=== PATIENT | male | born 1945 | race Caucasian/White ===

== ENCOUNTER → 2018-01-26 08:50 | Outpatient (CLI) | payer MEDICARE, SELFPAY ==
[2018-01-26 10:12] LABS: Absolute Lymphocyte Count 1.19 X10^3/ul (0.83-4.51); Absolute Neutrophil Count 2.6 X10^3/uL (2.0-7.7); Basophil# 0.07 X10^3/uL; Basophil% 1.4 % (0-1); Eosinophil# 0.47 X10^3/uL; Eosinophils% 9.6 % (0-5); Hematocrit 37.2 % (40-54); Hemoglobin 12.7 g/dl (13.0-16.5); Lymphocyte # 1.19 X10^3/ul (4.0); Lymphocyte % 24.3 % (19-41); Mean Corp Hgb Conc 34.1 g/gl (32-36); Mean Corpuscular Hgb 32.6 pg (27.0-32.0); Mean Corpuscular Volume 95.4 fL (80-94); Mean Platelet Vol. 11.7 fl (6.2-12.0); Monocyte# 0.57 X10^3/uL; Monocyte% 11.6 % (0-10); Neutrophil % 53.1 % (47-70); Platelet Count 223 K/mm3 (150-450); RBC Distribution Width CV 13.4 % (11.6-14.6); RBC Distribution Width SD 45.4 fl (35.1-43.9); White Blood Count 4.9 K/mm3 (4.4-11.0)
[2018-01-26 10:26] LABS: ALB/GLOB Ratio 1.1 RATIO (0.9-2.4); AST(SGOT) 27 U/L (15-37); Alanine Aminotransfer ALT/SGPT 42 U/L (16-61); Albumin, Serum 3.7 g/dL (3.2-5.0); Alkaline Phosphatase 35 U/L (45-117); Anion Gap 6 (5-15); BUN 27 mg/dL (7-18); BUN/Creat Ratio 23.7 RATIO (10-20); Calcium,Total 9.4 mg/dL (8.5-10.1); Chloride 104 mmol/L (98-107); Creatinine, Serum 1.14 mg/dL (0.70-1.30); EST Glomerular Filtration Rate 67 mL/min (>60); Est Glom Filt Rate - Afr Amer 81 mL/min (>60); Globulin 3.4 g/dL (2.2-4.2); Glucose 107 mg/dL (74-106); Potassium 3.5 mmol/L (3.5-5.1); Protein, Total 7.1 g/dL (6.4-8.2); Sodium Level 138 mmol/L (136-145)
[2018-01-26 10:31] LABS: POSITIVE COUNT NO; POSITIVE DIFFERENTIAL NO; POSITIVE MORPHOLOGY NO
== END ==
PROVIDERS: Family Provider Internal Medicine; PCP Internal Medicine; Visit Provider Internal Medicine Rheumatology
DX: M06.4 Inflammatory polyarthropathy (principal); M15.9 Polyosteoarthritis, unspecified; K76.0 Fatty (change of) liver, not elsewhere classified; K21.0 Gastro-esophageal reflux disease with esophagitis; H40.9 Unspecified glaucoma; I10 Essential (primary) hypertension; E78.5 Hyperlipidemia, unspecified; Z85.46 Personal history of malignant neoplasm of prostate
CPT/HCPCS: 36415; 80053; 85025

== ENCOUNTER → 2018-07-27 11:16 | Outpatient (CLI) | payer MEDICARE, SELFPAY ==
[2018-07-27 12:13] LABS: Absolute Lymphocyte Count 1.45 X10^3/ul (0.83-4.51); Absolute Neutrophil Count 3.2 X10^3/uL (2.0-7.7); Basophil# 0.08 X10^3/uL; Basophil% 1.4 % (0-1); Hematocrit 35.6 % (40-54); Hemoglobin 11.8 g/dl (13.0-16.5); Lymphocyte # 1.45 X10^3/ul (4.0); Lymphocyte % 25.3 % (19-41); Mean Corp Hgb Conc 33.1 g/gl (32-36); Mean Corpuscular Hgb 31.5 pg (27.0-32.0); Mean Corpuscular Volume 94.9 fL (80-94); Monocyte# 0.58 X10^3/uL; Monocyte% 10.1 % (0-10); Neutrophil # 3.21 X10^3/uL (2.7-7.7); Platelet Count 273 K/mm3 (150-450); RBC Distribution Width CV 13.6 % (11.6-14.6); RBC Distribution Width SD 47.2 fl (35.1-43.9); Red Blood Count 3.75 M/mm3 (4.6-6.2); White Blood Count 5.7 K/mm3 (4.4-11.0)
[2018-07-27 12:20] LABS: POSITIVE COUNT NO; POSITIVE DIFFERENTIAL NO; POSITIVE MORPHOLOGY NO
[2018-07-27 12:41] LABS: AST(SGOT) 30 U/L (15-37); Alanine Aminotransfer ALT/SGPT 39 U/L (16-61); Albumin, Serum 3.4 g/dL (3.2-5.0); Alkaline Phosphatase 36 U/L (45-117); Anion Gap 10 (5-15); BUN 21 mg/dL (7-18); BUN/Creat Ratio 19.1 RATIO (10-20); Calcium,Total 9.1 mg/dL (8.5-10.1); Chloride 105 mmol/L (98-107); EST Glomerular Filtration Rate 70 mL/min (>60); Est Glom Filt Rate - Afr Amer 85 mL/min (>60); Globulin 3.5 g/dL (2.2-4.2); Glucose 104 mg/dL (74-106); Potassium 3.5 mmol/L (3.5-5.1); Protein, Total 6.9 g/dL (6.4-8.2); Sodium Level 143 mmol/L (136-145)
== END ==
PROVIDERS: Family Provider Internal Medicine; PCP Internal Medicine; Referring Provider Internal Medicine Rheumatology; Visit Provider Internal Medicine Rheumatology
DX: M06.4 Inflammatory polyarthropathy (principal); M15.9 Polyosteoarthritis, unspecified; K76.0 Fatty (change of) liver, not elsewhere classified; K21.0 Gastro-esophageal reflux disease with esophagitis; H40.9 Unspecified glaucoma; I10 Essential (primary) hypertension; E78.5 Hyperlipidemia, unspecified; Z85.46 Personal history of malignant neoplasm of prostate
CPT/HCPCS: 36415; 80053; 85025

== ENCOUNTER → 2019-01-23 | Outpatient (CLI) | payer MEDICARE, SELFPAY ==
[2019-01-23 10:41] LABS: ALB/GLOB Ratio 1.1 RATIO (0.9-2.4); AST(SGOT) 29 U/L (15-37); Alanine Aminotransfer ALT/SGPT 40 U/L (16-61); Albumin, Serum 3.6 g/dL (3.2-5.0); Alkaline Phosphatase 36 U/L (45-117); Anion Gap 9 (5-15); BUN 19 mg/dL (7-18); BUN/Creat Ratio 16.8 RATIO (10-20); Calcium,Total 9.2 mg/dL (8.5-10.1); Chloride 105 mmol/L (98-107); Creatinine, Serum 1.13 mg/dL (0.70-1.30); EST Glomerular Filtration Rate 68 mL/min (>60); Est Glom Filt Rate - Afr Amer 82 mL/min (>60); Globulin 3.3 g/dL (2.2-4.2); Glucose 103 mg/dL (74-106); Potassium 3.5 mmol/L (3.5-5.1); Protein, Total 6.9 g/dL (6.4-8.2); Sodium Level 142 mmol/L (136-145)
[2019-01-23 10:44] LABS: Absolute Lymphocyte Count 1.14 X10^3/ul (0.83-4.51); Absolute Neutrophil Count 2.5 X10^3/uL (2.0-7.7); Basophil# 0.08 X10^3/uL; Basophil% 1.8 % (0-1); Eosinophil# 0.26 X10^3/uL; Eosinophils% 5.7 % (0-5); Hematocrit 35.6 % (40-54); Hemoglobin 11.9 g/dl (13.0-16.5); Lymphocyte # 1.14 X10^3/ul (4.0); Mean Corp Hgb Conc 33.4 g/gl (32-36); Mean Corpuscular Volume 95.7 fL (80-94); Mean Platelet Vol. 11.2 fl (6.2-12.0); Monocyte# 0.58 X10^3/uL; Monocyte% 12.7 % (0-10); Neutrophil # 2.49 X10^3/uL (2.7-7.7); Neutrophil % 54.6 % (47-70); POSITIVE COUNT NO; POSITIVE DIFFERENTIAL NO; POSITIVE MORPHOLOGY NO; Platelet Count 229 K/mm3 (150-450); Red Blood Count 3.72 M/mm3 (4.6-6.2); White Blood Count 4.6 K/mm3 (4.4-11.0)
== END | disposition home or self-care (01) ==
LOC: MTLAB 08:46
PROVIDERS: Family Provider Internal Medicine; PCP Internal Medicine; Referring Provider Internal Medicine Rheumatology; Visit Provider Internal Medicine Rheumatology
DX: M06.4 Inflammatory polyarthropathy (principal); M15.9 Polyosteoarthritis, unspecified; K76.0 Fatty (change of) liver, not elsewhere classified; K21.0 Gastro-esophageal reflux disease with esophagitis; H40.9 Unspecified glaucoma; I10 Essential (primary) hypertension; E78.5 Hyperlipidemia, unspecified; Z85.46 Personal history of malignant neoplasm of prostate
CPT/HCPCS: 36415; 80053; 85025

== ENCOUNTER → 2019-06-14 20:00 | Outpatient (CLI) | payer MEDICARE, SELFPAY | PROVIDERS: Family Provider Internal Medicine; PCP Internal Medicine; Referring Provider Internal Medicine; Visit Provider Internal Medicine | DX: G47.30 Sleep apnea, unspecified (principal) | CPT/HCPCS: 95811 ==

== ENCOUNTER → 2019-07-19 09:58 | Outpatient (CLI) | payer MEDICARE, SELFPAY ==
[2019-07-19 12:21] LABS: Absolute Lymphocyte Count 1.47 X10^3/uL (0.83-4.51); Absolute Neutrophil Count 3.1 X10^3/uL (2.0-7.7); Basophil# 0.07 X10^3/uL; Basophil% 1.3 % (0-1); Eosinophil# 0.31 X10^3/uL; Eosinophils% 5.6 % (0-5); Hematocrit 36.8 % (40-54); Hemoglobin 12.1 g/dL (13.0-16.5); Lymphocyte # 1.47 X10^3/ul (4.0); Lymphocyte % 26.5 % (19-41); Mean Corp Hgb Conc 32.9 g/dL (32-36); Mean Corpuscular Volume 97.4 fL (80-94); Mean Platelet Vol. 11.1 fl (6.2-12.0); Monocyte% 10.8 % (0-10); NRBC Flagged by Analyzer 0 % (0-5); Neutrophil # 3.08 X10^3/uL (2.7-7.7); Neutrophil % 55.6 % (47-70); Platelet Count 266 K/mm3 (150-450); RBC Distribution Width CV 13.2 % (11.6-14.6); RBC Distribution Width SD 47.4 fl (35.1-43.9); Red Blood Count 3.78 M/mm3 (4.6-6.2); White Blood Count 5.5 K/mm3 (4.4-11.0)
[2019-07-19 12:46] LABS: AST(SGOT) 30 U/L (15-37); Alanine Aminotransfer ALT/SGPT 43 U/L (16-61); Albumin, Serum 3.4 g/dL (3.2-5.0); Alkaline Phosphatase 36 U/L (45-117); Anion Gap 6 (5-15); BUN 29 mg/dL (7-18); BUN/Creat Ratio 22.7 RATIO (10-20); Chloride 105 mmol/L (98-107); Creatinine, Serum 1.28 mg/dL (0.70-1.30); EST Glomerular Filtration Rate 58 mL/min (>60); Est Glom Filt Rate - Afr Amer 71 mL/min (>60); Globulin 3.5 g/dL (2.2-4.2); Glucose 97 mg/dL (74-106); Potassium 3.6 mmol/L (3.5-5.1); Protein, Total 6.9 g/dL (6.4-8.2); Sodium Level 140 mmol/L (136-145)
== END ==
PROVIDERS: Family Provider Internal Medicine; PCP Internal Medicine; Referring Provider Internal Medicine Rheumatology; Visit Provider Internal Medicine Rheumatology
DX: M06.4 Inflammatory polyarthropathy (principal); M15.9 Polyosteoarthritis, unspecified; K76.0 Fatty (change of) liver, not elsewhere classified; K21.0 Gastro-esophageal reflux disease with esophagitis; H40.9 Unspecified glaucoma; I10 Essential (primary) hypertension; E78.5 Hyperlipidemia, unspecified; Z85.46 Personal history of malignant neoplasm of prostate
CPT/HCPCS: 36415; 80053; 85025

== ENCOUNTER → 2020-01-15 | Outpatient (CLI) | payer MEDICARE, SELFPAY ==
[2020-01-15 09:54] LABS: Absolute Lymphocyte Count 1.36 X10^3/uL (0.83-4.51); Basophil# 0.07 X10^3/uL; Basophil% 1.3 % (0-1); Eosinophil# 0.24 X10^3/uL; Eosinophils% 4.6 % (0-5); Hematocrit 35.8 % (40-54); Hemoglobin 11.8 g/dL (13.0-16.5); Lymphocyte # 1.36 X10^3/ul (4.0); Mean Corpuscular Hgb 32.5 pg (27.0-32.0); Mean Corpuscular Volume 98.6 fL (80-94); Mean Platelet Vol. 11.6 fl (6.2-12.0); Monocyte# 0.53 X10^3/uL; Monocyte% 10.1 % (0-10); NRBC Flagged by Analyzer 0 % (0-5); Neutrophil # 3.02 X10^3/uL (2.7-7.7); Neutrophil % 57.6 % (47-70); Platelet Count 239 K/mm3 (150-450); RBC Distribution Width CV 13.2 % (11.6-14.6); RBC Distribution Width SD 47.3 fl (35.1-43.9); Red Blood Count 3.63 M/mm3 (4.6-6.2); White Blood Count 5.2 K/mm3 (4.4-11.0)
[2020-01-15 10:12] LABS: AST(SGOT) 29 U/L (15-37); Alanine Aminotransfer ALT/SGPT 41 U/L (16-61); Albumin, Serum 3.6 g/dL (3.2-5.0); Alkaline Phosphatase 42 U/L (45-117); Anion Gap 8 (5-15); BUN 22 mg/dL (7-18); Calcium,Total 9.3 mg/dL (8.5-10.1); Chloride 103 mmol/L (98-107); Creatinine, Serum 1.05 mg/dL (0.70-1.30); EST Glomerular Filtration Rate 73 mL/min (>60); Est Glom Filt Rate - Afr Amer 89 mL/min (>60); Globulin 3.5 g/dL (2.2-4.2); Glucose 106 mg/dL (74-106); Potassium 3.5 mmol/L (3.5-5.1); Protein, Total 7.1 g/dL (6.4-8.2); Sodium Level 140 mmol/L (136-145)
== END | disposition home or self-care (01) ==
PROVIDERS: PCP Internal Medicine; Referring Provider Internal Medicine Rheumatology; Visit Provider Internal Medicine Rheumatology
DX: M06.4 Inflammatory polyarthropathy (principal); M15.9 Polyosteoarthritis, unspecified; K76.0 Fatty (change of) liver, not elsewhere classified; K21.0 Gastro-esophageal reflux disease with esophagitis; H40.9 Unspecified glaucoma; I10 Essential (primary) hypertension; E78.5 Hyperlipidemia, unspecified; Z85.46 Personal history of malignant neoplasm of prostate
CPT/HCPCS: 36415; 80053; 85025

== ENCOUNTER → 2020-04-22 | Outpatient (CLI) | payer MEDICARE, SELFPAY ==
[2020-04-22 12:29] LABS: Absolute Lymphocyte Count 1.12 X10^3/uL (0.83-4.51); Absolute Neutrophil Count 2.8 X10^3/uL (2.0-7.7); Basophil# 0.06 X10^3/uL; Basophil% 1.3 % (0-1); Eosinophil# 0.23 X10^3/uL; Eosinophils% 4.8 % (0-5); Hematocrit 32.9 % (40-54); Hemoglobin 10.5 g/dL (13.0-16.5); Lymphocyte # 1.12 X10^3/ul (4.0); Lymphocyte % 23.6 % (19-41); Mean Corp Hgb Conc 31.9 g/dL (32-36); Mean Corpuscular Volume 100.3 fL (80-94); Mean Platelet Vol. 11.6 fl (6.2-12.0); Monocyte# 0.51 X10^3/uL; Monocyte% 10.7 % (0-10); NRBC Flagged by Analyzer 0 % (0-5); Neutrophil # 2.81 X10^3/uL (2.7-7.7); Neutrophil % 59.2 % (47-70); Platelet Count 253 K/mm3 (150-450); RBC Distribution Width CV 13.2 % (11.6-14.6); RBC Distribution Width SD 48.3 fl (35.1-43.9); Red Blood Count 3.28 M/mm3 (4.6-6.2); White Blood Count 4.8 K/mm3 (4.4-11.0)
[2020-04-22 13:01] LABS: AST(SGOT) 24 U/L (15-37); Alanine Aminotransfer ALT/SGPT 30 U/L (16-61); Albumin, Serum 3.4 g/dL (3.2-5.0); Alkaline Phosphatase 65 U/L (45-117); Anion Gap 4 (5-15); BUN 19 mg/dL (7-18); BUN/Creat Ratio 17.9 RATIO (10-20); Calcium,Total 9.9 mg/dL (8.5-10.1); Chloride 106 mmol/L (98-107); Creatinine, Serum 1.06 mg/dL (0.70-1.30); EST Glomerular Filtration Rate 73 mL/min (>60); Est Glom Filt Rate - Afr Amer 88 mL/min (>60); Globulin 3.4 g/dL (2.2-4.2); Glucose 126 mg/dL (74-106); Potassium 3.5 mmol/L (3.5-5.1); Protein, Total 6.8 g/dL (6.4-8.2); Sodium Level 139 mmol/L (136-145)
== END | disposition home or self-care (01) ==
LOC: MTLAB 09:38
PROVIDERS: PCP Internal Medicine; Referring Provider Internal Medicine Rheumatology; Visit Provider Internal Medicine Rheumatology
DX: M06.4 Inflammatory polyarthropathy (principal); M17.11 Unilateral primary osteoarthritis, right knee; K76.0 Fatty (change of) liver, not elsewhere classified; K21.0 Gastro-esophageal reflux disease with esophagitis; H40.9 Unspecified glaucoma; I10 Essential (primary) hypertension; E78.5 Hyperlipidemia, unspecified; Z85.46 Personal history of malignant neoplasm of prostate
CPT/HCPCS: 36415; 80053; 85025; 97110

== ENCOUNTER 2020-05-16 13:30 | Outpatient (RCR) | payer MEDICARE, SELFPAY ==
--- NOTE | 2020-04-10 10:50 | HP.PTEVAL_ITS ---
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 Date of Evaluation: 04/10/20 Physical Therapist: Thad Gaspar, DPT, OCS, CSCS - Visit Plan Frequency: 3x /Week Duration: 4 Weeks Plan: 3x/week for 4 weeks for. 1. patellar mobs and A/PROM R knee. 2. Strength R hip and knee. 3. gait and stair training including off floor for garden/pond. 4. ice as needed. adn stretch HS adn quads to HEP - Subjective R TKA 3 weeks ago. WEnt well. Lots of pain prior to the replacement. Has gone well. Firsst week was painfula dn swelling. Now is swollen in front. Will see doctor tomorrow. Truning in bed can cause pain. Walking feels pretty good. Uses cane all of the time for steadiness. No more walker needed. This week pain has been up to 2/10 and is comfortable at rest unless he sits too long. Sleep is OK in chair to avoid side. Getting a good night sleep, is stiff in am. Not employed, retired. Spends day babysitting grandkids and taking care of yard. and pond. Takes day trips. Has TM in basement. Works out at [email or web address]. Has not been working outdoors. Basic ADLs are going OK. 15 steps to bedroom. Doing them for a week. Railing present. Showered last week. - Pain R knee Pain Intensity (Out of 10): 0 Pain Intensity Range: 0, 2 - Objective Walks I with cane in R UE on firm flat surface with good balance. Without AD does well, avoids some knee flexion at swing on R but safe. Steps require rail and only using L appropriately. R too weak to push up step. Trasnfers are I with UE.L knee -12 AROM to 90 and passively -6 with pain to 100 after stretching. Strength R quad 3+, HS 3+, L is 4+, hips 4- B abd and ext, ankles 4+ B. HS and quads max tight B. AROM hips WFL, L knee0-125. ankles WFL B ROM. Sensation LE WNL to gross light touch. No extension lag with current ROM with SLR. R leg slightly swollen vs L. Patella moves well medial lateral on R but stiff in distal direction. - Balance Scores Functional Gait Assessment Score: 27 % Disability: 10.0000 - Goals Goal 1:: Walk withotu AD in community without pain or gait deviations. Goal 2:: Steps reciprocal with one rail without pain Goal Time Frame: 2-4 Weeks Goal 3:: Patient feel 75% back to normal activity Goal Time Frame: 4-6 Weeks Goal 4:: LEFS 48+ Goal Time Frame: 2-4 Weeks - Rehabilitation Potential Physical Therapy Diagnosis: R knee OA Rehabilitation Potential: Good - Anticipated Interventions Patient/Client Instruction: Educate patient on: Condition, Plan of Care For the Purpose of:: To decrease pain, To increase ROM, To improve muscle performance and motor function, To increase tolerance to activity/condition/position, To improve ability of physical actions for home/community/work/leisure Therapeutic Exercise to Include: Strength training, Postural training, Flexibilty training, Gait and locomotor training, Passive ROM, Active ROM For the Purpose of:: To decrease pain, To improve muscle performance and motor function, To increase tolerance to activity/condition/position, To improve abili ty of physical actions for home/community/work/leisure, To improve gait and locomotor functions Manual Therapy Techniques to Include: Mobilization For the Purpose of:: To increase ROM Cryotherapy (ice pack, ice massage): Yes For the Purpose of:: To decrease swelling/inflammation Thank you for the opportunity to evaluate your patient. For Medicare and Medicare HMO plans, please review the plan of care and approve it. It will need to be FAXED BACK to us at [phone] for Medicare purposes. For Medicare only, by signing this I certify the plan of care. Please let me know if there are questions or concerns regarding this plan of care. Physician Signature: Date:
--- NOTE | 2020-05-16 14:40 | HP.PTDCSUM ---
It has been my pleasure to treat DEMETRIUS MEAD referred by BRYANT ESCOTO, with the diagnosis of R Knee OA s/p TKA 03/20/20 for a total of 12 visit(s). Discharge Date: Please see the following information for a summary of their discharge status. Subjective: I feel great, I dont really have pain R knee Pain Intensity (Out of 10): 0 % Improvement: 85 Objective/Function: R knee pain 0/10. R knee ROM: 0-4-120 degrees. R knee MMT: 5/5 throughout. Pt is I with gym ex's. Rx goals achieved Goal 1:: Walk withotu AD in community without pain or gait deviations. Goal Progress: Goal Met Goal 2:: Steps reciprocal with one rail without pain Goal Progress: Progressing Goal 3:: Patient feel 75% back to normal activity Goal Progress: Goal Met Goal 4:: LEFS 48+ Goal Progress: Goal Met Plan: Discharge If there are questions or concerns regarding this patient's physical therapy, please feel free to call me at [phone]. Thank you for the referral of this patient. Sincerely, Elliot Nuñez, PT, ATC
== END 2020-05-16 19:00 | disposition home or self-care (01) ==
LOC: PT 13:30
PROVIDERS: PCP Internal Medicine
DX: M17.11 Unilateral primary osteoarthritis, right knee (principal)
CPT/HCPCS: 97110; 97161; 97164

== ENCOUNTER → 2020-10-22 09:28 | Outpatient (CLI) | payer MEDICARE, SELFPAY ==
[2020-10-22 10:18] LABS: Absolute Lymphocyte Count 1.34 X10^3/uL (0.83-4.51); Absolute Neutrophil Count 2.8 X10^3/uL (2.0-7.7); Basophil# 0.08 X10^3/uL; Basophil% 1.6 % (0-1); Eosinophil# 0.28 X10^3/uL; Eosinophils% 5.6 % (0-5); Hemoglobin 11.2 g/dL (13.0-16.5); Lymphocyte # 1.34 X10^3/ul (4.0); Lymphocyte % 26.7 % (19-41); Mean Corpuscular Hgb 31.5 pg (27.0-32.0); Mean Corpuscular Volume 98.6 fL (80-94); Mean Platelet Vol. 11.2 fl (6.2-12.0); Monocyte# 0.52 X10^3/uL; Monocyte% 10.4 % (0-10); NRBC Flagged by Analyzer 0 % (0-5); Neutrophil # 2.79 X10^3/uL (2.7-7.7); Neutrophil % 55.5 % (47-70); Platelet Count 266 K/mm3 (150-450); RBC Distribution Width CV 13.6 % (11.6-14.6); RBC Distribution Width SD 50.2 fl (35.1-43.9); Red Blood Count 3.55 M/mm3 (4.6-6.2)
[2020-10-22 11:06] LABS: ALB/GLOB Ratio 1.1 RATIO (0.9-2.4); AST(SGOT) 30 U/L (15-37); Alanine Aminotransfer ALT/SGPT 39 U/L (16-61); Albumin, Serum 3.6 g/dL (3.2-5.0); Alkaline Phosphatase 52 U/L (45-117); Anion Gap 7 (5-15); BUN 24 mg/dL (7-18); Calcium,Total 9.5 mg/dL (8.5-10.1); Chloride 104 mmol/L (98-107); Creatinine, Serum 1.09 mg/dL (0.70-1.30); EST Glomerular Filtration Rate 70 mL/min (>60); Est Glom Filt Rate - Afr Amer 85 mL/min (>60); Globulin 3.2 g/dL (2.2-4.2); Glucose 104 mg/dL (74-106); Potassium 3.4 mmol/L (3.5-5.1); Protein, Total 6.8 g/dL (6.4-8.2); Sodium Level 140 mmol/L (136-145)
== END ==
PROVIDERS: PCP Internal Medicine; Referring Provider Internal Medicine Rheumatology; Visit Provider Internal Medicine Rheumatology
DX: M06.4 Inflammatory polyarthropathy (principal); M17.0 Bilateral primary osteoarthritis of knee; K76.0 Fatty (change of) liver, not elsewhere classified; K21.00 Gastro-esophageal reflux disease with esophagitis, without bleeding; H40.9 Unspecified glaucoma; I10 Essential (primary) hypertension; E78.5 Hyperlipidemia, unspecified; Z85.46 Personal history of malignant neoplasm of prostate
CPT/HCPCS: 36415; 80053; 85025

== ENCOUNTER → 2021-04-14 08:54 | Outpatient (CLI) | payer MEDICARE, SELFPAY ==
[2021-04-14 10:21] LABS: Absolute Lymphocyte Count 1.16 X10^3/uL (0.83-4.51); Absolute Neutrophil Count 2.6 X10^3/uL (2.0-7.7); Basophil# 0.07 X10^3/uL; Basophil% 1.4 % (0-1); Eosinophils% 10.2 % (0-5); Hematocrit 34.7 % (40-54); Hemoglobin 11.2 g/dL (13.0-16.5); Lymphocyte # 1.16 X10^3/ul (0.83-4.51); Lymphocyte % 23.6 % (19-41); Mean Corp Hgb Conc 32.3 g/dL (32-36); Mean Corpuscular Hgb 31.9 pg (27.0-32.0); Mean Corpuscular Volume 98.9 fL (80-94); Monocyte# 0.56 X10^3/uL; Monocyte% 11.4 % (0-10); NRBC Flagged by Analyzer 0 % (0-5); Neutrophil # 2.61 X10^3/uL (2.7-7.7); Neutrophil % 53.2 % (47-70); Platelet Count 299 K/mm3 (150-450); RBC Distribution Width SD 50.8 fl (35.1-43.9); Red Blood Count 3.51 M/mm3 (4.6-6.2); White Blood Count 4.9 K/mm3 (4.4-11.0)
[2021-04-14 11:23] LABS: ALB/GLOB Ratio 0.9 RATIO (0.9-2.4); AST(SGOT) 27 U/L (15-37); Alanine Aminotransfer ALT/SGPT 37 U/L (16-61); Albumin, Serum 3.4 g/dL (3.2-5.0); Alkaline Phosphatase 47 U/L (45-117); Anion Gap 6 (5-15); BUN 25 mg/dL (7-18); BUN/Creat Ratio 23.6 RATIO (10-20); Calcium,Total 9.7 mg/dL (8.5-10.1); Chloride 105 mmol/L (98-107); Creatinine, Serum 1.06 mg/dL (0.70-1.30); EST Glomerular Filtration Rate 72 mL/min (>60); Est Glom Filt Rate - Afr Amer 88 mL/min (>60); Globulin 3.7 g/dL (2.2-4.2); Glucose 104 mg/dL (74-106); Potassium 3.5 mmol/L (3.5-5.1); Protein, Total 7.1 g/dL (6.4-8.2); Sodium Level 139 mmol/L (136-145)
== END ==
PROVIDERS: PCP Internal Medicine; Referring Provider Internal Medicine Rheumatology; Visit Provider Internal Medicine Rheumatology
DX: M06.4 Inflammatory polyarthropathy (principal); M17.0 Bilateral primary osteoarthritis of knee; K76.0 Fatty (change of) liver, not elsewhere classified; K21.00 Gastro-esophageal reflux disease with esophagitis, without bleeding; H40.9 Unspecified glaucoma; I10 Essential (primary) hypertension; E78.5 Hyperlipidemia, unspecified; Z85.46 Personal history of malignant neoplasm of prostate
CPT/HCPCS: 36415; 80053; 85025

== ENCOUNTER 2021-10-21 09:59 | Outpatient (CLI) | payer MEDICARE, SELFPAY ==
[2021-10-21 12:09] LABS: Absolute Lymphocyte Count 1.13 X10^3/uL (0.83-4.51); Absolute Neutrophil Count 2.7 X10^3/uL (2.0-7.7); Basophil# 0.07 X10^3/uL; Basophil% 1.5 % (0-1); Eosinophil# 0.34 X10^3/uL; Eosinophils% 7.1 % (0-5); Hematocrit 33.3 % (40-54); Hemoglobin 11.2 g/dL (13.0-16.5); Lymphocyte # 1.13 X10^3/ul (0.83-4.51); Lymphocyte % 23.5 % (19-41); Mean Corp Hgb Conc 33.6 g/dL (32-36); Mean Corpuscular Hgb 32.5 pg (27.0-32.0); Mean Corpuscular Volume 96.5 fL (80-94); Mean Platelet Vol. 11.5 fl (6.2-12.0); Monocyte# 0.51 X10^3/uL; Monocyte% 10.6 % (0-10); NRBC Flagged by Analyzer 0 % (0-5); Neutrophil # 2.74 X10^3/uL (2.7-7.7); Neutrophil % 56.9 % (47-70); Platelet Count 261 K/mm3 (150-450); RBC Distribution Width CV 14.1 % (11.6-14.6); RBC Distribution Width SD 50.2 fl (35.1-43.9); Red Blood Count 3.45 M/mm3 (4.6-6.2); White Blood Count 4.8 K/mm3 (4.4-11.0)
[2021-10-21 12:33] LABS: ALB/GLOB Ratio 1.1 RATIO (0.9-2.4); AST(SGOT) 33 U/L (15-37); Alanine Aminotransfer ALT/SGPT 41 U/L (16-61); Albumin, Serum 3.6 g/dL (3.2-5.0); Alkaline Phosphatase 42 U/L (45-117); Anion Gap 4 (5-15); BUN 24 mg/dL (7-18); Calcium,Total 9.5 mg/dL (8.5-10.1); Chloride 106 mmol/L (98-107); EST Glomerular Filtration Rate 63 mL/min (>60); Est Glom Filt Rate - Afr Amer 76 mL/min (>60); Globulin 3.3 g/dL (2.2-4.2); Glucose 116 mg/dL (74-106); Potassium 3.6 mmol/L (3.5-5.1); Protein, Total 6.9 g/dL (6.4-8.2); Sodium Level 139 mmol/L (136-145)
== END 2021-10-21 23:59 | disposition home or self-care (01) ==
LOC: MTLAB 10:00
PROVIDERS: PCP Internal Medicine; Referring Provider Internal Medicine Rheumatology; Visit Provider Internal Medicine Rheumatology
DX: M06.4 Inflammatory polyarthropathy (principal); M15.9 Polyosteoarthritis, unspecified; M25.562 Pain in left knee; K76.0 Fatty (change of) liver, not elsewhere classified; K21.00 Gastro-esophageal reflux disease with esophagitis, without bleeding; H40.9 Unspecified glaucoma; I10 Essential (primary) hypertension; E78.5 Hyperlipidemia, unspecified; Z85.46 Personal history of malignant neoplasm of prostate
CPT/HCPCS: 36415; 80053; 85025

== ENCOUNTER → 2022-04-13 | Outpatient (CLI) | payer MEDICARE, SELFPAY ==
[2022-04-13 09:56] LABS: Absolute Neutrophil Count 3.2 X10^3/uL (2.0-7.7); Basophil# 0.06 X10^3/uL; Basophil% 1.1 % (0-1); Eosinophil# 0.33 X10^3/uL; Eosinophils% 6.3 % (0-5); Hematocrit 32.7 % (40-54); Hemoglobin 10.7 g/dL (13.0-16.5); Mean Corp Hgb Conc 32.7 g/dL (32-36); Mean Corpuscular Hgb 32.5 pg (27.0-32.0); Mean Corpuscular Volume 99.4 fL (80-94); Mean Platelet Vol. 11.3 fl (6.2-12.0); Monocyte# 0.54 X10^3/uL; Monocyte% 10.3 % (0-10); NRBC Flagged by Analyzer 0 % (0-5); Neutrophil # 3.19 X10^3/uL (2.7-7.7); Neutrophil % 61.1 % (47-70); Platelet Count 266 K/mm3 (150-450); RBC Distribution Width CV 13.9 % (11.6-14.6); Red Blood Count 3.29 M/mm3 (4.6-6.2); White Blood Count 5.2 K/mm3 (4.4-11.0)
[2022-04-13 10:22] LABS: ALB/GLOB Ratio 0.9 RATIO (0.9-2.4); AST(SGOT) 30 U/L (15-37); Alanine Aminotransfer ALT/SGPT 38 U/L (16-61); Albumin, Serum 3.3 g/dL (3.2-5.0); Alkaline Phosphatase 35 U/L (45-117); Anion Gap 10 (5-15); BUN 27 mg/dL (7-18); BUN/Creat Ratio 19.4 RATIO (10-20); Calcium,Total 9.5 mg/dL (8.5-10.1); Chloride 104 mmol/L (98-107); Creatinine, Serum 1.39 mg/dL (0.70-1.30); EST Glomerular Filtration Rate 53 mL/min (>60); Est Glom Filt Rate - Afr Amer 64 mL/min (>60); Globulin 3.5 g/dL (2.2-4.2); Glucose 97 mg/dL (74-106); Potassium 3.7 mmol/L (3.5-5.1); Protein, Total 6.8 g/dL (6.4-8.2); Sodium Level 141 mmol/L (136-145)
== END | disposition home or self-care (01) ==
LOC: MTLAB 09:04
PROVIDERS: PCP Internal Medicine; Referring Provider Internal Medicine Rheumatology; Visit Provider Internal Medicine Rheumatology
DX: M06.4 Inflammatory polyarthropathy (principal); M25.562 Pain in left knee; M17.0 Bilateral primary osteoarthritis of knee; K76.0 Fatty (change of) liver, not elsewhere classified; M19.041 Primary osteoarthritis, right hand; H40.9 Unspecified glaucoma; I10 Essential (primary) hypertension; E78.5 Hyperlipidemia, unspecified; K21.9 Gastro-esophageal reflux disease without esophagitis; Z85.46 Personal history of malignant neoplasm of prostate; Z79.899 Other long term (current) drug therapy
CPT/HCPCS: 36415; 80053; 85025

== ENCOUNTER → 2023-04-06 | Outpatient (CLI) | payer MEDICARE, SELFPAY ==
[2023-04-06 10:22] LABS: Absolute Lymphocyte Count 1.33 X10^3/uL (0.83-4.51); Absolute Neutrophil Count 2.7 X10^3/uL (2.0-7.7); Basophil# 0.09 X10^3/uL; Basophil% 1.7 % (0-1); Eosinophils% 9.5 % (0-5); Hematocrit 32.7 % (40-54); Hemoglobin 10.4 g/dL (13.0-16.5); Lymphocyte # 1.33 X10^3/ul (0.83-4.51); Lymphocyte % 25.1 % (19-41); Mean Corp Hgb Conc 31.8 g/dL (32-36); Mean Corpuscular Volume 100.6 fL (80-94); Mean Platelet Vol. 11.8 fl (6.2-12.0); Monocyte# 0.63 X10^3/uL; Monocyte% 11.9 % (0-10); NRBC Flagged by Analyzer 0 % (0-5); Neutrophil # 2.72 X10^3/uL (2.7-7.7); Neutrophil % 51.4 % (47-70); Platelet Count 274 K/mm3 (150-450); RBC Distribution Width CV 14.8 % (11.6-14.6); RBC Distribution Width SD 55.1 fl (35.1-43.9); Red Blood Count 3.25 M/mm3 (4.6-6.2); White Blood Count 5.3 K/mm3 (4.4-11.0)
[2023-04-06 10:51] LABS: AST(SGOT) 32 U/L (15-37); Alanine Aminotransfer ALT/SGPT 42 U/L (16-61); Albumin, Serum 3.3 g/dL (3.2-5.0); Alkaline Phosphatase 34 U/L (45-117); Anion Gap 4 (5-15); BUN 23 mg/dL (7-18); BUN/Creat Ratio 16.2 RATIO (10-20); Calcium,Total 9.3 mg/dL (8.5-10.1); Chloride 107 mmol/L (98-107); Creatinine, Serum 1.42 mg/dL (0.70-1.30); EST Glomerular Filtration Rate 51 mL/min (>60); Est Glom Filt Rate - Afr Amer 62 mL/min (>60); Globulin 3.2 g/dL (2.2-4.2); Glucose 96 mg/dL (74-106); Potassium 3.7 mmol/L (3.5-5.1); Protein, Total 6.5 g/dL (6.4-8.2); Sodium Level 138 mmol/L (136-145)
== END | disposition home or self-care (01) ==
LOC: MTLAB 08:07
PROVIDERS: PCP Internal Medicine; Referring Provider Internal Medicine Rheumatology; Visit Provider Internal Medicine Rheumatology
DX: M06.4 Inflammatory polyarthropathy (principal); Z79.899 Other long term (current) drug therapy
CPT/HCPCS: 36415; 80053; 85025

== ENCOUNTER → 2023-09-27 | Outpatient (CLI) | payer MEDICARE, SELFPAY ==
[2023-09-27 10:23] LABS: Absolute Lymphocyte Count 1.31 X10^3/uL (0.83-4.51); Absolute Neutrophil Count 2.7 X10^3/uL (2.0-7.7); Basophil# 0.07 X10^3/uL; Basophil% 1.4 % (0-1); Eosinophil# 0.38 X10^3/uL; Eosinophils% 7.6 % (0-5); Hematocrit 32.3 % (40-54); Hemoglobin 10.5 g/dL (13.0-16.5); Lymphocyte # 1.31 X10^3/ul (0.83-4.51); Lymphocyte % 26.2 % (19-41); Mean Corp Hgb Conc 32.5 g/dL (32-36); Mean Corpuscular Volume 98.5 fL (80-94); Mean Platelet Vol. 11.5 fl (6.2-12.0); Monocyte# 0.53 X10^3/uL; Monocyte% 10.6 % (0-10); NRBC Flagged by Analyzer 0 % (0-5); Platelet Count 229 K/mm3 (150-450); RBC Distribution Width CV 14.3 % (11.6-14.6); RBC Distribution Width SD 52.3 fl (35.1-43.9); Red Blood Count 3.28 M/mm3 (4.6-6.2)
[2023-09-27 10:45] LABS: ALB/GLOB Ratio 1.1 RATIO (0.9-2.4); AST(SGOT) 32 U/L (15-37); Alanine Aminotransfer ALT/SGPT 36 U/L (16-61); Albumin, Serum 3.4 g/dL (3.2-5.0); Alkaline Phosphatase 34 U/L (45-117); Anion Gap 6 (5-15); BUN 36 mg/dL (7-18); BUN/Creat Ratio 24.7 RATIO (10-20); Calcium,Total 9.4 mg/dL (8.5-10.1); Chloride 108 mmol/L (98-107); Creatinine, Serum 1.46 mg/dL (0.70-1.30); EST Glomerular Filtration Rate 50 mL/min (>60); Est Glom Filt Rate - Afr Amer 60 mL/min (>60); Globulin 3.1 g/dL (2.2-4.2); Glucose 99 mg/dL (74-106); Potassium 3.6 mmol/L (3.5-5.1); Protein, Total 6.5 g/dL (6.4-8.2); Sodium Level 142 mmol/L (136-145)
== END | disposition home or self-care (01) ==
LOC: MTLAB 08:48
PROVIDERS: PCP Internal Medicine; Referring Provider Internal Medicine Rheumatology; Visit Provider Internal Medicine Rheumatology
DX: M06.4 Inflammatory polyarthropathy (principal); K76.0 Fatty (change of) liver, not elsewhere classified; Z79.899 Other long term (current) drug therapy
CPT/HCPCS: 36415; 80053; 85025

== ENCOUNTER → 2024-03-28 | Outpatient (CLI) | payer MEDICARE, SELFPAY ==
[2024-03-28 10:37] LABS: Absolute Lymphocyte Count 1.12 X10^3/uL (0.83-4.51); Absolute Neutrophil Count 3.5 X10^3/uL (2.0-7.7); Basophil# 0.09 X10^3/uL; Basophil% 1.6 % (0-1); Eosinophil# 0.41 X10^3/uL; Eosinophils% 7.1 % (0-5); Hematocrit 32.3 % (40-54); Hemoglobin 10.6 g/dL (13.0-16.5); Lymphocyte # 1.12 X10^3/ul (0.83-4.51); Lymphocyte % 19.4 % (19-41); Mean Corp Hgb Conc 32.8 g/dL (32-36); Mean Corpuscular Hgb 32.6 pg (27.0-32.0); Mean Corpuscular Volume 99.4 fL (80-94); Mean Platelet Vol. 11.5 fl (6.2-12.0); Monocyte# 0.64 X10^3/uL; Monocyte% 11.1 % (0-10); NRBC Flagged by Analyzer 0 % (0-5); Neutrophil % 60.5 % (47-70); Platelet Count 252 K/mm3 (150-450); RBC Distribution Width CV 13.6 % (11.6-14.6); Red Blood Count 3.25 M/mm3 (4.6-6.2); White Blood Count 5.8 K/mm3 (4.4-11.0)
[2024-03-28 11:27] LABS: AST(SGOT) 30 U/L (15-37); Alanine Aminotransfer ALT/SGPT 37 U/L (16-61); Albumin, Serum 3.4 g/dL (3.2-5.0); Alkaline Phosphatase 37 U/L (45-117); Anion Gap 8 (5-15); BUN 35 mg/dL (7-18); Calcium,Total 9.7 mg/dL (8.5-10.1); Chloride 104 mmol/L (98-107); Creatinine, Serum 1.46 mg/dL (0.70-1.30); EST Glomerular Filtration Rate 50 mL/min (>60); Est Glom Filt Rate - Afr Amer 60 mL/min (>60); Globulin 3.4 g/dL (2.2-4.2); Glucose 95 mg/dL (74-106); Potassium 3.9 mmol/L (3.5-5.1); Protein, Total 6.8 g/dL (6.4-8.2); Sodium Level 137 mmol/L (136-145)
== END | disposition home or self-care (01) ==
LOC: MTLAB 08:42
PROVIDERS: PCP Internal Medicine; Referring Provider Internal Medicine Rheumatology; Visit Provider Internal Medicine Rheumatology
DX: M06.4 Inflammatory polyarthropathy (principal); M17.0 Bilateral primary osteoarthritis of knee; K76.0 Fatty (change of) liver, not elsewhere classified; M25.562 Pain in left knee; Z79.899 Other long term (current) drug therapy
CPT/HCPCS: 36415; 80053; 85025

== ENCOUNTER → 2024-09-04 | Outpatient (CLI) | payer MEDICARE, SELFPAY ==
[2024-09-04 10:16] LABS: Absolute Lymphocyte Count 1.09 X10^3/uL (0.83-4.51); Absolute Neutrophil Count 2.5 X10^3/uL (2.0-7.7); Basophil# 0.09 X10^3/uL; Basophil% 1.9 % (0-1); Eosinophil# 0.38 X10^3/uL; Eosinophils% 8.1 % (0-5); Hematocrit 32.4 % (40-54); Hemoglobin 10.4 g/dL (13.0-16.5); Lymphocyte # 1.09 X10^3/ul (0.83-4.51); Lymphocyte % 23.1 % (19-41); Mean Corp Hgb Conc 32.1 g/dL (32-36); Mean Corpuscular Hgb 31.4 pg (27.0-32.0); Mean Corpuscular Volume 97.9 fL (80-94); Mean Platelet Vol. 11.5 fl (6.2-12.0); Monocyte# 0.61 X10^3/uL; NRBC Flagged by Analyzer 0 % (0-5); Neutrophil # 2.53 X10^3/uL (2.7-7.7); Neutrophil % 53.7 % (47-70); Platelet Count 216 K/mm3 (150-450); RBC Distribution Width CV 14.1 % (11.6-14.6); RBC Distribution Width SD 50.4 fl (35.1-43.9); Red Blood Count 3.31 M/mm3 (4.6-6.2); White Blood Count 4.7 K/mm3 (4.4-11.0)
[2024-09-04 12:43] LABS: AST(SGOT) 36 U/L (15-37); Alanine Aminotransfer ALT/SGPT 44 U/L (16-61); Albumin, Serum 3.3 g/dL (3.2-5.0); Alkaline Phosphatase 38 U/L (45-117); Anion Gap 6 (5-15); BUN 34 mg/dL (7-18); BUN/Creat Ratio 25.8 RATIO (10-20); Calcium,Total 9.6 mg/dL (8.5-10.1); Chloride 108 mmol/L (98-107); Creatinine, Serum 1.32 mg/dL (0.70-1.30); EST Glomerular Filtration Rate 56 mL/min (>60); Est Glom Filt Rate - Afr Amer 67 mL/min (>60); Globulin 3.3 g/dL (2.2-4.2); Glucose 91 mg/dL (74-106); Potassium 3.7 mmol/L (3.5-5.1); Protein, Total 6.6 g/dL (6.4-8.2); Sodium Level 140 mmol/L (136-145)
== END | disposition home or self-care (01) ==
LOC: MTLAB 09:02
PROVIDERS: PCP Internal Medicine; Referring Provider Internal Medicine Rheumatology; Visit Provider Internal Medicine Rheumatology
DX: M06.4 Inflammatory polyarthropathy (principal); Z79.899 Other long term (current) drug therapy; M25.562 Pain in left knee; K76.0 Fatty (change of) liver, not elsewhere classified
CPT/HCPCS: 36415; 80053; 85025

== ENCOUNTER 2025-01-16 16:23 | Emergency (ER) | payer MEDICARE, SELFPAY ==
[2025-01-16 16:24] VITALS: BP 125/57; PULSE 63; RESP 15; TEMP 36.4; O2SAT 100; BMI 32.6
--- NOTE | 2025-01-16 18:35 | ED.RN ---
Pt brought from waiting room to ED patient room. Pt states he had a normal bm while he was waiting and is going to go home and take stool softeners.
--- OUTSIDE RECORDS SUMMARY | 2025-01-16 22:58 | XMS RPT_ITS | CCD ---
Author Organization [facility] Care Team Providers Care Subassembler Name Role Phone LUIS, DUSTY E Unavailable Unavailable LUIS, DUSTY E Unavailable Unavailable LUIS, DUSTY Unavailable Unavailable LUIS, DUSTY Unavailable Unavailable [facility] Unavailable Unavailable LUIS, DUSTY Unavailable Unavailable LUIS, DUSTY Unavailable Unavailable [facility] Unavailable Unavailable Chau KHAN, Sudheer Anne Primary Care Provider [phone] Chau KHAN, Sudheer Anne Primary Care Provider [phone] Sudheer Ritchie MD Primary Care Provider [phone] Chau KHAN, Sudheer Anne Primary Care Provider [phone] [place]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.Louann PARADA Unavailable [phone] Ruth Marie Attending Unavailable Ruth Marie Referring Unavailable Sudheer Ritchie Primary Care Unavailable Ruth Marie Attending Unavailable Ruth Marie Referring Unavailable Sudheer Ritchie Primary Care Unavailable Ruth Marie Attending Unavailable Ruth Marie Referring Unavailable Sudheer Ritchie Primary Care Unavailable SUDHEER RITCHIE Attending Unavailable SUDHEER RITCHIE Primary Care Unavailable CALI DAWSON Attending Unavailab le SUDHEER RITCHIE Primary Care Unavailable LOUANN LYNNE Referring Unavailable SUDHEER RITCHIE Primary Care Unavailable LOUANN LYNNE Attending Unavailable SUDHEER RITCHIE Primary Care Unavailable SUDHEER RITCHIE Attending Unavailable SUDHEER RITCHIE Primary Care Unavailable SUDHEER RITCHIE Referring Unavailable SUDHEER RITCHIE Primary Care Unavailable SUDHEER RITCHIE Primary Care Unavailable KATTY MCALLISTER Attending Unavailable SUDHEER RITCHIE Referring Unavailable SUDHEER RITCHIE Primary Care Unavailable SUDHEER RITCHIE Attending Unavailable SUDHEER RITCHIE Primary Care Unavailable SUDHEER RITCHIE Referring Unavailable SUDHEER RITCHIE Primary Care Unavailable SUDHEER RITCHIE Attending Unavailable SUDHEER RITCHIE Primary Care Unavailable SUDHEER RITCHIE Referring Unavailable SUDHEER RITCHIE Primary Care Unavailable Chau KHAN, Dr. Willard Primary Care Provider Provider, Ed Physician Emergency Provider Mattie felix Allergies Allergy Classification Reported Allergen(s) Allergy Type Date of Onset Reaction(s) Facility (20 sources) Adhesive agent; Translations: [ADHESIVE] Propensity to adverse reactions to drug (disorder) 2 Other: See Comments [facility] (20 sources) pantoprazole; Translations: [PANTOPRAZOLE] Drug Allergy 0 [facility] (20 sources) Sulfonamides (Antibiotic); Translations: [SULFA (SULFONAMIDE ANTIBIOTICS)] Propensity to adverse reactions to drug (disorder) 5 [facility] Medications Current Medications Medication Drug Class(es) Dates Sig (Normalized) Sig (Original) amLODIPine 10 mg oral tablet (20 sources) Dihydropyridine Calcium Channel Sydni Start: 04-22-2023 End: 12-23-2024 take 1 tablet by mouth once daily amLODIPine (NORVASC) 10 mg tablet Indications: Essential hypertension Take 1 tablet by mouth once daily. 90 tablet 3 12/24/2024 Active Start: 07-30-2022 take 1 tablet by darcie th once daily amLODIPine (NORVASC) 10 mg tablet Take 1 tablet by mouth once daily. 90 tablet 3 07/30/2022 Active Start: 08-14-2021 End: 07-28-2022 take 1 tablet by mouth once daily amLODIPine (NORVASC) 10 mg tablet Take 1 tablet by mouth once daily. 90 tablet 3 08/14/2021 07/28/2022 Discontinued Comment on above: Take 1 tablet by darcie th once daily. aspirin 81 mg delayed release oral tablet (20 sources) Platelet Aggregation Inhibitor, Nonsteroidal Anti-inflammatory Drug Start: 09-30-19 take 1 tablet by mouth once daily aspirin, enteric coated (ASPIRIN, ENTERIC COATED) 81 mg EC tablet Take 1 tablet by mouth once daily. 0 09/30/2011 Active Comment on above: Take 1 tablet by darcie once daily. benzonatate 100 mg oral capsule (1 source) Non-narcotic Antitussive Start: 01-02-20 End: 01-09-20 take 1 capsule by mouth every eight hours as needed benzonatate (TESSALON PERLE) 100 mg capsule Take 1 capsule by mouth three times a day as needed for cough for up to 7 days. 21 capsule 01/01/2025 01/08/2025 Active betamethasone 0.5 mg/ml / clotrimazole 10 mg/ml topical cream (20 sources) Azole Antifungal, Corticosteroid Start: 08-01-19 End: 04-17-20 clotrimazole-betame thasone (LOTRISONE) cream Indications: Psoriasis Apply to rash on leg , twice daily 45 g 5 04/17/2024 Active Start: 04-22-2023 clotrimazole-b etamethasone (LOTRISONE) cream Indications: Psoriasis Apply to rash on leg , twice daily 45 g 5 04/22/2023 Active Start: 07-30-2022 clotrimazole-b etamethasone (LOTRISONE) cream Apply to rash on leg , twice daily 45 g 5 07/30/2022 Active Start: 08-14-2021 End: 07-28-2022 clotrimazole-betamethasone ( LOTRISONE) cream Apply to rash on leg , twice daily 45 g 5 08/14/2021 07/28/2022 Discontinued Comment on above: Apply to rash on leg , twice daily doxazosin 8 mg oral tablet (20 sources) alpha-Adrenergic Sydni Start: 08-14-2024 End: 01-14-2025 take 1 tablet by mouth once daily at bedtime doxazosin (CARDURA) 8 mg tablet Indications: Lower urinary tract symptoms (LUTS) Take 1 tablet by mouth daily at bedtime. 90 tablet 1 01/14/2025 Active Start: 06-19-2024 End: 08-14-2024 take 1.5 tablets by mouth once daily doxazosin (CARDURA) 8 mg tablet Indications: Lower urinary tract symptoms (LUTS) Take 1.5 tablets by mouth once daily. 135 tablet 3 08/06/2024 08/14/2024 Discontinued Start: 04-22-2023 End: 06-19-2024 take 1 tablet by mouth once daily doxazosin (CARDURA) 8 mg tablet Indications: Lower urinary tract symptoms (LUTS) Take 1 tablet by mouth once daily. 90 tablet 3 04/17/2024 06/19/2024 Discontinued Start: 07-30-2022 take 1 tablet by darcie th once daily doxazosin (CARDURA) 8 mg tablet Take 1 tablet by mouth once daily. 90 tablet 3 07/30/2022 Active Start: 08-14-2021 End: 07-28-2022 take 1 tablet by mouth once daily doxazosin (CARDURA) 8 mg tablet Take 1 tablet by mouth once daily. 90 tablet 3 08/14/2021 07/28/2022 Discontinued Comment on above: Take 1 tablet by darcie th once daily. doxycycline hyclate 100 mg oral capsule (1 source) Tetracycline-class Drug Start: 01-02-20 End: 01-09-20 take 1 capsule by mouth twice daily doxycycline hyclate (VIBRAMYCIN) 100 mg capsule Take 1 capsule by mouth two times a day for 7 days. 14 capsule 01/01/2025 01/08/2025 Active fenofibrate 160 mg oral tablet (20 sources) Peroxisome Proliferator Receptor alpha Agonist Start: 04-22-20 End: 12-24-19 take 1 tablet by mouth once daily Fenofibrate (LOFIBRA) 160 mg tablet Indications: Mixed hyperlipidemia Take 1 tablet by mouth once daily. 90 tablet 3 12/24/2024 Active Start: 07-30-2022 take 1 tablet by darcie th once daily Fenofibrate (LOFIBRA) 160 mg tablet Take 1 tablet by mouth once daily. 90 tablet 3 07/30/2022 Active Start: 08-14-2021 End: 07-28-2022 take 1 tablet by mouth once daily Fenofibrate (LOFIBRA) 160 mg tablet Take 1 tablet by mouth once daily. 90 tablet 3 08/14/2021 07/28/2022 Discontinued Comment on above: Take 1 tablet by darcie th once daily. fluticasone propionate 0.05 mg/actuat metered dose nasal spray (20 sources) Corticosteroid Start: End: take 1 spray(s) nasal route once daily fluticasone (FLONASE) 50 mcg/actuation nasal spray Indications: Allergic rhinitis, unspecified seasonality, unspecified trigger Use 1 [place] in each nostril once daily. 3 Each 3 04/17/2024 12/20/2024 Discontinued (Side Effects) Start: 07-30-2022 take 1 spray(s) nasa l route once daily fluticasone (FLONASE) 50 mcg/actuation nasal spray Indications: Allergic rhinitis, unspecified seasonality, unspecified trigger Use 1 [place] in each nostril once daily. 3 Each 3 07/30/2022 Active Start: 01-10-2019 End: 07-28-2022 take 1 spray(s) nasal route once daily fluticasone (FLONASE) 50 mcg/actuation nasal spray Indications: Allergic rhinitis, unspecified seasonality, unspecified trigger Use 1 [place] in each nostril once daily. 3 Bottle 3 01/10/2019 07/28/2022 Discontinued Comment on above: Use 1 [place] in each nostril once daily. furosemide 20 mg oral tablet (7 sources) Loop Diuretic Start: 12-21-19 take 1 tablet by mouth once daily furosemide (LASIX) 20 mg tablet Indications: Edema of lower leg due to peripheral venous insufficiency Take 1 tablet by mouth once daily. 90 tablet 1 12/20/2024 Active hydrALAZINE hydrochloride 50 mg oral tablet (20 sources) Arteriolar Vasodilator Start: 01-15-20 take 1 tablet by mouth three times daily hydrALAZINE (APRESOLINE) 50 mg tablet Indications: Essential hypertension Take 1 tablet by mouth three times a day. 01/14/2025 Active Start: 12-20-2024 End: 01-14-2025 take 2 tablets by mouth twice daily hydrALAZINE (APRESOLINE) 50 mg tablet Indications: Essential hypertension Take 2 tablets by mouth two times a day. 12/20/2024 01/14/2025 Discontinued Start: 08-14-2024 End: 12-20-2024 take 2 tablets by mouth once daily in the morning, then take 1 tablet by mouth once, then take 2 tablets by mouth once daily at bedtime hydrALAZINE (APRESOLINE) 50 mg tablet Indications: Essential hypertension Take 2 tablets by mouth every morning AND 1 tablet every afternoon AND 2 tablets daily at bedtime. 450 tablet 1 08/14/2024 12/20/2024 Discontinued Start: 06-10-2023 End: 08-14-2024 take 1 tablet by mouth once daily in the morning, then take 1 tablet by mouth once, then take 2 tablets by mouth once daily at bedtime hydrALAZINE (APRESOLINE) 50 mg tablet Indications: Essential hypertension Take 1 tablet by mouth every morning AND 1 tablet every afternoon AND 2 tablets daily at bedtime. 360 tablet 3 04/17/2024 08/14/2024 Discontinued Start: 04-22-2023 End: 06-10-2023 take 1 tablet by mouth three times daily hydrALAZINE (APRESOLINE) 50 mg tablet Indications: Essential hypertension Take 1 tablet by mouth three times a day. 270 tablet 3 04/22/2023 06/10/2023 Discontinued Start: 12-14-2022 take 2 tablets by mo uth once daily in the morning, then take 1 tablet by mouth once, then take 2 tablets by mouth once daily at bedtime hydrALAZINE (APRESOLINE) 25 mg tablet Indications: Essential hypertension Take 2 tablets by mouth every morning AND 1 tablet every afternoon AND 2 tablets daily at bedtime. 450 tablet 1 12/14/2022 Active Start: 10-14-2022 take 2 tablets by mo uth once daily in the morning, then take 1 tablet by mouth once, then take 2 tablets by mouth once daily at bedtime hydrALAZINE (APRESOLINE) 25 mg tablet Indications: Essential hypertension Take 2 tablets by mouth every morning AND 1 tablet every afternoon AND 2 tablets daily at bedtime. 1 10/14/2022 Active Start: 07-30-2022 End: 10-14-2022 take 1 tablet by mouth once daily in the morning, then take 1 tablet by mouth once, then take 2 tablets by mouth once daily at bedtime hydrALAZINE (APRESOLINE) 25 mg tablet Indications: Essential hypertension Take 1 tablet by mouth every morning AND 1 tablet every afternoon AND 2 tablets daily at bedtime. 360 tablet 1 07/30/2022 10/14/2022 Discontinued Start: 03-16-2022 End: 07-28-2022 take 1 tablet by mouth once daily in the morning, then take 1 tablet by mouth once, then take 2 tablets by mouth once daily at bedtime hydrALAZINE (APRESOLINE) 25 mg tablet Indications: Essential hypertension Take 1 tablet by mouth every morning AND 1 tablet every afternoon AND 2 tablets daily at bedtime. 360 tablet 1 03/16/2022 07/28/2022 Discontinued Start: 12-25-2021 End: 03-16-2022 take 1 tablet by mouth three times daily hydrALAZINE (APRESOLINE) 25 mg tablet Indications: Essential hypertension Take 1 tablet by mouth three times daily. 270 tablet 3 12/25/2021 03/16/2022 Discontinued Comment on above: Take 1 tablet by darcie th three times daily. Take 1 tablet by darcie th every morning AND 1 tablet every afternoon AND 2 tablets daily at bedtime. Take 2 tablets by mo ut every morning AND 1 tablet every afternoon AND 2 tablets daily at bedtime. Take 1 tablet by darcie th three times a day. hydroCHLOROthiazide 12.5 mg / losartan potassium 100 mg oral tablet (20 sources) Thiazide Diuretic, Angiotensin 2 Receptor Sydni Start: 024 End: take 1 tablet by mouth once daily losartan-hydroCHLOR Othiazide (HYZAAR) 100-12.5 mg per tablet Indications: Essential hypertension Take 1 tablet by mouth once daily. 90 tablet 3 08/06/2024 Active Start: 04-22-2023 End: 04-17-2024 take 1 tablet by mouth once daily losartan-hydroCHLOROthiazide (HYZAAR) 10 0-25 mg per tablet Indications: Essential hypertension Take 1 tablet by mouth once daily. 90 tablet 3 04/22/2023 04/17/2024 Discontinued (Dosage adjustment) Start: 07-30-2022 take 1 tablet by darcie th once daily losartan-hydroCHLOROthiazide (HYZAAR) 10 0-25 mg per tablet Indications: Essential hypertension Take 1 tablet by mouth once daily. 90 tablet 3 07/30/2022 Active Start: 08-14-2021 End: 07-28-2022 take 1 tablet by mouth once daily losartan-hydroCHLOROthiazide (HYZAAR) 10 0-25 mg per tablet Indications: Essential hypertension Take 1 tablet by mouth once daily. 90 tablet 3 08/14/2021 07/28/2022 Discontinued Comment on above: Take 1 tablet by darcie th once daily. hydroxychloroquine sulfate 200 mg oral tablet (20 sources) Antimalarial, Antirheumatic Agent Start : 08-12 hydrOXYchloroQUINE (PLAQUENIL) 200 mg tablet Take by mouth twice daily. 0 08/12/2011 Active Comment on above: Take by mouth twice daily. ipratropium bromide 0.042 mg/actuat metered dose nasal spray (20 sources) Anticholinergic Start : 10-11 End: 08-14 ipratropium bromide (ATROVENT) 42 mcg (0.06 %) nasal spray Indications: Allergic rhinitis with postnasal drip Use 2 Sprays in the nose three times a day. 15 mL 2 08/14/2024 Active Comment on above: Use 2 Sprays in the nose three times a day. latanoprost 0.05 mg/ml ophthalmic solution (20 sources) Prostaglandin Analog Start : 08-12 take 1 drop(s) into the eye(s) once daily at bedtime latanoprost (XALATAN) 0.005 % ophthalmic solution Use 1 Drop in both eyes daily at bedtime. 0 08/12/2011 Active Start: 08-12-2011 take 1 drop(s) into the eye(s) once daily at bedtime latanoprost (XALATAN) 0.005 % ophthalmic solution Use 1 Drop in both eyes daily at bedtime. 0 08/12/2011 Active Comment on above: Use 1 Drop in both e yes daily at bedtime. metoprolol tartrate 50 mg oral tablet (20 sources) beta-Adrenergic Sydni Start: 04-22-2023 End: 12-23-2024 take 1 tablet by mouth twice daily metoprolol tartrate, short acting, (LOPRESSOR) 50 mg tablet Indications: PAF (paroxysmal atrial fibrillation) ([facility]) Take 1 tablet by mouth two times a day. 180 tablet 3 12/24/2024 Active Start: 07-30-2022 take 1 tablet by darcie th twice daily metoprolol tartrate, short acting, (LOPRESSOR) 50 mg tablet Take 1 tablet by mouth twice daily. 180 tablet 3 07/30/2022 Active Start: 08-14-2021 End: 07-28-2022 take 1 tablet by mouth twice daily metoprolol tartrate, short acting, (LOPRESSOR) 50 mg tablet Take 1 tablet by mouth twice daily. 180 tablet 3 08/14/2021 07/28/2022 Discontinued Comment on above: Take 1 tablet by darcie th twice daily. Take 1 tablet by darcie th two times a day. montelukast 10 mg oral tablet (8 sources) Leukotriene Receptor Antagonist Start: 12-21-19 End: 01-15-20 take 1 tablet by mouth once daily at bedtime montelukast (SINGULAIR) 10 mg tablet Indications: Allergic rhinitis with postnasal drip Take 1 tablet by mouth daily at bedtime. 90 tablet 3 01/14/2025 Active nirmatrelvir tablet 150 mg and ritonavir tablet 100 mg in a dose pack (PAXLOVID) (1 source) Start: 02-24-20 End: 02-29-20 nirmatrelvir tablet 150 mg and ritonavir tablet 100 mg in a dose pack (PAXLOVID) Administer ONE pink nirmatrelvir 150 mg tablet and ONE white ritonavir 100 mg tablet for a total of two tablets twice daily. 20 tablet 0 02/23/2023 02/28/2023 Active Comment on above: Administer ONE pink nirmatrelvir 150 mg tablet and ONE white ritonavir 100 mg tablet for a total of two tablets twice daily. omeprazole 20 mg delayed release oral capsule (20 sources) Proton Pump Inhibitor Start: 04-22-20 End: 12-24-19 omeprazole (PRILOSEC) 20 mg capsule Indications: Gastroesophageal reflux disease without esophagitis TAKE 1 CAPSULE DAILY BEFORE BREAKFAST ONE-HALF (1/2) HOUR BEFORE MEAL 90 capsule 3 12/24/2024 Active Start: 07-30-2022 omeprazole (CA ILOSEC) 20 mg capsule Indications: Gastroesophageal reflux disease without esophagitis TAKE 1 CAPSULE DAILY BEFORE BREAKFAST ONE-HALF (1/2) HOUR BEFORE MEAL 90 capsule 3 07/30/2022 Active Start: 08-14-2021 End: 07-28-2022 omeprazole (PRILOSEC) 20 mg capsule Indications: Gastroesophageal reflux disease without esophagitis TAKE 1 CAPSULE DAILY BEFORE BREAKFAST ONE-HALF (1/2) HOUR BEFORE MEAL 90 capsule 3 08/14/2021 07/28/2022 Discontinued Comment on above: TAKE 1 CAPSULE DAILY BEFORE BREAKFAST ONE-HALF (1/2) HOUR BEFORE MEAL potassium chloride 10 meq extended release oral tablet (20 sources) Start: 3 End: 4 take 1 tablet by mouth once daily at breakfast potassium chloride (K-TAB) 10 mEq tablet Indications: Essential hypertension Take 1 tablet by mouth daily with breakfast. 90 tablet 3 04/17/2024 Active Start: 07-30-2022 take 1 tablet by darcie th once daily at breakfast potassium chloride (K-TAB) 10 mEq tablet Take 1 tablet by mouth daily with breakfast. 90 tablet 3 07/30/2022 Active Start: 08-14-2021 End: 07-28-2022 take 1 tablet by mouth once daily at breakfast potassium chloride (K-TAB) 10 mEq tablet Take 1 tablet by mouth daily with breakfast. 90 tablet 3 08/14/2021 07/28/2022 Discontinued Comment on above: Take 1 tablet by darcie th daily with breakfast. pyridoxine HCl, vitamin B6, (VITAMIN B-6 ORAL) (20 sources) pyridoxine HCl, vitamin B6, (VITAMIN B-6 ORAL) Take by mouth once daily. Active pyridoxine HCl, vitamin B6, (VITAMIN B-6 ORAL) Take by mouth once daily. 0 Active pyridoxine HCl, vitamin B6, (VITAMIN B-6 ORAL) Take by mouth. 0 Active Comment on above: Take by mouth. Take by mouth once d aily. ubidecarenone 100 mg oral capsule (20 sources) Start: 9 ubidecarenone(CO Q-10 100 MG CAP) Take one(1) tablet daily. 0 12/30/2008 Active Comment on above: Take one(1) tablet d aily. vitamin b12 0.1 mg oral tablet (20 sources) Vitamin B12 take 1 tablet by mouth once daily cyanocobalamin (VITAMIN B-12) 100 mcg tab Take 100 mcg by mouth once daily. Active Comment on above: Take 100 mcg by mout h once daily. Completed/Discontinued Medications Medication Drug Class(es) Dates Sig (Normalized) Sig (Original) BIPAP (16 sources) Start: 08-08-2019 BIPAP Indications: Sleep apnea, unspecified type Initiate BiPAP @ 12/8 cm of water with humidification. Mask (per patient preference) optional chin strap (if indicated) , filters, tubing, humidifier and lifetime supplies. 1 Device 0 08/08/2019 Active Comment on above: Initiate BiPAP @ 12/ 8 cm of water with humidification. Mask (per patient preference) optional chin strap (if indicated) , filters, tubing, humidifier and lifetime supplies. finasteride 5 mg oral tablet (5 sources) 5-alpha Reductase Inhibitor Start: 03-16-2022 End: 04-03-2022 take 1 tablet by mouth once daily at bedtime finasteride (PROSCAR) 5 mg tablet Indications: Lower urinary tract symptoms (LUTS) Take 1 tablet by mouth daily at bedtime. 90 tablet 0 03/16/2022 04/03/2022 Discontinued (Patient chooses alternative therapy) Comment on above: Take 1 tablet by darcie th daily at bedtime. fish oil/omega-3 fatty acids(FISH OIL OMEGA 3-6-9 300 MG-1,000 MG CAP, DELAYED RELEASE) (20 sources) Start: 06-12-2009 End: 03-29-2024 fish oil/omega-3 fatty acids(FISH OIL OMEGA 3-6-9 300 MG-1,000 MG CAP, DELAYED RELEASE) Take one(1) tablet daily. 0 0 06/12/2009 03/29/2024 Discontinued Start: 06-12-2009 fish oil/omega -3 fatty acids(FISH OIL OMEGA 3-6-9 300 MG- 1,000 MG CAP, DELAYED RELEASE) Take one(1) tablet daily. 0 0 06/12/2009 Active Comment on above: Take one(1) tablet d aily. ibuprofen 200 mg oral tablet (7 sources) Nonsteroidal Anti-inflammatory Drug Start: 09-14-19 End: 03-27-20 take 2 tablets by mouth once daily in the morning, then take 1 tablet by mouth once daily at bedtime ibuprofen (MOTRIN) 200 mg tablet Indications: Generalized osteoarthritis of multiple sites Take 2 tablets by mouth every morning AND 1 tablet daily at bedtime. 0 09/14/2021 03/27/2022 Discontinued (Clinical Decision) Comment on above: Take 2 tablets by mo [facility] every morning AND 1 tablet daily at bedtime. 24 hr mirabegron 25 mg extended release oral tablet (2 sources) beta3-Adrenergic Agonist Start: 03-24-20 End: 03-26-20 take 1 tablet by mouth once daily mirabegron (MYRBETRIQ) 25 mg Tb24 Take 1 tablet by mouth once daily. 30 tablet 2 03/24/2022 03/26/2022 Discontinued Comment on above: Take 1 tablet by darcie th once daily. 24 hr oxybutynin chloride 10 mg extended release oral tablet (5 sources) Cholinergic Muscarinic Antagonist Start: 03-26-20 End: 07-14-20 take 1 tablet by mouth once daily oxybutynin ER (DITROPAN XL) 10 mg 24 hr tablet Take 1 tablet by mouth once daily. 30 tablet 3 03/26/2022 07/14/2022 Discontinued Comment on above: Take 1 tablet by [facility] once daily. perflutren lipid microspheres 1.3 mL in NaCl (PF) 0.9% 10 mL injection (DEFINITY) (4 sources) Start: 07-14-20 End: 10-15-19 perflutren lipid microspheres 1.3 mL in NaCl (PF) 0.9% 10 mL injection (DEFINITY) Start: 07-14-2022 End: 10-13-2023 perflutren lipid microsphere s 1.3 mL in NaCl (PF) 0.9% 10 mL injection (DEFINITY) 125 ml sodium chloride 9 mg/ ml prefilled syringe (4 sources) Start: 07-14-2022 End: 10-13-2023 sodium chloride 0.9 % (flush ) 10 mL (BD POSIFLUSH) Problems Active Problems Problem Classification Problem Date Documented Date Episodic/Chronic Aortic; peripheral; and visceral artery aneurysms (2 sources) Ascending aorta dilatation; Translations: [Thoracic aortic ectasia] 03-29-2023 Chronic Blindness and vision defects (1 source) Blurring of visual image; Translations: [Other visual disturbances] 10-12-2023 Episodic Cardiac dysrhythmias (20 sources) Paroxysmal atrial fibrillation; Translations: [Paroxysmal atrial fibrillation] Onset: 11-24-2017 Chronic Chronic kidney disease (20 sources) Chronic kidney disease stage 3A ; Translations: [Stage 3a chronic kidney disease (HCC)] Onset: 10-14-2022 Chronic Chronic kidney disease (1 source) Chronic kidney disease; Translations: [Stage 3a chronic kidney disease (HCC)] Onset: 10-14-2022 Deficiency and other anemia (7 sources) Chronic anemia; Translations: [Anemia in other chronic diseases classified elsewhere] Onset: 08-12-2011 08-12-2011 Chronic Deficiency and other anemia (20 sources) Anemia of chronic disease; Translations: [Anemia in other chronic diseases classified elsewhere] Onset: 08-12-2011 08-12-2011 Chronic Deficiency and other anemia (1 source) Anemia in other chronic diseases classified elsewhere; Translations: [Anemia, chronic disease] Onset: 08-12-2011 Chronic Diabetes mellitus without complication (1 source) Impaired fasting glycemia; Translations: [Impaired fasting glucose] Episodic Disorders of lipid metabolism (20 sources) Mixed hyperlipidemia; Translations: [Mixed hyperlipidemia] Onset: 08-07-2015 Chronic Esophageal disorders (20 sources) Gastroesophageal reflux disease; Translations: [Gastro-esophageal reflux disease without esophagitis] Onset: 01-10-2007 05-05-2007 Chronic Essential hypertension (20 sources) Essential (primary) hypertension; Translations: [Essential hypertension] Onset: 10-19-2006 Chronic Heart valve disorders (20 sources) Mitral valve disorder; 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, unspecified] Onset: 10-19-2006 11-23-2016 Chronic Immunizations and screening for infectious disease (1 source) Vaccination needed; Translations: [Encounter for immunization] Episodic Osteoarthritis (20 sources) Degenerative joint disease involving multiple joints; Translations: [Polyosteoarthritis, unspecified] Onset: 10-19-2006 09-14-2021 Chronic Other diseases of kidney and ureters (3 sources) Renal impairment; Translations: [Disorder of kidney and ureter, unspecified] Episodic Other diseases of veins and lymphatics (20 sources) Edema of lower leg ; Translations: [Venous insufficiency (chronic) (peripheral)] Onset: 09-14-2021 09-14-2021 Episodic Other inflammatory condition of skin (20 sources) Psoriasis; Translations: [Psoriasis, unspecified] Onset: 10-14-2022 Chronic Other liver diseases (20 sources) Steatosis of liver; Translations: [Fatty (change of) liver, not elsewhere classified] Onset: 02-02-2017 03-22-2021 Chronic Other lower respiratory disease (1 source) Cough; Translations: [Acute cough] 01-01-2025 Episodic Other non-traumatic joint disorders (1 source) Pain in left shoulder; Translations: [Pain in joint, shoulder region] 06-19-2024 Episodic Other nutritional; endocrine; and metabolic disorders (20 sources) Obese class II; Translations: [Obesity, unspecified] Onset: 06-10-2023 06-10-2023 Chronic Other upper respiratory disease (20 sources) Allergic rhinitis; Translations: [Allergic rhinitis, unspecified] Onset: 10-12-2023 Chronic Other upper respiratory disease (1 source) Allergic rhinitis, unspecified; Translations: [Allergic rhinitis with postnasal drip] Onset: 10-12-2023 Chronic Other upper respiratory infections (2 sources) Chronic sinusitis, unspecified; Translations: [Unspecified sinusitis (chronic)] Onset: 01-01-2025 01-01-2025 Chronic Peripheral and visceral atherosclerosis (2 sources) Intermittent claudication; Translations: [Peripheral vascular disease, unspecified] 10-12-2023 Chronic Residual codes; unclassified (20 sources) Obstructive sleep apnea syndrome; Translations: [Obstructive sleep apnea (adult) (pediatric)] Onset: 10-19-2006 03-19-2021 Chronic Rheumatoid arthritis and related disease (20 sources) Inflammatory polyarthropathy; Translations: [Inflammatory polyarthropathy] Onset: 04-01-2010 04-01-2010 Chronic Screening and history of mental health and substance abuse codes (4 sources) Patient encounter status; Translations: [Encounter for screening for depression] Onset: 12-20-2024 12-20-2024 Episodic Superficial injury; contusion (1 source) Abrasion of lower limb; Translations: [Abrasion, left lower leg, initial encounter] Episodic Unclassified (1 source) Unknown / UNK(Unknown) Onset: 11-24-2017 Unclassified (1 source) Acute cough; Translations: [Acute cough] Onset: 01-01-2025 Past or Other Problems Problem Classification Problem Date Documented Date Episodic/Chronic Cancer of prostate (18 sources) Malignant tumor of prostate; Translations: [Malignant neoplasm of prostate] Onset: 12-12-2006 Resolved: 03-22-2021 03-22-2021 Chronic Cancer of prostate (20 sources) History of malignant neoplasm of prostate; Translations: [Personal history of malignant neoplasm of prostate] Onset: 10-19-2006 10-19-2006 Episodic Conduction disorders (18 sources) First degree atrioventricular block; Translations: [Atrioventricular block, first degree] Onset: 05-23-2018 Resolved: 03-22-2021 03-22-2021 Chronic Genitourinary symptoms and ill-defined conditions (20 sources) Lower urinary tract symptoms; Translations: [Unspecified symptoms and signs involving the genitourinary system] Onset: 03-16-2022 Episodic Miscellaneous mental health disorders (18 sources) Psychosexual dysfunction; Translations: [Unspecified sexual dysfunction not due to a substance or known physiological condition] Onset: 10-19-2006 Resolved: 03-19-2021 03-19-2021 Chronic Other aftercare (20 sources) Drug therapy finding; Translations: [Other shelter (current) drug therapy] Onset: 10-12-2022 10-12-2022 Episodic Other and unspecified benign neoplasm (20 sources) Benign neoplasm of colon; Translations: [Benign neoplasm of colon, unspecified] Onset: 12-10-2008 12-10-2008 Episodic Other connective tissue disease (18 sources) Non-traumatic rupture of Achilles tendon; Translations: [Spontaneous rupture of flexor tendons, unspecified lower leg] Onset: 12-20-2006 Resolved: 10-26-2016 10-26-2016 Episodic Other diseases of veins and lymphatics (1 source) Venous insufficiency (chronic) (peripheral); Translations: [Edema of lower leg due to peripheral venous insufficiency] Onset: 09-14-2021 Episodic Other nutritional; endocrine; and metabolic disorders (20 sources) Severe obesity; Translations: [Morbid (severe) obesity due to excess calories] Onset: 10-19-2006 Resolved: 06-10-2023 05-22-2019 Chronic Other nutritional; endocrine; and metabolic disorders (18 sources) Body mass index 30+ - obesity; Translations: [Body mass index (BMI) 37.0-37.9, adult] Onset: 02-21-2015 Resolved: 03-22-2021 03-22-2021 Chronic Other screening for suspected conditions (not mental disorders or infectious disease) (18 sources) Blood chemistry abnormal; Translations: [Other specified abnormal findings of blood chemistry] Onset: 05-05-2007 Resolved: 11-14-2018 11-14-2018 Episodic Other skin disorders (18 sources) Actinic keratosis; Translations: [Actinic keratosis] Onset: 10-19-2006 Resolved: 02-21-2015 02-21-2015 Episodic Other upper respiratory infections (1 source) Postnasal drip; Translations: [Allergic rhinitis with postnasal drip] Onset: 10-12-2023 Episodic Residual codes; unclassified (1 source) Localized edema; Translations: [Edema of lower leg due to peripheral venous insufficiency] Onset: 09-14-2021 Episodic Sprains and strains (18 sources) Lumbar sprain; Translations: [Sprain of ligaments of lumbar spine, initial encounter] Onset: 03-05-2020 Resolved: 03-22-2021 03-22-2021 Episodic Viral infection (20 sources) Disease caused by 2019-nCoV; Translations: [COVID-19] Onset: 02-23-2023 Resolved: 04-22-2023 02-23-2023 Episodic Results Test Name Value Interpretation Reference Range Facility Basic metabolic 2000 panelon 01-14-2025 Anion gap [Moles/Vol] 11 mmol/L Normal 8-15 [facility] Comment on above: Order Comment: Speci men Type: BLOOD SPECIMENOrdering Facility: [facility] Address: [address] [place] [address] Performed By: #### 2 4321-2 ####[facility] LABCLIA [id number] [place] [address] [place] Calcium [Mass/Vol] 10.1 mg/dL Normal 8.5-10.2 [facility] Comment on above: Order Comment: Speci men Type: BLOOD SPECIMENOrdering Facility: [facility] Address: [address] [place] [address] Performed By: #### 2 4321-2 ####[facility] LABCLIA [id number] [place] [address] [place] Chloride [Moles/Vol] 105 mmol/L Normal 98-107 [facility] Comment on above: Order Comment: Speci men Type: BLOOD SPECIMENOrdering Facility: [facility] Address: [address] [place] [address] Performed By: #### 2 4321-2 ####[facility] LABCLIA [id number] [place] [id number] [place] CO2 [Moles/Vol] 25 mmol/L Normal 22-30 [facility] Comment on above: Order Comment: Speci men Type: BLOOD SPECIMENOrdering Facility: [facility] Address: [address] [place] [address] Performed By: #### 2 4321-2 ####[facility] LABIA [id number] [place] [id number] [place] [facility] Creatinine [Mass/Vol] 1.91 mg/dL High 0.73-1.22 [facility] Comment on above: Order Comment: Speci men Type: BLOOD SPECIMENOrdering Facility: [facility] Address: [address] [place] [address] Performed By: #### 2 4321-2 ####[facility] LABIA [id number] [place] [address] [facility] [place] Creatinine and Glomerular filtration rate.predicted panel (S/P/Bld) 35 mL/min/1.73m??? Low >=60 [facility] Comment on above: Order Comment: Speci men Type: BLOOD SPECIMENOrdering Facility: [facility] Address: [address] [place] [address] Result Comment: Sapphire mated Glomerular Filtration Rate (eGFR) is calculated using the 2020 CKD-EPI creatinine equation. This equation utilizes serum creatinine, sex, and age as parameters. The creatinine assay has traceable calibration to isotope dilution-mass spectrometry. Refer to KDIGO guidelines for clinical interpretation. In patients with unstable renal function, e.g. those with acute kidney injury, the eGFR may not accurately reflect actual GFR. Performed By: #### 2 4321-2 ####[facility] LABIA [id number] [place] [id number] [place] Glucose [Mass/Vol] 109 mg/dL High 74-99 [facility] Comment on above: Order Comment: Speci men Type: BLOOD SPECIMENOrdering Facility: [facility] Address: [address] [place] [address] Result Comment: The [place] Diabetes [employer] (ADA) provides guidance for cutoff values for fasting glucose and random glucose. The ADA defines fasting as no caloric intake for at least 8 hours. Fasting plasma glucose results between 100 to 125 mg/dL indicate increased risk for diabetes (prediabetes). Fasting plasma glucose results greater than or equal to 126 mg/dL meet the criteria for diagnosis of diabetes. In the absence of unequivocal hyperglycemia, results should be confirmed by repeat testing. In a patient with classic symptoms of hyperglycemia or hyperglycemic crisis, random plasma glucose results greater than or equal to 200 mg/dL meet the criteria for diagnosis of diabetes. Reference: Standards of Medical Care in Diabetes 2016, [place] [employer]. Diabetes Care. 2016.39(Suppl 1). Performed By: #### 2 4321-2 ####[facility] LABIA [id number] [place] [address] [place] Potassium [Moles/Vol] 4.1 mmol/L Normal 3.7-5.1 [facility] Comment on above: Order Comment: Thomasi henrik Type: BLOOD SPECIMENOrdering Facility: [facility] Address: [address] [place] [address] Performed By: #### 2 4321-2 ####[facility] [id number] [place] [address] [place] Sodium [Moles/Vol] 141 mmol/L Normal 136-144 [facility] Comment on above: Order Comment: Sherice chester Type: BLOOD SPECIMENOrdering Facility: [facility] Address: [address] [place] [address] Performed By: #### 2 4321-2 ####[facility] LABIA [id number] [place] [address] [place] Urea nitrogen [Mass/Vol] 50 mg/dL High 9-24 [facility] Comment on above: Order Comment: Thomasi men Type: BLOOD SPECIMENOrdering Facility: [facility] Address: [address] [place] [address] Performed By: #### 2 4321-2 ####[facility] LABIA [id number] [place] [id number] [place] CBC panel Auto (Bld)on 01-14 Erythrocyte distribution width (RBC) [Ratio] 13.9 % 11.5 - 15.0 % [facility] Hematocrit (Bld) [Volume fraction] 29.7 % Low 39.0 - 51.0 % [facility] Hemoglobin (Bld) [Mass/Vol] 9.7 g/dL Low 13.0 - 17.0 g/dL [facility] Interpretation and review of laboratory results Abnormal [facility] MCH (RBC) [Entitic mass] 32.2 pg 26.0 - 34.0 pg [facility] MCHC (RBC) [Mass/Vol] 32.7 g/dL 30.5 - 36.0 g/dL [facility] MCV (RBC) [Entitic vol] 98.7 fL 80.0 - 100.0 fL [facility] Nucleated RBC (Bld) [#/Vol] NINF [facility] Platelet mean volume (Bld) [Entitic vol] 12.5 fL 9.0 - 12.7 fL [facility] Platelets (Bld) [#/Vol] 238 10*3/uL [facility] RBC (Bld) [#/Vol] 3.01 10*6/uL Low 4.20 - 6.00 m/uL [facility] WBC (Bld) [#/Vol] 5.54 10*3/uL [facility] Erythrocyte distribution width (RBC) [Ratio] 13.9 % Normal 11.5-15.0 [facility] Comment on above: Order Comment: Speci men Type: BLOOD SPECIMENOrdering Facility: [facility] Address: [address] [place] [address] Performed By: #### 5 8410-2 ####[facility] LABIA [id number] [place] [address] [place] [facility] Hematocrit (Bld) [Volume fraction] 29.7 % Low 39.0-51.0 [facility] Comment on above: Order Comment: Speci men Type: BLOOD SPECIMENOrdering Facility: [facility] Address: [address] [place] [address] Performed By: #### 5 8410-2 ####[facility] LABIA [id number] [place] [address] [place] Hemoglobin (Bld) [Mass/Vol] 9.7 g/dL Low 13.0-17.0 [facility] Comment on above: Order Comment: Speci men Type: BLOOD SPECIMENOrdering Facility: [facility] Address: [address] [place] [address] Performed By: #### 5 8410-2 ####[facility] LABIA [id number] [address] [place] MCH (RBC) [Entitic mass] 32.2 pg Normal 26.0-34.0 [facility] Comment on above: Order Comment: Speci men Type: BLOOD SPECIMENOrdering Facility: [facility] Address: [address] [place] [address] Performed By: #### 5 8410-2 ####[facility] LABIA [id number] [place] [address] [place] MCHC (RBC) [Mass/Vol] 32.7 g/dL Normal 30.5-36.0 [facility] Comment on above: Order Comment: Speci men Type: BLOOD SPECIMENOrdering Facility: [facility] Address: [address] [place] [address] Performed By: #### 5 8410-2 ####[facility] LABIA [id number] [place] [address] [place] MCV (RBC) [Entitic vol] 98.7 fL Normal 80.0-100.0 [facility] Comment on above: Order Comment: Speci men Type: BLOOD SPECIMENOrdering Facility: [facility] Address: [address] [place] [address] Performed By: #### 5 8410-2 ####[facility] LABIA [id number] [address] [place] Nucleated RBC (Bld) [#/Vol] 10*3/uL Normal <0.01 [facility] Comment on above: Order Comment: Speci men Type: BLOOD SPECIMENOrdering Facility: [facility] Address: [address] [place] [address] Performed By: #### 5 8410-2 ####[facility] LABCLIA [id number] [place] [address] [place] Platelet mean volume (Bld) [Entitic vol] 12.5 fL Normal 9.0-12.7 [facility] Comment on above: Order Comment: Speci men Type: BLOOD SPECIMENOrdering Facility: [facility] Address: [address] [place] [address] Performed By: #### 5 8410-2 ####[facility] LABCLIA [id number] [place] [address] [place] Platelets (Bld) [#/Vol] 238 10*3/uL Normal 150-400 [facility] Comment on above: Order Comment: Speci men Type: BLOOD SPECIMENOrdering Facility: [facility] Address: [address] [place] [address] Performed By: #### 5 8410-2 ####[facility] LABCLIA [id number] [place] [address] [place] RBC (Bld) [#/Vol] 3.01 10*6/uL Low 4.20-6.00 [facility] Comment on above: Order Comment: Speci men Type: BLOOD SPECIMENOrdering Facility: [facility] Address: [address] [place] [address] Performed By: #### 5 8410-2 ####[facility] LABCLIA [id number] [place] [id number] [place] WBC (Bld) [#/Vol] 5.54 10*3/uL Normal 3.70-11.00 [facility] Comment on above: Order Comment: Speci men Type: BLOOD SPECIMENOrdering Facility: [facility] Address: [address] [place] [address] Performed By: #### 5 8410-2 ####[facility] LABCLIA [id number] HAYLIE DELGADILLO [address] [address] [place] CNOVon 01-14-2025 CNOV Office Visit (INTMWS ) DEMETRIUS REDDY ([id number]) 1945 M Date Time Provider Department 01/14/25 12:40 PM SUDHEER RITCHIE INTMWS During your visit today, we recorded the following information about you: Weight 97.3 kg Sudheer Ritchie MD 01/14/2025 1:07 PM Signed This note was created using [employer]. Subjective Demetrius Reddy is a 79 year old male. His edema was much better on furosemide he had to get new shoes. His hypertension was now controlled, and even getting low. He had dizziness at times, but no syncope. His allergies were better. His labs were ordered for next week, as his appointment today was scheduled earlier. Review of Systems Constitutional: Negative for fatigue. HENT: Negative for congestion. Respiratory: Negative for shortness of breath. Neurological: Positive for light-headedness. Negative for headaches. 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 Lower Urinary Tract Symptoms (Luts) Long-Term Use of Plaquenil Stage 3a Chronic Kidney Disease (Hcc) Psoriasis Obesity, Class II, Bmi 35-39.9 Allergic Rhinitis With Postnasal Drip Social History Tobacco Use Smoking status: Former Types: Cigars Quit date: 01/21/2018 Years since quittin.9 Smokeless tobacco: Never Tobacco comments: occ cigar Vaping Use Vaping status: Never Used Substance Use Topics Alcohol use: Yes Alcohol/week: 5.0 standard drinks of alcohol Types: 5 Shots of liquor per week Drug use: No Current Outpatient Medications Medication Sig amLODIPine (NORVASC) 10 mg tablet Take 1 tablet by mouth once daily. Fenofibrate (LOFIBRA) 160 mg tablet Take 1 tablet by mouth once daily. metoprolol tartrate, short acting, (LOPRESSOR) 50 mg tablet Take 1 tablet by mouth two times a day. omeprazole (PRILOSEC) 20 mg capsule TAKE 1 CAPSULE DAILY BEFORE BREAKFAST ONE-HALF (1/2) HOUR BEFORE MEAL hydrALAZINE (APRESOLINE) 50 mg tablet Take 2 tablets by mouth two times a day. furosemide (LASIX) 20 mg tablet Take 1 tablet by mouth once daily. montelukast (SINGULAIR) 10 mg tablet Take 1 tablet by mouth daily at bedtime. ipratropium bromide (ATROVENT) 42 mcg (0.06 %) nasal spray Use 2 Sprays in the nose three times a day. doxazosin (CARDURA) 8 mg tablet Take 1 tablet by mouth daily at bedtime. losartan-hydroCHLOROthiazide (HYZAAR) 100-12.5 mg per tablet Take 1 tablet by mouth once daily. clotrimazole-betamethasone (LOTRISONE) cream Apply to rash on leg , twice daily potassium chloride (K-TAB) 10 mEq tablet Take 1 tablet by mouth daily with breakfast. cyanocobalamin (VITAMIN B-12) 100 mcg tab Take 100 mcg by mouth once daily. pyridoxine HCl, vitamin B6, (VITAMIN B-6 ORAL) Take by mouth once daily. aspirin, enteric coated (ASPIRIN, ENTERIC COATED) 81 mg EC tablet Take 1 tablet by mouth once daily. hydrOXYchloroQUINE (PLAQUENIL) 200 mg tablet Take by mouth twice daily. latanoprost (XALATAN) 0.005 % ophthalmic solution Use 1 Drop in both eyes daily at bedtime. ubidecarenone(CO Q-10 100 MG CAP) Take one(1) tablet daily. No current facility-administered medications for this visit. Objective Wt 97.3 kg (214 lb 8.1 oz) BMI 34.89 kg/m? 01/14/25 1226 01/14/25 1229 01/14/25 1232 Weight: 97.3 kg (214 lb 8.1 oz) Orthostatic BP: 99/51 57/31 115/68 Orthostatic Pulse: 60 64 66 Physical Exam Constitutional: Appearance: He is not ill-appearing or diaphoretic. Cardiovascular: Rate and Rhythm: Normal rate and regular rhythm. Heart sounds: No murmur heard. No gallop. Pulmonary: Effort: No respiratory distress. Breath sounds: No wheezing or rales. Musculoskeletal: Right lower le+ Pitting Edema present. Left lower le+ Pitting Edema present. Neurological: General: No focal deficit present. Mental Status: He is alert. Assessment and Plan 1. Anemia, chronic disease - ICD9: 285.29, ICD10: D63.8 (primary diagnosis) Recheck today. 2. Lower urinary tract symptoms (LUTS) - ICD9: 788.99, ICD10: R39.9 Refilled. - DOXAZOSIN 8 MG TABLET 3. Allergic rhinitis with postnasal drip - ICD9: 477.9, 784.91, ICD10: J30.9, R09.82 Improved. - MONTELUKAST 10 MG TABLET 4. Essential hypertension - ICD9: 401.9, ICD10: I10 - Controlled - HYDRALAZINE 50 MG TABLET. Decrease to one tablet po TID. Return sooner for worsening symptoms of low blood pressure. - Monitor home BP and call for issues. - COMPLETE BLOOD COUNT 5. Edema of lower leg due to peripheral venous insufficiency - ICD9: 459.8 (more content not included)... Normal [facility] CNOVon 01-01-2025 [facility] Office Visit (UCTR ) DEMETRIUS REDDY ([id number]) 1945 M Date Time Provider Department 01/01/25 9:15 AM KATTY MCALLISTER [facility] During your visit today, we recorded the following information about you: Temperature Pulse Respiration Blood pressure 98.2 degrees 69/minute 16/minute 110/76 Weight 98.2 kg Katty Mcallister APRN.[employer] 01/01/2025 9:35 AM Signed [facility] Subjective Demetrius Reddy is a 79 year old male. Patient presents with: Cough: Cough, head and chest congestion and sinus drainage x 1 month Cough Associated symptoms include rhinorrhea. Pertinent negatives include no chest pain and no ear pain. Rhinorrhea and Cough: - Rhinorrhea x3 months, with associated phlegm production. - Progressed to a cough with sputum production. - Cough is worse at night, causing a heavy feeling in the chest and lasting about 15 minutes. - Tried NyQuil with temporary relief. - Denies chest pain, hemoptysis, or history of asthma/COPD. - Denies current tobacco use; has a history of cigar smoking. - Recent chest x-ray on 12/20 was negative. - Previously prescribed an allergy medication by Dr. Ritchie, taken at night. - Denies recent antibiotic use. HTN: - Reports blood pressure is way down compared to two weeks ago. PAST MEDICAL HISTORY Diagnosis Date - Actinic keratosis - Anemia, chronic disease 08/12/2011 - Class 2 severe obesity with serious comorbidity and body mass index (BMI) of 37.0 to 37.9 in adult (HCC) 10/19/2006 - COVID-19 02/23/2023 - Esophageal reflux - Essential hypertension 10/19/2006 - Fatty (change of) liver, not elsewhere classified 02/02/2017 - Generalized osteoarthrosis, unspecified site - Glaucoma - Hyperlipidemia 08/07/2015 - Malignant neoplasm of prostate (HCC) 12/12/2006 - RAJESH on CPAP 10/19/2006 - PAF (paroxysmal atrial fibrillation) (HCC) 11/24/2018 - Prostate cancer (HCC) 2004 Patient validates year PAST SURGICAL HISTORY Procedure Laterality Date - COLONOSCOPY FLX DX W/COLLJ SPEC WHEN PFRMD 07/25/1995 Colonoscopy - COLONOSCOPY FLX DX W/COLLJ SPEC WHEN PFRMD 05/25/[address] Munguia=repeat in - COLONOSCOPY SCRN NOT HIGH RISK 08/14/2020 - COLSC FLX W/RMVL OF TUMOR POLYP LESION SNARE TQ 04/04/2015 small ablated polyp -5 year follow up - EYE SURGERY HX - F US PROSTATE VOLUME BRACHYTHERAPY 05/13/2005 Seed implants- [facility] - PAST SURGICAL HISTORY OF 12/23/2004 TRUS w/ bx. Dr. Gonzalez. - PAST SURGICAL HISTORY OF 05/13/2005 seed implants - [facility] - TONSILLECTOMY AND ADENOIDECTOMY T/A (under age 12 years) - TOTAL HIP REPLACEMENT Right 11/11/2020 right THR - TOTAL KNEE REPLACEMENT Right 03/21/2020 ALLERGIES Pantoprazole, Adhesive, and Sulfa (Sulfonamide Antibiotics) MEDICATIONS - amLODIPine (NORVASC) 10 mg tablet Take 1 tablet by mouth once daily. - Fenofibrate (LOFIBRA) 160 mg tablet Take 1 tablet by mouth once daily. - metoprolol tartrate, short acting, (LOPRESSOR) 50 mg tablet Take 1 tablet by mouth two times a day. - omeprazole (PRILOSEC) 20 mg capsule TAKE 1 CAPSULE DAILY BEFORE BREAKFAST ONE-HALF (1/2) HOUR BEFORE MEAL - hydrALAZINE (APRESOLINE) 50 mg tablet Take 2 tablets by mouth two times a day. - furosemide (LASIX) 20 mg tablet Take 1 tablet by mouth once daily. - montelukast (SINGULAIR) 10 mg tablet Take 1 tablet by mouth daily at bedtime. - ipratropium bromide (ATROVENT) 42 mcg (0.06 %) nasal spray Use 2 Sprays in the nose three times a day. - doxazosin (CARDURA) 8 mg tablet Take 1 tablet by mouth daily at bedtime. - losartan-hydroCHLOROthiazide (HYZAAR) 100-12.5 mg per tablet Take 1 tablet by mouth once daily. - clotrimazole-betamethasone (LOTRISONE) cream Apply to rash on leg , twice daily - potassium chloride (K-TAB) 10 mEq tablet Take 1 tablet by mouth daily with breakfast. - cyanocobalamin (VITAMIN B-12) 100 mcg tab Take 100 mcg by mouth once daily. - pyridoxine HCl, vitamin B6, (VITAMIN B-6 ORAL) Take by mouth once daily. - aspirin, enteric coated (ASPIRIN, ENTERIC COATED) 81 mg EC tablet Take 1 tablet by mouth once daily. - hydrOXYchloroQUINE (PLAQUENIL) 200 mg tablet Take by mouth twice daily. - latanoprost (XALATAN) 0.005 % ophthalmic solution Use 1 Drop in both eyes daily at bedtime. - ubidecarenone(CO Q-10 100 MG CAP) Take one(1) tablet daily. - doxycycline hyclate (VIBRAMYCIN) 100 mg capsule Take 1 capsule by mouth two times a day for 7 days. - benzonatate (TESSALON PERLE) 100 mg capsule Take 1 capsule by mouth three times a day as needed for cough for up to 7 days. FAMILY HISTORY Problem Relation Age of Onset - Alzheimer's Disease Mother - Arthritis Mother - COPD Father Social History Tobacco Use - Smoking status: Former Types: Cigars Quit date: 01/21/2018 Years since quittin.9 - Smokeless tobacco: Never - Tobacco comments: occ cigar Vaping Use - Va (more content not included)... [facility] DEMETRI[facility] RED[facility] ([id number]) 1945 M Date Time Provider Department 12/27/24 SUDHEER RITCHIE ADMWST During your visit today, we recorded the following information about you: Valerio Baird 12/27/2024 9:27 AM Signed Prescription Refill Information The patient has been identified by name and date of : Yes Caregiver verified no other encounters exist for this prescription request: Yes Caregiver confirmed with patient/requestor that no other refills are due, in the near future, with this provider at this time: Yes The last office visit in the department: 12/20/2024 Does the patient have a future office visit with this provider/department: Yes Requested Prescriptions Pending Prescriptions Disp Refills omeprazole (PRILOSEC) 20 mg capsule 90 capsule 3 Sig: TAKE 1 CAPSULE DAILY BEFORE BREAKFAST ONE-HALF (1/2) HOUR BEFORE MEAL Patient stated [facility] has attempted to call the office several times regarding this prescription. Patient stated they have questions regarding the Omeprazole. He was unclear as to what they needed, and/or why. Please advise. Thank you. Valerio Baird December 27, 2024 9:25 AM Denise Agee, AMELIE 12/27/2024 11:24 AM Signed Called and spoke with 3 people at [facility]. 3rd person was pharmacist Debbie who states the question with pt's prescription for Omeprazole is that pt has an allergy to Pantoprazole. She is confirming okay to fill Omeprazole. Per med hx, pt has been taking Pantoprazole since 2011. Debbie states this is first fill for them so they had to be sure. She entered note that pt has been on Omeprazole for years. Allergies As of Date: 12/27/2024 Noted Allergy Reaction PANTOPRAZOLE 03/04/2010 Comments: Swelling of hands and yellowing of eyes and muscle aches. ADHESIVE 11/17/2011 14 - Other: See Comments Comments: redness SULFA (SULFONAMIDE ANTIBIOTICS) 05/12/2005 Comments: as an infant, does not know the reaction Date Reviewed: 12/20/2024 Reviewed by: Sachi Marino LPN - Fully Assessed Reason for Visit: Medication Problem [65] Cmt: [facility] - has questions regarding Omeprazole Visit Diagnosis:Gastroesophageal reflux disease without esophagitis [K21.9] Prescriptions as of 12/27/2024 - amLODIPine (NORVASC) 10 mg tablet Take 1 tablet by mouth once daily. - Fenofibrate (LOFIBRA) 160 mg tablet Take 1 tablet by mouth once daily. - metoprolol tartrate, short acting, (LOPRESSOR) 50 mg tablet Take 1 tablet by mouth two times a day. - omeprazole (PRILOSEC) 20 mg capsule TAKE 1 CAPSULE DAILY BEFORE BREAKFAST ONE-HALF (1/2) HOUR BEFORE MEAL - hydrALAZINE (APRESOLINE) 50 mg tablet Take 2 tablets by mouth two times a day. - furosemide (LASIX) 20 mg tablet Take 1 tablet by mouth once daily. - montelukast (SINGULAIR) 10 mg tablet Take 1 tablet by mouth daily at bedtime. - ipratropium bromide (ATROVENT) 42 mcg (0.06 %) nasal spray Use 2 Sprays in the nose three times a day. - doxazosin (CARDURA) 8 mg tablet Take 1 tablet by mouth daily at bedtime. - losartan-hydroCHLOROthiazide (HYZAAR) 100-12.5 mg per tablet Take 1 tablet by mouth once daily. - clotrimazole-betamethasone (LOTRISONE) cream Apply to rash on leg , twice daily - potassium chloride (K-TAB) 10 mEq tablet Take 1 tablet by mouth daily with breakfast. - cyanocobalamin (VITAMIN B-12) 100 mcg tab Take 100 mcg by mouth once daily. - pyridoxine HCl, vitamin B6, (VITAMIN B-6 ORAL) Take by mouth once daily. - aspirin, enteric coated (ASPIRIN, ENTERIC COATED) 81 mg EC tablet Take 1 tablet by mouth once daily. - hydrOXYchloroQUINE (PLAQUENIL) 200 mg tablet Take by mouth twice daily. - latanoprost (XALATAN) 0.005 % ophthalmic solution Use 1 Drop in both eyes daily at bedtime. - ubidecarenone(CO Q-10 100 MG CAP) Take one(1) tablet daily. Problem List As Of Date 12/27/2024 Noted Resolved Class 2 severe obesity with serious comorbidity*10/19/2006 06/10/2023 Essential hypertension [I10] 10/19/2006 RAJESH on CPAP [G47.33] 10/19/2006 PERS HX PROSTATIC MALIGNANCY [Z85.46] 10/19/2006 ERECTILE DYSFUNCTION [F52.9] 10/19/2006 03/19/2021 Generalized osteoarthritis of multiple sites [M*10/19/2006 Actinic keratosis [L57.0] 10/19/2006 02/21/2015 Mitral valve disease [I05.9] 10/19/2006 Malignant neoplasm of prostate (HCC) [C61] 12/12/2006 03/22/2021 Nontraumatic rupture of Achilles tendon [M66.36*12/20/2006 10/26/2016 ESOPHAGEAL REFLUX [K21.9] 01/10/2007 HYPERGLYCEMIA [R79.89] 05/05/2007 11/14/2018 COLON POLYP [D12.6] 12/10/2008 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 (more content not included)... Normal [facility] CNOVon 12-20-2024 CNOV Office Visit (INTMWS ) DEMETRIUS REDDY ([id number]) 1945 M Date Time Provider Department 12/20/24 8:00 AM SUDHEER RITCHIE INTMWS During your visit today, we recorded the following information about you: Pulse Blood pressure Weight Height 57/minute 165/67 100.4 kg 1.67 m Sudheer Ritchie MD 12/20/2024 8:54 AM Signed Demetrius Reddy is a 79 year old male here for a Medicare wellness visit. Medicare Health Risk Assessment General Health Good Exercise: Minutes/Day 60 min Exercise: Days/Week 4 days Alcohol: Daily Use Patient declined Alcohol: Drinks/Day Patient declined Alcohol: 6 or more drinks Patient declined Feel off balance Yes Concerns: Teeth/Dentures No Concerns: Sexual function No Troubled by feelings Stressed Frequency: Eating healthy diet Several days ADLs requiring help None of the above Safety precautions in home/vehicle Yes Smoke, vape, chews tobacco No Difficulty hearing No Difficulty seeing No Current Providers Specialists: I have reviewed specialist-related care of the patient in the medical record. Current care team: Patient Care Team: Sudheer Ritchie MD as PCP - General (Internal Medicine) Louann Lynne, ADRIANA.REPLENISHMENT MERCHANDISING ASSOCIATE as Supervisor Cytology (Internal Medicine) Shilpi Grove MD (Cardiology) Outside specialists seen: Ruth Marie MD ([facility]) Thomas Mohan OD (Optometry) Medical/Family history review Reviewed and updated problem list, medical/surgical/family/social history, medications, and allergies. Opioid use review Opioid Medications (last 90 days) No data to display Anxiety/Depression screening Recommendation: no further intervention at this time Cognitive screening Mini Cog Score: 5 Cognitive screening reviewed and No further action needed (score 3-5). Functional Observation Was the patient's Timed Up AND Go test unsteady or >= 12 seconds? No Advance Care Planning Patient did not wish or was not able to name a surrogate decision maker or provide an advance care plan Measurements BP 165/67 Pulse (!) 57 Ht 167 cm (5' 5.75) Wt 100.4 kg (221 lb 5.5 oz) BMI 36.00 kg/m? Vision Screening: Follows with optometry/ophthalmology Right: 20/30 Left: 20/ 40 Both: 20/30 Assessment/Plan Medicare annual wellness visit, subsequent (Z00.00) - Counseled on healthy diet and regular exercise - Fall avoidance information provided - Personalized prevention plan provided - Discussed need for and benefit of weight loss. BMI 36.00 kg/(m2) - Counseled patient on alcohol intake and associated health risks Sudheer Ritchie MD 12/20/2024 8:54 AM Signed This note was created using [employer]. Subjective Demetrius Reddy is a 79 year old male. His hypertension did not improve much with hydralazine increase. He also mentioned increased heaviness of both legs with edema towards the end of the day. He also complained of postprandial cough after meals related to postnasal drainage. Flonase was not well tolerated due to nasal bleeding. Sneezing was noted perennially regardless of season. Atrovent seemed helpful. Review of Systems Constitutional: Negative for fatigue, fever and unexpected weight change. HENT: Positive for congestion, postnasal drip and sneezing. Respiratory: Positive for cough. Negative for chest tightness and shortness of breath (no change in chronic dyspnea on exertion). Cardiovascular: Positive for leg swelling (legs heavy). Negative for chest pain and palpitations. Gastrointestinal: Negative for abdominal pain. Genitourinary: Negative for difficulty urinating and dysuria. Neurological: Negative for dizziness, weakness and headaches. 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 Lower Urinary Tract Symptoms (Luts) Long-Term Use of Plaquenil Stage 3a Chronic Kidney Disease (Hcc) Psoriasis Obesity, Class II, Bmi 35-39.9 Allergic Rhinitis With Postnasal Drip Social History Tobacco Use Smoking status: Former Types: Cigars Quit date: 01/21/2018 Years since quittin.9 Smokeless tobacco: Never Tobacco comments: occ cigar Vaping Use Vaping status: Never Used Substance Use Topics Alcohol use: Yes Alcohol/week: 5.0 standard drinks of alcohol Types: 5 Shots of liquor per week Drug use: No Current Outpatient Medications Medication Sig ipratropium bromide (ATROVENT) 42 mcg (0.06 %) nasal spray Use 2 Sprays in the nose three times a day. doxazosin (CARDURA) 8 mg tablet Take 1 tablet by mouth (more content not included)... Normal [facility] XR CHEST 2V FRONTAL/LATon XR CHEST 2V FRONTAL/LAT * * *Final Report* * * DATE OF EXAM: Dec 20 2024 8:58AM WOX [id number] - XR CHEST 2V FRONTAL/LAT / PROCEDURE REASON: multiple diagnoses * * * * Physician Interpretation * * * * EXAMINATION: CHEST RADIOGRAPH (2 VIEW FRONTAL and LATERAL) CLINICAL HISTORY: Allergic rhinitis with postnasal drip MQ: XC2_6 EXAM DATE/TIME: 12/20/2024 8:58 AM COMPARISON: 08/12/2011 RESULT: Lines, tubes, and devices: None. Lungs and pleura: No consolidation. No lung mass. No pleural effusion. No pneumothorax. Cardiomediastinal silhouette: Normal cardiomediastinal silhouette. Bones and soft tissues: Multilevel degenerative change. Mild mid thoracic vertebral wedge deformity. IMPRESSION: No acute radiographic abnormality. Construction Quality Control Manager: FUENTES Transcribe Date/Time: Dec 20 2024 2:27P Dictated by : GUNJAN MIKE MD This examination was interpreted and the report reviewed and electronically signed by: GUNJAN MIKE MD on Dec 20 2024 2:38PM EST [id number] Normal [facility] XR Chest PA and Lateralon IMPRESSION: No acute radiographic abnormality. Construction Quality Control Manager: FUENTES Transcribe Date/Time: Dec 20 2024 2:27P Dictated by : GUNJAN MIKE MD This examination was interpreted and the report reviewed and electronically signed by: GUNJAN MIKE MD on Dec 20 2024 2:38PM EST DIVISION OF RADIOLOGY * * *Final Report* * * DATE OF EXAM: Dec 20 2024 8:58AM WOX 5291 - XR CHEST 2V FRONTAL/LAT / PROCEDURE REASON: multiple diagnoses * * * * Physician Interpretation * * * * EXAMINATION: CHEST RADIOGRAPH (2 VIEW FRONTAL & LATERAL) CLINICAL HISTORY: Allergic rhinitis with postnasal drip MQ: XC2_6 EXAM DATE/TIME: 12/20/2024 8:58 AM COMPARISON: 08/12/2011 RESULT: Lines, tubes, and devices: None. Lungs and pleura: No consolidation. No lung mass. No pleural effusion. No pneumothorax. Cardiomediastinal silhouette: Normal cardiomediastinal silhouette. Bones and soft tissues: Multilevel degenerative change. Mild mid thoracic vertebral wedge deformity. DIVISION OF RADIOLOGY Provider, [facility] - 12/20/2024 * * *Final Report* * * DATE OF EXAM: Dec 20 2024 8:58AM WOX [id number] - XR CHEST 2V FRONTAL/LAT / PROCEDURE REASON: multiple diagnoses * * * * Physician Interpretation * * * * EXAMINATION: CHEST RADIOGRAPH (2 VIEW FRONTAL & LATERAL) CLINICAL HISTORY: Allergic rhinitis with postnasal drip MQ: XC2_6 EXAM DATE/TIME: 12/20/2024 8:58 AM COMPARISON: 08/12/2011 RESULT: Lines, tubes, and devices: None. Lungs and pleura: No consolidation. No lung mass. No pleural effusion. No pneumothorax. Cardiomediastinal silhouette: Normal cardiomediastinal silhouette. Bones and soft tissues: Multilevel degenerative change. Mild mid thoracic vertebral wedge deformity. IMPRESSION IMPRESSION: No acute radiographic abnormality. Construction Quality Control Manager: PSCB Transcribe Date/Time: Dec 20 2024 2:27P Dictated by : GUNJAN MIKE MD This examination was interpreted and the report reviewed and electronically signed by: GUNJAN MIKE MD on Dec 20 2024 2:38PM EST [facility] Radiology Study observation (narrative) [facility] XR Chest PA and LateralOrder ed By: Ccf Provider on 12-20-2024 [facility] Basic metabolic 2000 panelon 12-19-2024 Anion gap [Moles/Vol] 11 mmol/L Normal 8-15 [facility] Comment on above: Order Comment: Speci men Type: BLOOD SPECIMENOrdering Facility: [facility] Address: [address] [id number] Performed By: #### 2 432-2, 45975-6 ####[facility] LABCLIA [id number] [address] [address] [place] Calcium [Mass/Vol] 9.7 mg/dL Normal 8.5-10.2 [facility] Comment on above: Order Comment: Speci men Type: BLOOD SPECIMENOrdering Facility: [facility] Address: [address] [place], [place] [id number] Performed By: #### 2 432-2, 28939-5 ####[facility] LABCLIA [id number] [place] [id number] [place] Chloride [Moles/Vol] 104 mmol/L Normal 98-107 [facility] Comment on above: Order Comment: Speci men Type: BLOOD SPECIMENOrdering Facility: [facility] Address: [address] [place], [place] [address] Performed By: #### 2 2, 39903-3 ####[facility] LABCLIA [id number] [place] [id number] [place] CO2 [Moles/Vol] 24 mmol/L Normal 22-30 [facility] Comment on above: Order Comment: Speci men Type: BLOOD SPECIMENOrdering Facility: [facility] Address: [address] [place], [place] [id number] Performed By: #### 2 4320-2, 27668-9 ####[facility]CLIA [id number] [address] [address] [place] Creatinine [Mass/Vol] 1.39 mg/dL High 0.73-1.22 [facility] Comment on above: Order Comment: Speci men Type: BLOOD SPECIMENOrdering Facility: [facility] Address: [address] [place], [place] [id number] Performed By: #### 2 4320-2, 64297-0 ####[facility] [id number] [place] [address] [place] Creatinine and Glomerular filtration rate.predicted panel (S/P/Bld) 52 mL/min/1.73m??? Low >=60 [facility] Comment on above: Order Comment: Sherice chester Type: BLOOD SPECIMENOrdering Facility: [facility] Address: [address] [place] [address] Result Comment: Sapphire mated Glomerular Filtration Rate (eGFR) is calculated using the 2020 CKD-EPI creatinine equation. This equation utilizes serum creatinine, sex, and age as parameters. The creatinine assay has traceable calibration to isotope dilution-mass spectrometry. Refer to KDIGO guidelines for clinical interpretation. In patients with unstable renal function, e.g. those with acute kidney injury, the eGFR may not accurately reflect actual GFR. Performed By: #### 2 4321-2, 22938-8 ####[facility] [id number] [place] [address] [place] Glucose [Mass/Vol] 90 mg/dL Normal 74-99 [facility] Comment on above: Order Comment: Sherice chester Type: BLOOD SPECIMENOrdering Facility: [facility] Address: [address] [place] [address] Result Comment: The [place] Diabetes Association (ADA) provides guidance for cutoff values for fasting glucose and random glucose. The ADA defines fasting as no caloric intake for at least 8 hours. Fasting plasma glucose results between 100 to 125 mg/dL indicate increased risk for diabetes (prediabetes). Fasting plasma glucose results greater than or equal to 126 mg/dL meet the criteria for diagnosis of diabetes. In the absence of unequivocal hyperglycemia, results should be confirmed by repeat testing. In a patient with classic symptoms of hyperglycemia or hyperglycemic crisis, random plasma glucose results greater than or equal to 200 mg/dL meet the criteria for diagnosis of diabetes. Reference: Standards of Medical Care in Diabetes 2016, [place] Diabetes Association. Diabetes Care. 2016.39(Suppl 1). Performed By: #### 2 4321-2, 46927-1 ####[facility] [id number] [address] [address] [place] Potassium [Moles/Vol] 4.2 mmol/L Normal 3.7-5.1 [facility] Comment on above: Order Comment: Speci men Type: BLOOD SPECIMENOrdering Facility: [facility] Address: [address] [place] [address] Performed By: #### 2 4321-2, 84732-2 ####[facility]CLIA [id number] [place] [address] [place] Sodium [Moles/Vol] 139 mmol/L Normal 136-144 [facility] Comment on above: Order Comment: Speci men Type: BLOOD SPECIMENOrdering Facility: [facility] Address: [address] [place] [address] Performed By: #### 2 4321-2, 96093-4 ####[facility]CLIA [id number] [place] [address] [place] Urea nitrogen [Mass/Vol] 35 mg/dL High 9-24 [facility] Comment on above: Order Comment: Speci men Type: BLOOD SPECIMENOrdering Facility: [facility] Address: [address] [place] [address] Performed By: #### 2 4321-2, 60627-3 ####[facility]CLIA [id number] [place] [address] [place] CBC panel Auto (Bld)on 12-19 Erythrocyte distribution width (RBC) [Ratio] 14.0 % Normal 11.5-15.0 [facility] Comment on above: Order Comment: Speci men Type: BLOOD SPECIMENOrdering Facility: [facility] Address: [address] [place] [address] Performed By: #### 5 8410-2 ####[facility]CLIA [id number] [place] [id number] [place] Hematocrit (Bld) [Volume fraction] 31.9 % Low 39.0-51.0 [facility] Comment on above: Order Comment: Speci men Type: BLOOD SPECIMENOrdering Facility: [facility] Address: [address] [place] [address] Performed By: #### 5 8410-2 ####[facility] LABIA [id number] [place] [id number] [place] Hemoglobin (Bld) [Mass/Vol] 10.4 g/dL Low 13.0-17.0 [facility] Comment on above: Order Comment: Speci men Type: BLOOD SPECIMENOrdering Facility: [facility] Address: [address] [place] [address] Performed By: #### 5 8410-2 ####[facility] [id number] [place] [address] [place] MCH (RBC) [Entitic mass] 32.5 pg Normal 26.0-34.0 [facility] Comment on above: Order Comment: Speci men Type: BLOOD SPECIMENOrdering Facility: [facility] Address: [address] [place] [address] Performed By: #### 5 8410-2 ####[facility] [id number] [place] [address] [place] MCHC (RBC) [Mass/Vol] 32.6 g/dL Normal 30.5-36.0 [facility] Comment on above: Order Comment: Speci men Type: BLOOD SPECIMENOrdering Facility: [facility] Address: [address] [place] [address] Performed By: #### 5 8410-2 ####[facility] [id number] [place] [address] [place] MCV (RBC) [Entitic vol] 99.7 fL Normal 80.0-100.0 [facility] Comment on above: Order Comment: Speci men Type: BLOOD SPECIMENOrdering Facility: [facility] Address: [address] [place] [address] Performed By: #### 5 8410-2 ####[facility]CLIA [id number] [address], [place] [address] [place] Nucleated RBC (Bld) [#/Vol] 10*3/uL Normal <0.01 [facility] Comment on above: Order Comment: Speci men Type: BLOOD SPECIMENOrdering Facility: [facility] Address: [address] [place] [address] Performed By: #### 5 8410-2 ####[facility]CLIA [id number] [address], [place] [address] [place] Platelet mean volume (Bld) [Entitic vol] 12.0 fL Normal 9.0-12.7 [facility] Comment on above: Order Comment: Speci men Type: BLOOD SPECIMENOrdering Facility: [facility] Address: [address] [place] [address] Performed By: #### 5 8410-2 ####[facility] LABIA [id number] [place] [address] [place] Platelets (Bld) [#/Vol] 235 10*3/uL Normal 150-400 [facility] Comment on above: Order Comment: Speci men Type: BLOOD SPECIMENOrdering Facility: [facility] Address: [address] [place] [address] Performed By: #### 5 8410-2 ####[facility]CLIA [id number] [address], [facility] [place] RBC (Bld) [#/Vol] 3.20 10*6/uL Low 4.20-6.00 [facility] Comment on above: Order Comment: Speci men Type: BLOOD SPECIMENOrdering Facility: [facility] Address: [address] [place] [address] Performed By: #### 5 8410-2 ####[facility] LABCLIA [id number] [place] [address] [place] WBC (Bld) [#/Vol] 6.10 10*3/uL Normal 3.70-11.00 [facility] Comment on above: Order Comment: Speci men Type: BLOOD SPECIMENOrdering Facility: [facility] Address: [address] [place] [address] Performed By: #### 5 8410-2 ####[facility]CLIA [id number] [place] [address] [facility] [place] Lipid 1996 panelon 5 Cholesterol [Mass/Vol] 117 mg/dL Normal <200 [facility] Comment on above: Order Comment: Speci men Type: BLOOD SPECIMENOrdering Facility: [facility] Address: [address] [place] [address] Result Comment: <200 mg/dL, Desirable 200-239 mg/dL, Borderline high >239 mg/dL, High Performed By: #### 2 4321-2, 24274-2 ####[facility]CLIA [id number] [address] [place] Cholesterol in HDL [Mass/Vol] 45 mg/dL Normal >39 [facility] Comment on above: Order Comment: Speci men Type: BLOOD SPECIMENOrdering Facility: [facility] Address: [address] [place] [address] Result Comment: 40-5 9 mg/dL, Acceptable >59 mg/dL, High: Negative risk factor for coronary heart disease <40 mg/dL, Low: Positive risk factor for coronary heart disease Performed By: #### 2 4321-2, 12244-1 ####[facility] LABCLIA [id number] [address] [place] Cholesterol in LDL [Mass/Vol] 60 mg/dL Normal <100 [facility] Comment on above: Order Comment: Speci men Type: BLOOD SPECIMENOrdering Facility: [facility] Address: [address] [place] [address] Result Comment: <100 mg/dL, Optimal 100-129 mg/dL, Near optimal/above optimal 130-159 mg/dL, Borderline high 160-189 mg/dL, High >189 mg/dL, Very high Secondary prevention optimal LDL Cholesterol levels are recommended to be <70 mg/dL LDL cholesterol is calculated using the King-NIH equation. Performed By: #### 2 4321-2, 92701-5 ####[facility]CLIA [id number] [address] [address] [place] Cholesterol in LDL/Cholesterol in HDL [Mass ratio] 1.33 {ratio} Normal <2.54 [facility] Comment on above: Order Comment: Speci men Type: BLOOD SPECIMENOrdering Facility: [facility] Address: [address] [place] [address] Result Comment: Refe roxice: 1. National Cholesterol Education Program ATP III Guideline At-A-Glance Quick Desk Reference: National Heart, Lung, and Blood [place]. National Institutes of Health. 2001: NIH Publication No. 01-3305. 2. An International Atherosclerosis Society position paper: global recommendations for the management of dyslipidemia: executive summary, Atherosclerosis. 2014: 232(2):410-413. Performed By: #### 2 4320-, ####[facility] LABIA [id number] [place] [id number] [place] Cholesterol in VLDL [Mass/Vol] 8 mg/dL Normal <30 [facility] Comment on above: Order Comment: Sherice men Type: BLOOD SPECIMENOrdering Facility: [facility] Address: [address] [place] [address] Performed By: #### 2 432-, ####[facility] LABCLIA [id number] [address] [address] [place] Cholesterol non HDL [Mass/Vol] 72 mg/dL Normal <130 [facility] Comment on above: Order Comment: Sherice henrik Type: BLOOD SPECIMENOrdering Facility: [facility] Address: [address] [place] [address] Result Comment: <130 mg/dL, Optimal 130-159 mg/dL, Near optimal/above optimal 160-189 mg/dL, Borderline high 190-219 mg/dL, High >219 mg/dL, Very high Secondary prevention optimal non HDL Cholesterol levels are recommended to be <100 mg/dL Performed By: #### 2 4321-2, 15397-9 ####[facility]CLIA [id number] [facility] [address] [place] [address] [place] [facility] Cholesterol.total/C holesterol in HDL [Mass ratio] 2.60 {ratio} Normal <5.10 [facility] Comment on above: Order Comment: Speci men Type: BLOOD SPECIMENOrdering Facility: [facility] Address: [facility] [place] [address] Performed By: #### 2 432-2, 92998-0 ####[facility] LABCLIA [id number] [address] STATES [employer] [facility] FASTING TIME 12 hrs Normal [facility] Comment on above: Order Comment: Speci men Type: BLOOD SPECIMENOrdering Facility: [facility] Address: [address] [place] [address] Performed By: #### 2 432-2, ####[facility] LABCLIA [id number] [address], [address] [place] Triglyceride [Mass/Vol] 54 mg/dL Normal <150 [facility] Comment on above: Order Comment: Speci men Type: BLOOD SPECIMENOrdering Facility: [facility] Address: [address] [place] [address] Result Comment: <150 mg/dL, Normal 150-199 mg/dL, Borderline high 200-499 mg/dL, High >499 mg/dL, Very high Performed By: #### 2 432-2, 50655-8 ####[facility] LABCLIA [id number] [address] [place] [address] [place] CBC W/Diff, Automatedon 08-25 Absolute Lymph 1.09 X10 3/uL Normal 0.83-4.51 [facility] Comment on above: Performed By: #### L 500.4050, L100.0100 #### [facility] [address] [place], [address] Absolute Neut 2.5 X10 3/uL Normal 2.0-7.7 [facility] Comment on above: Performed By: #### L 500.4050, L100.0100 #### [facility] [address] [place], [address] Basophils/100 WBC (Bld) 1.9 % High 0-1 [facility] Comment on above: Performed By: #### L 500.4050, L100.0100 #### [facility] [address] [place], [address] Eosinophils/100 WBC (Bld) 8.1 % High 0-5 [facility] Comment on above: Performed By: #### L 500.4050, L100.0100 #### [facility] [address] [place], [address] Erythrocyte distribution width (RBC) [Ratio] 14.1 % Normal 11.6-14.6 [facility] Comment on above: Performed By: #### L 500.4050, L100.0100 #### [facility] [address] [place], [address] Hematocrit (Bld) [Volume fraction] 32.4 % Low 40-54 [facility] Comment on above: Performed By: #### L 500.4050, L100.0100 #### [facility] [address] [place], [address] Hemoglobin (Bld) [Mass/Vol] 10.4 g/dL Low 13.0-16.5 [facility] Comment on above: Performed By: #### L 500.4050, L100.0100 #### [facility] [address] [place], [address] IG% 0.200 Normal 0.0-0.9 [facility] Comment on above: Result Comment: IG% - Immature Granulocytes (promyelocytes, myelocytes and metamyelocytes) > 1% indicates that a LEFT SHIFT is Present. Performed By: #### L 500.4050, L100.0100 #### [facility] [address] [place], [address] Lymphocytes/100 WBC (Bld) 23.1 % Normal 19-41 [facility] Comment on above: Performed By: #### L 500.4050, L100.0100 #### [facility] [address] [place], [address] MCH (RBC) [Entitic mass] 31.4 pg Normal 27.0-32.0 [facility] Comment on above: Performed By: #### L 500.4050, L100.0100 #### [facility] [address] [place], [address] MCHC (RBC) [Mass/Vol] 32.1 g/dL Normal 32-36 [facility] Comment on above: Performed By: #### L 500.4050, L100.0100 #### [facility] [address] [place], [address] MCV (RBC) [Entitic vol] 97.9 fL High 80-94 [facility] Comment on above: Performed By: #### L 500.4050, L100.0100 #### [facility] [address] [place], [address] Monocytes/100 WBC (Bld) 13.0 % High 0-10 [facility] Comment on above: Performed By: #### L 500.4050, L100.0100 #### [facility] [address] [place], [address] Neutrophils/100 WBC (Bld) 53.7 % Normal 47-70 [facility] Comment on above: Performed By: #### L 500.4050, L100.0100 #### [facility] [address] [place], [address] Nucleated RBC (Bld) [#/Vol] 0 10*3/uL Normal 0-5 [facility] Comment on above: Performed By: #### L 500.4050, L100.0100 #### [facility] [address] [place], [address] Platelet mean volume (Bld) [Entitic vol] 11.5 fL Normal 6.2-12.0 [facility] Comment on above: Performed By: #### L 500.4050, L100.0100 #### [facility] [address] [place], [address] Platelets (Bld) [#/Vol] 216 10*3/uL Normal 150-450 [facility] Comment on above: Performed By: #### L 500.4050, L100.0100 #### [facility] [address] [place], [address] RBC (Bld) [#/Vol] 3.31 10*6/uL Low 4.6-6.2 [facility] Comment on above: Performed By: #### L 500.4050, L100.0100 #### [facility] [address] [place], [address] RDW SD 50.4 fl High 35.1-43.9 [facility] Comment on above: Performed By: #### L 500.4050, L100.0100 #### [facility] [address] [place], [address] WBC (Bld) [#/Vol] 4.7 10*3/uL Normal 4.4-11.0 [facility] Comment on above: Performed By: #### L 500.4050, L100.0100 #### [facility] [address] [place], [address] Comprehensive Metabolic Prof ilon 09-04-2024 Albumin [Mass/Vol] 3.3 g/dL Normal 3.2-5.0 [facility] Comment on above: Performed By: #### L 500.4050, L100.0100 #### [facility] [address] [place], [address] Albumin/Globulin [Mass ratio] 1.0 {ratio} Normal 0.9-2.4 [facility] Comment on above: Performed By: #### L 500.4050, L100.0100 #### [facility] [address] [place], [address] ALK P 38 U/L Low 45-117 [facility] Comment on above: Performed By: #### L 500.4050, L100.0100 #### [facility] [address] [place], [address] ALT [Catalytic activity/Vol] 44 U/L Normal 16-61 [facility] Comment on above: Performed By: #### L 500.4050, L100.0100 #### [facility] [address] [place], [address] AST [Catalytic activity/Vol] 36 U/L Normal 15-37 [facility] Comment on above: Performed By: #### L 500.4050, L100.0100 #### [facility] [address] [place], [address] Bilirubin [Mass/Vol] 0.70 mg/dL Normal 0.20-1.00 [facility] Comment on above: Result Comment: For patients on eltrombopag therapy, use of Dimension [place] TBIL is not recommended. Performed By: #### L 500.4050, L100.0100 #### [facility] [address] [place], [address] BUN/CRE 25.8 RATIO High 10-20 [facility] Comment on above: Performed By: #### L 500.4050, L100.0100 #### [facility] [address] [place], [address] CA,Total 9.6 mg/dL Normal 8.5-10.1 [facility] Comment on above: Performed By: #### L 500.4050, L100.0100 #### [facility] [address] [place], [address] Chloride [Moles/Vol] 108 mmol/L High 98-107 [facility] Comment on above: Performed By: #### L 500.4050, L100.0100 #### [facility] [address] [place], [address] CO2 [Moles/Vol] 26.0 mmol/L Normal 21.0-32.0 [facility] Comment on above: Performed By: #### L 500.4050, L100.0100 #### [facility] [address] [place], [address] Creatinine [Mass/Vol] 1.32 mg/dL High 0.70-1.30 [facility] Comment on above: Result Comment: The validity of the calculated GFR GFRAA in patients over 70 years has not been determined. Clinical correlation is essential. Performed By: #### L 500.4050, L100.0100 #### [facility] [address] [place], [address] EST GFR - AA 67 mL/min Normal >60 [facility] Comment on above: Result Comment: Afri can [place] GFR Calc Performed By: #### L 500.4050, L100.0100 #### [facility] [address] [place], [address] GAP 6 Normal 5-15 [facility] Comment on above: Performed By: #### L 500.4050, L100.0100 #### [facility] [address] [place], [address] GFR/1.73 sq M.predicted among non-blacks MDRD (S/P/Bld) [Vol rate/Area] 56 mL/min/{1.73_m2} Low >60 [facility] Comment on above: Result Comment: Non- GFR Calc Performed By: #### L 500.4050, L100.0100 #### [facility] [address] [place], [address] Globulin (S) [Mass/Vol] 3.3 g/dL Normal 2.2-4.2 [facility] Comment on above: Performed By: #### L 500.4050, L100.0100 #### [facility] [address] [place], [address] Glucose [Mass/Vol] 91 mg/dL Normal 74-106 [facility] Comment on above: Performed By: #### L 500.4050, L100.0100 #### [facility] [address] [place], [address] Potassium [Moles/Vol] 3.7 mmol/L Normal 3.5-5.1 [facility] Comment on above: Performed By: #### L 500.4050, L100.0100 #### [facility] [address] [place], [address] Sodium [Moles/Vol] 140 mmol/L Normal 136-145 [facility] Comment on above: Performed By: #### L 500.4050, L100.0100 #### [facility] [address] [place], [address] T PROT 6.6 g/dL Normal 6.4-8.2 [facility] Comment on above: Performed By: #### L 500.4050, L100.0100 #### [facility] [address] [place], [place], [address] Urea nitrogen [Mass/Vol] 34 mg/dL High 7-18 [facility] Comment on above: Performed By: #### L 500.4050, L100.0100 #### [facility] [address] [place], [address] CNOVon 08-14-2024 CNOV Office Visit (INTMWS ) DEMETRIUS REDDY ([id number]) 1945 M Date Time Provider Department 08/14/24 10:00 AM SUDHEER RITCHIE INTMWS During your visit today, we recorded the following information about you: Temperature Pulse Respiration Blood pressure 97.5 degrees 53/minute 18/minute 152/65 Weight 102.1 kg Sudheer Ritchie MD 08/14/2024 11:17 AM Signed This note was created using [employer]. Subjective Demetrius Reddy is a 78 year old male. His hypertension was improving, but not at goal. Doxazosin was increased 2 months ago, but mail order was questioning the prescription. One other concern was postnasal drainage. Flonase was not as effective. He stopped Atrovent for lack of effect as well. Review of Systems Constitutional: Negative for fatigue. HENT: Positive for postnasal drip. Negative for congestion. Respiratory: Negative for cough and shortness of breath. Cardiovascular: Positive for leg swelling. Negative for chest pain and palpitations. Genitourinary: Negative for difficulty urinating and dysuria. Neurological: Negative for dizziness and headaches. 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 Lower Urinary Tract Symptoms (Luts) Long-Term Use of Plaquenil Stage 3a Chronic Kidney Disease (Hcc) Psoriasis Obesity, Class II, Bmi 35-39.9 Allergic Rhinitis With Postnasal Drip Social History Tobacco Use Smoking status: Former Types: Cigars Quit date: 01/21/2018 Years since quittin.5 Smokeless tobacco: Never Tobacco comments: occ cigar Vaping Use Vaping status: Never Used Substance Use Topics Alcohol use: Yes Alcohol/week: 5.0 standard drinks of alcohol Types: 5 Shots of liquor per week Drug use: No Current Outpatient Medications Medication Sig doxazosin (CARDURA) 8 mg tablet Take 1.5 tablets by mouth once daily. losartan-hydroCHLOROthiazide (HYZAAR) 100-12.5 mg per tablet Take 1 tablet by mouth once daily. amLODIPine (NORVASC) 10 mg tablet Take 1 tablet by mouth once daily. clotrimazole-betamethasone (LOTRISONE) cream Apply to rash on leg , twice daily Fenofibrate (LOFIBRA) 160 mg tablet Take 1 tablet by mouth once daily. fluticasone (FLONASE) 50 mcg/actuation nasal spray Use 1 [place] in each nostril once daily. hydrALAZINE (APRESOLINE) 50 mg tablet Take 1 tablet by mouth every morning AND 1 tablet every afternoon AND 2 tablets daily at bedtime. metoprolol tartrate, short acting, (LOPRESSOR) 50 mg tablet Take 1 tablet by mouth two times a day. omeprazole (PRILOSEC) 20 mg capsule TAKE 1 CAPSULE DAILY BEFORE BREAKFAST ONE-HALF (1/2) HOUR BEFORE MEAL potassium chloride (K-TAB) 10 mEq tablet Take 1 tablet by mouth daily with breakfast. ipratropium bromide (ATROVENT) 42 mcg (0.06 %) nasal spray Use 2 Sprays in the nose three times a day. (Patient taking differently: Use 2 Sprays in the nose three times a day. Patient has not been using) cyanocobalamin (VITAMIN B-12) 100 mcg tab Take 100 mcg by mouth once daily. pyridoxine HCl, vitamin B6, (VITAMIN B-6 ORAL) Take by mouth once daily. aspirin, enteric coated (ASPIRIN, ENTERIC COATED) 81 mg EC tablet Take 1 tablet by mouth once daily. hydrOXYchloroQUINE (PLAQUENIL) 200 mg tablet Take by mouth twice daily. latanoprost (XALATAN) 0.005 % ophthalmic solution Use 1 Drop in both eyes daily at bedtime. ubidecarenone(CO Q-10 100 MG CAP) Take one(1) tablet daily. No current facility-administered medications for this visit. Objective BP 152/65 (BP Site: Left Arm, BP Position: Sitting, BP Cuff Size: Large Adult) Pulse (!) 53 Temp 36.4 ?C (97.5 ?F) (Temporal) Resp 18 Wt 102.1 kg (225 lb 1.4 oz) BMI 37.46 kg/m? Physical Exam Constitutional: General: He is not in acute distress. Appearance: He is not ill-appearing. HENT: Nose: Congestion present. No rhinorrhea. Mouth/Throat: Mouth: Mucous membranes are moist. Pharynx: Oropharynx is clear. Cardiovascular: Rate and Rhythm: Regular rhythm. Bradycardia present. Heart sounds: No murmur heard. No gallop. Pulmonary: Breath sounds: No wheezing or rales. Musculoskeletal: Right lower le+ Pitting Edema present. Left lower le+ Pitting Edema present. Neurological: Mental Status: He is alert. Assessment and Plan 1. Stage 3a chronic kidney disease (HCC) - ICD9: 585.3, ICD10: N18.31 (primary diagnosis) - eGFR: 55 Stable - Counseled on avoiding NSAIDs, adequate hydration 2. Lower urinary tract symptoms (LUTS) - ICD9: 788.99, ICD10: (more content not included)... Normal [facility] CNOVon 06-19-2024 CNOV Office Visit (INTMWS ) DEMETRIUS REDDY ([id number]) 1945 [place] Date Time Provider Department 06/19/24 1:00 PM LOUANN LYNNE INTMWS During your visit today, we recorded the following information about you: Pulse Respiration Blood pressure Weight 57/minute 20/minute 160/64 103.4 kg Louann Lynne, RUBBER ROLLER GRINDER OPERATOR.REPLENISHMENT MERCHANDISING ASSOCIATE 06/19/2024 3:13 PM Signed CC: Patient presents with: 4 month follow up HPI Demetrius Reddy is a 78 year old male who presents today for a 4 month follow up and blood pressure check. He was last seen 04/17/24 by . At that time he was referred by his vibration technician for worsening kidney functions-eGFR 48, Creatinine 1.48. The HCTZ in his Hyzaar was reduced from 25mg to 12.5mg. This change has not caused any adverse effects and he feels the lower leg edema has improved. He continues to have claudication but denies any changes. Denies chest pain, SOB, palpitations, fever, chills, dizziness or headache. He does not check his blood pressure at home. His diet includes minimal processed foods with no additional salt use. He exercises approximately 3 times a week. He has been taking ibuprofen the past few days for some left shoulder pain, but otherwise he has been avoiding its use. His pain is improving and he is not interested in any further discussion about it. He will reach out if the pain persists. Review of Systems Respiratory: Negative for chest tightness and shortness of breath. Cardiovascular: Positive for leg swelling (improved). Negative for chest pain and palpitations. Gastrointestinal: Negative for abdominal distention, abdominal pain, constipation, diarrhea and nausea. Musculoskeletal: Positive for arthralgias. Skin: Negative for rash. Neurological: Negative for dizziness and headaches. Psychiatric/Behavioral: Negative for behavioral problems and sleep disturbance. PAST MEDICAL HISTORY Diagnosis Date Actinic keratosis Anemia, chronic disease 08/12/2011 Class 2 severe obesity with serious comorbidity and body mass index (BMI) of 37.0 to 37.9 in adult (HCC) 10/19/2006 COVID-19 02/23/2023 Esophageal reflux Essential hypertension 10/19/2006 Fatty (change of) liver, not elsewhere classified 02/02/2017 Generalized osteoarthrosis, unspecified site Glaucoma Hyperlipidemia 08/07/2015 Malignant neoplasm of prostate ([facility]) 12/12/2006 RAJESH on CPAP 10/19/2006 PAF (paroxysmal atrial fibrillation) ([facility]) 11/24/2018 Prostate cancer (HCC) 2004 Patient validates year PAST SURGICAL HISTORY Procedure Laterality Date COLONOSCOPY FLX DX W/COLLJ SPEC WHEN PFRMD 07/25/1995 Colonoscopy COLONOSCOPY FLX DX W/COLLJ SPEC WHEN PFRMD 05/25/[address] Munguia=repeat in COLONOSCOPY SCRN NOT HIGH RISK 08/14/2020 COLSC FLX W/RMVL OF TUMOR POLYP LESION SNARE TQ 04/04/2015 small ablated polyp -5 year follow up EYE SURGERY HX F US PROSTATE VOLUME BRACHYTHERAPY 05/13/2005 Seed implants- [facility] PAST SURGICAL HISTORY OF 12/23/2004 TRUS w/ bx. Dr. Gonzalez. PAST SURGICAL HISTORY OF 05/13/2005 seed implants - [facility] TONSILLECTOMY AND ADENOIDECTOMY T/A (under age 12 years) TOTAL HIP REPLACEMENT Right 11/11/2020 right THR TOTAL KNEE REPLACEMENT Right 03/21/2020 ALLERGIES Pantoprazole, Adhesive, and Sulfa (Sulfonamide Antibiotics) MEDICATIONS amLODIPine (NORVASC) 10 mg tablet Take 1 tablet by mouth once daily. clotrimazole-betamethasone (LOTRISONE) cream Apply to rash on leg , twice daily doxazosin (CARDURA) 8 mg tablet Take 1 tablet by mouth once daily. Fenofibrate (LOFIBRA) 160 mg tablet Take 1 tablet by mouth once daily. fluticasone (FLONASE) 50 mcg/actuation nasal spray Use 1 [place] in each nostril once daily. hydrALAZINE (APRESOLINE) 50 mg tablet Take 1 tablet by mouth every morning AND 1 tablet every afternoon AND 2 tablets daily at bedtime. metoprolol tartrate, short acting, (LOPRESSOR) 50 mg tablet Take 1 tablet by mouth two times a day. omeprazole (PRILOSEC) 20 mg capsule TAKE 1 CAPSULE DAILY BEFORE BREAKFAST ONE-HALF (1/2) HOUR BEFORE MEAL potassium chloride (K-TAB) 10 mEq tablet Take 1 tablet by mouth daily with breakfast. losartan-hydroCHLOROthiazide (HYZAAR) 100-12.5 mg per tablet Take 1 tablet by mouth once daily. cyanocobalamin (VITAMIN B-12) 100 mcg tab Take 100 mcg by mouth once daily. pyridoxine HCl, vitamin B6, (VITAMIN B-6 ORAL) Take by mouth once daily. aspirin, enteric coated (ASPIRIN, ENTERIC COATED) 81 mg EC tablet Take 1 tablet by mouth once daily. hydrOXYchloroQUINE (PLAQUENIL) 200 mg tablet Take by mouth twice daily. latanoprost (XALATAN) 0.005 % ophthalmic solution Use 1 Drop in both eyes daily at bedtime. ubidecarenone(CO Q-10 100 MG CAP) Take one(1) tablet daily. ipratropium bromide (ATROVENT) 42 mcg (0.06 %) nasal spray Use 2 Sprays in the nose three times a day. FAMILY HISTORY Problem Relation Age of Onset Alzhe (more content not included)... Normal [facility] Basic metabolic 2000 panelon 06-12-2024 Anion gap [Moles/Vol] 12 mmol/L Normal 8-15 [facility] Comment on above: Order Comment: Speci men Type: BLOOD SPECIMENOrdering Facility: [facility] Address: [address] [place] [address] Performed By: #### 2 4321-2 ####[facility] LABCLIA [id number] [place] [address] [place] Calcium [Mass/Vol] 9.4 mg/dL Normal 8.5-10.2 [facility] Comment on above: Order Comment: Speci men Type: BLOOD SPECIMENOrdering Facility: [facility] Address: [address] [place] [address] Performed By: #### 2 4321-2 ####[facility]CLIA [id number] [place] [address] [place] Chloride [Moles/Vol] 104 mmol/L Normal 98-107 [facility] Comment on above: Order Comment: Speci men Type: BLOOD SPECIMENOrdering Facility: [facility] Address: [address] [place] [address] Performed By: #### 2 4321-2 ####[facility]CLIA [id number] [place] [address] [place] CO2 [Moles/Vol] 24 mmol/L Normal 22-30 [facility] Comment on above: Order Comment: Speci men Type: BLOOD SPECIMENOrdering Facility: [facility] Address: [address] [place] [address] Performed By: #### 2 4321-2 ####[facility] LABIA [id number] [place] [address] [place] Creatinine [Mass/Vol] 1.33 mg/dL High 0.73-1.22 [facility] Comment on above: Order Comment: Speci men Type: BLOOD SPECIMENOrdering Facility: [facility] Address: [address] [place] [address] Performed By: #### 2 4321-2 ####[facility] LABIA [id number] [address] [place] Creatinine and Glomerular filtration rate.predicted panel (S/P/Bld) 55 mL/min/1.73m??? Low >=60 [facility] Comment on above: Order Comment: Speci men Type: BLOOD SPECIMENOrdering Facility: [facility] Address: [address] [place] [address] Result Comment: Sapphire mated Glomerular Filtration Rate (eGFR) is calculated using the 2020 CKD-EPI creatinine equation. This equation utilizes serum creatinine, sex, and age as parameters. The creatinine assay has traceable calibration to isotope dilution-mass spectrometry. Refer to KDIGO guidelines for clinical interpretation. In patients with unstable renal function, e.g. those with acute kidney injury, the eGFR may not accurately reflect actual GFR. Performed By: #### 2 4321-2 ####[facility] [id number] [place] [address] [place] Glucose [Mass/Vol] 105 mg/dL High 74-99 [facility] Comment on above: Order Comment: Speci men Type: BLOOD SPECIMENOrdering Facility: [facility] Address: [address] [place] [address] Result Comment: The [place] Diabetes Association (ADA) provides guidance for cutoff values for fasting glucose and random glucose. The ADA defines fasting as no caloric intake for at least 8 hours. Fasting plasma glucose results between 100 to 125 mg/dL indicate increased risk for diabetes (prediabetes). Fasting plasma glucose results greater than or equal to 126 mg/dL meet the criteria for diagnosis of diabetes. In the absence of unequivocal hyperglycemia, results should be confirmed by repeat testing. In a patient with classic symptoms of hyperglycemia or hyperglycemic crisis, random plasma glucose results greater than or equal to 200 mg/dL meet the criteria for diagnosis of diabetes. Reference: Standards of Medical Care in Diabetes 2016, [place] Diabetes Association. Diabetes Care. 2016.39(Suppl 1). Performed By: #### 2 4321-2 ####[facility] LABCLIA [id number] [place] [address] [place] Potassium [Moles/Vol] 3.7 mmol/L Normal 3.7-5.1 [facility] Comment on above: Order Comment: Thomasi men Type: BLOOD SPECIMENOrdering Facility: [facility] Address: [address] [place] [address] Performed By: #### 2 4321-2 ####[facility] [id number] [place] [address] [place] Sodium [Moles/Vol] 140 mmol/L Normal 136-144 [facility] Comment on above: Order Comment: Sherice chester Type: BLOOD SPECIMENOrdering Facility: [facility] Address: [address] [place] [address] Performed By: #### 2 4321-2 ####[facility] [id number] [place] [address] [place] Urea nitrogen [Mass/Vol] 29 mg/dL High 9-24 [facility] Comment on above: Order Comment: Sherice chester Type: BLOOD SPECIMENOrdering Facility: [facility] Address: [address] [place] [address] Performed By: #### 2 4321-2 ####[facility] [id number] [place] [address] [place] CNOVon 04-17-2024 CNOV Office Visit (INTMWS ) DEMETRIUS REDDY ([id number]) 1945 M Date Time Provider Department 04/17/24 9:00 AM SUDHEER RITCHIE INTMWS During your visit today, we recorded the following information about you: Temperature Pulse Respiration Blood pressure 98.1 degrees 55/minute 16/minute 144/70 Weight 103.2 kg Sudheer Ritchie MD 04/17/2024 9:43 AM Signed This note was created using [employer]. Subjective Demetrius Reddy is a 78 year old male. His vibration technician was concerned about his CKD and recommended we try and reduce hydrochlorothiazide in his Hyzaar to 12.5 mg from 25 mg. His hypertension was elevated today for some reason. He just saw Dr. Jules for cardiology a few weeks ago and no medication changes were made. He complained of legs feeling heavy. Vascular study showed no significant PAD. Edema was stable. Review of Systems Constitutional: Negative for fatigue. Respiratory: Negative for cough and shortness of breath. Cardiovascular: Positive for leg swelling. Negative for chest pain and palpitations. Genitourinary: Negative for difficulty urinating and dysuria. 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 Lower Urinary Tract Symptoms (Luts) Long-Term Use of Plaquenil Stage 3a Chronic Kidney Disease (Hcc) Psoriasis Obesity, Class II, Bmi 35-39.9 Allergic Rhinitis With Postnasal Drip Social History Tobacco Use Smoking status: Former Types: Cigars Quit date: 01/21/2018 Years since quittin.2 Smokeless tobacco: Never Tobacco comments: occ cigar Vaping Use Vaping status: Never Used Substance Use Topics Alcohol use: Yes Alcohol/week: 5.0 standard drinks of alcohol Types: 5 Shots of liquor per week Drug use: No Current Outpatient Medications Medication Sig ipratropium bromide (ATROVENT) 42 mcg (0.06 %) nasal spray Use 2 Sprays in the nose three times a day. clotrimazole-betamethasone (LOTRISONE) cream Apply to rash on leg , twice daily hydrALAZINE (APRESOLINE) 50 mg tablet Take 1 tablet by mouth every morning AND 1 tablet every afternoon AND 2 tablets daily at bedtime. amLODIPine (NORVASC) 10 mg tablet Take 1 tablet by mouth once daily. doxazosin (CARDURA) 8 mg tablet Take 1 tablet by mouth once daily. Fenofibrate (LOFIBRA) 160 mg tablet Take 1 tablet by mouth once daily. losartan-hydroCHLOROthiazide (HYZAAR) 100-25 mg per tablet Take 1 tablet by mouth once daily. metoprolol tartrate, short acting, (LOPRESSOR) 50 mg tablet Take 1 tablet by mouth two times a day. omeprazole (PRILOSEC) 20 mg capsule TAKE 1 CAPSULE DAILY BEFORE BREAKFAST ONE-HALF (1/2) HOUR BEFORE MEAL potassium chloride (K-TAB) 10 mEq tablet Take 1 tablet by mouth daily with breakfast. fluticasone (FLONASE) 50 mcg/actuation nasal spray Use 1 [place] in each nostril once daily. cyanocobalamin (VITAMIN B-12) 100 mcg tab Take 100 mcg by mouth once daily. pyridoxine HCl, vitamin B6, (VITAMIN B-6 ORAL) Take by mouth once daily. aspirin, enteric coated (ASPIRIN, ENTERIC COATED) 81 mg EC tablet Take 1 tablet by mouth once daily. hydrOXYchloroQUINE (PLAQUENIL) 200 mg tablet Take by mouth twice daily. latanoprost (XALATAN) 0.005 % ophthalmic solution Use 1 Drop in both eyes daily at bedtime. ubidecarenone(CO Q-10 100 MG CAP) Take one(1) tablet daily. No current facility-administered medications for this visit. Objective BP 144/70 (BP Site: Left Arm, BP Position: Sitting, BP Cuff Size: Large Adult) Pulse (!) 55 Temp 36.7 ?C (98.1 ?F) (Temporal) Resp 16 Wt 103.2 kg (227 lb 8.2 oz) BMI 37.86 kg/m? Physical Exam Constitutional: Appearance: He is not ill-appearing. HENT: Nose: No rhinorrhea. Cardiovascular: Rate and Rhythm: Regular rhythm. Bradycardia present. Heart sounds: No murmur heard. No gallop. Pulmonary: Effort: No respiratory distress. Breath sounds: No wheezing or rales. Musculoskeletal: Right lower le+ Pitting Edema present. Left lower le+ Pitting Edema present. Neurological: Mental Status: He is alert. Test results pertinent to today's visit were reviewed and discussed with the patient. Latest Ref Rng 02/22/2024 Protein, Total 6.3 - 8.0 g/dL 6.5 Albumin 3.9 - 4.9 g/dL 4.1 Calcium 8.5 - 10.2 mg/dL 9.7 Bilirubin, Total 0.2 - 1.3 mg/dL 0.6 Alkaline Phosphatase 38 - 113 U/L 34 (L) AST 14 - 40 U/L 37 ALT 10 - 54 U/L 31 Glucose 74 - 99 mg/dL 92 BUN 9 - 24 mg/dL 32 (H) Creatinine 0.73 - 1.22 mg/dL 1.48 (H) Sodium 136 - 144 mmol/L 140 (more content not included)... Normal [facility] CNOVon 03-29-2024 CNOV Office Visit (JENNIFER ) DEMETRIUS REDDY ([id number]) 1945 M Date Time Provider Department 03/29/24 9:20 AM CALI DAWSON During your visit today, we recorded the following information about you: Pulse Blood pressure Weight 56/minute 130/76 104.1 kg Cali Dawson DO 03/29/2024 10:08 AM Signed [facility] SECTION [facility] OUTPATIENT VISIT DATE March 29, 2024 PRIMARY CARE PHYSICIAN: Sudheer Ritchie [address] [place] [id number] HISTORY OF PRESENT ILLNESS: Mr. Reddy is a 78 year old male. The patient returns for follow-up secondary to a history of paroxysmal atrial fibrillation, hypertension, hyperlipidemia, borderline ascending aortic dilatation and obstructive sleep apnea. His atrial fibrillation was remote when his CHADS2 score dictated no oral anticoagulation. It is not recurred since. He has stopped using his CPAP due to the difficulty in using such. He continues to work out the gym and use weights. He either uses a reclined stair step or walks on the treadmill at approximately 2 mph. He denies chest discomfort, dyspnea, orthopnea, paroxysmal nocturnal dyspnea, palpitations, near-syncope or syncope. PLAN AND RECOMMENDATIONS: The patient overall appears stable without symptoms that would suggest angina or cardiac decompensation was current optimal medical therapy. Heart rate, blood pressure and recent cholesterol profile are favorable and the same. We have therefore made no additions or changes. We do lengthy discussion regarding dietary and lifestyle modification with improved food choices, increase protein intake, adequate hydration and improvement of both his stamina and improvement of his lean body mass. He apparently has some weakness in his lower extremities but ironically never does any weight lifting for his legs, only for his upper body. We discussed increasing the miles per hour with walking and possibly of building up to light jogging should his left knee be able to take such. We also discussed improvement of strength with utilizing machines for his lower body which would improve risk factors particularly reduce development of osteoporosis, diabetes and Alzheimer's/dementia. We will look forward to reevaluating him in 1 years time. Vitals: BP 130/76 Pulse (!) 56 Wt 104.1 kg (229 lb 8 oz) SpO2 99% BMI 38.19 kg/m? Physical Exam Vitals reviewed. Constitutional: General: He is not in acute distress. Appearance: He is well-developed. He is not diaphoretic. HENT: Head: Normocephalic and atraumatic. Right Ear: External ear normal. Left Ear: External ear normal. Nose: Nose normal. Eyes: General: No scleral icterus. Right eye: No discharge. Left eye: No discharge. Pupils: Pupils are equal, round, and reactive to light. Neck: Thyroid: No thyromegaly. Vascular: No JVD. Cardiovascular: Rate and Rhythm: Normal rate and regular rhythm. Heart sounds: No murmur heard. No friction rub. No gallop. Pulmonary: Effort: Pulmonary effort is normal. No respiratory distress. Breath sounds: Normal breath sounds. No wheezing or rales. Abdominal: General: Bowel sounds are normal. Palpations: Abdomen is soft. Musculoskeletal: General: Normal range of motion. Cervical back: Neck supple. Skin: General: Skin is warm and dry. Coloration: Skin is not pale. Neurological: Mental Status: He is alert and oriented to person, place, and time. Cranial Nerves: No cranial nerve deficit. Psychiatric: Mood and Affect: Mood is not anxious or depressed. Behavior: Behavior normal. Thought Content: Thought content normal. Judgment: Judgment normal. Review of Systems Constitutional: Negative for activity change, appetite change, fatigue and unexpected weight change. HENT: Negative for ear pain and trouble swallowing. Eyes: Negative for pain and visual disturbance. Respiratory: Negative for chest tightness and shortness of breath. Cardiovascular: Negative for chest pain, palpitations and leg swelling. Gastrointestinal: Negative for abdominal pain and blood in stool. Endocrine: Negative for cold intolerance and heat intolerance. Genitourinary: Negative for dysuria, hematuria and scrotal swelling. Musculoskeletal: Positive for arthralgias and back pain. Negative for myalgias. Skin: Negative for pallor and rash. Allergic/Immunologic: Negative for immunocompromised state. Neurological: Negative for dizziness, syncope and light-headedness. Hematological: Negative for adenopathy. Does not bruise/bleed easily. Psychiatric/Behavioral: Negative for sleep disturbance. The patient is not nervous/anxious. PAST MEDICAL HISTORY No date: Actinic keratosis 08/12/2011: Anemia, chronic disease 10/19/2006: Class 2 severe obesity with serious comorb (more content not included)... Normal [facility] CBC W/Diff, Automatedon 09-0 Absolute Lymph 1.12 X10 3/uL Normal 0.83-4.51 [facility] Comment on above: Performed By: #### L 500.4050, L100.0100 #### [facility] [address] [place], [address] Absolute Neut 3.5 X10 3/uL Normal 2.0-7.7 [facility] Comment on above: Performed By: #### L 500.4050, L100.0100 #### [facility] [address] [place], [address] Basophils/100 WBC (Bld) 1.6 % High 0-1 [facility] Comment on above: Performed By: #### L 500.4050, L100.0100 #### [facility] [address] [place], [address] Eosinophils/100 WBC (Bld) 7.1 % High 0-5 [facility] Comment on above: Performed By: #### L 500.4050, L100.0100 #### [facility] [address] [place], [address] Erythrocyte distribution width (RBC) [Ratio] 13.6 % Normal 11.6-14.6 [facility] Comment on above: Performed By: #### L 500.4050, L100.0100 #### [facility] [address] [place], [address] Hematocrit (Bld) [Volume fraction] 32.3 % Low 40-54 [facility] Comment on above: Performed By: #### L 500.4050, L100.0100 #### [facility] [address] [place], [address] Hemoglobin (Bld) [Mass/Vol] 10.6 g/dL Low 13.0-16.5 [facility] Comment on above: Performed By: #### L 500.4050, L100.0100 #### [facility] [address] [place], [address] IG% 0.300 Normal 0.0-0.9 [facility] Comment on above: Result Comment: IG% - Immature Granulocytes (promyelocytes, myelocytes and metamyelocytes) > 1% indicates that a LEFT SHIFT is Present. Performed By: #### L 500.4050, L100.0100 #### [facility] [address] [place], [address] Lymphocytes/100 WBC (Bld) 19.4 % Normal 19-41 [facility] Comment on above: Performed By: #### L 500.4050, L100.0100 #### [facility] [address] [place], [address] MCH (RBC) [Entitic mass] 32.6 pg High 27.0-32.0 [facility] Comment on above: Performed By: #### L 500.4050, L100.0100 #### [facility] [address] [place], [address] MCHC (RBC) [Mass/Vol] 32.8 g/dL Normal 32-36 [facility] Comment on above: Performed By: #### L 500.4050, L100.0100 #### [facility] [address] [place], [address] MCV (RBC) [Entitic vol] 99.4 fL High 80-94 [facility] Comment on above: Performed By: #### L 500.4050, L100.0100 #### [facility] [address] [place], [address] Monocytes/100 WBC (Bld) 11.1 % High 0-10 [facility] Comment on above: Performed By: #### L 500.4050, L100.0100 #### [facility] [address] [place], [address] Neutrophils/100 WBC (Bld) 60.5 % Normal 47-70 [facility] Comment on above: Performed By: #### L 500.4050, L100.0100 #### [facility] [address] [place], [address] Nucleated RBC (Bld) [#/Vol] 0 10*3/uL Normal 0-5 [facility] Comment on above: Performed By: #### L 500.4050, L100.0100 #### [facility] [address] [place], [address] Platelet mean volume (Bld) [Entitic vol] 11.5 fL Normal 6.2-12.0 [facility] Comment on above: Performed By: #### L 500.4050, L100.0100 #### [facility] [address] [place], [address] Platelets (Bld) [#/Vol] 252 10*3/uL Normal 150-450 [facility] Comment on above: Performed By: #### L 500.4050, L100.0100 #### [facility] [address] [place], [address] RBC (Bld) [#/Vol] 3.25 10*6/uL Low 4.6-6.2 [facility] Comment on above: Performed By: #### L 500.4050, L100.0100 #### [facility] [address] [place], [address] RDW SD 50.0 fl High 35.1-43.9 [facility] Comment on above: Performed By: #### L 500.4050, L100.0100 #### [facility] [address] [place], [address] WBC (Bld) [#/Vol] 5.8 10*3/uL Normal 4.4-11.0 [facility] Comment on above: Performed By: #### L 500.4050, L100.0100 #### [facility] [address] [place], [address] Comprehensive Metabolic Prof ilon 03-28-2024 Albumin [Mass/Vol] 3.4 g/dL Normal 3.2-5.0 [facility] Comment on above: Performed By: #### L 500.4050, L100.0100 #### [facility] [address] [place], [address] Albumin/Globulin [Mass ratio] 1.0 {ratio} Normal 0.9-2.4 [facility] Comment on above: Performed By: #### L 500.4050, L100.0100 #### [facility] [address] [place], [address] ALK P 37 U/L Low 45-117 [facility] Comment on above: Performed By: #### L 500.4050, L100.0100 #### [facility] [address] [place], [address] ALT [Catalytic activity/Vol] 37 U/L Normal 16-61 [facility] Comment on above: Performed By: #### L 500.4050, L100.0100 #### [facility] [address] [place], [address] AST [Catalytic activity/Vol] 30 U/L Normal 15-37 [facility] Comment on above: Performed By: #### L 500.4050, L100.0100 #### [facility] [address] [place], [address] Bilirubin [Mass/Vol] 0.70 mg/dL Normal 0.20-1.00 [facility] Comment on above: Result Comment: For patients on eltrombopag therapy, use of Dimension [place] TBIL is not recommended. Performed By: #### L 500.4050, L100.0100 #### [facility] [address] [place], [address] BUN/CRE 24.0 RATIO High 10-20 [facility] Comment on above: Performed By: #### L 500.4050, L100.0100 #### [facility] [address] [place], [address] CA,Total 9.7 mg/dL Normal 8.5-10.1 [facility] Comment on above: Performed By: #### L 500.4050, L100.0100 #### [facility] [address] [place], [address] Chloride [Moles/Vol] 104 mmol/L Normal 98-107 [facility] Comment on above: Performed By: #### L 500.4050, L100.0100 #### [facility] [address] [place], [address] CO2 [Moles/Vol] 25.0 mmol/L Normal 21.0-32.0 [facility] Comment on above: Performed By: #### L 500.4050, L100.0100 #### [facility] [address] [place], [address] Creatinine [Mass/Vol] 1.46 mg/dL High 0.70-1.30 [facility] Comment on above: Result Comment: The validity of the calculated GFR GFRAA in patients over 70 years has not been determined. Clinical correlation is essential. Performed By: #### L 500.4050, L100.0100 #### [facility] [address] [place], [address] EST GFR - AA 60 mL/min Normal >60 [facility] Comment on above: Result Comment: Afri can [place] GFR Calc Performed By: #### L 500.4050, L100.0100 #### [facility] [address] [place], [address] GAP 8 Normal 5-15 [facility] Comment on above: Performed By: #### L 500.4050, L100.0100 #### [facility] [address] [place], [address] GFR/1.73 sq M.predicted among non-blacks MDRD (S/P/Bld) [Vol rate/Area] 50 mL/min/{1.73_m2} Low >60 [facility] Comment on above: Result Comment: Non- GFR Calc Performed By: #### L 500.4050, L100.0100 #### [facility] [address] [place], [address] Globulin (S) [Mass/Vol] 3.4 g/dL Normal 2.2-4.2 [facility] Comment on above: Performed By: #### L 500.4050, L100.0100 #### [facility] [address] [place], [address] Glucose [Mass/Vol] 95 mg/dL Normal 74-106 [facility] Comment on above: Performed By: #### L 500.4050, L100.0100 #### [facility] [address] [place], [address] Potassium [Moles/Vol] 3.9 mmol/L Normal 3.5-5.1 [facility] Comment on above: Performed By: #### L 500.4050, L100.0100 #### [facility] [address] [place], [address] Sodium [Moles/Vol] 137 mmol/L Normal 136-145 [facility] Comment on above: Performed By: #### L 500.4050, L100.0100 #### [facility] [address] [place], [address] T PROT 6.8 g/dL Normal 6.4-8.2 [facility] Comment on above: Performed By: #### L 500.4050, L100.0100 #### [facility] [address] [place], [address] Urea nitrogen [Mass/Vol] 35 mg/dL High 7-18 [facility] Comment on above: Performed By: #### L 500.4050, L100.0100 #### [facility] [address] [place], [address] Comprehensive metabolic 2000 panelon 02-22-2024 Albumin [Mass/Vol] 4.1 g/dL Normal 3.9-4.9 [facility] Comment on above: Order Comment: Speci men Type: BLOOD SPECIMENOrdering Facility: [facility] Address: [address] [place] [address] Performed By: #### 2 4323-8, 73240-6 ####[facility] [id number] [place] [address] [place] ALP [Catalytic activity/Vol] 34 U/L Low 38-113 [facility] Comment on above: Order Comment: Speci men Type: BLOOD SPECIMENOrdering Facility: [facility] Address: [address] [place] [address] Performed By: #### 2 4323-8, 55601-3 ####[facility] [id number] [place] [address] [place] ALT [Catalytic activity/Vol] 31 U/L Normal 10-54 [facility] Comment on above: Order Comment: Speci men Type: BLOOD SPECIMENOrdering Facility: [facility] Address: [address] [place] [address] Performed By: #### 2 4323-8, 69253-4 ####[facility] [id number] [place] [address] [place] Anion gap [Moles/Vol] 10 mmol/L Normal 8-15 [facility] Comment on above: Order Comment: Speci men Type: BLOOD SPECIMENOrdering Facility: [facility] Address: [address] [place] [address] Performed By: #### 2 4323-8, 44544-6 ####[facility] [id number] [place] [address] [place] AST [Catalytic activity/Vol] 37 U/L Normal 14-40 [facility] Comment on above: Order Comment: Speci men Type: BLOOD SPECIMENOrdering Facility: [facility] Address: [address] [place] [address] Performed By: #### 2 4323-8, 37756-8 ####[facility] [id number] [place] [address] [place] Bilirubin [Mass/Vol] 0.6 mg/dL Normal 0.2-1.3 [facility] Comment on above: Order Comment: Speci men Type: BLOOD SPECIMENOrdering Facility: [facility] Address: [address] [place] [address] Performed By: #### 2 4323-8, 67787-2 ####[facility] [id number] [place] [address] [place] Calcium [Mass/Vol] 9.7 mg/dL Normal 8.5-10.2 [facility] Comment on above: Order Comment: Speci men Type: BLOOD SPECIMENOrdering Facility: [facility] Address: [address] [place] [address] Performed By: #### 2 4323-8, 66245-9 ####[facility] [id number] [place] [address] [place] Chloride [Moles/Vol] 103 mmol/L Normal 98-107 [facility] Comment on above: Order Comment: Speci men Type: BLOOD SPECIMENOrdering Facility: [facility] Address: [address] [place] [address] Performed By: #### 2 4323-8, 83846-2 ####[facility] [id number] [place] [address] [place] CO2 [Moles/Vol] 27 mmol/L Normal 22-30 [facility] Comment on above: Order Comment: Speci men Type: BLOOD SPECIMENOrdering Facility: [facility] Address: [address] [place] [address] Performed By: #### 2 4323-8, 64679-9 ####[facility] [id number] [place] [address] [place] Creatinine [Mass/Vol] 1.48 mg/dL High 0.73-1.22 [facility] Comment on above: Order Comment: Speci men Type: BLOOD SPECIMENOrdering Facility: [facility] Address: [address] [place] [address] Performed By: #### 2 4323-8, 39022-2 ####[facility] [id number] [place] [address] [place] Creatinine and Glomerular filtration rate.predicted panel (S/P/Bld) 48 mL/min/1.73m??? Low >=60 [facility] Comment on above: Order Comment: Sherice chester Type: BLOOD SPECIMENOrdering Facility: [facility] Address: [address] [place] [address] Result Comment: Sapphire mated Glomerular Filtration Rate (eGFR) is calculated using the 2020 CKD-EPI creatinine equation. This equation utilizes serum creatinine, sex, and age as parameters. The creatinine assay has traceable calibration to isotope dilution-mass spectrometry. Refer to KDIGO guidelines for clinical interpretation. In patients with unstable renal function, e.g. those with acute kidney injury, the eGFR may not accurately reflect actual GFR. Performed By: #### 2 4323-8, 60520-8 ####[facility] [id number] [place] [address] [place] Glucose [Mass/Vol] 92 mg/dL Normal 74-99 [facility] Comment on above: Order Comment: Thomasi men Type: BLOOD SPECIMENOrdering Facility: [facility] Address: [address] [place] [address] Result Comment: The [place] Diabetes Association (ADA) provides guidance for cutoff values for fasting glucose and random glucose. The ADA defines fasting as no caloric intake for at least 8 hours. Fasting plasma glucose results between 100 to 125 mg/dL indicate increased risk for diabetes (prediabetes). Fasting plasma glucose results greater than or equal to 126 mg/dL meet the criteria for diagnosis of diabetes. In the absence of unequivocal hyperglycemia, results should be confirmed by repeat testing. In a patient with classic symptoms of hyperglycemia or hyperglycemic crisis, random plasma glucose results greater than or equal to 200 mg/dL meet the criteria for diagnosis of diabetes. Reference: Standards of Medical Care in Diabetes 2016, [place] Diabetes Association. Diabetes Care. 2016.39(Suppl 1). Performed By: #### 2 4323-8, 77375-0 ####[facility] [id number] [place] [address] [place] Potassium [Moles/Vol] 4.0 mmol/L Normal 3.7-5.1 [facility] Comment on above: Order Comment: Thomasi men Type: BLOOD SPECIMENOrdering Facility: [facility] Address: [address] [place] [address] Performed By: #### 2 4328, ####[facility] [id number] [place] [address] [place] Protein [Mass/Vol] 6.5 g/dL Normal 6.3-8.0 [facility] Comment on above: Order Comment: Sherice chester Type: BLOOD SPECIMENOrdering Facility: [facility] Address: [address] [place] [address] Performed By: #### 2 4328, ####[facility] [id number] [place] [address] [place] Sodium [Moles/Vol] 140 mmol/L Normal 136-144 [facility] Comment on above: Order Comment: Thomasi men Type: BLOOD SPECIMENOrdering Facility: [facility] Address: [address] [place] [address] Performed By: #### 2 4323-8, 33891-8 ####[facility] [id number] [place] [address] [place] Urea nitrogen [Mass/Vol] 32 mg/dL High 9-24 [facility] Comment on above: Order Comment: Speci men Type: BLOOD SPECIMENOrdering Facility: [facility] Address: [address] [place] [address] Performed By: #### 2 4323-8, 94660-0 ####[facility] [id number] [place] [address] [place] Lipid 1996 panelon 4 Cholesterol [Mass/Vol] 128 mg/dL Normal <200 [facility] Comment on above: Order Comment: Speci men Type: BLOOD SPECIMENOrdering Facility: [facility] Address: [address] [place] [address] Result Comment: <200 mg/dL, Desirable 200-239 mg/dL, Borderline high >239 mg/dL, High Performed By: #### 2 4323-8, 40894-4 ####[facility] [id number] [place] [address] [place] Cholesterol in HDL [Mass/Vol] 46 mg/dL Normal >39 [facility] Comment on above: Order Comment: Speci men Type: BLOOD SPECIMENOrdering Facility: [facility] Address: [address] [place] [address] Result Comment: 40-5 9 mg/dL, Acceptable >59 mg/dL, High: Negative risk factor for coronary heart disease <40 mg/dL, Low: Positive risk factor for coronary heart disease Performed By: #### 2 4323-8, 88210-5 ####[facility] [id number] [place] [address] [place] Cholesterol in LDL [Mass/Vol] 69 mg/dL Normal <100 [facility] Comment on above: Order Comment: Speci men Type: BLOOD SPECIMENOrdering Facility: [facility] Address: [address] [place] [address] Result Comment: <100 mg/dL, Optimal 100-129 mg/dL, Near optimal/above optimal 130-159 mg/dL, Borderline high 160-189 mg/dL, High >189 mg/dL, Very high Secondary prevention optimal LDL Cholesterol levels are recommended to be < 70 mg/dL Performed By: #### 2 4323-8, 19380-6 ####[facility] [id number] [address] [address] [place] Cholesterol in LDL/Cholesterol in HDL [Mass ratio] 1.50 {ratio} Normal <2.54 [facility] Comment on above: Order Comment: Speci men Type: BLOOD SPECIMENOrdering Facility: [facility] Address: [address] [place] [address] Result Comment: Kenneth dianece: 1. National Cholesterol Education Program ATP III Guideline At-A-Glance Quick Desk Reference: National Heart, Lung, and Blood [place]. National Institutes of Health. 2001: NIH Publication No. 01-3305. 2. An International Atherosclerosis Society position paper: global recommendations for the management of dyslipidemia: executive summary, Atherosclerosis. 2014: 232(2):410-413. Performed By: #### 2 4323-8, 73052-7 ####[facility] [id number] [place] [address] [place] Cholesterol in VLDL [Mass/Vol] 13 mg/dL Normal <30 [facility] Comment on above: Order Comment: Sherice men Type: BLOOD SPECIMENOrdering Facility: [facility] Address: [address] [place] [address] Performed By: #### 2 4323-8, 07815-0 ####[facility] [id number] [address] [address] [place] Cholesterol non HDL [Mass/Vol] 82 mg/dL Normal <130 [facility] Comment on above: Order Comment: Sherice men Type: BLOOD SPECIMENOrdering Facility: [facility] Address: [address] [place] [address] Result Comment: <130 mg/dL, Optimal 130-159 mg/dL, Near optimal/above optimal 160-189 mg/dL, Borderline high 190-219 mg/dL, High >219 mg/dL, Very high Secondary prevention optimal non HDL Cholesterol levels are recommended to be <100 mg/dL Performed By: #### 2 4323-8, 36960-5 ####[facility] [id number] [place] [address] [place] Cholesterol.total/C holesterol in HDL [Mass ratio] 2.78 {ratio} Normal <5.10 [facility] Comment on above: Order Comment: Speci men Type: BLOOD SPECIMENOrdering Facility: [facility] Address: [address] [place] [address] Performed By: #### 2 4323-8, 63656-5 ####[facility] [id number] [address] [place] FASTING TIME 14 hrs Normal [facility] Comment on above: Order Comment: Speci men Type: BLOOD SPECIMENOrdering Facility: [facility] Address: [address] [place] [address] Performed By: #### 2 4323-8, 01617-0 ####[facility] [id number] [place] [address] [place] Triglyceride [Mass/Vol] 66 mg/dL Normal <150 [facility] Comment on above: Order Comment: Speci men Type: BLOOD SPECIMENOrdering Facility: [facility] Address: [address] [place] [address] Result Comment: <150 mg/dL, Normal 150-199 mg/dL, Borderline high 200-499 mg/dL, High >499 mg/dL, Very high Performed By: #### 2 4323-8, 42719-7 ####[facility] [id number] [place] [address] [place] Absolute lymphocyte countOrd ered By: Ruth Marie on 09-27-2023 Lymphocytes Auto (Unsp spec) [#/Vol] 1.31 10*3/uL 0.83-4.51 [facility] Automated lymphocyte count a s percentage of total leukocytesOrdered By: Ruth Cynthia on 09-27-2023 Lymphocytes/100 WBC Auto (Unsp spec) 26.2 % 19-41 [facility] Basophil percentageOrdered B y: Ruth Maire on 09-27-2023 Basophils/100 WBC (Bld) 1.4 % 0-1 [facility] Bilirubin [Mass/Vol] 0.70 mg/dL 0.20-1.00 [facility] Comment on above: For patients on eltr ombopag therapy, use of Dimension [place] TBIL is not recommended. Chloride [Moles/Vol] 108 mmol/L 98-107 [facility] Eosinophils/100 WBC (Bld) 7.6 % 0-5 [facility] Glucose [Mass/Vol] 99 mg/dL 74-106 [facility] Hemoglobin (Bld) [Mass/Vol] 10.5 g/dL 13.0-16.5 [facility] Monocytes/100 WBC (Bld) 10.6 % 0-10 [facility] Neutrophils (Bld) [#/Vol] 2.7 10*3/uL 2.0-7.7 [facility] Neutrophils/100 WBC (Bld) 54.0 % 47-70 [facility] Potassium [Moles/Vol] 3.6 mmol/L 3.5-5.1 [facility] Protein [Mass/Vol] 6.5 g/dL 6.4-8.2 [facility] Sodium [Moles/Vol] 142 mmol/L 136-145 [facility] WBC (Bld) [#/Vol] 5.0 10*3/uL 4.4-11.0 [facility] CBC W/Diff, Automatedon Absolute Lymph 1.31 X10 3/uL Normal 0.83-4.51 [facility] Comment on above: Performed By: #### L 500.4050, L100.0100 #### [facility] [address] [place], [address] Absolute Neut 2.7 X10 3/uL Normal 2.0-7.7 [facility] Comment on above: Performed By: #### L 500.4050, L100.0100 #### [facility] [address] [place], [address] Basophils/100 WBC (Bld) 1.4 % High 0-1 [facility] Comment on above: Performed By: #### L 500.4050, L100.0100 #### [facility] [address] [place], [address] Eosinophils/100 WBC (Bld) 7.6 % High 0-5 [facility] Comment on above: Performed By: #### L 500.4050, L100.0100 #### [facility] [address] [place], [address] Erythrocyte distribution width (RBC) [Ratio] 14.3 % Normal 11.6-14.6 [facility] Comment on above: Performed By: #### L 500.4050, L100.0100 #### [facility] [address] [place], [address] Hematocrit (Bld) [Volume fraction] 32.3 % Low 40-54 [facility] Comment on above: Performed By: #### L 500.4050, L100.0100 #### [facility] [address] [place], [address] Hemoglobin (Bld) [Mass/Vol] 10.5 g/dL Low 13.0-16.5 [facility] Comment on above: Performed By: #### L 500.4050, L100.0100 #### [facility] [address] [place], [address] IG% 0.200 Normal 0.0-0.9 [facility] Comment on above: Result Comment: IG% - Immature Granulocytes (promyelocytes, myelocytes and metamyelocytes) > 1% indicates that a LEFT SHIFT is Present. Performed By: #### L 500.4050, L100.0100 #### [facility] [address] [place], [address] Lymphocytes/100 WBC (Bld) 26.2 % Normal 19-41 [facility] Comment on above: Performed By: #### L 500.4050, L100.0100 #### [facility] [address] [place], [address] MCH (RBC) [Entitic mass] 32.0 pg Normal 27.0-32.0 [facility] Comment on above: Performed By: #### L 500.4050, L100.0100 #### [facility] [address] [place], [address] MCHC (RBC) [Mass/Vol] 32.5 g/dL Normal 32-36 [facility] Comment on above: Performed By: #### L 500.4050, L100.0100 #### [facility] [address] [place], [address] MCV (RBC) [Entitic vol] 98.5 fL High 80-94 [facility] Comment on above: Performed By: #### L 500.4050, L100.0100 #### [facility] [address] [place], [address] Monocytes/100 WBC (Bld) 10.6 % High 0-10 [facility] Comment on above: Performed By: #### L 500.4050, L100.0100 #### [facility] [address] [place], [address] Neutrophils/100 WBC (Bld) 54.0 % Normal 47-70 [facility] Comment on above: Performed By: #### L 500.4050, L100.0100 #### [facility] [address] [place], [address] Nucleated RBC (Bld) [#/Vol] 0 10*3/uL Normal 0-5 [facility] Comment on above: Performed By: #### L 500.4050, L100.0100 #### [facility] [address] [place], [address] Platelet mean volume (Bld) [Entitic vol] 11.5 fL Normal 6.2-12.0 [facility] Comment on above: Performed By: #### L 500.4050, L100.0100 #### [facility] [address] [place], [address] Platelets (Bld) [#/Vol] 229 10*3/uL Normal 150-450 [facility] Comment on above: Performed By: #### L 500.4050, L100.0100 #### [facility] [address] [place], [address] RBC (Bld) [#/Vol] 3.28 10*6/uL Low 4.6-6.2 [facility] Comment on above: Performed By: #### L 500.4050, L100.0100 #### [facility] [address] [place], [address] RDW SD 52.3 fl High 35.1-43.9 [facility] Comment on above: Performed By: #### L 500.4050, L100.0100 #### [facility] [address] [place], [address] WBC (Bld) [#/Vol] 5.0 10*3/uL Normal 4.4-11.0 [facility] Comment on above: Performed By: #### L 500.4050, L100.0100 #### [facility] [address] [place], [address] Comprehensive Metabolic Prof ilon 09-27-2023 Albumin [Mass/Vol] 3.4 g/dL Normal 3.2-5.0 [facility] Comment on above: Performed By: #### L 500.4050, L100.0100 #### [facility] [address] [place], [address] Albumin/Globulin [Mass ratio] 1.1 {ratio} Normal 0.9-2.4 [facility] Comment on above: Performed By: #### L 500.4050, L100.0100 #### [facility] [address] [place], [address] ALK P 34 U/L Low 45-117 [facility] Comment on above: Performed By: #### L 500.4050, L100.0100 #### [facility] [address] [place], [address] ALT [Catalytic activity/Vol] 36 U/L Normal 16-61 [facility] Comment on above: Performed By: #### L 500.4050, L100.0100 #### [facility] [address] [place], [address] AST [Catalytic activity/Vol] 32 U/L Normal 15-37 [facility] Comment on above: Performed By: #### L 500.4050, L100.0100 #### [facility] [address] [place], [address] Bilirubin [Mass/Vol] 0.70 mg/dL Normal 0.20-1.00 [facility] Comment on above: Result Comment: For patients on eltrombopag therapy, use of Dimension [place] TBIL is not recommended. Performed By: #### L 500.4050, L100.0100 #### [facility] [address] [place], [address] BUN/CRE 24.7 RATIO High 10-20 [facility] Comment on above: Performed By: #### L 500.4050, L100.0100 #### [facility] [address] [place], [address] CA,Total 9.4 mg/dL Normal 8.5-10.1 [facility] Comment on above: Performed By: #### L 500.4050, L100.0100 #### [facility] [address] [place], [address] Chloride [Moles/Vol] 108 mmol/L High 98-107 [facility] Comment on above: Performed By: #### L 500.4050, L100.0100 #### [facility] [address] [place], [address] CO2 [Moles/Vol] 28.0 mmol/L Normal 21.0-32.0 [facility] Comment on above: Performed By: #### L 500.4050, L100.0100 #### [facility] [address] [place], [address] Creatinine [Mass/Vol] 1.46 mg/dL High 0.70-1.30 [facility] Comment on above: Result Comment: The validity of the calculated GFR GFRAA in patients over 70 years has not been determined. Clinical correlation is essential. Performed By: #### L 500.4050, L100.0100 #### [facility] [address] [place], [address] EST GFR - AA 60 mL/min Normal >60 [facility] Comment on above: Result Comment: Afri can [place] GFR Calc Performed By: #### L 500.4050, L100.0100 #### [facility] [address] [place], [address] GAP 6 Normal 5-15 [facility] Comment on above: Performed By: #### L 500.4050, L100.0100 #### [facility] [address] [place], [address] GFR/1.73 sq M.predicted among non-blacks MDRD (S/P/Bld) [Vol rate/Area] 50 mL/min/{1.73_m2} Low >60 [facility] Comment on above: Result Comment: Non- GFR Calc Performed By: #### L 500.4050, L100.0100 #### [facility] [address] [place], [address] Globulin (S) [Mass/Vol] 3.1 g/dL Normal 2.2-4.2 [facility] Comment on above: Performed By: #### L 500.4050, L100.0100 #### [facility] [address] [place], [address] Glucose [Mass/Vol] 99 mg/dL Normal 74-106 [facility] Comment on above: Performed By: #### L 500.4050, L100.0100 #### [facility] [address] [place], [address] Potassium [Moles/Vol] 3.6 mmol/L Normal 3.5-5.1 [facility] Comment on above: Performed By: #### L 500.4050, L100.0100 #### [facility] [address] [place], [address] Sodium [Moles/Vol] 142 mmol/L Normal 136-145 [facility] Comment on above: Performed By: #### L 500.4050, L100.0100 #### [facility] [address] [place], [address] T PROT 6.5 g/dL Normal 6.4-8.2 [facility] Comment on above: Performed By: #### L 500.4050, L100.0100 #### [facility] [address] [place], [address] Urea nitrogen [Mass/Vol] 36 mg/dL High 7-18 [facility] Comment on above: Performed By: #### L 500.4050, L100.0100 #### [facility] [place], [address] Determination of erythrocyte mean corpuscular volume (MCV)Ordered By: Ruth Marie on 09-27-2023 MCV (RBC) [Entitic vol] 98.5 fL 80-94 [facility] Erythrocyte distribution wid th ratioOrdered By: [facility] Cynthia on 09-27-2023 Erythrocyte distribution width (RBC) [Ratio] 14.3 % 11.6-14.6 [facility] Erythrocyte distribution wid th standard deviationOrdered By: [facility] Cynthia on 09-27-2023 Erythrocyte distribution width (RBC) [Entitic vol] 52.3 fL 35.1-43.9 [facility] Hematocrit Auto (Bld) [Volum e fraction]Ordered By: [facility] Cynthia on 09-27-2023 Hematocrit (Bld) [Volume fraction] 32.3 % 40-54 [facility] Immature granulocytes/100 WB C Auto (Bld)Ordered By: Ruth Marie on 09-27-2023 Immature granulocytes/100 WBC (Bld) 0.200 % 0.0-0.9 [facility] Comment on above: IG% - Immature Granu locytes (promyelocytes, myelocytes and metamyelocytes) > 1% indicates that a LEFT SHIFT is Present. Laboratory - Chemistry and C hemistry - challengeOrdered By: [facility] Cynthia on 09-27-2023 Albumin/Globulin [Mass ratio] 1.1 {ratio} 0.9-2.4 [facility] ALP [Catalytic activity/Vol] 34 U/L 45-117 [facility] ALT [Catalytic activity/Vol] 36 U/L 16-61 [facility] CO2 [Moles/Vol] 28.0 mmol/L 21.0-32.0 [facility] Globulin (S) [Mass/Vol] 3.1 g/dL 2.2-4.2 [facility] Urea nitrogen/Creatinine [Mass ratio] 24.7 mg/mg 10-20 [facility] - Hematology and Cell countsOrdered By: Ruth Marie on 09-27-2023 MCH (RBC) [Entitic mass] 32.0 pg 27.0-32.0 [facility] MCHC (RBC) [Mass/Vol] 32.5 g/dL 32-36 [facility] Nucleated RBC/100 WBC (Bld) [Ratio] 0 % 0-5 [facility] Platelet mean volume (Bld) [Entitic vol] 11.5 fL 6.2-12.0 [facility] Platelets (Bld) [#/Vol] 229 10*3/uL 150-450 [facility] No Panel InformationOrdered By: Ruth Marie on 09-27-2023 Estimated GFR (MDRD) Amer 60 mL/min >60 [facility] Comment on above: GFR Calc Estimated GFR (MDRD) Non-Af Amer 50 mL/min >60 [facility] Comment on above: Non- GFR Calc RBC Auto (Bld) [#/Vol]Ordere d By: Ruth Marie on 09-27-2023 RBC (Bld) [#/Vol] 3.28 10*6/uL 4.6-6.2 [facility] Serum or plasma calcium gabe urement (mass/volume)Ordered By: Ruth Marie on 09-27-2023 Calcium [Mass/Vol] 9.4 mg/dL 8.5-10.1 [facility] Serum or plasma creatinine m easurement (mass/volume)Ordered By: Ruth Marie on 09-27-2023 Creatinine [Mass/Vol] 1.46 mg/dL 0.70-1.30 [facility] Comment on above: The validity of the calculated GFR & GFRAA in patients over 70 years has not been determined. Clinical correlation is essential. Serum or plasma urea nitroge n measurement (mass/volume)Ordered By: Ruth Marie on 09-27-2023 Urea nitrogen [Mass/Vol] 36 mg/dL 7-18 [facility] Thin prep Papanicolaou smear with manual screeningOrdered By: Ruth Marie on 09-27-2023 Thin prep Papanicolaou smear with manual screening 3.4 g/dL 3.2-5.0 [facility] Thin prep Papanicolaou smear with manual screening 32 U/L 15-37 [facility] Thin prep Papanicolaou smear with manual screening 6 5-15 [facility] Absolute lymphocyte countOrd ered By: Ruth Marie on 04-06-2023 Lymphocytes Auto (Unsp spec) [#/Vol] 1.33 10*3/uL 0.83-4.51 [facility] Basophil percentageOrdered B y: Ruth Marie on 04-06-2023 Basophils/100 WBC (Bld) 1.7 % 0-1 [facility] Bilirubin [Mass/Vol] 0.70 mg/dL 0.20-1.00 [facility] Comment on above: For patients on eltr ombopag therapy, use of Dimension [place] TBIL is not recommended. Chloride [Moles/Vol] 107 mmol/L 98-107 [facility] Eosinophils/100 WBC (Bld) 9.5 % 0-5 [facility] Glucose [Mass/Vol] 96 mg/dL 74-106 [facility] Neutrophils (Bld) [#/Vol] 2.7 10*3/uL 2.0-7.7 [facility] Neutrophils/100 WBC (Bld) 51.4 % 47-70 [facility] Potassium [Moles/Vol] 3.7 mmol/L 3.5-5.1 [facility] Protein [Mass/Vol] 6.5 g/dL 6.4-8.2 [facility] Sodium [Moles/Vol] 138 mmol/L 136-145 [facility] WBC (Bld) [#/Vol] 5.3 10*3/uL 4.4-11.0 [facility] Blood erythrocytes count (nu mber/volume)Ordered By: Ruth Marie on 04-06-2023 RBC (Bld) [#/Vol] 3.25 10*6/uL 4.6-6.2 [facility] Blood hemoglobin measurement (mass/volume)Ordered By: Ruth Marie on 04-06-2023 Hemoglobin (Bld) [Mass/Vol] 10.4 g/dL 13.0-16.5 [facility] Blood lymphocytes/100 leukoc ytesOrdered By: Ruth Marie on 04-06-2023 Lymphocytes/100 WBC (Bld) 25.1 % 19-41 [facility] Blood monocytes/100 leukocyt esOrdered By: Ruth Marie on 04-06-2023 Monocytes/100 WBC (Bld) 11.9 % 0-10 [facility] Blood platelet mean volumeOr dered By: Ruth Marie on 04-06-2023 Platelet mean volume (Bld) [Entitic vol] 11.8 fL 6.2-12.0 [facility] Determination of erythrocyte mean corpuscular volume (MCV)Ordered By: Ruth Marie on 04-06-2023 MCV (RBC) [Entitic vol] 100.6 fL 80-94 [facility] Hematocrit Auto (Bld) [Volum e fraction]Ordered By: [facility] Cynthia on 04-06-2023 Hematocrit (Bld) [Volume fraction] 32.7 % 40-54 [facility] - Chemistry and C hemistry - challengeOrdered By: Ruth Marie on 04-06-2023 ALP [Catalytic activity/Vol] 34 U/L 45-117 [facility] ALT [Catalytic activity/Vol] 42 U/L 16-61 [facility] CO2 [Moles/Vol] 27.0 mmol/L 21.0-32.0 [facility] Globulin (S) [Mass/Vol] 3.2 g/dL 2.2-4.2 [facility] Urea nitrogen/Creatinine [Mass ratio] 16.2 mg/mg 10-20 [facility] - Hematology and Cell countsOrdered By: [facility] Cynthia on 04-06-2023 Erythrocyte distribution width (RBC) [Entitic vol] 55.1 fL 35.1-43.9 [facility] Erythrocyte distribution width (RBC) [Ratio] 14.8 % 11.6-14.6 [facility] Immature granulocytes/100 WBC (Bld) 0.400 % 0.0-0.9 [facility] Comment on above: IG% - Immature Granu locytes (promyelocytes, myelocytes and metamyelocytes) > 1% indicates that a LEFT SHIFT is Present. MCH (RBC) [Entitic mass] 32.0 pg 27.0-32.0 [facility] Nucleated RBC/100 WBC (Bld) [Ratio] 0 % 0-5 [facility] MCHC Auto (RBC) [Mass/Vol]Or dered By: Ruthrenetta Marie on 04-06-2023 MCHC (RBC) [Mass/Vol] 31.8 g/dL 32-36 [facility] No Panel InformationOrdered By: Ruth Marie on 04-06-2023 Estimated GFR (MDRD) Amer 62 mL/min >60 [facility] Comment on above: GFR Calc Estimated GFR (MDRD) Non-Af Amer 51 mL/min >60 [facility] Comment on above: Non- GFR Calc Platelets bldOrdered By: Miko Marie on 04-06-2023 Platelets (Bld) [#/Vol] 274 10*3/uL 150-450 [facility] Serum or plasma albumin gabe urement (mass/volume)Ordered By: Ruth Marie on 04-06-2023 Albumin [Mass/Vol] 3.3 g/dL 3.2-5.0 [facility] Serum or plasma albumin/glob ulin mass ratioOrdered By: Ruth Marie on 04-06-2023 Albumin/Globulin [Mass ratio] 1.0 {ratio} 0.9-2.4 [facility] Serum or plasma calcium gabe urement (mass/volume)Ordered By: Ruth Marie on 04-06-2023 Calcium [Mass/Vol] 9.3 mg/dL 8.5-10.1 [facility] Serum or plasma creatinine m easurement (mass/volume)Ordered By: Ruth Marie on 04-06-2023 Creatinine [Mass/Vol] 1.42 mg/dL 0.70-1.30 [facility] Comment on above: The validity of the calculated GFR & GFRAA in patients over 70 years has not been determined. Clinical correlation is essential. Serum or plasma urea nitroge n measurement (mass/volume)Ordered By: Ruth Marie on 04-06-2023 Urea nitrogen [Mass/Vol] 23 mg/dL 7-18 [facility] Thin prep Papanicolaou smear with manual screeningOrdered By: Ruth Marie on 04-06-2023 Thin prep Papanicolaou smear with manual screening 32 U/L 15-37 [facility] Thin prep Papanicolaou smear with manual screening 4 5-15 [facility] Absolute lymphocyte counton 04-13-2022 Lymphocytes Auto (Unsp spec) [#/Vol] 1.10 10*3/uL 0.83-4.51 [facility] Work Phone: Basophil percentageon 2021 Basophils/100 WBC (Bld) 1.1 % 0-1 [facility] Work Phone: Bilirubin [Mass/Vol] 0.70 mg/dL 0.20-1.00 [facility] Work Phone: Comment on above: For patients on eltr ombopag therapy, use of Dimension [place] TBIL is not recommended. Chloride [Moles/Vol] 104 mmol/L 98-107 [facility] Work Phone: Eosinophils/100 WBC (Bld) 6.3 % 0-5 [facility] Work Phone: Glucose [Mass/Vol] 97 mg/dL 74-106 [facility] Work Phone: Neutrophils (Bld) [#/Vol] 3.2 10*3/uL 2.0-7.7 [facility] Work Phone: Neutrophils/100 WBC (Bld) 61.1 % 47-70 [facility] Work Phone: Potassium [Moles/Vol] 3.7 mmol/L 3.5-5.1 [facility] Work Phone: Protein [Mass/Vol] 6.8 g/dL 6.4-8.2 [facility] Work Phone: Sodium [Moles/Vol] 141 mmol/L 136-145 [facility] Work Phone: WBC (Bld) [#/Vol] 5.2 10*3/uL 4.4-11.0 [facility] Work Phone: Blood erythrocytes count (nu mber/volume)on 04-13-2022 RBC (Bld) [#/Vol] 3.29 10*6/uL 4.6-6.2 [facility] Work Phone: Blood hemoglobin measurement (mass/volume)on 04-13-2022 Hemoglobin (Bld) [Mass/Vol] 10.7 g/dL 13.0-16.5 [facility] Work Phone: Blood lymphocytes/100 leukoc yteson 04-13-2022 Lymphocytes/100 WBC (Bld) 21.0 % 19-41 [facility] Work Phone: Blood monocytes/100 leukocyt eson 04-13-2022 Monocytes/100 WBC (Bld) 10.3 % 0-10 [facility] Work Phone: Blood platelet mean volumeon 04-13-2022 Platelet mean volume (Bld) [Entitic vol] 11.3 fL 6.2-12.0 [facility] Work Phone: Determination of erythrocyte mean corpuscular volume (MCV)on 04-13-2022 MCV (RBC) [Entitic vol] 99.4 fL 80-94 [facility] Work Phone: Hematocrit Auto (Bld) [Volum e fraction]on 04-13-2022 Hematocrit (Bld) [Volume fraction] 32.7 % 40-54 [facility] Work Phone: [phone] Laboratory - Chemistry and C hemistry - challengeon 04-13-2022 ALP [Catalytic activity/Vol] 35 U/L 45-117 [facility] Work Phone: ALT [Catalytic activity/Vol] 38 U/L 16-61 [facility] Work Phone: CO2 [Moles/Vol] 27.0 mmol/L 21.0-32.0 [facility] Work Phone: Globulin (S) [Mass/Vol] 3.5 g/dL 2.2-4.2 [facility] Work Phone: Urea nitrogen/Creatinine [Mass ratio] 19.4 mg/mg 10-20 [facility] Work Phone: Laboratory - Hematology and Cell countson 04-13-2022 Erythrocyte distribution width (RBC) [Entitic vol] 51.0 fL 35.1-43.9 [facility] Work Phone: Erythrocyte distribution width (RBC) [Ratio] 13.9 % 11.6-14.6 [facility] Work Phone: Immature granulocytes/100 WBC (Bld) 0.200 % 0.0-0.9 [facility] Work Phone: Comment on above: IG% - Immature Granu locytes (promyelocytes, myelocytes and metamyelocytes) > 1% indicates that a LEFT SHIFT is Present. MCH (RBC) [Entitic mass] 32.5 pg 27.0-32.0 [facility] Work Phone: Nucleated RBC/100 WBC (Bld) [Ratio] 0 % 0-5 [facility] Work Phone: MCHC Auto (RBC) [Mass/Vol]on 04-13-2022 MCHC (RBC) [Mass/Vol] 32.7 g/dL 32-36 [facility] Work Phone: No Panel Informationon 04-13 Estimated GFR (MDRD) Amer 64 mL/min >60 [facility] Work Phone: Comment on above: GFR Calc Estimated GFR (MDRD) Non-Af Amer 53 mL/min >60 [facility] Work Phone: Comment on above: Non- GFR Calc Platelets bldon 04-13-2022 Platelets (Bld) [#/Vol] 266 10*3/uL 150-450 [facility] Work Phone: Serum or plasma albumin gabe urement (mass/volume)on 04-13-2022 Albumin [Mass/Vol] 3.3 g/dL 3.2-5.0 [facility] Work Phone: [phone] Serum or plasma albumin/glob ulin mass ratioon 04-13-2022 Albumin/Globulin [Mass ratio] 0.9 {ratio} 0.9-2.4 [facility] Work Phone: Serum or plasma calcium gabe urement (mass/volume)on 09-20-2022 Calcium [Mass/Vol] 9.5 mg/dL 8.5-10.1 [facility] Work Phone: Serum or plasma creatinine m easurement (mass/volume)on 04-13-2022 Creatinine [Mass/Vol] 1.39 mg/dL 0.70-1.30 [facility] Work Phone: Comment on above: The validity of the calculated GFR & GFRAA in patients over 70 years has not been determined. Clinical correlation is essential. Serum or plasma urea nitroge n measurement (mass/volume)on 04-13-2022 Urea nitrogen [Mass/Vol] 27 mg/dL 7-18 [facility] Work Phone: Thin prep Papanicolaou smear with manual screeningon 04-13-2022 Thin prep Papanicolaou smear with manual screening 30 U/L 15-37 [facility] Work Phone: Thin prep Papanicolaou smear with manual screening 10 5-15 [facility] Work Phone: UA DIP, URINE (POC)on 2021 BILIRUBIN UA (POCT) Negative Negative [facility] CLARITY UA (POCT) Clear [facility] COLOR UA (POCT) Dark yellow [facility] GLUCOSE UA (POCT) Negative Negative mg/dL [facility] HEMOGLOBIN/BLOOD UA (POCT) Negative Negative [facility] KETONE UA (POCT) Negative Negative mg/dL [facility] LEUKOCYTES UA (POCT) Negative Negative [facility] NITRITE UA (POCT) Negative Negative [facility] PH UA (POCT) 6.5 4.5 - 8.0 [facility] Protein Ql (U) 100 mg/dL Abnormal Negative mg/dL [facility] SPECIFIC GRAVITY UA (POCT) 1.020 1.005 - 1.030 [facility] UROBILINOGEN UA (POCT) 1.0 E.U./dL Normal E.U./dL [facility] Absolute lymphocyte counton 10-21-2021 Lymphocytes Auto (Unsp spec) [#/Vol] 1.13 10*3/uL 0.83-4.51 [facility] Work Phone: Basophil percentageon 2021 Basophils/100 WBC (Bld) 1.5 % 0-1 [facility] Work Phone: [phone] Bilirubin [Mass/Vol] 0.60 mg/dL 0.20-1.00 [facility] Work Phone: [phone] Comment on above: For patients on eltr ombopag therapy, use of Dimension [place] TBIL is not recommended. Chloride [Moles/Vol] 106 mmol/L 98-107 [facility] Work Phone: Eosinophils/100 WBC (Bld) 7.1 % 0-5 [facility] Work Phone: [phone] Glucose [Mass/Vol] 116 mg/dL 74-106 [facility] Work Phone: [phone] Comment on above: Fasting Glucose resu lt from 100 to 125 mg/dL suggests IMPAIRED HOMEOSTASIS per A.D.A. criteria. Neutrophils (Bld) [#/Vol] 2.7 10*3/uL 2.0-7.7 [facility] Work Phone: [phone] Neutrophils/100 WBC (Bld) 56.9 % 47-70 [facility] Work Phone: [phone] Potassium [Moles/Vol] 3.6 mmol/L 3.5-5.1 [facility] Work Phone: [phone] Protein [Mass/Vol] 6.9 g/dL 6.4-8.2 [facility] Work Phone: [phone] Sodium [Moles/Vol] 139 mmol/L 136-145 [facility] Work Phone: WBC (Bld) [#/Vol] 4.8 10*3/uL 4.4-11.0 [facility] Work Phone: [phone] Blood erythrocytes count (nu mber/volume)on 10-21-2021 RBC (Bld) [#/Vol] 3.45 10*6/uL 4.6-6.2 [facility] Work Phone: [phone] Blood hemoglobin measurement (mass/volume)on 10-21-2021 Hemoglobin (Bld) [Mass/Vol] 11.2 g/dL 13.0-16.5 [facility] Work Phone: Blood lymphocytes/100 leukoc yteson 10-21-2021 Lymphocytes/100 WBC (Bld) 23.5 % 19-41 [facility] Work Phone: Blood monocytes/100 leukocyt eson 10-21-2021 Monocytes/100 WBC (Bld) 10.6 % 0-10 [facility] Work Phone: Blood platelet mean volumeon 10-21-2021 Platelet mean volume (Bld) [Entitic vol] 11.5 fL 6.2-12.0 [facility] Work Phone: [phone] Determination of erythrocyte mean corpuscular volume (MCV)on 10-21-2021 MCV (RBC) [Entitic vol] 96.5 fL 80-94 [facility] Work Phone: Hematocrit Auto (Bld) [Volum e fraction]on 10-21-2021 Hematocrit (Bld) [Volume fraction] 33.3 % 40-54 [facility] Work Phone: [phone] Laboratory - Chemistry and C hemistry - challengeon 10-21-2021 ALP [Catalytic activity/Vol] 42 U/L 45-117 [facility] Work Phone: ALT [Catalytic activity/Vol] 41 U/L 16-61 [facility] Work Phone: [phone] CO2 [Moles/Vol] 29.0 mmol/L 21.0-32.0 [facility] Work Phone: [phone] Globulin (S) [Mass/Vol] 3.3 g/dL 2.2-4.2 [facility] Work Phone: Urea nitrogen/Creatinine [Mass ratio] 20.0 mg/mg 10-20 [facility] Work Phone: Laboratory - Hematology and Cell countson 10-21-2021 Erythrocyte distribution width (RBC) [Entitic vol] 50.2 fL 35.1-43.9 [facility] Work Phone: Erythrocyte distribution width (RBC) [Ratio] 14.1 % 11.6-14.6 [facility] Work Phone: Immature granulocytes/100 WBC (Bld) 0.400 % 0.0-0.9 [facility] Work Phone: Comment on above: IG% - Immature Granu locytes (promyelocytes, myelocytes and metamyelocytes) > 1% indicates that a LEFT SHIFT is Present. MCH (RBC) [Entitic mass] 32.5 pg 27.0-32.0 [facility] Work Phone: Nucleated RBC/100 WBC (Bld) [Ratio] 0 % 0-5 [facility] Work Phone: MCHC Auto (RBC) [Mass/Vol]on 10-21-2021 MCHC (RBC) [Mass/Vol] 33.6 g/dL 32-36 [facility] Work Phone: No Panel Informationon 10-21 Estimated GFR (MDRD) Amer 76 mL/min >60 [facility] Work Phone: Comment on above: GFR Calc Estimated GFR (MDRD) Non-Af Amer 63 mL/min >60 [facility] Work Phone: Comment on above: Non- GFR Calc Platelets bldon 10-21-2021 Platelets (Bld) [#/Vol] 261 10*3/uL 150-450 [facility] Work Phone: Serum or plasma albumin gabe urement (mass/volume)on 10-21-2021 Albumin [Mass/Vol] 3.6 g/dL 3.2-5.0 [facility] Work Phone: Serum or plasma albumin/glob ulin mass ratioon 10-21-2021 Albumin/Globulin [Mass ratio] 1.1 {ratio} 0.9-2.4 [facility] Work Phone: Serum or plasma calcium gabe urement (mass/volume)on 10-21-2021 Calcium [Mass/Vol] 9.5 mg/dL 8.5-10.1 [facility] Work Phone: Serum or plasma creatinine m easurement (mass/volume)on 10-21-2021 Creatinine [Mass/Vol] 1.20 mg/dL 0.70-1.30 [facility] Work Phone: Comment on above: The validity of the calculated GFR & GFRAA in patients over 70 years has not been determined. Clinical correlation is essential. Serum or plasma urea nitroge n measurement (mass/volume)on 10-21-2021 Urea nitrogen [Mass/Vol] 24 mg/dL 7-18 [facility] Work Phone: Thin prep Papanicolaou smear with manual screeningon 10-21-2021 Thin prep Papanicolaou smear with manual screening 33 U/L 15 [facility] Work Phone: Thin prep Papanicolaou smear with manual screening 4 5-15 [facility] Work Phone: NM CARDIAC PERF STRESS/PHARM on 03-07-2020 NM CARDIAC PERF STRESS/PHARM * * *Final Report* * * DATE OF EXAM: Mar 07 2020 11:52AM BETH 0006 - NM CARDIAC PERF STRESS/PHARM / PROCEDURE REASON: R06.02-Shortness of breath * * * * Physician Interpretation * * * * PATIENT: Name: MR. DEMETRIUS REDDY Age: 74 years Gender: M CONCLUSIONS: 1. SPECT Perfusion Study: Normal. 2. There is no scintigraphic evidence for inducible ischemia. 3. No evidence of scarred myocardium. 4. Functional capacity N/A (pharmacological). 5. Left ventricle is normal in size. The left ventricle systolic function is normal. 6. Right ventricle is normal in size. 7. This is a low risk scan. 1 LVEF % 58 Prior Study Comparison Prior nuclear cardiology exam was performed on 09/30/2011. Nuclear Med Report:1-Day Tc-Tetrofosmin Gated SPECT Myocardial Perfusion with Regadenoson Stress: Myocardial perfusion imaging was performed at rest 30 minutes following the IV injection of Tc-99m tetrofosmin. The patient received 0.4 mg of regadenoson, via rapid IV push, immediately followed by Tc-99m tetrofosmin IV. Gated post stress tomographic imaging was performed 30 to 60 minutes later. See administered doses below. [facility] Date of service: 03/07/2020 10:02:03 AM Ordering Physician: Cali Dawson Requesting Physician: Indication: Shortness of breath produced by exertion or stress Interpreting physician: Milagros Villavicencio DO Patient History: History of hypertension, dyslipidemia, Prior smoker and arrhythmia. Medications currently taking are Ca Sydni, B-sydni, ARB, ASA and diuretic. Height: 175.26 cm BSA: 2.41 m? Weight: 118.84 kg BMI: 38.7 kg/m? Imaging Protocol Limitation Reason G.I. uptake. Primary Rhythm: Sinus. Secondary Rhythm: Sinus and Non-Specific ST/T Wave Changes. Exam Type: Rest Stress Radiopharm: Tc-99m Tetrofosmin Tc-99m Tetrofosmin Dosage(mCi): 15.3 46.6 Atten Correction: not performed Stress Agent: Regadenoson 0.4mg Supply provided from [facility] Resting Heart Rate: 58 bpm Resting Blood Press: 147/74 mmHg Image Quality The overall study imaging quality was deemed to be fair. The following technical issues were noted: G.I. uptake. FINDINGS: Left Ventricle Wall Motion: 1 - All segments are normal. 1 1 LVEF: 58 % LEFT VENTRICLE The left ventricle is normal in size. Left ventricular systolic function is normal. Right Ventricle The right ventricle is normal in size. Stress Test Findings: There is no scintigraphic evidence for inducible ischemia. There is no evidence of scarring. The stress test was terminated due to the following: End of Protocol. Peak HR 77 bpm. (53 % MPHR) Peak BP 150 mmHg/62 mmHg Patient experienced shortness of breath during stress. Stress ECG normal ST segment response and normal sinus rhythm. Stress complications: none. Final Construction Quality Control Manager: SORAYA Transcriviviana Date/Time: Mar 07 2020 10:02A Dictated by : MILAGROS VILLAVICENCIO DO This examination was interpreted and the report reviewed and electronically signed by: MILAGROS VILLAVICENCIO DO on Mar 07 2020 4:58PM EST [id number] Normal [facility] PROGRESSon 03-07-2020 PROGRESS HNO ID: [id number] Author: Yari Oswald (Rt) Service: ? Author Type: Drying Oven Attendant Type: Progress Notes Filed: 04/07/2020 12:25 PM Note Text: RADIOLOGY SERVICE PROGRESS NOTE SERVICE DATE: 03/07/2020 SERVICE TIME: 11:30 AM PATIENT IDENTITY VERIFICATION COMPLETED USING TWO (2) STANDARD IDENTIFIERS: Name and Date of confirmed by patient verbally FALL SCREENING: Has the patient had 2 falls in the last year or 1 fall with injury or currently using an Ambulatory Assistive Device (Walker, Cane, Wheelchair, Crutches, etc.)? No PATIENT GENDER DATA: .male ALLERGIES: Reviewed and unchanged MEDICATIONS REVIEWED: Not applicable PATIENT RELEVANT IMPLANT DATA REVIEWED: Not Applicable CREATININE: Creatinine Date Value Ref Range Status 11/02/2018 1.03 0.73 - 1.22 mg/dL Final 05/09/2018 1.08 0.73 - 1.22 mg/dL Final 01/26/2018 1.14 0.6 - 1.3 MG/DL Final 10/27/2017 1.06 0.73 - 1.22 mg/dL Final eGFR-All Other Races Date Value Ref Range Status 11/02/2018 >60 . Final Comment: eGFR (Estimated GFR) Units of measure: mL/min/1.73 meters squared eGFR is derived from the reexpressed MDRD Study equation using the following parameters: serum creatinine, age, gender and race. The creatinine assay has been calibrated to be traceable to IDMS. An eGFR <60 mL/min/1.73m2 for >3 months is consistent with chronic kidney disease. Refer to KDOQI guidelines for clinical interpretation. In patients with unstable renal function, e.g. those with acute kidney injury, the eGFR may not accurately reflect actual GFR. eGFR- Date Value Ref Range Status 11/02/2018 >60 Final P.O.C.T. RESULTS: N/A March 07, [address] PERFORMED: No IV SITE: Ambulatory: A peripheral IV was started in the Left hand with a Butterfly: 22 gauge. POST EXAM PIV STATUS: Discontinued PROCEDURE TYPE: NM Stress: 15.3mCi [id number] was administered IV for Rest Imaging at 09:05 by RT Darek. 46.6 mCi [id number] was administered IV for Stress Imaging at 10:40 by RT Darek. PATIENT DISCHARGED TO: Ambulatory patient, left [place] department area. A Diagnostic radioactive procedure has taken place, with no further precautions necessary other than routine body substance precautions. More information regarding radiation safety can be found using this link: [email or web address] [email or web address] SIGNATURE: RT Darek PATIENT NAME: Demetrius Reddy DATE: March 07, 2020 TIME: 11:30 AM PAGER/CONTACT #: [facility] STRESS TEST (EXERCISE) [facility] 03-07-2020 STRESS TEST (EXERCISE) [facility] NAME : DEMETRIUS REDDY PID : [id number] : 1945 Gender : Male Race : ORD : [id number] Procedure Date : Mar 07 2020 10:33:19 Edit Date : Mar 18 2020 07:25:26 Protocol Name : VITA Time In Exercise Phase : 00:06:00 Max. Systolic BP : 150 mmHg Max Diastolic BP : 62 mmHg Max Heart Rate : 81 BPM Max Predicted Heart Rate : 146 BPM Recovery ECG Response (OLD) : Reason For Termination : End of Protocol Test Reason : Pre-Op Evaluation Location :[facility] Overread By : MILAGROS VILLAVICENCIO D.O. Edited By : ARMANDO TRISTAN Referred By : CALI DAWSON Acquired by : [facility] C[facility]N Telephone ([facility]) DEMETRIUS REDDY ([id number]) 1945 M Date Time Provider Department 03/06/20 MONICA GREER (AMELIE) [facility] During your visit today, we recorded the following information about you: Monica Greer RN, RN 03/06/2020 1:01 PM Signed Spoke with patient regarding reminder for stress test tomorrow and given instructions. Allergies As of Date: 03/06/2020 Noted Allergy Reaction PANTOPRAZOLE 03/04/2010 Comments: Swelling of hands and yellowing of eyes and muscle aches. ADHESIVE 11/17/2011 14 - Other: See Comments Comments: redness SULFA (SULFONAMIDE ANTIBIOTICS) 05/12/2005 Comments: as an infant, does not know the reaction Date Reviewed: 03/04/2020 Reviewed by: Cali Dawson DO - Fully Assessed Reason for Visit: Reminder Call [[id number]] Prescriptions as of 03/06/2020 Sig: OMEPRAZOLE 20 MG CAPSULE,EMILEE* TAKE 1 CAPSULE DAILY BEFORE B* DOXAZOSIN 8 MG TABLET Take 1 tablet by mouth once d* AMLODIPINE 10 MG TABLET Take 1 tablet by mouth once d* POTASSIUM CHLORIDE ER 10 MEQ * Take 1 tablet by mouth daily * METOPROLOL TARTRATE 50 MG TAB* Take 1 tablet by mouth twice * LOSARTAN 100 MG-HYDROCHLOROTH* Take 1 tablet by mouth once d* TIZANIDINE 2 MG TABLET Take 1 tablet by mouth at bed* FENOFIBRATE 160 MG TABLET Take 1 tablet by mouth once d* BIPAP Initiate BiPAP @ 12/8 cm of w* FLUTICASONE PROPIONATE 50 MCG* Use 1 [place] in each nostril o* CLOTRIMAZOLE-BETAMETHASONE 1 * Apply to rash on leg , twice * CYANOCOBALAMIN (VIT B-12) 100* Take 100 mcg by mouth once da* VITAMIN B-6 ORAL Take by mouth. GLUCOSAMINE ORAL Take by mouth. ASPIRIN 81 MG TABLET,DELAYED * Take 1 tablet by mouth once d* HYDROXYCHLOROQUINE 200 MG TAB* Take by mouth twice daily. LATANOPROST 0.005 % EYE DROPS Use 1 Drop in both eyes daily* FISH OIL OMEGA 3-6-9 300 MG-1* Take one(1) tablet daily. CO Q-10 100 MG CAPSULE Take one(1) tablet daily. Problem List As Of Date 03/06/2020 Noted Resolved Class 2 severe obesity with serious comorbidity*10/19/2006 Essential hypertension [I10] 10/19/2006 More... Sleep apnea [G47.30] 10/19/2006 PERS HX PROSTATIC MALIGNANCY [Z85.46] 10/19/2006 ERECTILE DYSFUNCTION [F52.9] 10/19/2006 GENERAL OSTEOARTHROSIS [M15.9] 10/19/2006 Actinic keratosis [L57.0] 10/19/2006 02/21/2015 Mitral valve disease [I05.9] 10/19/2006 MALIGN NEOPL PROSTATE [C61] 12/12/2006 More... Nontraumatic rupture of Achilles tendon [M66.36*12/20/2006 10/26/2016 ESOPHAGEAL REFLUX [K21.9] 01/10/2007 HYPERGLYCEMIA [R79.89] 05/05/2007 11/14/2018 COLON POLYP [D12.6] 12/10/2008 More... 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 Anemia, chronic disease [D63.8] 08/12/2011 More... BMI 37.0-37.9, adult [Z68.37] 02/21/2015 Hyperlipidemia [E78.5] 08/07/2015 More... First degree AV block [I44.0] 05/23/2018 More... PAF (paroxysmal atrial fibrillation) (HCC) [I48*11/24/2018 Preoperative clearance [Z01.818] 03/03/2020 Lumbar sprain [S33.5XXA] 03/05/2020 Encounter Status:Closed by MONICA GREER on 03/06/20 [facility] 11-24-2017 [facility] Office Visit (AGCARDWST) GO DEMETRIUS GLOVER ([id number]) 1945 MDate Time Provider Department11/24/17 8:30 AM DUSTY SMITH During your visit today, we recorded the following information about you: Pulse Blood pressure Weight Height 66/minute 130/70 115.7 kg 1.753 Dutsy Marie 11/26/2017 11:27 AM SignedPERTINENT CARDIAC HISTORYAtrial fib - rare PAFHLHTNADHERENCE TO GUIDELINESACE-I or ARB for HF with prior LVEF<40 (NQF 0081) - N/AASA or Plavix for ASHD (NQF 0067) - N/ABeta sydni for ASHD with prior AR or prior LVEF<40 (NQF 0070) - N/ABeta sydni for HF with prior LVEF<40 (NQF 0083) - N/AACE-I or ARB for ASHD with DM or prior LVEF<40 (NQF 0066) - N/AStatin therapy for ASHD or FHL or DM - N/ABMI documented and plan if >25 (NQF 0421) - lifestyle recommendation formTobacco use screening and referral (NQ 0028) - lifestyle recommendation formRecommendation for whole food, plant based diet - lifestyle recommendation formCLINICAL IMPRESSION/PLAN:Demetrius Reddy is doing well. His atrial fibrillation is clinically silent. Heis currently undergoing workup for anemia. Labs are up-to-date.Chads2 score is 1. He will continue aspirin.I will see him in 12 months. At the time of his 75th birthday, we will performa 14 day event monitor to see whether there is any evidence of asymptomaticatrial fib.He's been advised to call if there is increased chest pain or shortness ofbreath.Written and verbal health teaching given to patient, patient verbalizesunderstanding and agrees with treatment plan.DIAGNOSIS FOR VISIT:PAFHISTORY OF PRESENT ILLNESSDemetrius Reddy returns for follow-up of his atrial fibrillation.He has had no episodes over the last year. He denies chest pain. Exercisetolerance has been stable. He's had no edema, syncope, TIAs, amaurosis orclaudication.ALLERGIES:ALLERG IESAllergen Reactions- Pantoprazole Swelling of hands and yellowing of eyes and muscle aches.- Adhesive Other: See Comments redness- Sulfa (Sulfonamide * as an , does not know the reactionCURRENT OUTPATIENT MEDICATIONS:cyanocobalamin (VITAMIN B-12) 100 mcg tab Take 100 mcg by mouth once daily.pyridoxine HCl, vitamin B6, (VITAMIN B-6 ORAL) Take by mouth.fluticasone (FLONASE) 50 mcg/actuation nasal spray Use 1 [place] in each nostrilonce daily.amLODIPine (NORVASC) 10 mg tablet Take 1 tablet by mouth once daily.doxazosin (CARDURA) 8 mg tablet Take 1 tablet by mouth once daily.Fenofibrate (LOFIBRA) 160 mg tablet Take 1 tablet by mouth once daily.losartan-hydrochlorothiaz emilie (HYZAAR) 100-25 mg per tablet Take 1 tablet bymouth once daily.metoprolol tartrate, short acting, (LOPRESSOR) 50 mg tablet Take 1 tablet bymouth twice daily.potassium chloride (K-TAB) 10 mEq tablet Take 1 tablet by mouth daily withbreakfast.omeprazole (PRILOSEC) 20 mg capsule Take 1 capsule by mouth daily beforebreakfast. 1/2 hr before meal.GLUCOSAMINE SULFATE (GLUCOSAMINE ORAL) Take by mouth.aspirin, enteric coated (ECOTRIN LOW STRENGTH) 81 mg ORAL EC tablet Take 1tablet by mouth once daily.hydroxychloroquine (PLAQUENIL) 200 mg ORAL tablet Take by mouth twice daily.latanaprost (XALATAN) 0.005 % OPHTHALMIC ophthalmic solution Use 1 Drop in botheyes daily at bedtime.fish oil/omega-3 fatty acids(FISH OIL OMEGA 3-6-9 300 MG-1,000 MG CAP, DELAYEDRELEASE) Take one(1) tablet daily.ubidecarenone(CO Q-10 100 MG CAP) Take one(1) tablet daily.benzonatate (TESSALON PERLES) 100 mg capsule Take 1 capsule by mouth threetimes daily as needed for Cough.PHYSICAL EXAMINATION:VITAL SIGNS: BP 130/70 Pulse 66 Ht 5' 9 (1.75m) Wt 255 lb 1.6 oz(115.7kg) BMI 37.65 kg/(m2).Chest: Clear to percussion and auscultation. Trachea is midline. Air entry isequal. Cardiac: Regular rhythm. S1 and S2 are normal. PMI is nondisplaced.There is a soft systolic ejection murmur. Carotids are brisk without bruits.JVP is less than 10 cm. Abdomen: Soft and nontender. There are no pulsatilemasses or bruits. No liver enlargement. Bowel sounds are active.Extremities: Trace edema. There are chronic stasis changes with venousvaricosities. Pulses are intact and symmetrical.EKG shows sinus rhythm with first degree AV block. There is earlyrepolarization. No change is seen since 11/23/69.Recent labs reviewed. Renal function is normal. LDL was 87.Electronically Signed:Saman Rincon 2017 8:46 [facility]: John Payne Kenneth E 11/24/2017 8:46 AM SignedYUDELKA CHANGESamir healthy lifestyle is the most important component of your overall treatmentplan. Please give serious thought to the following areas and commit to makinglong term changes.EAT A WHOLE FOOD, PLANT BASED DIETThe nutrition your body gets is more important than the medicine you take.What matters most is the overall way you eat. We encourage you to minimize theuse of animal products (which include dairy and all meats except fatty fish)and use whole, unprocessed plant foods to provide your protein, vitamins andother nutrients. We have a lot of information to share with you on this topic.This is not a diet. It is a way of life that you will keep with you.EXERCISE REGULARLYIt is not important to spend hours in the gym, lifting weights and perspiringheavily. A total of 2-3 hours per week of aerobic (causing you to bemoderately short of breath) exercise is sufficient to improve your health.Talk to us before you begin a new exercise program, if you have heart diseaseor experience shortness of breath or chest pain.REDUCE STRESSChronic emotional and physical stress leads to disease. Ways of reducingstress include meditation, visualization, prayer, yoga and other forms ofrelaxation therapy. Consistency is the hogue. Find a technique that works foryou and do it every day.CULTIVATE RELATIONSHIPSLoneliness and isolation have a major negative impact on health. Seek outothers who can love, care for and nurture you. Avoid hurtful relationships.MAINTAIN IDEAL BODY WEIGHTThe best way to do this is to do all the things above. Our bodies naturallyfind the right weight if we keep moving and feed ourselves the right food. Ifyour BMI is greater than 25, we strongly recommend a referral to a weightmanagement program. Please speak to us or your family physician aboutavailable programs.AVOID NICOTINE IN ALL FORMSThis includes all tobacco products, whether chewed, smoked, vaped, or rubbed onthe skin. Smoking cessation programs, which can make use of tobaccosubstitutes, medications to suppress cravings and behavior management, areavailable. Please contact your family physician about programs in your area.Referring Provider: DUSTY SMITH [[id number]]Allergies As of Date: 11/24/2017 Noted Allergy ReactionPANTOPRAZOLE 03/04/2010 Comments: Swelling of hands and yellowing of eyes and muscle aches.ADHESIVE 11/17/2011 14 - Other: See Comments Comments: rednessSULFA (SULFONAMIDE ANTIBIOTICS) 05/12/2005 Comments: as an infant, does not know the reactionDate Reviewed: 11/24/2017Reviewed by: Shefali Mckay (Renetta) - Fully AssessedReason for Visit: Follow Up [171]Primary Visit Diagnosis:PAF (paroxysmal atrial fibrillation) ([facility]) [I48.0] Other Visit Diagnosis:Hypertension, essential [I10]Order(s):ECG B/O W INTERP (MED OFFICE) [ECG06] Order #: [id number] as of 11/24/2017 Sig: CYANOCOBALAMIN (VIT B-12) 100* Take 100 mcg by mouth once da* VITAMIN B-6 ORAL Take by mouth. FLUTICASONE 50 MCG/ACTUATION * Use 1 [place] in each nostril o* AMLODIPINE 10 MG TABLET Take 1 tablet by mouth once d* DOXAZOSIN 8 MG TABLET Take 1 tablet by mouth once d* FENOFIBRATE 160 MG TABLET Take 1 tablet by mouth once d* LOSARTAN 100 MG-HYDROCHLOROTH* Take 1 tablet by mouth once d* METOPROLOL TARTRATE 50 MG TAB* Take 1 tablet by mouth twice * POTASSIUM CHLORIDE ER 10 MEQ * Take 1 tablet by mouth daily * OMEPRAZOLE 20 MG CAPSULE,EMILEE* Take 1 capsule by mouth daily* GLUCOSAMINE ORAL Take by mouth. ASPIRIN 81 MG TABLET,DELAYED * Take 1 tablet by mouth once d* HYDROXYCHLOROQUINE 200 MG TAB* Take by mouth twice daily. LATANOPROST 0.005 % EYE DROPS Use 1 Drop in both eyes daily* FISH OIL OMEGA 3-6-9 300 MG-1* Take one(1) tablet daily. CO Q-10 100 MG CAPSULE Take one(1) tablet daily. BENZONATATE 100 MG CAPSULE Take 1 capsule by mouth three*Problem List As Of Date 11/24/2017 Noted Resolved OVERWEIGHT [E66.9] INVALID FOR*02/21/2015 Essential hypertension [I10] INVALID FOR* More... SLEEP APNEA NOS [G47.30] INVALID FOR* PERS HX PROSTATIC MALIGNANCY [Z85.46] INVALID FOR* ERECTILE DYSFUNCTION [F52.9] INVALID FOR* GENERAL OSTEOARTHROSIS [M15.9] INVALID FOR* Actinic keratosis [L57.0] INVALID FOR*02/21/2015 Mitral valve disease [I05.9] INVALID FOR* MALIGN NEOPL PROSTATE [C61] INVALID FOR* More... Nontraumatic rupture of Achilles tendon [M66.36*INVALID FOR*10/26/2016 ESOPHAGEAL REFLUX [K21.9] INVALID FOR* HYPERGLYCEMIA [R79.89] INVALID FOR* COLON POLYP [D12.6] INVALID FOR* More... 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 Anemia, chronic disease [D63.8] INVALID FOR* More... BMI 37.0-37.9, adult [Z68.37] INVALID FOR* Hyperlipidemia [E78.5] INVALID FOR* More... Other instructions from your clinician: LIFESTYLE CHANGE A healthy lifestyle is the most important component of your overall treatment plan. Please give serious thought to the following areas and commit to making termite treater helper changes. EAT A WHOLE FOOD, PLANT BASED DIET The nutrition your body gets is more important than the medicine you take. What matters most is the overall way you eat. We encourage you to minimize the use of animal products (which include dairy and all meats except fatty fish) and use whole, unprocessed plant foods to provide your protein, vitamins and other nutrients. We have a lot of information to share with you on this topic. This is not a diet. It is a way of life that you will keep with you. EXERCISE REGULARLY It is not important to spend hours in the gym, lifting weights and perspiring heavily. A total of 2-3 hours per week of aerobic (causing you to be moderately short of breath) exercise is sufficient to improve your health. Talk to us before you begin a new exercise program, if you have heart disease or experience shortness of breath or chest pain. REDUCE STRESS Chronic emotional and physical stress leads to disease. Ways of reducing stress include meditation, visualization, prayer, yoga and other forms of relaxation therapy. Consistency is the hogue. Find a technique that works for you and do it every day. CULTIVATE RELATIONSHIPS Loneliness and isolation have a major negative impact on health. Seek out others who can love, care for and nurture you. Avoid hurtful relationships. MAINTAIN IDEAL BODY WEIGHT The best way to do this is to do all the things above. Our bodies naturally find the right weight if we keep moving and feed ourselves the right food. If your BMI is greater than 25, we strongly recommend a referral to a weight management program. Please speak to us or your family physician about available programs. AVOID NICOTINE IN ALL FORMS This includes all tobacco products, whether chewed, smoked, vaped, or rubbed on the skin. Smoking cessation programs, which can make use of tobacco substitutes, medications to suppress cravings and behavior management, are available. Please contact your family physician about programs in your area. Status:Closed by DUSTY SMITH MD on 11/26/17 [facility] PROGRESSon 11-24-2017 PROGRESS HNO ID: [id number] thor: Dusty Smith EService: (none)Author Type: PhysicianType: Progress NotesFiled: 11/26/2017 11:27 AMNote Text:PERTINENT CARDIAC HISTORYAtrial fib - rare PAFHLHTNADHERENCE TO GUIDELINESACE-I or ARB for HF with prior LVEF<40 (NQF 0081) - N/AASA or Plavix for ASHD (NQF 0067) - N/ABeta sydni for ASHD with prior AR or prior LVEF<40 (NQF 0070) - N/ABeta sydni for HF with prior LVEF<40 (NQF 0083) - N/AACE-I or ARB for ASHD with DM or prior LVEF<40 (NQF 0066) - N/AStatin therapy for ASHD or FHL or DM - N/ABMI documented and plan if >25 (NQF 0421) - lifestyle recommendation formTobacco use screening and referral (NQF 0028) - lifestyle recommendationformRecommendatio n for whole food, plant based diet - lifestyle recommendationformCLINICAL IMPRESSION/PLAN:Demetrius Reddy is doing well. His atrial fibrillation is clinically silent.He is currently undergoing workup for anemia. Labs are up-to-date.Chads2 score is 1. He will continue aspirin.I will see him in 12 months. At the time of his 75th birthday, we willperform a 14 day event monitor to see whether there is any evidence ofasymptomatic atrial fib.He's been advised to call if there is increased chest pain or shortness ofbreath.Written and verbal health teaching given to patient, patient verbalizesunderstanding and agrees with treatment plan.DIAGNOSIS FOR VISIT:PAFHISTORY OF PRESENT ILLNESSDemetrius Reddy returns for follow-up of his atrial fibrillation.He has had no episodes over the last year. He denies chest pain. Exercisetolerance has been stable. He's had no edema, syncope, TIAs, amaurosis orclaudication.ALLERGIES:ALLERG IESAllergen Reactions- Pantoprazole Swelling of hands and yellowing of eyes and muscle aches.- Adhesive Other: See Comments redness- Sulfa (Sulfonamide * as an infant, does not know the reactionCURRENT OUTPATIENT MEDICATIONS:cyanocobalamin (VITAMIN B-12) 100 mcg tab Take 100 mcg by mouth oncedaily.pyridoxine HCl, vitamin B6, (VITAMIN B-6 ORAL) Take by mouth.fluticasone (FLONASE) 50 mcg/actuation nasal spray Use 1 [place] in eachnostril once daily.amLODIPine (NORVASC) 10 mg tablet Take 1 tablet by mouth once daily.doxazosin (CARDURA) 8 mg tablet Take 1 tablet by mouth once daily.Fenofibrate (LOFIBRA) 160 mg tablet Take 1 tablet by mouth once daily.losartan-hydrochlorothiaz emilie (HYZAAR) 100-25 mg per tablet Take 1 tabletby mouth once daily.metoprolol tartrate, short acting, (LOPRESSOR) 50 mg tablet Take 1 tabletby mouth twice daily.potassium chloride (K-TAB) 10 mEq tablet Take 1 tablet by mouth daily withbreakfast.omeprazole (PRILOSEC) 20 mg capsule Take 1 capsule by mouth daily beforebreakfast. 1/2 hr before meal.GLUCOSAMINE SULFATE (GLUCOSAMINE ORAL) Take by mouth.aspirin, enteric coated (ECOTRIN LOW STRENGTH) 81 mg ORAL EC tablet Take 1tablet by mouth once daily.hydroxychloroquine (PLAQUENIL) 200 mg ORAL tablet Take by mouth twicedaily.latanaprost (XALATAN) 0.005 % OPHTHALMIC ophthalmic solution Use 1 Drop inboth eyes daily at bedtime.fish oil/omega-3 fatty acids(FISH OIL OMEGA 3-6-9 300 MG-1,000 MG CAP,DELAYED RELEASE) Take one(1) tablet daily.ubidecarenone(CO Q-10 100 MG CAP) Take one(1) tablet daily.benzonatate (TESSALON PERLES) 100 mg capsule Take 1 capsule by mouth threetimes daily as needed for Cough.PHYSICAL EXAMINATION:VITAL SIGNS: BP 130/70 Pulse 66 Ht 5' 9 (1.75m) Wt 255 lb 1.6 oz(115.7kg) BMI 37.65 kg/(m2).Chest: Clear to percussion and auscultation. Trachea is midline. Airentry is equal. Cardiac: Regular rhythm. S1 and S2 are normal. PMI isnondisplaced. There is a soft systolic ejection murmur. Carotids arebrisk without bruits. JVP is less than 10 cm. Abdomen: Soft andnontender. There are no pulsatile masses or bruits. No liverenlargement. Bowel sounds are active. Extremities: Trace edema. Thereare chronic stasis changes with venous varicosities. Pulses are intactand symmetrical.EKG shows sinus rhythm with first degree AV block. There is earlyrepolarization. No change is seen since 11/23/69.Recent labs reviewed. Renal function is normal. LDL was 87.Electronically Signed:Saman Rincon 2017 8:46 [facility]: Ana Payne [facility] Vital Signs Date Time Vital Sign Value Performing Clinician Faci noah 01-16-2025 16:24-0400 Body height 172.[address] Sudheer Ritchie MD Work Phone: [facility] 01-16-2025 16:24-0400 Body mass index (BMI) [Ratio] 32.6 kg/m2 Dr. Sudheer Ritchie MD Work Phone: [facility] 01-16-2025 16:24-0400 Body temperature 97.5 [degF] Dr. Sudheer Ritchie MD Work Phone: [facility] 01-16-2025 16:24-0400 Body weight 97.[address] Sudheer Ritchie MD Work Phone: [facility] 01-16-2025 16:24-0400 Diastolic blood pressure 57 mm[Hg] Dr. Sudheer Ritchie MD Work Phone: [facility] 01-16-2025 16:24-0400 Heart rate 63 /min Dr. Sudheer Ritchie MD Work Phone: [facility] 01-16-2025 16:24-0400 Respiratory rate 15 /min Dr. Sudheer Ritchie MD Work Phone: [facility] 01-16-2025 16:24-0400 SaO2% (BldA) [Mass fraction] 100 % Dr. Sudheer Ritchie MD Work Phone: [facility] 01-16-2025 16:24-0400 Systolic blood pressure 125 mm[Hg] Dr. Sudheer Ritchie MD Work Phone: [facility] 01-14-2025 12:26-0400 Body mass index (BMI) [Ratio] 34.89 kg/m2 Sudheer Ritchie MD Work Phone: [facility] 01-14-2025 12:26-0400 Body weight 97.3 kg Sudheer Ritchie MD Work Phone: [facility] 01-01-2025 09:12-0400 Body mass index (BMI) [Ratio] 35.21 kg/m2 Katty Mcallister RUBBER ROLLER GRINDER OPERATOR.REPLENISHMENT MERCHANDISING ASSOCIATE Work Phone: [facility] 01-01-2025 09:12-0400 Body temperature 98.2 [degF] Katty Mcallister RUBBER ROLLER GRINDER OPERATOR.REPLENISHMENT MERCHANDISING ASSOCIATE Work Phone: [facility] 01-01-2025 09:12-0400 Body weight 98.2 kg Katty Mcallister RUBBER ROLLER GRINDER OPERATOR.REPLENISHMENT MERCHANDISING ASSOCIATE Work Phone: [facility] 01-01-2025 09:12-0400 Diastolic blood pressure 76 mm[Hg] Katty Mcallister RUBBER ROLLER GRINDER OPERATOR.REPLENISHMENT MERCHANDISING ASSOCIATE Work Phone: [facility] 01-01-2025 09:12-0400 Heart rate 69 /min Katty Mcallister RUBBER ROLLER GRINDER OPERATOR.REPLENISHMENT MERCHANDISING ASSOCIATE Work Phone: [facility] 01-01-2025 09:12-0400 Respiratory rate 16 /min Katty Mcallister RUBBER ROLLER GRINDER OPERATOR.REPLENISHMENT MERCHANDISING ASSOCIATE Work Phone: [facility] 01-01-2025 09:12-0400 SaO2% (BldA) [Mass fraction] 97 % Katty Mcallister RUBBER ROLLER GRINDER OPERATOR.REPLENISHMENT MERCHANDISING ASSOCIATE Work Phone: [facility] 01-01-2025 09:12-0400 Systolic blood pressure 110 mm[Hg] Katty Mcallister RUBBER ROLLER GRINDER OPERATOR.REPLENISHMENT MERCHANDISING ASSOCIATE Work Phone: [facility] 12-20-2024 08:08-0400 Diastolic blood pressure 67 mm[Hg] Sudheer Ritchie MD Work Phone: [facility] 12-20-2024 08:08-0400 Heart rate 57 /min Sudheer Ritchie MD Work Phone: [facility] 12-20-2024 08:08-0400 Systolic blood pressure 165 mm[Hg] Sudheer Ritchie MD Work Phone: [facility] 12-20-2024 07:59-0400 Body height 167 cm Sudheer Ritchie MD Work Phone: [facility] 12-20-2024 07:59-0400 Body mass index (BMI) [Ratio] 36 kg/m2 Sudheer Ritchie MD Work Phone: [facility] 12-20-2024 07:59-0400 Body weight 100.4 kg Sudeher Ritchie MD Work Phone: [facility] 08-14-2024 10:08-0500 Diastolic blood pressure 65 mm[Hg] Sudheer Ritchie MD Work Phone: [facility] 08-14-2024 10:08-0500 Heart rate 53 /min Sudheer Ritchie MD Work Phone: [facility] 08-14-2024 10:08-0500 Systolic blood pressure 152 mm[Hg] Sudheer Ritchie MD Work Phone: [facility] 08-14-2024 09:59-0500 Body mass index (BMI) [Ratio] 37.46 kg/m2 Sudheer Ritchie MD Work Phone: [facility] 08-14-2024 09:59-0500 Body temperature 97.5 [degF] Sudheer Ritchie MD Work Phone: [facility] 08-14-2024 09:59-0500 Body weight 102.1 kg Sudheer Ritchie MD Work Phone: [facility] 08-14-2024 09:59-0500 Respiratory rate 18 /min Sudheer Ritchie MD Work Phone: [facility] 06-19-2024 13:23-0500 Diastolic blood pressure 64 mm[Hg] Louann Gu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.REPLENISHMENT MERCHANDISING ASSOCIATE Work Phone: [facility] 06-19-2024 13:23-0500 Heart rate 57 /min Louann AminGu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.REPLENISHMENT MERCHANDISING ASSOCIATE Work Phone: [facility] 06-19-2024 13:23-0500 Systolic blood pressure 160 mm[Hg] Louann Gu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.REPLENISHMENT MERCHANDISING ASSOCIATE Work Phone: [facility] 06-19-2024 12:46-0500 Body mass index (BMI) [Ratio] 37.93 kg/m2 Louann Gu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.REPLENISHMENT MERCHANDISING ASSOCIATE Work Phone: [facility] 06-19-2024 12:46-0500 Body weight 103.4 kg Louann AminGu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.REPLENISHMENT MERCHANDISING ASSOCIATE Work Phone: [facility] 06-19-2024 12:46-0500 Respiratory rate 20 /min Louann AminGu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.REPLENISHMENT MERCHANDISING ASSOCIATE Work Phone: [facility] 06-19-2024 12:46-0500 SaO2% (BldA) [Mass fraction] 96 % Louann AminGu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.REPLENISHMENT MERCHANDISING ASSOCIATE Work Phone: [facility] 04-17-2024 09:10-0400 Diastolic blood pressure 70 mm[Hg] Sudheer Ritchie MD Work Phone: [facility] 04-17-2024 09:10-0400 Heart rate 55 /min Sudheer Ritchie MD Work Phone: [facility] 04-17-2024 09:10-0400 Systolic blood pressure 144 mm[Hg] Sudheer Ritchie MD Work Phone: [facility] 04-17-2024 08:59-0400 Body mass index (BMI) [Ratio] 37.86 kg/m2 Sudheer Ritchie MD Work Phone: [facility] 04-17-2024 08:59-0400 Body temperature 98.1 [degF] Sudheer Ritchie MD Work Phone: [facility] 04-17-2024 08:59-0400 Body weight 103.2 kg Sudheer Ritchie MD Work Phone: [facility] 04-17-2024 08:59-0400 Respiratory rate 16 /min Sudheer Ritchie MD Work Phone: [facility] 03-29-2024 09:29-0400 Body mass index (BMI) [Ratio] 38.19 kg/m2 Cali Dawson DO Work Phone: [facility] 03-29-2024 09:29-0400 Body weight 104.1 kg Cali Dawson DO Work Phone: [facility] 03-29-2024 09:29-0400 Diastolic blood pressure 76 mm[Hg] Cali Dawson DO Work Phone: [facility] 03-29-2024 09:29-0400 Heart rate 56 /min Cali Dawson DO Work Phone: [facility] 03-29-2024 09:29-0400 SaO2% (BldA) [Mass fraction] 99 % Cali Dawson DO Work Phone: [facility] 03-29-2024 09:29-0400 Systolic blood pressure 130 mm[Hg] Cali Janet DO Work Phone: [facility] 10-12-2023 09:52-0400 Diastolic blood pressure 66 mm[Hg] Sudheer Ritchie MD Work Phone: [facility] 10-12-2023 09:52-0400 Heart rate 55 /min Sudheer Ritchie MD Work Phone: [facility] 10-12-2023 09:52-0400 Systolic blood pressure 119 mm[Hg] Sudheer Ritchie MD Work Phone: [facility] 10-12-2023 09:47-0400 Body temperature 97.3 [degF] Sudheer Ritchie MD Work Phone: [facility] 10-12-2023 09:47-0400 Body weight 103.33 kg Sudheer Ritchie MD Work Phone: [facility] 10-12-2023 09:47-0400 Respiratory rate 16 /min Sudheer Ritchie MD Work Phone: [facility] 06-10-2023 11:10-0500 Body height 165.1 cm Sudheer Ritchie MD Work Phone: [facility] 06-10-2023 11:10-0500 Body weight 107.96 kg Sudheer Ritchie MD Work Phone: [facility] 06-10-2023 11:10-0500 Diastolic blood pressure 66 mm[Hg] Sudheer Ritchie MD Work Phone: [facility] 06-10-2023 11:10-0500 Heart rate 66 /min Sudheer Ritchie MD Work Phone: [facility] 06-10-2023 11:10-0500 Respiratory rate 16 /min Sudheer Ritchie MD Work Phone: [facility] 06-10-2023 11:10-0500 Systolic blood pressure 146 mm[Hg] Sudheer Ritchie MD Work Phone: [facility] 03-29-2023 10:04-0400 Body height 175.3 cm Cali Dawson DO Work Phone: [facility] 03-29-2023 10:04-0400 Body weight 105.69 kg Cali Dawson DO Work Phone: [facility] 03-29-2023 10:04-0400 Diastolic blood pressure 68 mm[Hg] Cali Dawson DO Work Phone: [facility] 03-29-2023 10:04-0400 Heart rate 61 /min Cali Dawson DO Work Phone: [facility] 03-29-2023 10:04-0400 SaO2% (BldA) [Mass fraction] 98 % Cali Dawson DO Work Phone: [facility] 03-29-2023 10:04-0400 Systolic blood pressure 124 mm[Hg] Cali Dawson DO Work Phone: [facility] 10-14-2022 09:46-0400 Diastolic blood pressure 72 mm[Hg] Sudheer Ritchie MD Work Phone: [facility] 10-14-2022 09:46-0400 Heart rate 56 /min Sudheer Ritchie MD Work Phone: [facility] 10-14-2022 09:46-0400 Systolic blood pressure 161 mm[Hg] Sudheer Ritchie MD Work Phone: [facility] 10-14-2022 09:35-0400 Body weight 109.32 kg Sudheer Ritchie MD Work Phone: [facility] 10-14-2022 09:35-0400 Respiratory rate 16 /min Sudheer Ritchie MD Work Phone: [facility] 07-14-2022 11:05-0500 Body height 175.3 cm Cali Dawson DO Work Phone: [facility] 07-14-2022 11:05-0500 Body weight 109.5 kg Cali Dawson DO Work Phone: [facility] 07-14-2022 11:05-0500 Diastolic blood pressure 64 mm[Hg] Cali Dawson DO Work Phone: [facility] 07-14-2022 11:05-0500 Heart rate 57 /min Cali Dawson DO Work Phone: [facility] 07-14-2022 11:05-0500 SaO2% (BldA) [Mass fraction] 98 % Cali Dawson DO Work Phone: [facility] [place] 07-14-2022 11:05-0500 Systolic blood pressure 156 mm[Hg] Cali Dawson DO Work Phone: [facility] [place] 05-18-2022 09:50-0400 Diastolic blood pressure 68 mm[Hg] Louann Older RUBBER ROLLER GRINDER OPERATOR.REPLENISHMENT MERCHANDISING ASSOCIATE Work Phone: [facility] [place] 05-18-2022 09:50-0400 Systolic blood pressure 128 mm[Hg] Louann Older RUBBER ROLLER GRINDER OPERATOR.REPLENISHMENT MERCHANDISING ASSOCIATE Work Phone: [facility] [place] 05-18-2022 09:30-0400 Body weight 110.22 kg Louann Older RUBBER ROLLER GRINDER OPERATOR.REPLENISHMENT MERCHANDISING ASSOCIATE Work Phone: [facility] [place] 05-18-2022 09:30-0400 Heart rate 63 /min Louann Older RUBBER ROLLER GRINDER OPERATOR.REPLENISHMENT MERCHANDISING ASSOCIATE Work Phone: [facility] [place] 05-18-2022 09:30-0400 Respiratory rate 18 /min Louann Older RUBBER ROLLER GRINDER OPERATOR.REPLENISHMENT MERCHANDISING ASSOCIATE Work Phone: [facility] [place] 03-19-2022 10:22-0400 Body height 175.3 cm Vincent Amos PA-C Work Phone: [facility] [place] 03-19-2022 10:22-0400 Body temperature 97.5 [degF] Vincent Amos PA-C Work Phone: [facility] [place] 03-19-2022 10:22-0400 Body weight 112.49 kg Vincent Amos PA-C Work Phone: [facility] [place] 03-19-2022 10:22-0400 Diastolic blood pressure 74 mm[Hg] Vincent Amos PA-C Work Phone: [facility] [place] 03-19-2022 10:22-0400 Heart rate 72 /min Vincent Amos PA-C Work Phone: [facility] [place] 03-19-2022 10:22-0400 SaO2% (BldA) [Mass fraction] 96 % Vincent Amos PA-C Work Phone: [facility] [place] 03-19-2022 10:22-0400 Systolic blood pressure 116 mm[Hg] Vincent Amos PA-C Work Phone: [facility] [place] 03-16-2022 08:34-0400 Body weight 112.49 kg Sudheer Ritchie MD Work Phone: [facility] [place] 03-16-2022 08:34-0400 Diastolic blood pressure 80 mm[Hg] Sudheer Ritchie MD Work Phone: [facility] [place] 03-16-2022 08:34-0400 Heart rate 72 /min Sudheer Ritchie MD Work Phone: [facility] [place] 03-16-2022 08:34-0400 SaO2% (BldA) [Mass fraction] 98 % Sudheer Ritchie MD Work Phone: [facility] [place] 03-16-2022 08:34-0400 Systolic blood pressure 140 mm[Hg] Sudheer Ritchie MD Work Phone: [facility] [place] 01-11-2022 10:44-0400 Body height 167.6 cm Cali Dawson DO Work Phone: [facility] [place] 01-11-2022 10:44-0400 Body weight 115.21 kg Cali Dawson DO Work Phone: [facility] [place] 01-11-2022 10:44-0400 Diastolic blood pressure 78 mm[Hg] Cali Dawson DO Work Phone: [facility] [place] 01-11-2022 10:44-0400 Heart rate 65 /min Cali Dawson DO Work Phone: [facility] [place] 01-11-2022 10:44-0400 SaO2% (BldA) [Mass fraction] 98 % Cali Dawson DO Work Phone: [facility] [place] 01-11-2022 10:44-0400 Systolic blood pressure 148 mm[Hg] Cali Dawson DO Work Phone: [facility] [place] Encounters Encounter Date Encounter Type Care Provider Facility Start: 01-16-2025 End: 01-16-2025 Emergency department patient visit Dr. Sudheer Ritchie MD Work Phone: -Emergency Department Work Phone: Start: 01-14-2025 End: 01-14-2025 Office outpatient visit 25 minutes Sudheer Ritchie MD Work Phone: [facility] [place] Comment on above: Anemia, chronic dise ase (Primary Dx); Lower urinary tract symptoms (LUTS); Allergic rhinitis with postnasal drip; Essential hypertension; Edema of lower leg due to peripheral venous insufficiency Start: 01-14-2025 End: 01-14-2025 ambulatory SUDHEER RITCHIE Facility:[facility] Start: 01-01-2025 End: 01-01-2025 Patient encounter procedure Katty Mcallister ADRIANA.REPLENISHMENT MERCHANDISING ASSOCIATE Work Phone: [facility] Comment on above: Acute cough (Primary Dx); Rhinosinusitis Start: 01-01-2025 End: 01-01-2025 ambulatory SUDHEER RITCHIE Facility:[facility] Start: 12-27-2024 End: 12-27-2024 Telephone encounter Sudheer Ritchie MD Work Phone: Administration Comment on above: Medication Problem ( [facility] - has questions regarding Omeprazole) Start: 12-26-2024 End: 12-26-2024 Follow-up encounter Sudheer Ritchie MD Work Phone: [facility] [place] Start: 12-23-2024 End: 12-24-2024 Refill Sudheer Ritchie MD Work Phone: [facility] [place] Comment on above: Refill Request Start: 12-20-2024 ambulatory SUDHEER RITCHIE Faci lity:[facility] Start: 12-20-2024 End: 12-20-2024 Subsequent hospital visit by physician X[facility] Work Phone: Radiology Comment on above: Allergic rhinitis wi th postnasal drip [J30.9, R09.82] Start: 12-20-2024 End: 12-20-2024 ambulatory SUDHEER RITCHIE Facility:[facility] Start: 12-20-2024 End: 12-20-2024 Patient encounter procedure Sudheer Ritchie MD Work Phone: [facility] [place] Comment on above: Medicare annual [facility] visit, subsequent (Primary Dx); Screening for depression; Encounter for screening examination for other mental health and behavioral disorders; Essential hypertension; Edema of lower leg due to peripheral venous insufficiency; Allergic rhinitis with postnasal drip; Anemia, chronic disease; Stage 3a chronic kidney disease (HCC); Mixed hyperlipidemia; PAF (paroxysmal atrial fibrillation) (HCC); Inflammatory polyarthropathy (HCC) Start: 12-19-2024 End: 12-19-2024 ambulatory SUDHEER RITCHIE Facility:[facility] Start: 12-14-2024 End: 12-18-2024 ambulatory Sudheer Ritchie MD Work Phone: [facility] [place] Comment on above: blood work Start: 12-04-2024 End: 12-04-2024 ambulatory Lainey Nation RN Work Phone: [facility] Start: 12-04-2024 End: 12-04-2024 Coordination of care plan Lainey Nation RN Work Phone: [facility] Comment on above: Care Coordination Start: 09-11-2024 End: 09-11-2024 ambulatory Sudheer Ritchie MD Work Phone: [facility] [place] Comment on above: Blood pressure Start: 09-04-2024 End: 09-04-2024 ambulatory Ruth Marie Facility:[facility] Start: 08-14-2024 End: 08-14-2024 ambulatory SUDHEER RITCHIE Facility:[facility] Start: 08-14-2024 End: 08-14-2024 Office outpatient visit 25 minutes Sudheer Ritchie MD Work Phone: [facility] [place] Comment on above: Stage 3a chronic kid sary disease (HCC) (Primary Dx); Lower urinary tract symptoms (LUTS); Allergic rhinitis with postnasal drip; Essential hypertension Start: 08-11-2024 End: 08-13-2024 Get Medical Advice Sudheer Ritchie MD Work Phone: [facility] [place] Comment on above: medication refill Start: 08-07-2024 End: 08-07-2024 ambulatory Sachi Marino LPN [facility] [place] Start: 08-06-2024 End: 08-06-2024 Refill Sudheer Ritchie MD Work Phone: [facility] [place] Comment on above: Refill Request Start: 06-19-2024 End: 06-19-2024 ambulatory LOUANN LYNNE Facility:[facility] Start: 06-19-2024 End: 06-19-2024 Patient encounter procedure Louann Lynne RUBBER ROLLER GRINDER OPERATOR.REPLENISHMENT MERCHANDISING ASSOCIATE Work Phone: [facility] [place] Comment on above: Essential hypertensi on (Primary Dx); Stage 3a chronic kidney disease (HCC); Edema of lower leg due to peripheral venous insufficiency; Claudication of both lower extremities (HCC); Acute pain of left shoulder; Lower urinary tract symptoms (LUTS) Start: 06-12-2024 End: 06-12-2024 ambulatory SUDHEER RITCHIE Facility:[facility] Start: 04-17-2024 End: 04-17-2024 ambulatory SUDHEER RITCHIE Facility:[facility] Start: 04-17-2024 End: 04-17-2024 Office outpatient visit 25 minutes Sudheer Ritchie MD Work Phone: [facility] [place] Comment on above: Stage 3a chronic kid sary disease (HCC) (Primary Dx); Essential hypertension; Psoriasis; Lower urinary tract symptoms (LUTS); Mixed hyperlipidemia; Allergic rhinitis, unspecified seasonality, unspecified trigger; PAF (paroxysmal atrial fibrillation) (HCC); Gastroesophageal reflux disease without esophagitis Start: 03-29-2024 End: 03-29-2024 ambulatory CALI DAWSON Facility:[facility] Start: 03-29-2024 End: 03-29-2024 Patient encounter procedure Cali Dawson DO Work Phone: Cardiology Comment on above: PAF (paroxysmal atri al fibrillation) (HCC) (Primary Dx); Essential hypertension; Mixed hyperlipidemia; Ascending aorta dilatation (HCC); RAJESH on CPAP Start: 03-28-2024 End: 03-28-2024 ambulatory [facility] Facility:[facility] Start: 02-22-2024 End: 02-22-2024 ambulatory LOUANN AMINERGER Facility:[facility] Start: 02-20-2024 ambulatory Sudheer strauss MD Work Phone: [facility] [place] Start: 02-20-2024 Patient encounter procedure Sudheer Ritchie MD Work Phone: [facility] [place] Comment on above: Apr 17 appointment Start: 10-12-2023 End: 10-12-2023 Patient encounter procedure Sudheer Ritchie MD Work Phone: [facility] [place] Comment on above: Allergic rhinitis wi th postnasal drip (Primary Dx); Essential hypertension; Claudication of both lower extremities (HCC); Anemia, chronic disease; Blurry vision Start: 09-27-2023 End: 09-27-2023 ambulatory [facility] Work Phone: Start: 09-27-2023 End: 09-27-2023 Patient encounter procedure [facility] Work Phone: Start: 09-27-2023 End: 09-27-2023 ambulatory [facility] Facility:[facility] Start: 06-10-2023 End: 06-10-2023 Patient encounter procedure Sudheer Ritchie MD Work Phone: [facility] [place] Comment on above: Medicare annual well ness visit, subsequent (Primary Dx); Essential hypertension; Edema of lower leg due to peripheral venous insufficiency; Mixed hyperlipidemia; Obesity, Class II, BMI 35-39.9 Start: 04-13-2023 ambulatory Sudheer strauss MD Work Phone: [facility] [place] Comment on above: blood work Start: 04-06-2023 End: 04-06-2023 ambulatory [facility] Work Phone: Start: 04-06-2023 End: 04-06-2023 Patient encounter procedure [facility] Work Phone: Start: 03-29-2023 End: 03-29-2023 Patient encounter procedure Cali Liz Janet DO Work Phone: Cardiology Comment on above: PAF (paroxysmal atri al fibrillation) (HCC) (Primary Dx); Essential hypertension; Mixed hyperlipidemia; Ascending aorta dilatation (HCC); RAJESH (obstructive sleep apnea) Start: 02-23-2023 End: 02-23-2023 ambulatory Sudheer Ritchie MD Work Phone: [facility] [place] Comment on above: COVID-19 (Primary Dx ) Start: 02-23-2023 End: 02-23-2023 Telemedicine consultation with patient Sudheer Ritchie MD Work Phone: [facility] [place] Start: 10-14-2022 End: 10-14-2022 Patient encounter procedure Sudheer Ritchie MD Work Phone: [facility] [place] Comment on above: Inflammatory polyart hropathy (HCC) (Primary Dx); Stage 3a chronic kidney disease (HCC); Essential hypertension; Mixed hyperlipidemia; Psoriasis Start: 07-28-2022 Refill Ana Adams Work Phone: [facility] [place] Comment on above: Refill Request Start: 07-14-2022 End: 07-14-2022 Patient encounter procedure Cali Agusto Dawson DO Work Phone: Cardiology Comment on above: PAF (paroxysmal atri al fibrillation) (HCC) (Primary Dx); Essential hypertension; Mixed hyperlipidemia; Mitral valve disease Start: 06-09-2022 ambulatory Giulia Stephen [facility] Comment on above: [facility] ([employer]/) Start: 05-18-2022 End: 05-18-2022 Patient encounter procedure Louann Rubio APRN.CNP Work Phone: [facility] [place] Comment on above: Essential hypertensi on (Primary Dx); Renal insufficiency Start: 04-13-2022 End: 04-13-2022 ambulatory [facility] Work Phone: Start: 04-13-2022 End: 04-13-2022 Patient encounter procedure [facility] Start: 03-26-2022 ambulatory [facility] Provider Internal M husam Chan Comment on above: Medication change Start: 03-26-2022 E-mail encounter fro m caregiver [facility] Provider [facility] Start: 03-25-2022 Telephone encounter Vincent HOLLIDAY-Darrell Work Phone: Urology Comment on above: Medication Problem Start: 03-24-2022 ambulatory Vincent Amos PA-C Work Phone: Urology Comment on above: prescription to be f illed Start: 03-19-2022 End: 03-19-2022 Patient encounter procedure Vincent Amos PA-C Work Phone: Urology Comment on above: Lower urinary tract symptoms (LUTS) Start: 03-16-2022 End: 03-16-2022 Patient encounter procedure Sudheer Ritchie MD Work Phone: [facility] [place] Comment on above: Inflammatory polyart hropathy (HCC) (Primary Dx); Essential hypertension; Class 2 severe obesity with serious comorbidity and body mass index (BMI) of 37.0 to 37.9 in adult, unspecified obesity type (HCC); Edema of lower leg due to peripheral venous insufficiency; Mixed hyperlipidemia; Lower urinary tract symptoms (LUTS); Abrasion of left lower extremity, initial encounter; Need for vaccination; Kidney insufficiency Start: 02-25-2022 Telephone encounter Sudheer cortes MD Work Phone: [facility] [place] Comment on above: Patient Question Start: 01-11-2022 End: 01-11-2022 Patient encounter procedure Cali Dawson DO Work Phone: Cardiology Comment on above: PAF (paroxysmal atri al fibrillation) (HCC) (Primary Dx); Essential hypertension; Mixed hyperlipidemia Start: 10-21-2021 End: 03-30-2022 Patient encounter procedure [facility] Start: 03-03-2020 End: 03-22-2021 Preoperative state Sudheer Ritchie MD Work Phone: [facility] [place] Start: 11-24-2018 Ambulatory DUSTYOmid SMITH Facility :[facility] Start: 11-24-2017 End: 11-24-2017 Ambulatory DUSTY SMITH [facility] Procedures Date Procedure Procedure Detail Performing Clinician Start: 12-20-2024 Radiologic exam ches t 2 views Sudheer Ritchie MD Work Phone: Start: 12-20-2024 Adult depression screening assessment Sudheer Ritchie MD Work Phone: Start: 03-29-2023 Ecg routine ecg w/le ast 12 lds i&r only [facility] Start: 03-19-2022 Urnls dip stick/tabl et rgnt auto w/o microscopy Vincent Amos PA-C Work Phone: Start: 03-17-2021 Adult depression screening assessment Cali Dawson DO Work Phone: Plan of Treatment Date Care Activity Detail Author Start: 03-16-2032 Urine microalbumin profile [facility] [place] Start: 12-20-2027 Diabetes Screening Diabetes Screenin g [facility] [place] Start: 06-12-2027 Diabetes Screening Diabetes Screenin g [facility] [place] Start: 02-21-2027 Diabetes Screening Diabetes Screenin g [facility] [place] Start: 01-14-2026 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 Visit Annual PCP Team Chronic Disease Visit [facility] [place] Start: 01-14-2026 Complete blood count Hemoglobin/Naveen tocrit [facility] [place] Start: 01-07-2026 DIABETES SCREEN DIABETES SCREEN [facility] Start: 01-07-2026 Diabetes Screening Diabetes Screenin g [facility] [place] Start: 01-01-2026 BP Controlled (<130/80) BP Controlle d (<130/80) [facility] [place] Start: 12-20-2025 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 Visit Annual PCP Team Chronic Disease Visit [facility] [place] Start: 12-20-2025 Anxiety Screening Anxiety Screening [facility] [place] Start: 12-20-2025 Depression Screening Depression Scre ening [facility] [place] Start: 12-19-2025 Complete blood count Hemoglobin/Naveen tocrit [facility] [place] Start: 12-19-2025 Creatinine measurement Serum Creatin ine [facility] [place] Start: 10-08-2025 DIABETES SCREEN DIABETES SCREEN [facility] Start: 08-14-2025 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 Visit Annual PCP Team Chronic Disease Visit [facility] [place] Start: 08-14-2025 Covid-19 Vaccine () Covid-19 Vaccine () [facility] [place] Comment on above: Postponed from 06/22 (Declined at this time) Start: 07-08-2025 DIABETES SCREEN DIABETES SCREEN [facility] Start: 06-19-2025 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 Visit Annual PCP Team Chronic Disease Visit [facility] [place] Start: 06-12-2025 Creatinine measurement Serum Creatin ine [facility] [place] Start: 06-12-2025 End: 06-12-2025 Patient encounter procedure 06/12/2025 9:20 AM EST Office Visit Cardiology [address] [place] [id number] Shilpi Grove MD [address] [place] [id number] Annual follow up previous Janet patient Cardiology Comment on above: Annual follow up pre vious [place] patient Start: 05-03-2025 DIABETES SCREEN DIABETES SCREEN [facility] Start: 04-17-2025 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 Visit Annual PCP Team Chronic Disease Visit [facility] [place] Start: 04-17-2025 Covid-19 Vaccine ( season) Covid-19 Vaccine () [facility] [place] Comment on above: Postponed from 03/25 (Declined at this time) Start: 03-22-2025 End: 03-22-2025 Patient encounter procedure 03/22/2025 9:40 AM EDT Office Visit [facility] [place] [address] [place], [place] [id number] Sudheer Ritchie MD [address] [place] [id number] 2 month follow-up [facility] [place] Comment on above: 2 month follow-up Start: 03-16-2025 DIABETES SCREEN DIABETES SCREEN [facility] Start: 03-09-2025 DIABETES SCREEN DIABETES SCREEN [facility] Start: 02-21-2025 Creatinine measurement Serum Creatin ine [facility] [place] Start: 01-23-2025 End: 01-23-2025 ambulatory 01/23/2025 9:00 AM EDT Results Only [place] [address] [place] [address] [place] Start: 01-21-2025 Influenza vaccination Influenza Vacc ine (#1) [facility] [place] Comment on above: Postponed from 03/25 (Declined at this time) Start: 01-20-2025 End: 04-21-2025 Basic metabolic 2000 panel - Serum or Plasma BASIC METABOLIC PANEL Lab Routine Stage 3a chronic kidney disease (HCC) Expected: 01/20/2025, Expires: 04/21/2025 [facility] [place] Comment on above: Expected: 01/20/2025 , Expires: 04/21/2025 Start: 01-20-2025 End: 04-21-2025 CBC panel - Blood by Automated count COMPLETE BLOOD COUNT Lab Routine Anemia, chronic disease Expected: 01/20/2025, Expires: 04/21/2025 [facility] [place] Comment on above: Expected: 01/20/2025 , Expires: 04/21/2025 Start: 01-14-2025 End: 04-15-2025 Basic metabolic 2000 panel - Serum or Plasma [facility] Work Phone: Comment on above: Expected: 01/14/2025 , Expires: 04/15/2025 Start: 01-14-2025 End: 01-14-2025 Patient encounter procedure 01/14/2025 12:40 PM EDT Office Visit [facility] [place] [address] [place] [address] Sudheer Ritchie MD [address] [place] [address] 1 month follow-up [facility] [place] Comment on above: 1 month follow-up Start: 12-20-2024 End: 12-20-2024 Patient encounter procedure 12/20/2024 8:00 AM EDT Office Visit [facility] [place] [address] [place] [address] Sudheer Ritchie MD [address] [place] [address] Annual Medicare Wellness w/6 month follow-up [facility] [place] Comment on above: Annual Medicare Well ness w/6 month follow-up Start: 12-19-2024 End: 03-20-2025 Basic metabolic 2000 panel - Serum or Plasma BASIC METABOLIC PANEL Lab Routine Stage 3a chronic kidney disease (HCC) Expected: 12/19/2024, Expires: 03/20/2025 [facility] [place] Comment on above: Expected: 12/19/2024 , Expires: 03/20/2025 Start: 12-19-2024 End: 03-20-2025 CBC panel - Blood by Automated count COMPLETE BLOOD COUNT Lab Routine Anemia, chronic disease Expected: 12/19/2024, Expires: 03/20/2025 [facility] Work Phone: Comment on above: Expected: 12/19/2024 , Expires: 03/20/2025 Start: 12-19-2024 End: 03-20-2025 Lipid 1996 panel - Serum or Plasma LIPID PANEL, FASTING Lab Routine Mixed hyperlipidemia Expected: 12/19/2024, Expires: 03/20/2025 [facility] [place] Comment on above: Expected: 12/19/2024 , Expires: 03/20/2025 Start: 12-19-2024 End: 12-19-2024 ambulatory 12/19/2024 9:45 AM EDT Results Only [place] [facility] [address] [place] [address] [facility] Start: 10-11-2024 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 Visit Annual PCP Team Chronic Disease Visit [facility] [place] Start: 10-11-2024 BP Controlled (<130/80) BP Controlle d (<130/80) [facility] [place] Start: 09-26-2024 Complete blood count Hemoglobin/Naveen tocrit [facility] [place] Start: 08-14-2024 End: 08-14-2024 Patient encounter procedure 08/14/2024 10:00 AM EST Office Visit [facility] [place] [address] [place] [address] Sudheer Ritchie MD [address] [place] [address] Patient Outreach - follow-up - BP [facility] [place] Comment on above: Patient Outreach - f ollow-up - BP Start: 07-25-2024 Advance Directive Discussion Advance Directive Discussion [facility] [place] Start: 06-23-2024 DIABETES SCREEN DIABETES SCREEN [facility] Start: 06-22-2024 Covid-19 Vaccine () Covid-19 Vaccine () [facility] [place] Start: 06-19-2024 End: 06-19-2024 Patient encounter procedure 06/19/2024 12:40 PM EST Office Visit [facility] [place] [address] [facility] [place] [address] Louann Lynne, RUBBER ROLLER GRINDER OPERATOR.REPLENISHMENT MERCHANDISING ASSOCIATE [address] [place] [address] 4 month follow-up [facility] [place] Comment on above: 4 month follow-up Start: 06-12-2024 End: 06-12-2024 ambulatory 06/12/2024 9:30 AM EST Results Only [facility] [address] [place] [address] [facility] Start: 06-11-2024 End: 09-10-2024 Basic metabolic 2000 panel - Serum or Plasma BASIC METABOLIC PANEL Lab Routine Stage 3a chronic kidney disease (HCC) Expected: 06/11/2024, Expires: 09/10/2024 [facility] Work Phone: Comment on above: Expected: 06/11/2024 , Expires: 09/10/2024 Start: 06-10-2024 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 Visit Annual PCP Team Chronic Disease Visit [facility] [place] Start: 04-17-2024 End: 04-17-2024 Patient encounter procedure 04/17/2024 9:00 AM EDT Office Visit [facility] [place] [address] [place] [address] Sudheer Ritchie MD [address] [place] [address] 4 month follow-up [facility] [place] Comment on above: 4 month follow-up Start: 03-29-2024 BP CONTROLLED (<130/80) BP CONTROLLE D (<130/80) [facility] [place] Start: 03-29-2024 End: 03-29-2024 Patient encounter procedure 03/29/2024 9:20 AM EDT Office Visit Cardiology [address] [id number] Cali Dawson DO [address] [place] [address] annual follow up Cardiology Comment on above: annual follow up Start: 03-25-2024 Covid-19 Vaccine ( season) Covid-19 Vaccine ( season) [facility] [place] Start: 03-25-2024 Influenza vaccination Influenza Vacc ine (#1) [facility] [place] Start: 02-24-2024 ANNUAL PCP TEAM IT HELP DESK TECHNICIAN ULI DISEASE VISIT ANNUAL PCP TEAM CHRONIC DISEASE VISIT [facility] Start: 02-22-2024 End: 02-22-2024 ambulatory 02/22/2024 9:00 AM EDT Results Only [facility] [address] [place] [address] [facility] Start: 02-21-2024 End: 05-22-2024 Comprehensive metabolic 2000 panel - Serum or Plasma COMPREHENSIVE METABOLIC PANEL Lab Routine Mixed hyperlipidemia Expected: 02/21/2024, Expires: 05/22/2024 [facility] Comment on above: Expected: 02/21/2024 , Expires: 05/22/2024 Start: 02-21-2024 End: 05-22-2024 Lipid 1996 panel - Serum or Plasma LIPID PANEL BASIC Lab Routine Mixed hyperlipidemia Expected: 02/21/2024, Expires: 05/22/2024 [facility] Work Phone: Comment on above: Expected: 02/21/2024 , Expires: 05/22/2024 Start: 01-08-2024 Creatinine measurement Serum Creatin ine [facility] Start: 01-08-2024 SERUM CREATININE SERUM CREATININE [facility] Start: 10-15-2023 ANNUAL PCP TEAM IT HELP DESK TECHNICIAN ULI DISEASE VISIT ANNUAL PCP TEAM CHRONIC DISEASE VISIT [facility] Start: 10-09-2023 HEMOGLOBIN/HEMATOCRIT HEMOGLOBIN/HEM ATOCRIT [facility] Start: 10-09-2023 SERUM CREATININE SERUM CREATININE [facility] Start: 10-02-2023 Covid-19 Vaccine () Covid-19 Vaccine () [facility] Start: 07-25-2023 Advance Directive Discussion Advance Directive Discussion [facility] Start: 05-18-2023 ANNUAL PCP TEAM IT HELP DESK TECHNICIAN ULI DISEASE VISIT ANNUAL PCP TEAM CHRONIC DISEASE VISIT [facility] Start: 05-18-2023 BP CONTROLLED (<130/80) BP CONTROLLE D (<130/80) [facility] Start: 03-25-2023 Influenza vaccination [facility] Start: 03-19-2023 BP CONTROLLED (<130/80) BP CONTROLLE D (<130/80) [facility] Start: 03-16-2023 ANNUAL PCP TEAM IT HELP DESK TECHNICIAN ULI DISEASE VISIT ANNUAL PCP TEAM CHRONIC DISEASE VISIT [facility] Start: 01-14-2023 End: 03-16-2023 Comprehensive metabolic 2000 panel - Serum or Plasma COMP METABOLIC PANEL Lab Routine Mixed hyperlipidemia Expected: 01/14/2023, Expires: 03/16/2023 [facility] Work Phone: Comment on above: Expected: 01/14/2023 , Expires: 03/16/2023 Start: 01-14-2023 End: 03-16-2023 Lipid 1996 panel - Serum or Plasma LIPID PANEL BASIC Lab Routine Mixed hyperlipidemia Expected: 01/14/2023, Expires: 03/16/2023 [facility] Work Phone: Comment on above: Expected: 01/14/2023 , Expires: 03/16/2023 Start: 09-14-2022 ANNUAL PCP TEAM IT HELP DESK TECHNICIAN ULI DISEASE VISIT ANNUAL PCP TEAM CHRONIC DISEASE VISIT [facility] Start: 08-20-2022 COVID-19 VACCINE (6 - Moderna series) COVID-19 VACCINE (6 - Moderna series) [facility] Start: 07-25-2022 ADVANCE DIRECTIVE DISCUSSION ADVANCE DIRECTIVE DISCUSSION [facility] Start: 07-25-2022 DEPRESSION ASSESSMENT DEPRESSION ASS ESSMENT [facility] Start: 07-18-2022 End: 09-17-2022 Basic metabolic 2000 panel - Serum or Plasma BASIC METABOLIC PNL Lab Routine Renal insufficiency Expected: 07/18/2022 (Approximate), Expires: 09/17/2022 [facility] Work Phone: Comment on above: Expected: 07/18/2022 (Approximate), Expires: 09/17/2022 Start: 04-17-2022 End: 06-17-2022 Basic metabolic 2000 panel - Serum or Plasma BASIC METABOLIC PNL Lab Routine Kidney insufficiency Expected: 04/17/2022, Expires: 06/17/2022 [facility] Work Phone: Comment on above: Expected: 04/17/2022 , Expires: 06/17/2022 Start: 04-03-2022 COVID-19 VACCINE (5 - Booster for Moderna series) COVID-19 VACCINE (5 - Booster for Moderna series) [facility] Start: 03-25-2022 Influenza vaccination INFLUENZA (#1) [facility] Start: 03-17-2022 Adult depression scr eening assessment DEPRESSION SCREENING [facility] Start: 03-16-2022 End: 05-16-2022 Basic metabolic 2000 panel - Serum or Plasma [facility] Work Phone: Comment on above: Expected: 03/16/2022 , Expires: 05/16/2022 Start: 03-16-2022 End: 05-16-2022 Prostate specific Ag [Mass/volume] in Serum or Plasma [facility] Work Phone: Comment on above: Expected: 03/16/2022 , Expires: 05/16/2022 Start: 03-16-2022 End: 05-16-2022 Urinalysis complete panel - Urine [facility] Work Phone: Comment on above: Expected: 03/16/2022 , Expires: 05/16/2022 Start: 03-04-2022 End: 05-04-2022 Basic metabolic 2000 panel - Serum or Plasma BASIC METABOLIC PNL Lab Routine Impaired fasting blood sugar Expected: 03/04/2022, Expires: 05/04/2022 [facility] Work Phone: Comment on above: Expected: 03/04/2022 , Expires: 05/04/2022 Start: 03-04-2022 End: 05-04-2022 Hemoglobin A1c in Blood HGB A1C Lab Routine Impaired fasting blood sugar Expected: 03/04/2022, Expires: 05/04/2022 [facility] Work Phone: Comment on above: Expected: 03/04/2022 , Expires: 05/04/2022 Start: 03-04-2022 End: 05-04-2022 Lipid 1996 panel - Serum or Plasma LIPID PANEL BASIC Lab Routine Mixed hyperlipidemia Expected: 03/04/2022, Expires: 05/04/2022 [facility] Work Phone: Comment on above: Expected: 03/04/2022 , Expires: 05/04/2022 Start: 07-25-2021 ADVANCE DIRECTIVE DISCUSSION ADVANCE DIRECTIVE DISCUSSION [facility] Start: 07-25-2021 DEPRESSION ASSESSMENT DEPRESSION ASS ESSMENT [facility] Start: 06-16-2010 Urine microalbumin profile DTAP,TDAP ,TD (1 - Tdap) [facility] Start: 2005 RSV Vaccine (1 - 1-d ose 60+ series) RSV Vaccine (1 - 1-dose 60+ series) [facility] Start: 11-06-1963 Anxiety Screening Anxiety Screening [facility] Start: 11-06-1963 BP CONTROLLED (<130/80) BP CONTROLLE D (<130/80) [facility] Start: 11-06-1963 Depression Screening Depression Scre ening [facility] End: 01-11-2023 ECG COMPLETE ECG COMPLETE ECG Routine PAF (paroxysmal atrial fibrillation) (HCC) Essential hypertension Mixed hyperlipidemia 1 Occurrences starting 01/11/2022 until 01/11/2023 [facility] Work Phone: Comment on above: 1 Occurrences starti ng 01/11/2022 until 01/11/2023 ECG COMPLETE ECG COMPLETE ECG 03/29/2023 10:11 AM EDT [facility] End: 07-14-2023 Echocardiography ECHO Cardiology Routine PAF (paroxysmal atrial fibrillation) ([facility]) Essential hypertension Mixed hyperlipidemia Mitral valve disease 1 Occurrences starting 07/14/2022 until 07/14/2023 [facility] Work Phone: Comment on above: 1 Occurrences starti ng 07/14/2022 until 07/14/2023 POST VOID RESIDUAL POST VOID RES IDUAL Procedures Routine Lower urinary tract symptoms (LUTS) Ordered: 03/19/2022 [facility] Work Phone: Comment on above: Ordered: 03/19/2022 End: 04-26-2023 US KIDNEY/BLADDER US KIDNEY/BLADDER Radiology Routine Kidney insufficiency 1 Occurrences starting 03/27/2022 until 04/26/2023 [facility] Work Phone: Comment on above: 1 Occurrences starti ng 03/27/2022 until 04/26/2023 End: 10-11-2024 US Lower extremity artery - bilateral [facility] Vascular Lab Routine Claudication of both lower extremities ([facility]) 1 Occurrences starting 10/12/2023 until 10/11/2024 [facility] Work Phone: Comment on above: 1 Occurrences starti ng 10/12/2023 until 10/11/2024 End: 01-19-2026 XR Chest PA and Lateral XR CHEST 2V FRONTAL/LAT Radiology Routine Allergic rhinitis with postnasal drip 1 Occurrences starting 12/20/2024 until 01/19/2026 [facility] Work Phone: Comment on above: 1 Occurrences starti ng 12/20/2024 until 01/19/2026 XR Chest PA and Lateral XR CHEST 2V FRONTAL/LAT Radiology Routine Allergic rhinitis with postnasal drip 12/20/2024 8:58 AM EDT [facility] Immunizations Immunization Date Immunization Notes Care Provider Lawrence carranza 04-27-2024 COVID-19 original vaccine, full dose, monovalent (MODERNA) Louann Lynne RUBBER ROLLER GRINDER OPERATOR.REPLENISHMENT MERCHANDISING ASSOCIATE Work Phone: [facility] 04-27-2024 influenza (HD-IIV4) vaccine, age 65+ yr, high dose, quadrivalent, PF (FLUZONE HIGH-DOSE) Louann Lynne RUBBER ROLLER GRINDER OPERATOR.REPLENISHMENT MERCHANDISING ASSOCIATE Work Phone: [facility] 06-03-2023 COVID-19 vaccine, ag e 12+ yr, season (MODERNA) Sudheer Ritchie MD Work Phone: [facility] 05-27-2023 influenza, high dose seasonal, preservative-free Sudheer Ritchie MD Work Phone: [facility] 05-27-2023 influenza virus vaccine, unspecified formulation Sudheer Ritchie MD Work Phone: [facility] 05-05-2022 influenza, high dose seasonal, preservative-free Louann Rubio RUBBER ROLLER GRINDER OPERATOR.REPLENISHMENT MERCHANDISING ASSOCIATE Work Phone: [facility] 05-05-2022 influenza virus vaccine, unspecified formulation Sudheer Ritchie MD Work Phone: [facility] 03-16-2022 tetanus toxoid, redu shakir diphtheria toxoid, and acellular pertussis vaccine, adsorbed Sudheer Ritchie MD Work Phone: [facility] 04-18-2020 influenza, high dose seasonal, preservative-free Cali Dawson DO Work Phone: [facility] Work Phone: 03-30-2019 influenza, seasonal, injectable Cali Janet DO Work Phone: [facility] 10-24-2018 zoster vaccine recombinant Cali Dawson DO Work Phone: [facility] 05-12-2018 zoster vaccine recombinant Cali Dawson DO Work Phone: [facility] 05-18-2017 influenza, high dose seasonal, preservative-free Cali Janet DO Work Phone: [facility] Work Phone: 04-28-2015 influenza, high dose seasonal, preservative-free Cali Dawson DO Work Phone: [facility] 02-21-2015 pneumococcal conjuga te vaccine, 13 valent Cali Dawson DO Work Phone: [facility] 11-10-2011 zoster vaccine, live Cali Dawson DO Work Phone: [facility] 08-12-2011 pneumococcal polysaccharide vaccine, 23 valent Cali Dawson DO Work Phone: [facility] 04-24-2011 influenza virus vaccine, unspecified formulation Cali Dawson DO Work Phone: [facility] 06-15-2010 tetanus and diphther ia toxoids, adsorbed, preservative free, for adult use (2 Lf of tetanus toxoid and 2 Lf of diphtheria toxoid) Cali Dawson DO Work Phone: [facility] 04-15-2010 influenza virus vaccine, unspecified formulation Cali Dawson DO Work Phone: [facility] Payers Date Payer Category Payer Medicare (Managed Care) MMO [employer] O [id number] 2024 Medicare [id number] 2023 Self-pay [id number] 2021 Medicare HUMANA MEDICARE HUMANA MEDICARE PPO [id number] 2021-Present [phone] [address] [address] [place] [address] PPO [id number] 2021 Medicare [id number] 2021 Medicare [id number] 2016 Unknown [id number] Unknown [id number] Unknown [id number] Social History Date Type Detail Facility Tobacco smoking stat [facility] Unknown if ever smoked [facility] Work Phone: Start: 1945 Sex Assigned At Male [facility] Start: 05-23-2018 End: 05-18-2022 Tobacco smoking status AZIS Ex-smoker [facility] Work Phone: End: 01-21-2018 History of tobacco use Current smoker [facility] Work Phone: End: 01-21-2018 History of tobacco use Cigar Smoker [facility] Work Phone: Start: 05-23-2018 End: 05-18-2022 Tobacco use and exposure Smokeless tobacco non-user [facility] Work Phone: Start: 01-11-2022 End: 01-01-2025 Alcohol intake Current drinker of alcohol (finding) [facility] Start: 01-11-2022 End: 02-23-2023 Alcohol intake [facility] Start: 03-01-2020 End: 10-10-2022 History SDOH Alcohol Frequency 4 [facility] Start: 03-01-2020 End: 10-10-2022 History SDOH Alcohol Std Drinks 1 [facility] Start: 03-01-2020 End: 10-10-2022 History SDOH Social Connections Phone 3 [facility] Start: 03-01-2020 End: 10-10-2022 History SDOH Social Connections Get Together 2 [facility] Start: 03-01-2020 History SDOH Physica l Activity DPW 0 [facility] Start: 03-01-2020 End: 10-10-2022 History SDOH Financial 5 [facility] Start: 03-01-2020 Education 16 [facility] Start: 11-08-2011 End: 05-18-2022 Tobacco Comment occ cigar [facility] Start: 03-06-2022 End: 03-31-2022 Exposure to SARS-CoV-2 (event) Not sure [facility] Start: 10-10-2022 History SDOH Social Connections Mormonism 98 [facility] Start: 10-10-2022 End: 02-23-2023 Social connection and isolation panel [facility] How often do you att end hinduism or denominational services? Patient refused [facility] Are you now , , , , never or living with a partner? [facility] How often to you hav e a drink containing alcohol? 2-3 time sa week [facility] How many standard drinks containing alcohol do you have on a typical day? 1 or 2 [facility] How often do you hav e 6 or more drinks on 1 occasion? Never [facility] Do you feel stress - tense, restless, nervous, or anxious, or unable to sleep at night because your mind is troubled all the time - these days [OSQ] To some extent [facility] (I/We) worried mikal er (my/our) food would run out before (I/we) got money to buy more. Never true [facility] In the past 12 month s, was there a time when you were not able to pay the mortgage or rent on time? No [facility] Start: 05-16-2019 Gender identity Identifies as male gender (finding) [facility] Start: 05-16-2019 Sexual orientation Heterosexual (junior zuleta) [facility] Do you feel stress - tense, restless, nervous, or anxious, or unable to sleep at night because your mind is troubled all the time - these days [OSQ] Only a little [facility] Tobacco smoking stat us [facility] Unknown if ever smoked [facility] Work Phone: Functional Status Date Assessment Result Facility 12-20-2024 Total score [AUDIT-C] 3 12/21/19 8:20 AM EDT Sudheer Ritchie MD [facility] 02-21-2015 Are you deaf, or do you have serious difficulty hearing No 02/21/2015 9:55 AM EDT Cally Crook RN No [facility] 02-21-2015 Are you blind, or do you have serious difficulty seeing, even when wearing glasses No 02/21/2015 9:55 AM EDT Cally Crook RN No [facility] 02-21-2015 Do you have serious difficulty walking or climbing stairs No 02/21/2015 9:55 AM EDT Cally Crook RN No [facility] 02-21-2015 Do you have difficul ty dressing or bathing No 02/21/2015 9:55 AM EDT Cally Crook RN No [facility] 02-21-2015 Because of a physica l, mental, or emotional condition, do you have difficulty doing errands alone such as visiting a physician's office or shopping No 02/21/2015 9:55 AM EDT Cally Crook RN No [facility] Mental Status Date Assessment Result Facility 02-21-2015 Because of a physica l, mental, or emotional condition, do you have serious difficulty concentrating, remembering, or making decisions No 02/21/2015 9:55 AM EDT Cally Crook RN No [facility] Clinical Notes 03-05-2020 to 01-14-2025 Patient InstructionsSudheer Ritchie MD - 01/14/2025 12:51 PM Katty King APRN.REPLENISHMENT MERCHANDISING ASSOCIATE - 01/01/2025 9:29 AM EDTTelephone Encounter - Denise Agee RN - 12/27/2024 11:07 AM EDT Note Date & Type Note Facility 01-14-2025 Instructions Sudheer Ritchie MD - 01/14/2025 12:59 PM EDT Message with home BP readings in 2 weeks. documented in this encounter [facility] 01-14-2025 Note HNO ID: [id number] Author: SUDHEER RITCHIE MD Service: ? Author Type: Physician Type: Progress Notes Filed: 01/14/2025 13:07 Note Text: This note was created using [email or web address]. Subjective Demetrius Reddy is a 79 year old male. His edema was much better on furosemide he had to get new shoes. His hypertension was now controlled, and even getting low. He had dizziness at times, but no syncope. His allergies were better. His labs were ordered for next week, as his appointment today was scheduled earlier. Review of Systems Constitutional: Negative for fatigue. HENT: Negative for congestion. Respiratory: Negative for shortness of breath. Neurological: Positive for light-headedness. Negative for headaches. 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 Lower Urinary Tract Symptoms (Luts) Long-Term Use of Plaquenil Stage 3a Chronic Kidney Disease (Hcc) Psoriasis Obesity, Class II, Bmi 35-39.9 Allergic Rhinitis With Postnasal Drip Social History Tobacco Use Smoking status: Former Types: Cigars Quit date: 01/21/2018 Years since quittin.9 Smokeless tobacco: Never Tobacco comments: occ cigar Vaping Use Vaping status: Never Used Substance Use Topics Alcohol use: Yes Alcohol/week: 5.0 standard drinks of alcohol Types: 5 Shots of liquor per week Drug use: No Current Outpatient Medications Medication Sig amLODIPine (NORVASC) 10 mg tablet Take 1 tablet by mouth once daily. Fenofibrate (LOFIBRA) 160 mg tablet Take 1 tablet by mouth once daily. metoprolol tartrate, short acting, (LOPRESSOR) 50 mg tablet Take 1 tablet by mouth two times a day. omeprazole (PRILOSEC) 20 mg capsule TAKE 1 CAPSULE DAILY BEFORE BREAKFAST ONE-HALF (1/2) HOUR BEFORE MEAL hydrALAZINE (APRESOLINE) 50 mg tablet Take 2 tablets by mouth two times a day. furosemide (LASIX) 20 mg tablet Take 1 tablet by mouth once daily. montelukast (SINGULAIR) 10 mg tablet Take 1 tablet by mouth daily at bedtime. ipratropium bromide (ATROVENT) 42 mcg (0.06 %) nasal spray Use 2 Sprays in the nose three times a day. doxazosin (CARDURA) 8 mg tablet Take 1 tablet by mouth daily at bedtime. losartan-hydroCHLOROthiazide (HYZAAR) 100-12.5 mg per tablet Take 1 tablet by mouth once daily. clotrimazole-betamethasone (LOTRISONE) cream Apply to rash on leg , twice daily potassium chloride (K-TAB) 10 mEq tablet Take 1 tablet by mouth daily with breakfast. cyanocobalamin (VITAMIN B-12) 100 mcg tab Take 100 mcg by mouth once daily. pyridoxine HCl, vitamin B6, (VITAMIN B-6 ORAL) Take by mouth once daily. aspirin, enteric coated (ASPIRIN, ENTERIC COATED) 81 mg EC tablet Take 1 tablet by mouth once daily. hydrOXYchloroQUINE (PLAQUENIL) 200 mg tablet Take by mouth twice daily. latanoprost (XALATAN) 0.005 % ophthalmic solution Use 1 Drop in both eyes daily at bedtime. ubidecarenone(CO Q-10 100 MG CAP) Take one(1) tablet daily. No current facility-administered medications for this visit. Objective Wt 97.3 kg (214 lb 8.1 oz) BMI 34.89 kg/m? 01/14/25 1226 01/14/25 1229 01/14/25 1232 Weight: 97.3 kg (214 lb 8.1 oz) Orthostatic BP: 99/51 57/31 115/68 Orthostatic Pulse: 60 64 66 Physical Exam Constitutional: Appearance: He is not ill-appearing or diaphoretic. Cardiovascular: Rate and Rhythm: Normal rate and regular rhythm. Heart sounds: No murmur heard. No gallop. Pulmonary: Effort: No respiratory distress. Breath sounds: No wheezing or rales. Musculoskeletal: Right lower le+ Pitting Edema present. Left lower le+ Pitting Edema present. Neurological: General: No focal deficit present. Mental Status: He is alert. Assessment and Plan 1. Anemia, chronic disease - ICD9: 285.29, ICD10: D63.8 (primary diagnosis) Recheck today. 2. Lower urinary tract symptoms (LUTS) - ICD9: 788.99, ICD10: R39.9 Refilled. - DOXAZOSIN 8 MG TABLET 3. Allergic rhinitis with postnasal drip - ICD9: 477.9, 784.91, ICD10: J30.9, R09.82 Improved. - MONTELUKAST 10 MG TABLET 4. Essential hypertension - ICD9: 401.9, ICD10: I10 - Controlled - HYDRALAZINE 50 MG TABLET. Decrease to one tablet po TID. Return sooner for worsening symptoms of low blood pressure. - Monitor home BP and call for issues. - COMPLETE BLOOD COUNT 5. Edema of lower leg due to peripheral venous insufficiency - ICD9: 459.81, 782.3, ICD10: I87.2, R60.0 Improved. - BASIC METABOLIC PANEL Sudheer Ritchie MD [facility] 01-14-2025 History of Present illness Narrative This note was created using [employer]. Subjective Demetrius Reddy is a 79 year old male. His edema was much better on furosemide he had to get new shoes. His hypertension was now controlled, and even getting low. He had dizziness at times, but no syncope. His allergies were better. His labs were ordered for next week, as his appointment today was scheduled earlier. Review of Systems Constitutional: Negative for fatigue. HENT: Negative for congestion. Respiratory: Negative for shortness of breath. Neurological: Positive for light-headedness. Negative for headaches. 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 Lower Urinary Tract Symptoms (Luts) Long-Term Use of Plaquenil Stage 3a Chronic Kidney Disease (Hcc) Psoriasis Obesity, Class II, Bmi 35-39.9 Allergic Rhinitis With Postnasal Drip Social History Tobacco Use Smoking status: Former Types: Cigars Quit date: 01/21/2018 Years since quittin.9 Smokeless tobacco: Never Tobacco comments: occ cigar Vaping Use Vaping status: Never Used Substance Use Topics Alcohol use: Yes Alcohol/week: 5.0 standard drinks of alcohol Types: 5 Shots of liquor per week Drug use: No Current Outpatient Medications Medication Sig amLODIPine (NORVASC) 10 mg tablet Take 1 tablet by mouth once daily. Fenofibrate (LOFIBRA) 160 mg tablet Take 1 tablet by mouth once daily. metoprolol tartrate, short acting, (LOPRESSOR) 50 mg tablet Take 1 tablet by mouth two times a day. omeprazole (PRILOSEC) 20 mg capsule TAKE 1 CAPSULE DAILY BEFORE BREAKFAST ONE-HALF (1/2) HOUR BEFORE MEAL hydrALAZINE (APRESOLINE) 50 mg tablet Take 2 tablets by mouth two times a day. furosemide (LASIX) 20 mg tablet Take 1 tablet by mouth once daily. montelukast (SINGULAIR) 10 mg tablet Take 1 tablet by mouth daily at bedtime. ipratropium bromide (ATROVENT) 42 mcg (0.06 %) nasal spray Use 2 Sprays in the nose three times a day. doxazosin (CARDURA) 8 mg tablet Take 1 tablet by mouth daily at bedtime. losartan-hydroCHLOROthiazide (HYZAAR) 100-12.5 mg per tablet Take 1 tablet by mouth once daily. clotrimazole-betamethasone (LOTRISONE) cream Apply to rash on leg , twice daily potassium chloride (K-TAB) 10 mEq tablet Take 1 tablet by mouth daily with breakfast. cyanocobalamin (VITAMIN B-12) 100 mcg tab Take 100 mcg by mouth once daily. pyridoxine HCl, vitamin B6, (VITAMIN B-6 ORAL) Take by mouth once daily. aspirin, enteric coated (ASPIRIN, ENTERIC COATED) 81 mg EC tablet Take 1 tablet by mouth once daily. hydrOXYchloroQUINE (PLAQUENIL) 200 mg tablet Take by mouth twice daily. latanoprost (XALATAN) 0.005 % ophthalmic solution Use 1 Drop in both eyes daily at bedtime. ubidecarenone(CO Q-10 100 MG CAP) Take one(1) tablet daily. No current facility-administered medications for this visit. Objective Wt 97.3 kg (214 lb 8.1 oz) BMI 34.89 kg/m 01/14/25 1226 01/14/25 1229 01/14/25 1232 Weight: 97.3 kg (214 lb 8.1 oz) Orthostatic BP: 99/51 57/31 115/68 Orthostatic Pulse: 60 64 66 Physical Exam Constitutional: Appearance: He is not ill-appearing or diaphoretic. Cardiovascular: Rate and Rhythm: Normal rate and regular rhythm. Heart sounds: No murmur heard. No gallop. Pulmonary: Effort: No respiratory distress. Breath sounds: No wheezing or rales. Musculoskeletal: Right lower le+ Pitting Edema present. Left lower le+ Pitting Edema present. Neurological: General: No focal deficit present. Mental Status: He is alert. Assessment and Plan 1. Anemia, chronic disease - ICD9: 285.29, ICD10: D63.8 (primary diagnosis) Recheck today. 2. Lower urinary tract symptoms (LUTS) - ICD9: 788.99, ICD10: R39.9 Refilled. - DOXAZOSIN 8 MG TABLET 3. Allergic rhinitis with postnasal drip - ICD9: 477.9, 784.91, ICD10: J30.9, R09.82 Improved. - MONTELUKAST 10 MG TABLET 4. Essential hypertension - ICD9: 401.9, ICD10: I10 - Controlled - HYDRALAZINE 50 MG TABLET. Decrease to one tablet po TID. Return sooner for worsening symptoms of low blood pressure. - Monitor home BP and call for issues. - COMPLETE BLOOD COUNT 5. Edema of lower leg due to peripheral venous insufficiency - ICD9: 459.81, 782.3, ICD10: I87.2, R60.0 Improved. - BASIC METABOLIC PANEL Sudheer Ritchie MD documented in this encounter [facility] 01-01-2025 Note HNO ID: [id number] Author: KATTY MCALLISTER APRN.[employer] Service: ? Author Type: Nurse Practitioner Type: Progress Notes Filed: 01/01/2025 09:35 Note Text: [facility] Subjective Demetrius Reddy is a 79 year old male. Patient presents with: Cough: Cough, head and chest congestion and sinus drainage x 1 month Cough Associated symptoms include rhinorrhea. Pertinent negatives include no chest pain and no ear pain. Rhinorrhea and Cough: - Rhinorrhea x3 months, with associated phlegm production. - Progressed to a cough with sputum production. - Cough is worse at night, causing a heavy feeling in the chest and lasting about 15 minutes. - Tried NyQuil with temporary relief. - Denies chest pain, hemoptysis, or history of asthma/COPD. - Denies current tobacco use; has a history of cigar smoking. - Recent chest x-ray on 12/20 was negative. - Previously prescribed an allergy medication by Dr. Ritchie, taken at night. - Denies recent antibiotic use. HTN: - Reports blood pressure is way down compared to two weeks ago. PAST MEDICAL HISTORY Diagnosis Date - Actinic keratosis - Anemia, chronic disease 08/12/2011 - Class 2 severe obesity with serious comorbidity and body mass index (BMI) of 37.0 to 37.9 in adult (HCC) 10/19/2006 - COVID-19 02/23/2023 - Esophageal reflux - Essential hypertension 10/19/2006 - Fatty (change of) liver, not elsewhere classified 02/02/2017 - Generalized osteoarthrosis, unspecified site - Glaucoma - Hyperlipidemia 08/07/2015 - Malignant neoplasm of prostate (HCC) 12/12/2006 - RAJESH on CPAP 10/19/2006 - PAF (paroxysmal atrial fibrillation) (HCC) 11/24/2018 - Prostate cancer (HCC) 2004 Patient validates year PAST SURGICAL HISTORY Procedure Laterality Date - COLONOSCOPY FLX DX W/COLLJ SPEC WHEN PFRMD 07/25/1995 Colonoscopy - COLONOSCOPY FLX DX W/COLLJ SPEC WHEN PFRMD 05/25/[address] Munguia=repeat in - COLONOSCOPY SCRN NOT HIGH RISK 08/14/2020 - COLSC FLX W/RMVL OF TUMOR POLYP LESION SNARE TQ 04/04/2015 small ablated polyp -5 year follow up - EYE SURGERY HX - F US PROSTATE VOLUME BRACHYTHERAPY 05/13/2005 Seed implants- [facility] - PAST SURGICAL HISTORY OF 12/23/2004 TRUS w/ bx. Dr. Gonzalez. - PAST SURGICAL HISTORY OF 05/13/2005 seed implants - [facility] - TONSILLECTOMY AND ADENOIDECTOMY T/A (under age 12 years) - TOTAL HIP REPLACEMENT Right 11/11/2020 right THR - TOTAL KNEE REPLACEMENT Right 03/21/2020 ALLERGIES Pantoprazole, Adhesive, and Sulfa (Sulfonamide Antibiotics) MEDICATIONS - amLODIPine (NORVASC) 10 mg tablet Take 1 tablet by mouth once daily. - Fenofibrate (LOFIBRA) 160 mg tablet Take 1 tablet by mouth once daily. - metoprolol tartrate, short acting, (LOPRESSOR) 50 mg tablet Take 1 tablet by mouth two times a day. - omeprazole (PRILOSEC) 20 mg capsule TAKE 1 CAPSULE DAILY BEFORE BREAKFAST ONE-HALF (1/2) HOUR BEFORE MEAL - hydrALAZINE (APRESOLINE) 50 mg tablet Take 2 tablets by mouth two times a day. - furosemide (LASIX) 20 mg tablet Take 1 tablet by mouth once daily. - montelukast (SINGULAIR) 10 mg tablet Take 1 tablet by mouth daily at bedtime. - ipratropium bromide (ATROVENT) 42 mcg (0.06 %) nasal spray Use 2 Sprays in the nose three times a day. - doxazosin (CARDURA) 8 mg tablet Take 1 tablet by mouth daily at bedtime. - losartan-hydroCHLOROthiazide (HYZAAR) 100-12.5 mg per tablet Take 1 tablet by mouth once daily. - clotrimazole-betamethasone (LOTRISONE) cream Apply to rash on leg , twice daily - potassium chloride (K-TAB) 10 mEq tablet Take 1 tablet by mouth daily with breakfast. - cyanocobalamin (VITAMIN B-12) 100 mcg tab Take 100 mcg by mouth once daily. - pyridoxine HCl, vitamin B6, (VITAMIN B-6 ORAL) Take by mouth once daily. - aspirin, enteric coated (ASPIRIN, ENTERIC COATED) 81 mg EC tablet Take 1 tablet by mouth once daily. - hydrOXYchloroQUINE (PLAQUENIL) 200 mg tablet Take by mouth twice daily. - latanoprost (XALATAN) 0.005 % ophthalmic solution Use 1 Drop in both eyes daily at bedtime. - ubidecarenone(CO Q-10 100 MG CAP) Take one(1) tablet daily. - doxycycline hyclate (VIBRAMYCIN) 100 mg capsule Take 1 capsule by mouth two times a day for 7 days. - benzonatate (TESSALON PERLE) 100 mg capsule Take 1 capsule by mouth three times a day as needed for cough for up to 7 days. FAMILY HISTORY Problem Relation Age of Onset - Alzheimer's Disease Mother - Arthritis Mother - COPD Father Social History Tobacco Use - Smoking status: Former Types: Cigars Quit date: 01/21/2018 Years since quittin.9 - Smokeless tobacco: Never - Tobacco comments: occ cigar Vaping Use - Vaping status: Never Used Substance Use Topics - Alcohol use: Yes Alcohol/week: 5.0 standard drinks of alcohol Types: 5 Shots of liquor per week - Drug use: No Review of Systems HENT: Positive for congestion, postnasal drip, rhinorrhea, sinus pressure and sinus pain. Negative (more content not included)... [facility] 01-01-2025 History of Present illness Narrative [facility] Subjective Demetrius Reddy is a 79 year old male. Patient presents with: Cough: Cough, head and chest congestion and sinus drainage x 1 month Cough Associated symptoms include rhinorrhea. Pertinent negatives include no chest pain and no ear pain. Rhinorrhea and Cough: - Rhinorrhea x3 months, with associated phlegm production. - Progressed to a cough with sputum production. - Cough is worse at night, causing a heavy feeling in the chest and lasting about 15 minutes. - Tried NyQuil with temporary relief. - Denies chest pain, hemoptysis, or history of asthma/COPD. - Denies current tobacco use; has a history of cigar smoking. - Recent chest x-ray on 12/20 was negative. - Previously prescribed an allergy medication by Dr. Ritchie, taken at night. - Denies recent antibiotic use. HTN: - Reports blood pressure is way down compared to two weeks ago. PAST MEDICAL HISTORY Diagnosis Date Actinic keratosis Anemia, chronic disease 08/12/2011 Class 2 severe obesity with serious comorbidity and body mass index (BMI) of 37.0 to 37.9 in adult (HCC) 10/19/2006 COVID-19 02/23/2023 Esophageal reflux Essential hypertension 10/19/2006 Fatty (change of) liver, not elsewhere classified 02/02/2017 Generalized osteoarthrosis, unspecified site Glaucoma Hyperlipidemia 08/07/2015 Malignant neoplasm of prostate (HCC) 12/12/2006 RAJESH on CPAP 10/19/2006 PAF (paroxysmal atrial fibrillation) (HCC) 11/24/2018 Prostate cancer (HCC) 2004 Patient validates year PAST SURGICAL HISTORY Procedure Laterality Date COLONOSCOPY FLX DX W/COLLJ SPEC WHEN PFRMD 07/25/1995 Colonoscopy COLONOSCOPY FLX DX W/COLLJ SPEC WHEN PFRMD 05/25/[address] Munguia=repeat in COLONOSCOPY SCRN NOT HIGH RISK 08/14/2020 COLSC FLX W/RMVL OF TUMOR POLYP LESION SNARE TQ 04/04/2015 small ablated polyp -5 year follow up EYE SURGERY HX F US PROSTATE VOLUME BRACHYTHERAPY 05/13/2005 Seed implants- [facility] PAST SURGICAL HISTORY OF 12/23/2004 TRUS w/ bx. Dr. Gonzalez. PAST SURGICAL HISTORY OF 05/13/2005 seed implants - [facility] TONSILLECTOMY & ADENOIDECTOMY <AGE 12 1957 T/A (under age 12 years) TOTAL HIP REPLACEMENT Right 11/11/2020 right THR TOTAL KNEE REPLACEMENT Right 03/21/2020 ALLERGIES Pantoprazole, Adhesive, and Sulfa (Sulfonamide Antibiotics) MEDICATIONS amLODIPine (NORVASC) 10 mg tablet Take 1 tablet by mouth once daily. Fenofibrate (LOFIBRA) 160 mg tablet Take 1 tablet by mouth once daily. metoprolol tartrate, short acting, (LOPRESSOR) 50 mg tablet Take 1 tablet by mouth two times a day. omeprazole (PRILOSEC) 20 mg capsule TAKE 1 CAPSULE DAILY BEFORE BREAKFAST ONE-HALF (1/2) HOUR BEFORE MEAL hydrALAZINE (APRESOLINE) 50 mg tablet Take 2 tablets by mouth two times a day. furosemide (LASIX) 20 mg tablet Take 1 tablet by mouth once daily. montelukast (SINGULAIR) 10 mg tablet Take 1 tablet by mouth daily at bedtime. ipratropium bromide (ATROVENT) 42 mcg (0.06 %) nasal spray Use 2 Sprays in the nose three times a day. doxazosin (CARDURA) 8 mg tablet Take 1 tablet by mouth daily at bedtime. losartan-hydroCHLOROthiazide (HYZAAR) 100-12.5 mg per tablet Take 1 tablet by mouth once daily. clotrimazole-betamethasone (LOTRISONE) cream Apply to rash on leg , twice daily potassium chloride (K-TAB) 10 mEq tablet Take 1 tablet by mouth daily with breakfast. cyanocobalamin (VITAMIN B-12) 100 mcg tab Take 100 mcg by mouth once daily. pyridoxine HCl, vitamin B6, (VITAMIN B-6 ORAL) Take by mouth once daily. aspirin, enteric coated (ASPIRIN, ENTERIC COATED) 81 mg EC tablet Take 1 tablet by mouth once daily. hydrOXYchloroQUINE (PLAQUENIL) 200 mg tablet Take by mouth twice daily. latanoprost (XALATAN) 0.005 % ophthalmic solution Use 1 Drop in both eyes daily at bedtime. ubidecarenone(CO Q-10 100 MG CAP) Take one(1) tablet daily. doxycycline hyclate (VIBRAMYCIN) 100 mg capsule Take 1 capsule by mouth two times a day for 7 days. benzonatate (TESSALON PERLE) 100 mg capsule Take 1 capsule by mouth three times a day as needed for cough for up to 7 days. FAMILY HISTORY Problem Relation Age of Onset Alzheimer's Disease Mother Arthritis Mother COPD Father Social History Tobacco Use Smoking status: Former Types: Cigars Quit date: 01/21/2018 Years since quittin.9 Smokeless tobacco: Never Tobacco comments: occ cigar Vaping Use Vaping status: Never Used Substance Use Topics Alcohol use: Yes Alcohol/week: 5.0 standard drinks of alcohol Types: 5 Shots of liquor per week Drug use: No Review of Systems HENT: Positive for congestion, postnasal drip, rhinorrhea, sinus pressure and sinus pain. Negative for ear pain. Eyes: Negative for pain, discharge and itching. Respiratory: Positive for cough and chest tightness. Negative for apnea. Cardiovascular: Negative for chest pain, palpitations and leg swelling. Allergic/Immunologic: Positive for food allergies. Negative for environmental allergies. Hematological: Negative for adenopathy. Does not bruise/bleed easily. Objective BP 110/76 Pulse 69 Temp 36.8 C (98.2 F) (Tympanic) Resp 16 Wt 98.2 kg (216 lb 7.9 oz) SpO2 97% BMI 35.21 kg/m Physical Exam Vitals and nursing note reviewed. Constitutional: General: He is not in acute distress. Appearance: Normal appearance. He is not ill-appearing, toxic-appearing or diaphoretic. HENT: Head: Normocephalic and atraumatic. Comments: +frontal sinus pressure +maxillary sinus pressure Right Ear: External ear normal. Left Ear: External ear normal. Nose: Nose normal. No congestion or rhinorrhea. Mouth/Throat: Mouth: Mucous membranes are moist. Pharynx: Oropharynx is clear. No oropharyngeal exudate or posterior oropharyngeal erythema. Eyes: General: Right eye: No discharge. Left eye: No discharge. Extraocular Movements: Extraocular movements intact. Conjunctiva/sclera: Conjunctivae normal. Pupils: Pupils are equal, round, and reactive to light. Cardiovascular: Rate and Rhythm: Normal rate and regular rhythm. Pulses: Normal pulses. Heart sounds: Normal heart sounds. No murmur heard. No friction rub. No gallop. Pulmonary: Effort: Pulmonary effort is normal. No respiratory distress. Breath sounds: Normal breath sounds. No stridor. No wheezing, rhonchi or rales. Chest: Chest wall: No tenderness. Abdominal: General: Abdomen is flat. There is no distension. Palpations: Abdomen is soft. There is no mass. Tenderness: There is no abdominal tenderness. There is no guarding or rebound. Hernia: No hernia is present. Musculoskeletal: General: No swelling, tenderness, deformity or signs of injury. Normal range of motion. Cervical back: Normal range of motion and neck supple. No rigidity or tenderness. Right lower leg: No edema. Left lower leg: No edema. Lymphadenopathy: Cervical: Cervical adenopathy present. Skin: General: Skin is warm and dry. Capillary Refill: Capillary refill takes less than 2 seconds. Coloration: Skin is not jaundiced or pale. Findings: No bruising, lesion or rash. Neurological: General: No focal deficit present. Mental Status: He is alert and oriented to person, place, and time. Cranial Nerves: No cranial nerve deficit. Sensory: No sensory deficit. Motor: No weakness. Coordination: Coordination normal. Gait: Gait normal. Deep Tendon Reflexes: Reflexes normal. Psychiatric: Mood and Affect: Mood normal. Behavior: Behavior normal. Thought Content: Thought content normal. 1. Acute cough (R05.1) x weeks CXR 12/20 negative Endorses cough continues 2. Rhinosinusitis (J32.9) - Symptoms include chronic rhinorrhea for 3 months, progressing to productive cough. No otalgia, ocular symptoms, hemoptysis, or chest pain reported. - Recent chest X-ray on 12/20 was negative. No history of asthma or COPD. - Prescribed doxycycline 1 tablet BID and Tessalon Perles 1 tablet TID prn for cough. - Advised follow-up with primary care physician if symptoms persist; patient has an appointment in 1.5 weeks. { and Recording using [employer] software for draft documentation of the visit was discussed with the patient/authorized advertising account representative; all questions welcomed and answered. Patient/authorized advertising account representative agreed to proceed History and Record Review External record(s) reviewed: prior inpatient record and prior outpatient record. Contributing Factors Chronic conditions affecting care: cancer (see comments) and hypertension Disposition The patient was discharged. Procedures documented in this encounter [facility] 12-27-2024 Telephone encounter Note Called and spoke with 3 people at [facility]. 3rd person was pharmacist Debbie who states the question with pt's prescription for Omeprazole is that pt has an allergy to Pantoprazole. She is confirming okay to fill Omeprazole. Per med hx, pt has been taking Pantoprazole since 2011. Debbie states this is first fill for them so they had to be sure. She entered note that pt has been on Omeprazole for years. [facility] 12-27-2024 Miscellaneous Notes Called and spoke with 3 people at [employer] [facility]. 3rd person was pharmacist Debbie who states the question with pt's prescription for Omeprazole is that pt has an allergy to Pantoprazole. She is confirming okay to fill Omeprazole. Per med hx, pt has been taking Pantoprazole since 2011. Debbie states this is first fill for them so they had to be sure. She entered note that pt has been on Omeprazole for years. Prescription Refill Information The patient has been identified by name and date of : Yes Caregiver verified no other encounters exist for this prescription request: Yes Caregiver confirmed with patient/requestor that no other refills are due, in the near future, with this provider at this time: Yes The last office visit in the department: 12/20/2024 Does the patient have a future office visit with this provider/department: Yes Requested Prescriptions Pending Prescriptions Disp Refills omeprazole (PRILOSEC) 20 mg capsule 90 capsule 3 Sig: TAKE 1 CAPSULE DAILY BEFORE BREAKFAST ONE-HALF (1/2) HOUR BEFORE MEAL [facility] stated [facility] attempted to call the office several times regarding this prescription. Patient stated they have questions regarding the Omeprazole. He was unclear as to what they needed, and/or why. Please advise. Thank you. Valerio Baird December 27, 2024 9:25 AM documented in this encounter [facility] 12-27-2024 Telephone encounter Note Prescription Refill Information The patient has been identified by name and date of : Yes Caregiver verified no other encounters exist for this prescription request: Yes Caregiver confirmed with patient/requestor that no other refills are due, in the near future, with this provider at this time: Yes The last office visit in the department: 12/20/2024 Does the patient have a future office visit with this provider/department: Yes Requested Prescriptions Pending Prescriptions Disp Refills omeprazole (PRILOSEC) 20 mg capsule 90 capsule 3 Sig: TAKE 1 CAPSULE DAILY BEFORE BREAKFAST ONE-HALF (1/2) HOUR BEFORE MEAL [facility] attempted to call the office several times regarding this prescription. Patient stated they have questions regarding the Omeprazole. He was unclear as to what they needed, and/or why. Please advise. Thank you. Valerio Baird December 27, 2024 9:25 AM [facility] 12-24-2024 Telephone encounter Note Patient is changing to different mail order pharmacy. Patient has been identified by name and date of : Yes Patient phones for refill(s): Requested Prescriptions Pending Prescriptions Disp Refills amLODIPine (NORVASC) 10 mg tablet 90 tablet 3 Sig: Take 1 tablet by mouth once daily. Fenofibrate (LOFIBRA) 160 mg tablet 90 tablet 3 Sig: Take 1 tablet by mouth once daily. metoprolol tartrate, short acting, (LOPRESSOR) 50 mg tablet 180 tablet 3 Sig: Take 1 tablet by mouth two times a day. omeprazole (PRILOSEC) 20 mg capsule 90 capsule 3 Sig: TAKE 1 CAPSULE DAILY BEFORE BREAKFAST ONE-HALF (1/2) HOUR BEFORE MEAL Date of last office visit in primary care: 12/20/2024 Date of next office visit in primary care: 01/14/2025 Please advise. Thank you. Sachi Marino LPN. [facility] 12-24-2024 Miscellaneous Notes Patient is changing to different mail order pharmacy. Patient has been identified by name and date of : Yes Patient phones for refill(s): Requested Prescriptions Pending Prescriptions Disp Refills amLODIPine (NORVASC) 10 mg tablet 90 tablet 3 Sig: Take 1 tablet by mouth once daily. Fenofibrate (LOFIBRA) 160 mg tablet 90 tablet 3 Sig: Take 1 tablet by mouth once daily. metoprolol tartrate, short acting, (LOPRESSOR) 50 mg tablet 180 tablet 3 Sig: Take 1 tablet by mouth two times a day. omeprazole (PRILOSEC) 20 mg capsule 90 capsule 3 Sig: TAKE 1 CAPSULE DAILY BEFORE BREAKFAST ONE-HALF (1/2) HOUR BEFORE MEAL Date of last office visit in primary care: 12/20/2024 Date of next office visit in primary care: 01/14/2025 Please advise. Thank you. Sachi Marnio LPN. documented in this encounter [facility] 12-20-2024 History of Present illness Narrative Radiology Service Progress Note PATIENT NAME: Demetrius Reddy DATE OF SERVICE: December 20, 2024 TIME: 8:52 AM PATIENT IDENTITY VERIFICATION COMPLETED USING TWO (2) IDENTIFIERS: Name and Date of confirmed by patient verbally. FALL SCREENING: Has the patient had 2 falls in the last year or 1 fall with injury or currently using an Ambulatory Assistive Device (Walker, Cane, Wheelchair, Crutches, etc.)? No PATIENT GENDER DATA: Assigned male at PATIENT RELEVANT IMPLANT DATA REVIEWED: Not Applicable PATIENT PRESENTS WITH AN IMPLANTABLE OR ATTACHED NIGHT ORDER SELECTOR: No RADIOLOGY DEPARTMENT: General X-ray: Exam(s) Completed: Chest X-Ray PERIPHERAL IV DATA: Not applicable SIGNED BY: RT James(Celina) December 20, 2024 8:52 AM documented in this encounter [facility] 12-20-2024 Note HNO ID: [id number] Author: CATIE DORANTES RT(R) Service: Radiology Author Type: Technologist Type: Progress Notes Filed: 12/20/2024 08:58 Note Text: Radiology Service Progress Note PATIENT NAME: Demetrius Reddy DATE OF SERVICE: December 20, 2024 TIME: 8:52 AM PATIENT IDENTITY VERIFICATION COMPLETED USING TWO (2) IDENTIFIERS: Name and Date of confirmed by patient verbally. FALL SCREENING: Has the patient had 2 falls in the last year or 1 fall with injury or currently using an Ambulatory Assistive Device (Walker, Cane, Wheelchair, Crutches, etc.)? No PATIENT GENDER DATA: Assigned male at PATIENT RELEVANT IMPLANT DATA REVIEWED: Not Applicable PATIENT PRESENTS WITH AN IMPLANTABLE OR ATTACHED NIGHT ORDER SELECTOR: No RADIOLOGY DEPARTMENT: General X-ray: Exam(s) Completed: Chest X-Ray PERIPHERAL IV DATA: Not applicable SIGNED BY: RT James(Celina) December 20, 2024 8:52 AM [facility] 12-20-2024 Instructions Sudheer Ritchie MD - 12/20/2024 8:43 AM EDT Screening schedule The following prevention plan is recommended: BP Controlled (<130/80) Never done Advance Directive Discussion due on 07/25/2024 WHAT YOU CAN DO TO PREVENT FALLS Many falls can be prevented. By making some changes, you can lower your chances of falling. Four things YOU can do to prevent falls for you* and your caregiver 1. Begin a regular exercise program Exercise is one of the most important ways to lower your chances of falling. It makes you stronger and helps you feel better. Exercises that improve balance and coordination (like Alexei Chi) are the most helpful. Lack of exercise leads to weakness and increases your chances of falling. Ask your doctor or health care provider about the best type of exercise program for you. 2. Have your health care provider review your medicines Have your doctor or pharmacist review all the medicines you take, even [id number] medicines. As you get older, the way medicines work in your body can change. Some medicines, or combinations of medicines, can make you sleepy or dizzy and can cause you to fall. 3. Have your vision checked Have your eyes checked by an eye doctor at least once a year. You may be wearing the wrong glasses or have a condition like glaucoma or cataracts that limits your vision. Poor vision can increase your chances of falling. 4. Make your home safer About half of all falls happen at home. To make your home safer: Remove things you can trip over (like papers, books, clothes, and shoes) from stairs and places where you walk. Remove small throw rugs or use double-sided tape to keep the rugs from slipping. Keep items you use often in cabinets you can reach easily without using a step stool. Have grab bars put in next to your toilet and in the tub or shower. Use non-slip mats in the bathtub and on shower floors. Improve the lighting in your home. As you get older, you need brighter lights to see well. Hang light-weight curtains or shades to reduce glare. Have handrails and lights put in on all staircases. Wear shoes both inside and outside the house. Avoid going barefoot or wearing slippers. For more information, contact: Centers for Disease Control and Prevention www.cdc.gov/injury * This information may not apply if you have certain medical conditions. documented in this encounter [facility] 12-20-2024 Note HNO ID: [id number] Author: SUDHEER RITCHIE MD Service: ? Author Type: Physician Type: Progress Notes Filed: 12/20/2024 08:54 Note Text: This note was created using [employer]. Subjective Demetrius Reddy is a 79 year old male. His hypertension did not improve much with hydralazine increase. He also mentioned increased heaviness of both legs with edema towards the end of the day. He also complained of postprandial cough after meals related to postnasal drainage. Flonase was not well tolerated due to nasal bleeding. Sneezing was noted perennially regardless of season. Atrovent seemed helpful. Review of Systems Constitutional: Negative for fatigue, fever and unexpected weight change. HENT: Positive for congestion, postnasal drip and sneezing. Respiratory: Positive for cough. Negative for chest tightness and shortness of breath (no change in chronic dyspnea on exertion). Cardiovascular: Positive for leg swelling (legs heavy). Negative for chest pain and palpitations. Gastrointestinal: Negative for abdominal pain. Genitourinary: Negative for difficulty urinating and dysuria. Neurological: Negative for dizziness, weakness and headaches. 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 Lower Urinary Tract Symptoms (Luts) Long-Term Use of Plaquenil Stage 3a Chronic Kidney Disease (Hcc) Psoriasis Obesity, Class II, Bmi 35-39.9 Allergic Rhinitis With Postnasal Drip Social History Tobacco Use Smoking status: Former Types: Cigars Quit date: 01/21/2018 Years since quittin.9 Smokeless tobacco: Never Tobacco comments: occ cigar Vaping Use Vaping status: Never Used Substance Use Topics Alcohol use: Yes Alcohol/week: 5.0 standard drinks of alcohol Types: 5 Shots of liquor per week Drug use: No Current Outpatient Medications Medication Sig ipratropium bromide (ATROVENT) 42 mcg (0.06 %) nasal spray Use 2 Sprays in the nose three times a day. doxazosin (CARDURA) 8 mg tablet Take 1 tablet by mouth daily at bedtime. hydrALAZINE (APRESOLINE) 50 mg tablet Take 2 tablets by mouth every morning AND 1 tablet every afternoon AND 2 tablets daily at bedtime. losartan-hydroCHLOROthiazide (HYZAAR) 100-12.5 mg per tablet Take 1 tablet by mouth once daily. amLODIPine (NORVASC) 10 mg tablet Take 1 tablet by mouth once daily. clotrimazole-betamethasone (LOTRISONE) cream Apply to rash on leg , twice daily Fenofibrate (LOFIBRA) 160 mg tablet Take 1 tablet by mouth once daily. fluticasone (FLONASE) 50 mcg/actuation nasal spray Use 1 [place] in each nostril once daily. metoprolol tartrate, short acting, (LOPRESSOR) 50 mg tablet Take 1 tablet by mouth two times a day. omeprazole (PRILOSEC) 20 mg capsule TAKE 1 CAPSULE DAILY BEFORE BREAKFAST ONE-HALF (1/2) HOUR BEFORE MEAL potassium chloride (K-TAB) 10 mEq tablet Take 1 tablet by mouth daily with breakfast. cyanocobalamin (VITAMIN B-12) 100 mcg tab Take 100 mcg by mouth once daily. pyridoxine HCl, vitamin B6, (VITAMIN B-6 ORAL) Take by mouth once daily. aspirin, enteric coated (ASPIRIN, ENTERIC COATED) 81 mg EC tablet Take 1 tablet by mouth once daily. hydrOXYchloroQUINE (PLAQUENIL) 200 mg tablet Take by mouth twice daily. latanoprost (XALATAN) 0.005 % ophthalmic solution Use 1 Drop in both eyes daily at bedtime. ubidecarenone(CO Q-10 100 MG CAP) Take one(1) tablet daily. No current facility-administered medications for this visit. Objective BP 165/67 Pulse (!) 57 Ht 167 cm (5' 5.75) Wt 100.4 kg (221 lb 5.5 oz) BMI 36.00 kg/m? Physical Exam Constitutional: Appearance: He is obese. He is not ill-appearing. HENT: Nose: No congestion or rhinorrhea. Mouth/Throat: Pharynx: Oropharynx is clear. No posterior oropharyngeal erythema. Eyes: Conjunctiva/sclera: Conjunctivae normal. Cardiovascular: Rate and Rhythm: Regular rhythm. Bradycardia present. Pulses: Normal pulses. Heart sounds: S1 normal and S2 normal. No murmur heard. No gallop. Pulmonary: Effort: No respiratory distress. Breath sounds: No wheezing or rales. Abdominal: Palpations: Abdomen is soft. Tenderness: There is no abdominal tenderness. Musculoskeletal: Right lower le+ Pitting Edema present. Left lower le+ Pitting Edema present. Neurological: General: No focal deficit present. Mental Status: He is alert. Gait: Gait normal. Latest Ref Rn 12/19/2024 WBC 3.70 - 11.00 k/uL 6.10 RBC 4.20 - 6.00 m/uL 3.20 (L) Hemoglobin 13.0 - 17.0 g/dL 10.4 (L) Hematocrit 39.0 - 51.0 % 31.9 (L) MCV 80.0 - 100.0 fL 99.7 MCH 26.0 (more content not included)... [facility] 12-20-2024 History of Present illness Narrative This note was created using [employer]. Subjective Demetrius Reddy is a 79 year old male. His hypertension did not improve much with hydralazine increase. He also mentioned increased heaviness of both legs with edema towards the end of the day. He also complained of postprandial cough after meals related to postnasal drainage. Flonase was not well tolerated due to nasal bleeding. Sneezing was noted perennially regardless of season. Atrovent seemed helpful. Review of Systems Constitutional: Negative for fatigue, fever and unexpected weight change. HENT: Positive for congestion, postnasal drip and sneezing. Respiratory: Positive for cough. Negative for chest tightness and shortness of breath (no change in chronic dyspnea on exertion). Cardiovascular: Positive for leg swelling (legs heavy). Negative for chest pain and palpitations. Gastrointestinal: Negative for abdominal pain. Genitourinary: Negative for difficulty urinating and dysuria. Neurological: Negative for dizziness, weakness and headaches. 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 Lower Urinary Tract Symptoms (Luts) Long-Term Use of Plaquenil Stage 3a Chronic Kidney Disease (Hcc) Psoriasis Obesity, Class II, Bmi 35-39.9 Allergic Rhinitis With Postnasal Drip Social History Tobacco Use Smoking status: Former Types: Cigars Quit date: 01/21/2018 Years since quittin.9 Smokeless tobacco: Never Tobacco comments: occ cigar Vaping Use Vaping status: Never Used Substance Use Topics Alcohol use: Yes Alcohol/week: 5.0 standard drinks of alcohol Types: 5 Shots of liquor per week Drug use: No Current Outpatient Medications Medication Sig ipratropium bromide (ATROVENT) 42 mcg (0.06 %) nasal spray Use 2 Sprays in the nose three times a day. doxazosin (CARDURA) 8 mg tablet Take 1 tablet by mouth daily at bedtime. hydrALAZINE (APRESOLINE) 50 mg tablet Take 2 tablets by mouth every morning AND 1 tablet every afternoon AND 2 tablets daily at bedtime. losartan-hydroCHLOROthiazide (HYZAAR) 100-12.5 mg per tablet Take 1 tablet by mouth once daily. amLODIPine (NORVASC) 10 mg tablet Take 1 tablet by mouth once daily. clotrimazole-betamethasone (LOTRISONE) cream Apply to rash on leg , twice daily Fenofibrate (LOFIBRA) 160 mg tablet Take 1 tablet by mouth once daily. fluticasone (FLONASE) 50 mcg/actuation nasal spray Use 1 [place] in each nostril once daily. metoprolol tartrate, short acting, (LOPRESSOR) 50 mg tablet Take 1 tablet by mouth two times a day. omeprazole (PRILOSEC) 20 mg capsule TAKE 1 CAPSULE DAILY BEFORE BREAKFAST ONE-HALF (1/2) HOUR BEFORE MEAL potassium chloride (K-TAB) 10 mEq tablet Take 1 tablet by mouth daily with breakfast. cyanocobalamin (VITAMIN B-12) 100 mcg tab Take 100 mcg by mouth once daily. pyridoxine HCl, vitamin B6, (VITAMIN B-6 ORAL) Take by mouth once daily. aspirin, enteric coated (ASPIRIN, ENTERIC COATED) 81 mg EC tablet Take 1 tablet by mouth once daily. hydrOXYchloroQUINE (PLAQUENIL) 200 mg tablet Take by mouth twice daily. latanoprost (XALATAN) 0.005 % ophthalmic solution Use 1 Drop in both eyes daily at bedtime. ubidecarenone(CO Q-10 100 MG CAP) Take one(1) tablet daily. No current facility-administered medications for this visit. Objective BP 165/67 Pulse (!) 57 Ht 167 cm (5' 5.75) Wt 100.4 kg (221 lb 5.5 oz) BMI 36.00 kg/m Physical Exam Constitutional: Appearance: He is obese. He is not ill-appearing. HENT: Nose: No congestion or rhinorrhea. Mouth/Throat: Pharynx: Oropharynx is clear. No posterior oropharyngeal erythema. Eyes: Conjunctiva/sclera: Conjunctivae normal. Cardiovascular: Rate and Rhythm: Regular rhythm. Bradycardia present. Pulses: Normal pulses. Heart sounds: S1 normal and S2 normal. No murmur heard. No gallop. Pulmonary: Effort: No respiratory distress. Breath sounds: No wheezing or rales. Abdominal: Palpations: Abdomen is soft. Tenderness: There is no abdominal tenderness. Musculoskeletal: Right lower le+ Pitting Edema present. Left lower le+ Pitting Edema present. Neurological: General: No focal deficit present. Mental Status: He is alert. Gait: Gait normal. Latest Ref Rng 12/19/2024 WBC 3.70 - 11.00 k/uL 6.10 RBC 4.20 - 6.00 m/uL 3.20 (L) Hemoglobin 13.0 - 17.0 g/dL 10.4 (L) Hematocrit 39.0 - 51.0 % 31.9 (L) MCV 80.0 - 100.0 fL 99.7 MCH 26.0 - 34.0 pg 32.5 MCHC 30.5 - 36.0 g/dL 32.6 RDW-CV 11.5 - 15.0 % 14.0 Platelet Count 150 - 400 k/uL 235 MPV 9.0 - 12.7 fL 12.0 Absolute nRBC <0.01 k/uL <0.01 Glucose 74 - 99 mg/dL 90 BUN 9 - 24 mg/dL 35 (H) Creatinine 0.73 - 1.22 mg/dL 1.39 (H) Sodium 136 - 144 mmol/L 139 Potassium 3.7 - 5.1 mmol/L 4.2 Chloride 98 - 107 mmol/L 104 CO2 22 - 30 mmol/L 24 Anion Gap 8 - 15 mmol/L 11 Calcium 8.5 - 10.2 mg/dL 9.7 eGFR >=60 mL/min/1.73m 52 (L) Cholesterol, Total <200 mg/dL 117 Triglyceride <150 mg/dL 54 HDL Cholesterol >39 mg/dL 45 LDL Cholesterol, Calculated <100 mg/dL 60 Non HDL Cholesterol <130 mg/dL 72 VLDL Cholesterol <30 mg/dL 8 TC:HDL Ratio <5.10 2.60 LDL:HDL Ratio <2.54 1.33 Fasting Time hrs 12 Legend: (L) Low (H) High Assessment and Plan 1. Medicare annual wellness visit, subsequent - ICD9: V70.0, ICD10: Z00.00 (primary diagnosis) - see wellness visit. 2. Screening for depression - ICD9: V79.0, ICD10: Z13.31 - DEPRESSION SCREENING 3. Encounter for screening examination for other mental health and behavioral disorders - ICD9: V79.8, ICD10: Z13.39 - ANXIETY SCREENING 4. Essential hypertension - ICD9: 401.9, ICD10: I10 - Worsening control - Continue current medications - HYDRALAZINE 50 MG TABLET. Decrease to two tablets (100 mg BID) 5. Edema of lower leg due to peripheral venous insufficiency - ICD9: 459.81, 782.3, ICD10: I87.2, R60.0 - See above. - FUROSEMIDE 20 MG TABLET. New medication. Discussed medication dosage, usage, goals of therapy, and side effects. 6. Allergic rhinitis with postnasal drip - ICD9: 477.9, 784.91, ICD10: J30.9, R09.82 - Discontinue FLONASE. Continue ATROVENT nasal. - MONTELUKAST 10 MG TABLET. New medication. Discussed medication dosage, usage, goals of therapy, and side effects. - XR CHEST 2V FRONTAL/LAT 7. Anemia, chronic disease - ICD9: 285.29, ICD10: D63.8 Worse. Monitor. - COMPLETE BLOOD COUNT 8. Stage 3a chronic kidney disease (HCC) - ICD9: 585.3, ICD10: N18.31 - eGFR: 52 Stable - Counseled on avoiding NSAIDs, adequate hydration - BASIC METABOLIC PANEL 9. Mixed hyperlipidemia - ICD9: 272.2, ICD10: E78.2 - Controlled - Continue current medications - Counseled on healthy diet and regular exercise - Discussed need for and benefit of weight loss. BMI 36.00 kg/(m^2) 10. PAF (paroxysmal atrial fibrillation) (HCC) - ICD9: 427.31, ICD10: I48.0 - No recurrence. 11. Inflammatory polyarthropathy (HCC) - ICD9: 714.9, ICD10: M06.4 - Stable and managed by rheumatology. Sudheer Ritchie MD Images from the original note were not included. Demetrius Reddy is a 79 year old male here for a Medicare wellness visit. Medicare Health Risk Assessment General Health Good Exercise: Minutes/Day 60 min Exercise: Days/Week 4 days Alcohol: Daily Use Patient declined Alcohol: Drinks/Day Patient declined Alcohol: 6 or more drinks Patient declined Feel off balance Yes Concerns: Teeth/Dentures No Concerns: Sexual function No Troubled by feelings Stressed Frequency: Eating healthy diet Several days ADLs requiring help None of the above Safety precautions in home/vehicle Yes Smoke, vape, chews tobacco No Difficulty hearing No Difficulty seeing No Current Providers Specialists: I have reviewed specialist-related care of the patient in the medical record. Current care team: Patient Care Team: Sudheer Ritchie MD as PCP - General (Internal Medicine) Louann Lynne APRN.REPLENISHMENT MERCHANDISING ASSOCIATE as Supervisor Cytology (Internal Medicine) Shilpi Grove MD (Cardiology) Outside specialists seen: Ruth Marie MD ([facility]) Thomas Mohan OD (Optometry) Medical/Family history review Reviewed and updated problem list, medical/surgical/family/social history, medications, and allergies. Opioid use review Opioid Medications (last 90 days) No data to display Anxiety/Depression screening Recommendation: no further intervention at this time Cognitive screening Mini Cog Score: 5 Cognitive screening reviewed and No further action needed (score 3-5). Functional Observation Was the patient's Timed Up & Go test unsteady or >= 12 seconds? No Advance Care Planning Patient did not wish or was not able to name a surrogate decision maker or provide an advance care plan Measurements BP 165/67 Pulse (!) 57 Ht 167 cm (5' 5.75) Wt 100.4 kg (221 lb 5.5 oz) BMI 36.00 kg/m Vision Screening: Follows with optometry/ophthalmology Right: 20/30 Left: 20/ 40 Both: 20/30 Assessment/Plan Medicare annual wellness visit, subsequent (Z00.00) - Counseled on healthy diet and regular exercise - Fall avoidance information provided - Personalized prevention plan provided - Discussed need for and benefit of weight loss. BMI 36.00 kg/(m^2) - Counseled patient on alcohol intake and associated health risks documented in this encounter [facility] 12-20-2024 Note HNO ID: [id number] Author: SUDHEER RITCHIE MD Service: ? Author Type: Physician Type: Progress Notes Filed: 12/20/2024 08:54 Note Text: Demetrius Reddy is a 79 year old male here for a Medicare wellness visit. Medicare Health Risk Assessment General Health Good Exercise: Minutes/Day 60 min Exercise: Days/Week 4 days Alcohol: Daily Use Patient declined Alcohol: Drinks/Day Patient declined Alcohol: 6 or more drinks Patient declined Feel off balance Yes Concerns: Teeth/Dentures No Concerns: Sexual function No Troubled by feelings Stressed Frequency: Eating healthy diet Several days ADLs requiring help None of the above Safety precautions in home/vehicle Yes Smoke, vape, chews tobacco No Difficulty hearing No Difficulty seeing No Current Providers Specialists: I have reviewed specialist-related care of the patient in the medical record. Current care team: Patient Care Team: Sudheer Ritchie MD as PCP - General (Internal Medicine) Louann Lynne, RUBBER ROLLER GRINDER OPERATOR.REPLENISHMENT MERCHANDISING ASSOCIATE as Supervisor Cytology (Internal Medicine) Shilpi Grove MD (Cardiology) Outside specialists seen: Ruth Marie MD ([facility]) Thomas Mohan OD (Optometry) Medical/Family history review Reviewed and updated problem list, medical/surgical/family/social history, medications, and allergies. Opioid use review Opioid Medications (last 90 days) No data to display Anxiety/Depression screening Recommendation: no further intervention at this time Cognitive screening Mini Cog Score: 5 Cognitive screening reviewed and No further action needed (score 3-5). Functional Observation Was the patient's Timed Up AND Go test unsteady or >= 12 seconds? No Advance Care Planning Patient did not wish or was not able to name a surrogate decision maker or provide an advance care plan Measurements BP 165/67 Pulse (!) 57 Ht 167 cm (5' 5.75) Wt 100.4 kg (221 lb 5.5 oz) BMI 36.00 kg/m? Vision Screening: Follows with optometry/ophthalmology Right: 20/30 Left: 20/ 40 Both: 20/30 Assessment/Plan Medicare annual wellness visit, subsequent (Z00.00) - Counseled on healthy diet and regular exercise - Fall avoidance information provided - Personalized prevention plan provided - Discussed need for and benefit of weight loss. BMI 36.00 kg/(m2) - Counseled patient on alcohol intake and associated health risks [facility] 12-14-2024 Telephone encounter Note Please see pt message. Pt has appt 12/20. Leslie Menezes MA [facility] 12-14-2024 Miscellaneous Notes Please see pt message. Pt has appt 12/20. Leslei Menezes MA documented in this encounter [facility] 12-04-2024 Note HNO ID: [id number] Author: LAINEY NATION RN Service: ? Author Type: Registered Nurse Type: Progress Notes Filed: 12/04/2024 14:12 Note Text: Value Based Care Coordination Chart Review Provider Action / FYI: Unable to reach for CDM 12/20/24 PCP Upon review of patient chart, the patient is excluded from Chronic Disease Management Patient is not a candidate for CDM at this time and placed in the following status: Unable to reach Action taken: No action needed . Lainey Nation RN December 04, 2024 2:10 PM [facility] 12-04-2024 History of Present illness Narrative Value Based Care Coordination Chart Review Provider Action / FYI: Unable to reach for CDM 12/20/24 PCP Upon review of patient chart, the patient is excluded from Chronic Disease Management Patient is not a candidate for CDM at this time and placed in the following status: Unable to reach Action taken: No action needed . Lainey Natoin RN December 04, 2024 2:10 PM documented in this encounter [facility] 12-04-2024 Note Patient Outreach (AM BC) DEMETRIUS REDDY ([id number]) 1945 M Date Time Provider Department 12/04/24 LAINEY NATION During your visit today, we recorded the following information about you: Lainey Nation RN 12/04/2024 2:12 PM Signed Value Based Care Coordination Chart Review Provider Action / FYI: Unable to reach for CDM NOV 12/20/24 PCP Upon review of patient chart, the patient is excluded from Chronic Disease Management Patient is not a candidate for CDM at this time and placed in the following status: Unable to reach Action taken: No action needed . Lainey Nation RN December 04, 2024 2:10 PM Allergies As of Date: 12/04/2024 Noted Allergy Reaction PANTOPRAZOLE 03/04/2010 Comments: Swelling of hands and yellowing of eyes and muscle aches. ADHESIVE 11/17/2011 14 - Other: See Comments Comments: redness SULFA (SULFONAMIDE ANTIBIOTICS) 05/12/2005 Comments: as an infant, does not know the reaction Date Reviewed: 08/14/2024 Reviewed by: Sachi Marino LPN - Fully Assessed Reason for Visit: Care Coordination [7621] Prescriptions as of 12/04/2024 - ipratropium bromide (ATROVENT) 42 mcg (0.06 %) nasal spray Use 2 Sprays in the nose three times a day. - doxazosin (CARDURA) 8 mg tablet Take 1 tablet by mouth daily at bedtime. - hydrALAZINE (APRESOLINE) 50 mg tablet Take 2 tablets by mouth every morning AND 1 tablet every afternoon AND 2 tablets daily at bedtime. - losartan-hydroCHLOROthiazide (HYZAAR) 100-12.5 mg per tablet Take 1 tablet by mouth once daily. - amLODIPine (NORVASC) 10 mg tablet Take 1 tablet by mouth once daily. - clotrimazole-betamethasone (LOTRISONE) cream Apply to rash on leg , twice daily - Fenofibrate (LOFIBRA) 160 mg tablet Take 1 tablet by mouth once daily. - fluticasone (FLONASE) 50 mcg/actuation nasal spray Use 1 [place] in each nostril once daily. - metoprolol tartrate, short acting, (LOPRESSOR) 50 mg tablet Take 1 tablet by mouth two times a day. - omeprazole (PRILOSEC) 20 mg capsule TAKE 1 CAPSULE DAILY BEFORE BREAKFAST ONE-HALF (1/2) HOUR BEFORE MEAL - potassium chloride (K-TAB) 10 mEq tablet Take 1 tablet by mouth daily with breakfast. - cyanocobalamin (VITAMIN B-12) 100 mcg tab Take 100 mcg by mouth once daily. - pyridoxine HCl, vitamin B6, (VITAMIN B-6 ORAL) Take by mouth once daily. - aspirin, enteric coated (ASPIRIN, ENTERIC COATED) 81 mg EC tablet Take 1 tablet by mouth once daily. - hydrOXYchloroQUINE (PLAQUENIL) 200 mg tablet Take by mouth twice daily. - latanoprost (XALATAN) 0.005 % ophthalmic solution Use 1 Drop in both eyes daily at bedtime. - ubidecarenone(CO Q-10 100 MG CAP) Take one(1) tablet daily. Problem List As Of Date 12/04/2024 Noted Resolved Class 2 severe obesity with serious comorbidity*10/19/2006 06/10/2023 Essential hypertension [I10] 10/19/2006 RAJESH on CPAP [G47.33] 10/19/2006 PERS HX PROSTATIC MALIGNANCY [Z85.46] 10/19/2006 ERECTILE DYSFUNCTION [F52.9] 10/19/2006 03/19/2021 Generalized osteoarthritis of multiple sites [M*10/19/2006 Actinic keratosis [L57.0] 10/19/2006 02/21/2015 Mitral valve disease [I05.9] 10/19/2006 Malignant neoplasm of prostate (HCC) [C61] 12/12/2006 03/22/2021 Nontraumatic rupture of Achilles tendon [M66.36*12/20/2006 10/26/2016 ESOPHAGEAL REFLUX [K21.9] 01/10/2007 HYPERGLYCEMIA [R79.89] 05/05/2007 11/14/2018 COLON POLYP [D12.6] 12/10/2008 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818] 03/03/2020 03/22/2021 Lumbar sprain [S33.5XXA] 03/05/2020 03/22/2021 Fatty (change of) liver, not elsewhere classifi*02/02/2017 Edema of lower leg due to peripheral venous ins*09/14/2021 Lower urinary tract symptoms (LUTS) [R39.9] 03/16/2022 Long-term use of Plaquenil [Z79.899] 10/12/2022 Stage 3a chronic kidney disease (HCC) [N18.31] 10/14/2022 Psoriasis [L40.9] 10/14/2022 COVID-19 [U07.1] 02/23/2023 04/22/2023 Obesity, Class II, BMI 35-39.9 [E66.812] 06/10/2023 Allergic rhinitis with postnasal drip [J30.9, R*10/12/2023 Encounter Status:Closed by LAINEY NATION on 12/04/24 [facility] 08-14-2024 Note HNO ID: [id number] Author: SUDHEER RITCHIE MD Service: ? Author Type: Physician Type: Progress Notes Filed: 08/14/2024 11:17 Note Text: This note was created using NoteWriter. Subjective Demetrius Reddy is a 78 year old male. His hypertension was improving, but not at goal. Doxazosin was increased 2 months ago, but mail order was questioning the prescription. One other concern was postnasal drainage. Flonase was not as effective. He stopped Atrovent for lack of effect as well. Review of Systems Constitutional: Negative for fatigue. HENT: Positive for postnasal drip. Negative for congestion. Respiratory: Negative for cough and shortness of breath. Cardiovascular: Positive for leg swelling. Negative for chest pain and palpitations. Genitourinary: Negative for difficulty urinating and dysuria. Neurological: Negative for dizziness and headaches. 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 Lower Urinary Tract Symptoms (Luts) Long-Term Use of Plaquenil Stage 3a Chronic Kidney Disease (Hcc) Psoriasis Obesity, Class II, Bmi 35-39.9 Allergic Rhinitis With Postnasal Drip Social History Tobacco Use Smoking status: Former Types: Cigars Quit date: 01/21/2018 Years since quittin.5 Smokeless tobacco: Never Tobacco comments: occ cigar Vaping Use Vaping status: Never Used Substance Use Topics Alcohol use: Yes Alcohol/week: 5.0 standard drinks of alcohol Types: 5 Shots of liquor per week Drug use: No Current Outpatient Medications Medication Sig doxazosin (CARDURA) 8 mg tablet Take 1.5 tablets by mouth once daily. losartan-hydroCHLOROthiazide (HYZAAR) 100-12.5 mg per tablet Take 1 tablet by mouth once daily. amLODIPine (NORVASC) 10 mg tablet Take 1 tablet by mouth once daily. clotrimazole-betamethasone (LOTRISONE) cream Apply to rash on leg , twice daily Fenofibrate (LOFIBRA) 160 mg tablet Take 1 tablet by mouth once daily. fluticasone (FLONASE) 50 mcg/actuation nasal spray Use 1 [place] in each nostril once daily. hydrALAZINE (APRESOLINE) 50 mg tablet Take 1 tablet by mouth every morning AND 1 tablet every afternoon AND 2 tablets daily at bedtime. metoprolol tartrate, short acting, (LOPRESSOR) 50 mg tablet Take 1 tablet by mouth two times a day. omeprazole (PRILOSEC) 20 mg capsule TAKE 1 CAPSULE DAILY BEFORE BREAKFAST ONE-HALF (1/2) HOUR BEFORE MEAL potassium chloride (K-TAB) 10 mEq tablet Take 1 tablet by mouth daily with breakfast. ipratropium bromide (ATROVENT) 42 mcg (0.06 %) nasal spray Use 2 Sprays in the nose three times a day. (Patient taking differently: Use 2 Sprays in the nose three times a day. Patient has not been using) cyanocobalamin (VITAMIN B-12) 100 mcg tab Take 100 mcg by mouth once daily. pyridoxine HCl, vitamin B6, (VITAMIN B-6 ORAL) Take by mouth once daily. aspirin, enteric coated (ASPIRIN, ENTERIC COATED) 81 mg EC tablet Take 1 tablet by mouth once daily. hydrOXYchloroQUINE (PLAQUENIL) 200 mg tablet Take by mouth twice daily. latanoprost (XALATAN) 0.005 % ophthalmic solution Use 1 Drop in both eyes daily at bedtime. ubidecarenone(CO Q-10 100 MG CAP) Take one(1) tablet daily. No current facility-administered medications for this visit. Objective BP 152/65 (BP Site: Left Arm, BP Position: Sitting, BP Cuff Size: Large Adult) Pulse (!) 53 Temp 36.4 ?C (97.5 ?F) (Temporal) Resp 18 Wt 102.1 kg (225 lb 1.4 oz) BMI 37.46 kg/m? Physical Exam Constitutional: General: He is not in acute distress. Appearance: He is not ill-appearing. HENT: Nose: Congestion present. No rhinorrhea. Mouth/Throat: Mouth: Mucous membranes are moist. Pharynx: Oropharynx is clear. Cardiovascular: Rate and Rhythm: Regular rhythm. Bradycardia present. Heart sounds: No murmur heard. No gallop. Pulmonary: Breath sounds: No wheezing or rales. Musculoskeletal: Right lower le+ Pitting Edema present. Left lower le+ Pitting Edema present. Neurological: Mental Status: He is alert. Assessment and Plan 1. Stage 3a chronic kidney disease (HCC) - ICD9: 585.3, ICD10: N18.31 (primary diagnosis) - eGFR: 55 Stable - Counseled on avoiding NSAIDs, adequate hydration 2. Lower urinary tract symptoms (LUTS) - ICD9: 788.99, ICD10: R39.9 - Controlled. Decrease dose back to 8 mg at bedtime for simplicity. - DOXAZOSIN 8 MG TABLET 3. Allergic rhinitis with postnasal drip - ICD9: 477.9, 784.91, ICD10: J30.9, R09.82 - We agreed to try this again. - IPRATROPIUM BROMIDE 42 MCG (0.06 %) NASAL SPRAY 4. Essential hypertension - ICD9 (more content not included)... [facility] 08-14-2024 History of Present illness Narrative This note was created using [employer]. Subjective Demetrius Reddy is a 78 year old male. His hypertension was improving, but not at goal. Doxazosin was increased 2 months ago, but mail order was questioning the prescription. One other concern was postnasal drainage. Flonase was not as effective. He stopped Atrovent for lack of effect as well. Review of Systems Constitutional: Negative for fatigue. HENT: Positive for postnasal drip. Negative for congestion. Respiratory: Negative for cough and shortness of breath. Cardiovascular: Positive for leg swelling. Negative for chest pain and palpitations. Genitourinary: Negative for difficulty urinating and dysuria. Neurological: Negative for dizziness and headaches. 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 Lower Urinary Tract Symptoms (Luts) Long-Term Use of Plaquenil Stage 3a Chronic Kidney Disease (Hcc) Psoriasis Obesity, Class II, Bmi 35-39.9 Allergic Rhinitis With Postnasal Drip Social History Tobacco Use Smoking status: Former Types: Cigars Quit date: 01/21/2018 Years since quittin.5 Smokeless tobacco: Never Tobacco comments: occ cigar Vaping Use Vaping status: Never Used Substance Use Topics Alcohol use: Yes Alcohol/week: 5.0 standard drinks of alcohol Types: 5 Shots of liquor per week Drug use: No Current Outpatient Medications Medication Sig doxazosin (CARDURA) 8 mg tablet Take 1.5 tablets by mouth once daily. losartan-hydroCHLOROthiazide (HYZAAR) 100-12.5 mg per tablet Take 1 tablet by mouth once daily. amLODIPine (NORVASC) 10 mg tablet Take 1 tablet by mouth once daily. clotrimazole-betamethasone (LOTRISONE) cream Apply to rash on leg , twice daily Fenofibrate (LOFIBRA) 160 mg tablet Take 1 tablet by mouth once daily. fluticasone (FLONASE) 50 mcg/actuation nasal spray Use 1 [place] in each nostril once daily. hydrALAZINE (APRESOLINE) 50 mg tablet Take 1 tablet by mouth every morning AND 1 tablet every afternoon AND 2 tablets daily at bedtime. metoprolol tartrate, short acting, (LOPRESSOR) 50 mg tablet Take 1 tablet by mouth two times a day. omeprazole (PRILOSEC) 20 mg capsule TAKE 1 CAPSULE DAILY BEFORE BREAKFAST ONE-HALF (1/2) HOUR BEFORE MEAL potassium chloride (K-TAB) 10 mEq tablet Take 1 tablet by mouth daily with breakfast. ipratropium bromide (ATROVENT) 42 mcg (0.06 %) nasal spray Use 2 Sprays in the nose three times a day. (Patient taking differently: Use 2 Sprays in the nose three times a day. Patient has not been using) cyanocobalamin (VITAMIN B-12) 100 mcg tab Take 100 mcg by mouth once daily. pyridoxine HCl, vitamin B6, (VITAMIN B-6 ORAL) Take by mouth once daily. aspirin, enteric coated (ASPIRIN, ENTERIC COATED) 81 mg EC tablet Take 1 tablet by mouth once daily. hydrOXYchloroQUINE (PLAQUENIL) 200 mg tablet Take by mouth twice daily. latanoprost (XALATAN) 0.005 % ophthalmic solution Use 1 Drop in both eyes daily at bedtime. ubidecarenone(CO Q-10 100 MG CAP) Take one(1) tablet daily. No current facility-administered medications for this visit. Objective BP 152/65 (BP Site: Left Arm, BP Position: Sitting, BP Cuff Size: Large Adult) Pulse (!) 53 Temp 36.4 C (97.5 F) (Temporal) Resp 18 Wt 102.1 kg (225 lb 1.4 oz) BMI 37.46 kg/m Physical Exam Constitutional: General: He is not in acute distress. Appearance: He is not ill-appearing. HENT: Nose: Congestion present. No rhinorrhea. Mouth/Throat: Mouth: Mucous membranes are moist. Pharynx: Oropharynx is clear. Cardiovascular: Rate and Rhythm: Regular rhythm. Bradycardia present. Heart sounds: No murmur heard. No gallop. Pulmonary: Breath sounds: No wheezing or rales. Musculoskeletal: Right lower le+ Pitting Edema present. Left lower le+ Pitting Edema present. Neurological: Mental Status: He is alert. Assessment and Plan 1. Stage 3a chronic kidney disease (HCC) - ICD9: 585.3, ICD10: N18.31 (primary diagnosis) - eGFR: 55 Stable - Counseled on avoiding NSAIDs, adequate hydration 2. Lower urinary tract symptoms (LUTS) - ICD9: 788.99, ICD10: R39.9 - Controlled. Decrease dose back to 8 mg at bedtime for simplicity. - DOXAZOSIN 8 MG TABLET 3. Allergic rhinitis with postnasal drip - ICD9: 477.9, 784.91, ICD10: J30.9, R09.82 - We agreed to try this again. - IPRATROPIUM BROMIDE 42 MCG (0.06 %) NASAL SPRAY 4. Essential hypertension - ICD9: 401.9, ICD10: I10 - Improving control - Continue current medications. - HYDRALAZINE 50 MG TABLET. Dose of this medication increased to 100 mg in AM, 50 mg at noon, and 100 mg at bedtime. - He will see his vibration technician in 2 weeks. He will see me sooner if BP not improving. Sudheer Ritchie MD documented in this encounter [facility] 08-07-2024 Note HNO ID: [id number] Author: SACHI MARINO LPN Service: ? Author Type: LICENSED NURSE Type: Progress Notes Filed: 08/07/2024 15:22 Note Text: POPULATION HEALTH NAVIGATION OUTREACH Action/FYI Reason for Outreach Care Gap/HCC or Scheduling Wellness Visits Care Gaps due: Follow-up Appointment Patient Contacted: Spoke to patient/parent/or legal guardian Patient identified by name and : Yes Care Gap/HCC/Scheduling Wellness actions taken: PCP confirmed Navigation Signature: Sachi Marino LPN August 07, 2024 3:22 PM [facility] 08-07-2024 History of Present illness Narrative POPULATION HEALTH NAVIGATION OUTREACH Action/FYI Reason for Outreach Care Gap/HCC or Scheduling Wellness Visits Care Gaps due: Follow-up Appointment Patient Contacted: Spoke to patient/parent/or legal guardian Patient identified by name and : Yes Care Gap/HCC/Scheduling Wellness actions taken: PCP confirmed Navigation Signature: Sachi Marino LPN August 07, 2024 3:22 PM documented in this encounter [facility] 08-06-2024 Telephone encounter Note Pt has changed mail order pharmacy. Raquel Whipple LPN The patient has been identified by name and date of : Yes Caregiver verified no other encounters exist for this prescription request: Yes Caregiver confirmed with patient/requestor that no other refills are due, in the near future, with this provider at this time: Yes The last office visit in the department: 06/19/2024 Does the patient have a future office visit with this provider/department: Yes 12/20/2024 Requested Prescriptions Pending Prescriptions Disp Refills doxazosin (CARDURA) 8 mg tablet 135 tablet 3 Sig: Take 1.5 tablets by mouth once daily. losartan-hydroCHLOROthiazide (HYZAAR) 100-12.5 mg per tablet 90 tablet 3 Sig: Take 1 tablet by mouth once daily. Raquel Whipple LPN August 06, 2024 9:08 AM [facility] 08-06-2024 Miscellaneous Notes Pt has changed mail order pharmacy. Raquel Whipple LPN The patient has been identified by name and date of : Yes Caregiver verified no other encounters exist for this prescription request: Yes Caregiver confirmed with patient/requestor that no other refills are due, in the near future, with this provider at this time: Yes The last office visit in the department: 06/19/2024 Does the patient have a future office visit with this provider/department: Yes 12/20/2024 Requested Prescriptions Pending Prescriptions Disp Refills doxazosin (CARDURA) 8 mg tablet 135 tablet 3 Sig: Take 1.5 tablets by mouth once daily. losartan-hydroCHLOROthiazide (HYZAAR) 100-12.5 mg per tablet 90 tablet 3 Sig: Take 1 tablet by mouth once daily. Raquel Whipple LPN August 06, 2024 9:08 AM documented in this encounter [facility] 06-19-2024 Instructions Louann Lynne APRN.KARMA - 06/19/2024 1:26 PM EST Increase doxazosin to 12 mg daily (1 and 1/2 tabs) at bedtime documented in this encounter [facility] 06-19-2024 Note HNO ID: [id number] Author: LOUANN LYNNE APRN.KARMA Service: ? Author Type: Nurse Practitioner Type: Progress Notes Filed: 06/19/2024 15:13 Note Text: CC: Patient presents with: 4 month follow up HPI Demetrius Reddy is a 78 year old male who presents today for a 4 month follow up and blood pressure check. He was last seen 04/17/24 by . At that time he was referred by his vibration technician for worsening kidney functions-eGFR 48, Creatinine 1.48. The HCTZ in his Hyzaar was reduced from 25mg to 12.5mg. This change has not caused any adverse effects and he feels the lower leg edema has improved. He continues to have claudication but denies any changes. Denies chest pain, SOB, palpitations, fever, chills, dizziness or headache. He does not checkhis blood pressure at home. His diet includes minimal processed foods with no additional salt use. He exercises approximately 3 times a week. He has been taking ibuprofen the past few days for some left shoulder pain, but otherwise he has been avoiding its use. His pain is improving and he is not interested in any further discussion about it. He will reach out if the pain persists. Review of Systems Respiratory: Negative for chest tightness and shortness of breath. Cardiovascular: Positive for leg swelling (improved). Negative for chest pain and palpitations. Gastrointestinal: Negative for abdominal distention, abdominal pain, constipation, diarrhea and nausea. Musculoskeletal: Positive for arthralgias. Skin: Negative for rash. Neurological: Negative for dizziness and headaches. Psychiatric/Behavioral: Negative for behavioral problems and sleep disturbance. PAST MEDICAL HISTORY Diagnosis Date Actinic keratosis Anemia, chronic disease 08/12/2011 Class 2 severe obesity with serious comorbidity and body mass index (BMI) of 37.0 to 37.9 in adult (HCC) 10/19/2006 COVID-19 02/23/2023 Esophageal reflux Essential hypertension 10/19/2006 Fatty (change of) liver, not elsewhere classified 02/02/2017 Generalized osteoarthrosis, unspecified site Glaucoma Hyperlipidemia 08/07/2015 Malignant neoplasm of prostate (HCC) 12/12/2006 RAJESH on CPAP 10/19/2006 PAF (paroxysmal atrial fibrillation) (HCC) 11/24/2018 Prostate cancer (HCC) 2004 Patient validates year PAST SURGICAL HISTORY Procedure Laterality Date COLONOSCOPY FLX DX W/COLLJ SPEC WHEN PFRMD 07/25/1995 Colonoscopy COLONOSCOPY FLX DX W/COLLJ SPEC WHEN PFRMD 05/25/[address] Munguia=repeat in COLONOSCOPY SCRN NOT HIGH RISK 08/14/2020 COLSC FLX W/RMVL OF TUMOR POLYP LESION SNARE TQ 04/04/2015 small ablated polyp -5 year follow up EYE SURGERY HX F US PROSTATE VOLUME BRACHYTHERAPY 05/13/2005 Seed implants- [facility] PAST SURGICAL HISTORY OF 12/23/2004 TRUS w/ bx. Dr. Gonzalez. PAST SURGICAL HISTORY OF 05/13/2005 seed implants - [facility] TONSILLECTOMY AND ADENOIDECTOMY T/A (under age 12 years) TOTAL HIP REPLACEMENT Right 11/11/2020 right THR TOTAL KNEE REPLACEMENT Right 03/21/2020 ALLERGIES Pantoprazole, Adhesive, and Sulfa (Sulfonamide Antibiotics) MEDICATIONS amLODIPine (NORVASC) 10 mg tablet Take 1 tablet by mouth once daily. clotrimazole-betamethasone (LOTRISONE) cream Apply to rash on leg , twice daily doxazosin (CARDURA) 8 mg tablet Take 1 tablet by mouth once daily. Fenofibrate (LOFIBRA) 160 mg tablet Take 1 tablet by mouth once daily. fluticasone (FLONASE) 50 mcg/actuation nasal spray Use 1 [place] in each nostril once daily. hydrALAZINE (APRESOLINE) 50 mg tablet Take 1 tablet by mouth every morning AND 1 tablet every afternoon AND 2 tablets daily at bedtime. metoprolol tartrate, short acting, (LOPRESSOR) 50 mg tablet Take 1 tablet by mouth two times a day. omeprazole (PRILOSEC) 20 mg capsule TAKE 1 CAPSULE DAILY BEFORE BREAKFAST ONE-HALF (1/2) HOUR BEFORE MEAL potassium chloride (K-TAB) 10 mEq tablet Take 1 tablet by mouth daily with breakfast. losartan-hydroCHLOROthiazide (HYZAAR) 100-12.5 mg per tablet Take 1 tablet by mouth once daily. cyanocobalamin (VITAMIN B-12) 100 mcg tab Take 100 mcg by mouth once daily. pyridoxine HCl, vitamin B6, (VITAMIN B-6 ORAL) Take by mouth once daily. aspirin, enteric coated (ASPIRIN, ENTERIC COATED) 81 mg EC tablet Take 1 tablet by mouth once daily. hydrOXYchloroQUINE (PLAQUENIL) 200 mg tablet Take by mouth twice daily. latanoprost (XALATAN) 0.005 % ophthalmic solution Use 1 Drop in both eyes daily at bedtime. ubidecarenone(CO Q-10 100 MG CAP) Take one(1) tablet daily. ipratropium bromide (ATROVENT) 42 mcg (0.06 %) nasal spray Use 2 Sprays in the nose three times a day. FAMILY HISTORY Problem Relation Age of Onset Alzheimer's Disease Mother Arthritis Mother COPD Father Social History Tobacco Use Smoking status: Former Types: Cigars Quit date: 01/21/2018 Years since quittin.4 Smokeless tobacco: Never Tobacco comments: occ cigar Vaping Use Vaping status: Never Use (more content not included)... [facility] 06-19-2024 History of Present illness Narrative CC: Patient presents with: 4 month follow up HPI Demetrius Reddy is a 78 year old male who presents today for a 4 month follow up and blood pressure check. He was last seen 04/17/24 by . At that time he was referred by his vibration technician for worsening kidney functions-eGFR 48, Creatinine 1.48. The HCTZ in his Hyzaar was reduced from 25mg to 12.5mg. This change has not caused any adverse effects and he feels the lower leg edema has improved. He continues to have claudication but denies any changes. Denies chest pain, SOB, palpitations, fever, chills, dizziness or headache. He does not check his blood pressure at home. His diet includes minimal processed foods with no additional salt use. He exercises approximately 3 times a week. He has been taking ibuprofen the past few days for some left shoulder pain, but otherwise he has been avoiding its use. His pain is improving and he is not interested in any further discussion about it. He will reach out if the pain persists. Review of Systems Respiratory: Negative for chest tightness and shortness of breath. Cardiovascular: Positive for leg swelling (improved). Negative for chest pain and palpitations. Gastrointestinal: Negative for abdominal distention, abdominal pain, constipation, diarrhea and nausea. Musculoskeletal: Positive for arthralgias. Skin: Negative for rash. Neurological: Negative for dizziness and headaches. Psychiatric/Behavioral: Negative for behavioral problems and sleep disturbance. PAST MEDICAL HISTORY Diagnosis Date Actinic keratosis Anemia, chronic disease 08/12/2011 Class 2 severe obesity with serious comorbidity and body mass index (BMI) of 37.0 to 37.9 in adult (HCC) 10/19/2006 COVID-19 02/23/2023 Esophageal reflux Essential hypertension 10/19/2006 Fatty (change of) liver, not elsewhere classified 02/02/2017 Generalized osteoarthrosis, unspecified site Glaucoma Hyperlipidemia 08/07/2015 Malignant neoplasm of prostate (HCC) 12/12/2006 RAEJSH on CPAP 10/19/2006 PAF (paroxysmal atrial fibrillation) (HCC) 11/24/2018 Prostate cancer (HCC) 2004 Patient validates year PAST SURGICAL HISTORY Procedure Laterality Date COLONOSCOPY FLX DX W/COLLJ SPEC WHEN PFRMD 07/25/1995 Colonoscopy COLONOSCOPY FLX DX W/COLLJ SPEC WHEN PFRMD 05/25/[address] Munguia=repeat in COLONOSCOPY SCRN NOT HIGH RISK 08/14/2020 COLSC FLX W/RMVL OF TUMOR POLYP LESION SNARE TQ 04/04/2015 small ablated polyp -5 year follow up EYE SURGERY HX F US PROSTATE VOLUME BRACHYTHERAPY 05/13/2005 Seed implants- [facility] PAST SURGICAL HISTORY OF 12/23/2004 TRUS w/ bx. Dr. Gonzalez. PAST SURGICAL HISTORY OF 05/13/2005 seed implants - [facility] TONSILLECTOMY & ADENOIDECTOMY <AGE 12 1956 T/A (under age 12 years) TOTAL HIP REPLACEMENT Right 11/11/2020 right THR TOTAL KNEE REPLACEMENT Right 03/21/2020 ALLERGIES Pantoprazole, Adhesive, and Sulfa (Sulfonamide Antibiotics) MEDICATIONS amLODIPine (NORVASC) 10 mg tablet Take 1 tablet by mouth once daily. clotrimazole-betamethasone (LOTRISONE) cream Apply to rash on leg , twice daily doxazosin (CARDURA) 8 mg tablet Take 1 tablet by mouth once daily. Fenofibrate (LOFIBRA) 160 mg tablet Take 1 tablet by mouth once daily. fluticasone (FLONASE) 50 mcg/actuation nasal spray Use 1 [place] in each nostril once daily. hydrALAZINE (APRESOLINE) 50 mg tablet Take 1 tablet by mouth every morning AND 1 tablet every afternoon AND 2 tablets daily at bedtime. metoprolol tartrate, short acting, (LOPRESSOR) 50 mg tablet Take 1 tablet by mouth two times a day. omeprazole (PRILOSEC) 20 mg capsule TAKE 1 CAPSULE DAILY BEFORE BREAKFAST ONE-HALF (1/2) HOUR BEFORE MEAL potassium chloride (K-TAB) 10 mEq tablet Take 1 tablet by mouth daily with breakfast. losartan-hydroCHLOROthiazide (HYZAAR) 100-12.5 mg per tablet Take 1 tablet by mouth once daily. cyanocobalamin (VITAMIN B-12) 100 mcg tab Take 100 mcg by mouth once daily. pyridoxine HCl, vitamin B6, (VITAMIN B-6 ORAL) Take by mouth once daily. aspirin, enteric coated (ASPIRIN, ENTERIC COATED) 81 mg EC tablet Take 1 tablet by mouth once daily. hydrOXYchloroQUINE (PLAQUENIL) 200 mg tablet Take by mouth twice daily. latanoprost (XALATAN) 0.005 % ophthalmic solution Use 1 Drop in both eyes daily at bedtime. ubidecarenone(CO Q-10 100 MG CAP) Take one(1) tablet daily. ipratropium bromide (ATROVENT) 42 mcg (0.06 %) nasal spray Use 2 Sprays in the nose three times a day. FAMILY HISTORY Problem Relation Age of Onset Alzheimer's Disease Mother Arthritis Mother COPD Father Social History Tobacco Use Smoking status: Former Types: Cigars Quit date: 01/21/2018 Years since quittin.4 Smokeless tobacco: Never Tobacco comments: occ cigar Vaping Use Vaping status: Never Used Substance Use Topics Alcohol use: Yes Alcohol/week: 5.0 standard drinks of alcohol Types: 5 Shots of liquor per week Drug use: No BP 172/74 Pulse (!) 59 Resp 20 Wt 103.4 kg (227 lb 15.3 oz) SpO2 96% BMI 37.93 kg/m Physical Exam Constitutional: Appearance: Normal appearance. Cardiovascular: Rate and Rhythm: Normal rate and regular rhythm. Pulses: Normal pulses. Radial pulses are 2+ on the right side and 2+ on the left side. Heart sounds: Normal heart sounds, S1 normal and S2 normal. No murmur heard. Pulmonary: Effort: Pulmonary effort is normal. Breath sounds: Normal breath sounds. Abdominal: General: Bowel sounds are normal. There is no distension. Palpations: Abdomen is soft. Tenderness: There is no abdominal tenderness. Musculoskeletal: Right shoulder: Normal. Left shoulder: No swelling or deformity. Decreased range of motion. Normal strength. Normal pulse. Right lower le+ Pitting Edema present. Left lower le+ Pitting Edema present. Skin: General: Skin is warm. Capillary Refill: Capillary refill takes less than 2 seconds. Findings: No signs of injury, lesion or rash. Neurological: Mental Status: He is alert and oriented to person, place, and time. GCS: GCS eye subscore is 4. GCS verbal subscore is 5. GCS motor subscore is 6. Psychiatric: Attention and Perception: Attention normal. Mood and Affect: Mood normal. Speech: Speech normal. Behavior: Behavior is cooperative. Health maintenance reviewed with patient: Depression Screening Never done Anxiety Screening Never done BP Controlled (<130/80) Never done Advance Directive Discussion due on 07/25/2023 Covid-19 Vaccine( season) due on 06/22/2024 Hemoglobin/Hematocrit due on 09/26/2024 Serum Creatinine due on 06/12/2025 Annual PCP Team Chronic Disease Visit due on 06/19/2025 Diabetes Screening due on 06/12/2027 DTaP,Tdap,Td Vaccine(2 - Td or Tdap) due on 03/16/2032 Influenza Vaccine Completed RSV Vaccine Completed Hepatitis C Screening Completed Shingrix Vaccine Completed Pneumococcal Vaccine: 65+ Completed Colorectal Cancer Screening Discontinued DATA REVIEWED: Most recent labs ASSESSMENT/PLAN: 1. Essential hypertension - ICD9: 401.9, ICD10: I10 (primary diagnosis) - Worsening control-Armando B/P today 160/64 - Factors affecting control: lack of exercise,CKD, obesity - Increase Doxazosin to 12 mg daily - Recommend home blood pressure monitoring, to bring results to next visit - Encouraged sodium restriction, DASH or Mediterranean diet - Recommend regular aerobic exercise - Discussed need for and benefit of weight loss. BMI 37.93 kg/(m^2) - Follow up in 6 months or sooner if needed for hypertension visit - DOXAZOSIN 12 MG TABLET - LOSARTAN 100 MG-HYDROCHLOROTHIAZIDE 12.5 MG TABLET 2. Stage 3a chronic kidney disease (HCC) - ICD9: 585.3, ICD10: N18.31 - eGFR: 55 and Creatinine 1.33 Improving - Counseled on avoiding NSAIDs, adequate hydration - Counseled on low sodium diet - Continue current medications 3. Edema of lower leg due to peripheral venous insufficiency - ICD9: 459.81, 782.3, ICD10: I87.2, R60.0 1+ pitting bilateral - Improving - Elevate legs when possible - Continue to monitor diet and sodium intake 4. Claudication of both lower extremities (HCC) - ICD9: 443.9, ICD10: I73.9 Stable 5. Acute pain of left shoulder - ICD9: 719.41, ICD10: M25.512 Started 3 days ago. No injury, just moved wrong. No visible trauma. No interest in diagnostics or exam. - Improving pain - Advised to call if pain persists or he decides to move forward for an exam and possible treatment Prescription instructions reviewed with patient as applicable. Potential red flag symptoms discussed with the patient. Reviewed appropriate action plan to take if red flag symptoms occur. Patient agreeable to treatment plan. documented in this encounter [facility] 04-17-2024 Instructions Sudheer Ritchie MD - 04/17/2024 9:24 AM EDT NON FASTING BLOOD CHEMISTRY MAY. documented in this encounter [facility] 04-17-2024 Note HNO ID: [id number] Author: SUDHEER RITCHIE MD Service: ? Author Type: Physician Type: Progress Notes Filed: 04/17/2024 09:43 Note Text: This note was created using [employer]ulse [employer]. Subjective Demetrius Reddy is a 78 year old male. His vibration technician was concerned about his CKD and recommended we try and reduce hydrochlorothiazide in his Hyzaar to 12.5 mg from 25 mg. His hypertension was elevated today for some reason. He just saw Dr. Jules for cardiology a few weeks ago and no medication changes were made. He complained of legs feeling heavy. Vascular study showed no significant PAD. Edema was stable. Review of Systems Constitutional: Negative for fatigue. Respiratory: Negative for cough and shortness of breath. Cardiovascular: Positive for leg swelling. Negative for chest pain and palpitations. Genitourinary: Negative for difficulty urinating and dysuria. 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 Lower Urinary Tract Symptoms (Luts) Long-Term Use of Plaquenil Stage 3a Chronic Kidney Disease (Hcc) Psoriasis Obesity, Class II, Bmi 35-39.9 Allergic Rhinitis With Postnasal Drip Social History Tobacco Use Smoking status: Former Types: Cigars Quit date: 01/21/2018 Years since quittin.2 Smokeless tobacco: Never Tobacco comments: occ cigar Vaping Use Vaping status: Never Used Substance Use Topics Alcohol use: Yes Alcohol/week: 5.0 standard drinks of alcohol Types: 5 Shots of liquor per week Drug use: No Current Outpatient Medications Medication Sig ipratropium bromide (ATROVENT) 42 mcg (0.06 %) nasal spray Use 2 Sprays in the nose three times a day. clotrimazole-betamethasone (LOTRISONE) cream Apply to rash on leg , twice daily hydrALAZINE (APRESOLINE) 50 mg tablet Take 1 tablet by mouth every morning AND 1 tablet every afternoon AND 2 tablets daily at bedtime. amLODIPine (NORVASC) 10 mg tablet Take 1 tablet by mouth once daily. doxazosin (CARDURA) 8 mg tablet Take 1 tablet by mouth once daily. Fenofibrate (LOFIBRA) 160 mg tablet Take 1 tablet by mouth once daily. losartan-hydroCHLOROthiazide (HYZAAR) 100-25 mg per tablet Take 1 tablet by mouth once daily. metoprolol tartrate, short acting, (LOPRESSOR) 50 mg tablet Take 1 tablet by mouth two times a day. omeprazole (PRILOSEC) 20 mg capsule TAKE 1 CAPSULE DAILY BEFORE BREAKFAST ONE-HALF (1/2) HOUR BEFORE MEAL potassium chloride (K-TAB) 10 mEq tablet Take 1 tablet by mouth daily with breakfast. fluticasone (FLONASE) 50 mcg/actuation nasal spray Use 1 [place] in each nostril once daily. cyanocobalamin (VITAMIN B-12) 100 mcg tab Take 100 mcg by mouth once daily. pyridoxine HCl, vitamin B6, (VITAMIN B-6 ORAL) Take by mouth once daily. aspirin, enteric coated (ASPIRIN, ENTERIC COATED) 81 mg EC tablet Take 1 tablet by mouth once daily. hydrOXYchloroQUINE (PLAQUENIL) 200 mg tablet Take by mouth twice daily. latanoprost (XALATAN) 0.005 % ophthalmic solution Use 1 Drop in both eyes daily at bedtime. ubidecarenone(CO Q-10 100 MG CAP) Take one(1) tablet daily. No current facility-administered medications for this visit. Objective BP 144/70 (BP Site: Left Arm, BP Position: Sitting, BP Cuff Size: Large Adult) Pulse (!) 55 Temp 36.7 ?C (98.1 ?F) (Temporal) Resp 16 Wt 103.2 kg (227 lb 8.2 oz) BMI 37.86 kg/m? Physical Exam Constitutional: Appearance: He is not ill-appearing. HENT: Nose: No rhinorrhea. Cardiovascular: Rate and Rhythm: Regular rhythm. Bradycardia present. Heart sounds: No murmur heard. No gallop. Pulmonary: Effort: No respiratory distress. Breath sounds: No wheezing or rales. Musculoskeletal: Right lower le+ Pitting Edema present. Left lower le+ Pitting Edema present. Neurological: Mental Status: He is alert. Test results pertinent to today's visit were reviewed and discussed with the patient. Latest Ref Rng 02/22/2024 Protein, Total 6.3 - 8.0 g/dL 6.5 Albumin 3.9 - 4.9 g/dL 4.1 Calcium 8.5 - 10.2 mg/dL 9.7 Bilirubin, Total 0.2 - 1.3 mg/dL 0.6 Alkaline Phosphatase 38 - 113 U/L 34 (L) AST 14 - 40 U/L 37 ALT 10 - 54 U/L 31 Glucose 74 - 99 mg/dL 92 BUN 9 - 24 mg/dL 32 (H) Creatinine 0.73 - 1.22 mg/dL 1.48 (H) Sodium 136 - 144 mmol/L 140 Potassium 3.7 - 5.1 mmol/L 4.0 Chloride 98 - 107 mmol/L 103 CO2 22 - 30 mmol/L 27 Anion Gap 8 - 15 mmol/L 10 eGFR >=60 mL/min/1.73m? 48 (L) Cholesterol, Total <200 mg/dL 128 Triglyceride <150 mg/dL 66 HDL Cholesterol >39 mg/dL 46 Non HDL Cholesterol <130 mg/dL 82 Fasting Time hrs 14 VLD (more content not included)... [facility] 04-17-2024 History of Present illness Narrative This note was created using [email or web address]. Subjective Demetrius Reddy is a 78 year old male. His vibration technician was concerned about his CKD and recommended we try and reduce hydrochlorothiazide in his Hyzaar to 12.5 mg from 25 mg. His hypertension was elevated today for some reason. He just saw Dr. Jules for cardiology a few weeks ago and no medication changes were made. He complained of legs feeling heavy. Vascular study showed no significant PAD. Edema was stable. Review of Systems Constitutional: Negative for fatigue. Respiratory: Negative for cough and shortness of breath. Cardiovascular: Positive for leg swelling. Negative for chest pain and palpitations. Genitourinary: Negative for difficulty urinating and dysuria. 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 Lower Urinary Tract Symptoms (Luts) Long-Term Use of Plaquenil Stage 3a Chronic Kidney Disease (Hcc) Psoriasis Obesity, Class II, Bmi 35-39.9 Allergic Rhinitis With Postnasal Drip Social History Tobacco Use Smoking status: Former Types: Cigars Quit date: 01/21/2018 Years since quittin.2 Smokeless tobacco: Never Tobacco comments: occ cigar Vaping Use Vaping status: Never Used Substance Use Topics Alcohol use: Yes Alcohol/week: 5.0 standard drinks of alcohol Types: 5 Shots of liquor per week Drug use: No Current Outpatient Medications Medication Sig ipratropium bromide (ATROVENT) 42 mcg (0.06 %) nasal spray Use 2 Sprays in the nose three times a day. clotrimazole-betamethasone (LOTRISONE) cream Apply to rash on leg , twice daily hydrALAZINE (APRESOLINE) 50 mg tablet Take 1 tablet by mouth every morning AND 1 tablet every afternoon AND 2 tablets daily at bedtime. amLODIPine (NORVASC) 10 mg tablet Take 1 tablet by mouth once daily. doxazosin (CARDURA) 8 mg tablet Take 1 tablet by mouth once daily. Fenofibrate (LOFIBRA) 160 mg tablet Take 1 tablet by mouth once daily. losartan-hydroCHLOROthiazide (HYZAAR) 100-25 mg per tablet Take 1 tablet by mouth once daily. metoprolol tartrate, short acting, (LOPRESSOR) 50 mg tablet Take 1 tablet by mouth two times a day. omeprazole (PRILOSEC) 20 mg capsule TAKE 1 CAPSULE DAILY BEFORE BREAKFAST ONE-HALF (1/2) HOUR BEFORE MEAL potassium chloride (K-TAB) 10 mEq tablet Take 1 tablet by mouth daily with breakfast. fluticasone (FLONASE) 50 mcg/actuation nasal spray Use 1 [place] in each nostril once daily. cyanocobalamin (VITAMIN B-12) 100 mcg tab Take 100 mcg by mouth once daily. pyridoxine HCl, vitamin B6, (VITAMIN B-6 ORAL) Take by mouth once daily. aspirin, enteric coated (ASPIRIN, ENTERIC COATED) 81 mg EC tablet Take 1 tablet by mouth once daily. hydrOXYchloroQUINE (PLAQUENIL) 200 mg tablet Take by mouth twice daily. latanoprost (XALATAN) 0.005 % ophthalmic solution Use 1 Drop in both eyes daily at bedtime. ubidecarenone(CO Q-10 100 MG CAP) Take one(1) tablet daily. No current facility-administered medications for this visit. Objective BP 144/70 (BP Site: Left Arm, BP Position: Sitting, BP Cuff Size: Large Adult) Pulse (!) 55 Temp 36.7 C (98.1 F) (Temporal) Resp 16 Wt 103.2 kg (227 lb 8.2 oz) BMI 37.86 kg/m Physical Exam Constitutional: Appearance: He is not ill-appearing. HENT: Nose: No rhinorrhea. Cardiovascular: Rate and Rhythm: Regular rhythm. Bradycardia present. Heart sounds: No murmur heard. No gallop. Pulmonary: Effort: No respiratory distress. Breath sounds: No wheezing or rales. Musculoskeletal: Right lower le+ Pitting Edema present. Left lower le+ Pitting Edema present. Neurological: Mental Status: He is alert. Test results pertinent to today's visit were reviewed and discussed with the patient. Latest Ref Rng 02/22/2024 Protein, Total 6.3 - 8.0 g/dL 6.5 Albumin 3.9 - 4.9 g/dL 4.1 Calcium 8.5 - 10.2 mg/dL 9.7 Bilirubin, Total 0.2 - 1.3 mg/dL 0.6 Alkaline Phosphatase 38 - 113 U/L 34 (L) AST 14 - 40 U/L 37 ALT 10 - 54 U/L 31 Glucose 74 - 99 mg/dL 92 BUN 9 - 24 mg/dL 32 (H) Creatinine 0.73 - 1.22 mg/dL 1.48 (H) Sodium 136 - 144 mmol/L 140 Potassium 3.7 - 5.1 mmol/L 4.0 Chloride 98 - 107 mmol/L 103 CO2 22 - 30 mmol/L 27 Anion Gap 8 - 15 mmol/L 10 eGFR >=60 mL/min/1.73m 48 (L) Cholesterol, Total <200 mg/dL 128 Triglyceride <150 mg/dL 66 HDL Cholesterol >39 mg/dL 46 Non HDL Cholesterol <130 mg/dL 82 Fasting Time hrs 14 VLDL Cholesterol <30 mg/dL 13 TC:HDL Ratio <5.10 2.78 LDL Cholesterol <100 mg/dL 69 LDL:HDL Ratio <2.54 1.50 Legend: (L) Low (H) High Assessment and Plan 1. Stage 3a chronic kidney disease (HCC) - ICD9: 585.3, ICD10: N18.31 (primary diagnosis) - eGFR: 48 Worsening - Counseled on avoiding NSAIDs, adequate hydration - BASIC METABOLIC PANEL 2. Essential hypertension - ICD9: 401.9, ICD10: I10 - Worsening control - See HPI. See medication adjustment. - AMLODIPINE 10 MG TABLET - HYDRALAZINE 50 MG TABLET - POTASSIUM CHLORIDE ER 10 MEQ TABLET,EXTENDED RELEASE - LOSARTAN 100 MG-HYDROCHLOROTHIAZIDE 12.5 MG TABLET 3. Psoriasis - ICD9: 696.1, ICD10: L40.9 Stable. - CLOTRIMAZOLE-BETAMETHASONE 1 %-0.05 % TOPICAL CREAM 4. Lower urinary tract symptoms (LUTS) - ICD9: 788.99, ICD10: R39.9 Controlled. - DOXAZOSIN 8 MG TABLET 5. Mixed hyperlipidemia - ICD9: 272.2, ICD10: E78.2 - Controlled - Continue current medications - FENOFIBRATE 160 MG TABLET 6. Allergic rhinitis, unspecified seasonality, unspecified trigger - ICD9: 477.9, ICD10: J30.9 Controlled. - FLUTICASONE PROPIONATE 50 MCG/ACTUATION NASAL SPRAY,SUSPENSION 7. PAF (paroxysmal atrial fibrillation) (HCC) - ICD9: 427.31, ICD10: I48.0 Controlled. - METOPROLOL TARTRATE 50 MG TABLET 8. Gastroesophageal reflux disease without esophagitis - ICD9: 530.81, ICD10: K21.9 Controlled. - OMEPRAZOLE 20 MG CAPSULE,DELAYED RELEASE Sudheer Ritchie MD documented in this encounter [facility] 03-29-2024 Note HNO ID: [id number] Author: CALI DAWSON, DO Service: ? Author Type: Physician Type: Progress Notes Filed: 03/29/2024 10:08 Note Text: [facility] OUTPATIENT VISIT DATE March 29, 2024 PRIMARY CARE PHYSICIAN: Sudheer Ritchie [address] [place] [address] HISTORY OF PRESENT ILLNESS: Mr. Reddy is a 78 year old male. The patient returns for follow-up secondary to a history of paroxysmal atrial fibrillation, hypertension, hyperlipidemia, borderline ascending aortic dilatation and obstructive sleep apnea. His atrial fibrillation was remote when his CHADS2 score dictated no oral anticoagulation. It is not recurred since. He has stopped using his CPAP due to the difficulty in using such. He continues to work out the gym and use weights. He either uses a reclined stair step or walks on the treadmill at approximately 2 mph. He denies chest discomfort, dyspnea, orthopnea, paroxysmal nocturnal dyspnea, palpitations, near-syncope or syncope. PLAN AND RECOMMENDATIONS: The patient overall appears stable without symptoms that would suggest angina or cardiac decompensation was current optimal medical therapy. Heart rate, blood pressure and recent cholesterol profile are favorable and the same. We have therefore made no additions or changes. We do lengthy discussion regarding dietary and lifestyle modification with improved food choices, increase protein intake, adequate hydration and improvement of both his stamina and improvement of his lean body mass. He apparently has some weakness in his lower extremities but ironically never does any weight lifting for his legs, only for his upper body. We discussed increasing the miles per hour with walking and possibly of building up to light jogging should his left knee be able to take such. We also discussed improvement of strength with utilizing machines for his lower body which would improve risk factors particularly reduce development of osteoporosis, diabetes and Alzheimer's/dementia. We will look forward to reevaluating him in 1 years time. Vitals: BP 130/76 Pulse (!) 56 Wt 104.1 kg (229 lb 8 oz) SpO2 99% BMI 38.19 kg/m? Physical Exam Vitals reviewed. Constitutional: General: He is not in acute distress. Appearance: He is well-developed. He is not diaphoretic. HENT: Head: Normocephalic and atraumatic. Right Ear: External ear normal. Left Ear: External ear normal. Nose: Nose normal. Eyes: General: No scleral icterus. Right eye: No discharge. Left eye: No discharge. Pupils: Pupils are equal, round, and reactive to light. Neck: Thyroid: No thyromegaly. Vascular: No JVD. Cardiovascular: Rate and Rhythm: Normal rate and regular rhythm. Heart sounds: No murmur heard. No friction rub. No gallop. Pulmonary: Effort: Pulmonary effort is normal. No respiratory distress. Breath sounds: Normal breath sounds. No wheezing or rales. Abdominal: General: Bowel sounds are normal. Palpations: Abdomen is soft. Musculoskeletal: General: Normal range of motion. Cervical back: Neck supple. Skin: General: Skin is warm and dry. Coloration: Skin is not pale. Neurological: Mental Status: He is alert and oriented to person, place, and time. Cranial Nerves: No cranial nerve deficit. Psychiatric: Mood and Affect: Mood is not anxious or depressed. Behavior: Behavior normal. Thought Content: Thought content normal. Judgment: Judgment normal. Review of Systems Constitutional: Negative for activity change, appetite change, fatigue and unexpected weight change. HENT: Negative for ear pain and trouble swallowing. Eyes: Negative for pain and visual disturbance. Respiratory: Negative for chest tightness and shortness of breath. Cardiovascular: Negative for chest pain, palpitations and leg swelling. Gastrointestinal: Negative for abdominal pain and blood in stool. Endocrine: Negative for cold intolerance and heat intolerance. Genitourinary: Negative for dysuria, hematuria and scrotal swelling. Musculoskeletal: Positive for arthralgias and back pain. Negative for myalgias. Skin: Negative for pallor and rash. Allergic/Immunologic: Negative for immunocompromised state. Neurological: Negative for dizziness, syncope and light-headedness. Hematological: Negative for adenopathy. Does not bruise/bleed easily. Psychiatric/Behavioral: Negative for sleep disturbance. The patient is not nervous/anxious. PAST MEDICAL HISTORY No date: Actinic keratosis 08/12/2011: Anemia, chronic disease 10/19/2006: Class 2 severe obesity with serious comorbidity and body mass index (BMI) of 37.0 to 37.9 in adult ([facility]) 02/23/2023: COVID-19 No date: Esophageal reflux 10/19/2006: Essential hypertension 02/02/2017: Fatty (change of) liver, not elsewhere classified No date: Generalized osteoarthrosis, unspecifie (more content not included)... [facility] 03-29-2024 History of Present illness Narrative Images from the original note were not included. [facility] OUTPATIENT VISIT DATE March 29, 2024 PRIMARY CARE PHYSICIAN: Sudheer Ritchie [address] [place] [address] HISTORY OF PRESENT ILLNESS: Mr. Reddy is a 78 year old male. The patient returns for follow-up secondary to a history of paroxysmal atrial fibrillation, hypertension, hyperlipidemia, borderline ascending aortic dilatation and obstructive sleep apnea. His atrial fibrillation was remote when his CHADS2 score dictated no oral anticoagulation. It is not recurred since. He has stopped using his CPAP due to the difficulty in using such. He continues to work out the gym and use weights. He either uses a reclined stair step or walks on the treadmill at approximately 2 mph. He denies chest discomfort, dyspnea, orthopnea, paroxysmal nocturnal dyspnea, palpitations, near-syncope or syncope. PLAN AND RECOMMENDATIONS: The patient overall appears stable without symptoms that would suggest angina or cardiac decompensation was current optimal medical therapy. Heart rate, blood pressure and recent cholesterol profile are favorable and the same. We have therefore made no additions or changes. We do lengthy discussion regarding dietary and lifestyle modification with improved food choices, increase protein intake, adequate hydration and improvement of both his stamina and improvement of his lean body mass. He apparently has some weakness in his lower extremities but ironically never does any weight lifting for his legs, only for his upper body. We discussed increasing the miles per hour with walking and possibly of building up to light jogging should his left knee be able to take such. We also discussed improvement of strength with utilizing machines for his lower body which would improve risk factors particularly reduce development of osteoporosis, diabetes and Alzheimer's/dementia. We will look forward to reevaluating him in 1 years time. Vitals: BP 130/76 Pulse (!) 56 Wt 104.1 kg (229 lb 8 oz) SpO2 99% BMI 38.19 kg/m Physical Exam Vitals reviewed. Constitutional: General: He is not in acute distress. Appearance: He is well-developed. He is not diaphoretic. HENT: Head: Normocephalic and atraumatic. Right Ear: External ear normal. Left Ear: External ear normal. Nose: Nose normal. Eyes: General: No scleral icterus. Right eye: No discharge. Left eye: No discharge. Pupils: Pupils are equal, round, and reactive to light. Neck: Thyroid: No thyromegaly. Vascular: No JVD. Cardiovascular: Rate and Rhythm: Normal rate and regular rhythm. Heart sounds: No murmur heard. No friction rub. No gallop. Pulmonary: Effort: Pulmonary effort is normal. No respiratory distress. Breath sounds: Normal breath sounds. No wheezing or rales. Abdominal: General: Bowel sounds are normal. Palpations: Abdomen is soft. Musculoskeletal: General: Normal range of motion. Cervical back: Neck supple. Skin: General: Skin is warm and dry. Coloration: Skin is not pale. Neurological: Mental Status: He is alert and oriented to person, place, and time. Cranial Nerves: No cranial nerve deficit. Psychiatric: Mood and Affect: Mood is not anxious or depressed. Behavior: Behavior normal. Thought Content: Thought content normal. Judgment: Judgment normal. Review of Systems Constitutional: Negative for activity change, appetite change, fatigue and unexpected weight change. HENT: Negative for ear pain and trouble swallowing. Eyes: Negative for pain and visual disturbance. Respiratory: Negative for chest tightness and shortness of breath. Cardiovascular: Negative for chest pain, palpitations and leg swelling. Gastrointestinal: Negative for abdominal pain and blood in stool. Endocrine: Negative for cold intolerance and heat intolerance. Genitourinary: Negative for dysuria, hematuria and scrotal swelling. Musculoskeletal: Positive for arthralgias and back pain. Negative for myalgias. Skin: Negative for pallor and rash. Allergic/Immunologic: Negative for immunocompromised state. Neurological: Negative for dizziness, syncope and light-headedness. Hematological: Negative for adenopathy. Does not bruise/bleed easily. Psychiatric/Behavioral: Negative for sleep disturbance. The patient is not nervous/anxious. PAST MEDICAL HISTORY No date: Actinic keratosis 08/12/2011: Anemia, chronic disease 10/19/2006: Class 2 severe obesity with serious comorbidity and body mass index (BMI) of 37.0 to 37.9 in adult (HCC) 02/23/2023: COVID-19 No date: Esophageal reflux 10/19/2006: Essential hypertension 02/02/2017: Fatty (change of) liver, not elsewhere classified No date: Generalized osteoarthrosis, unspecified site No date: Glaucoma 08/07/2015: Hyperlipidemia 12/12/2006: Malignant neoplasm of prostate (HCC) 10/19/2006: RAJESH on CPAP 11/24/2018: PAF (paroxysmal atrial fibrillation) (HCC) 2004: Prostate cancer (HCC) Comment: Patient validates year PAST SURGICAL HISTORY 07/25/1995: COLONOSCOPY FLX DX W/COLLJ SPEC WHEN PFRMD Comment: Colonoscopy 05/25/2004: COLONOSCOPY FLX DX W/COLLJ SPEC WHEN PFRMD Comment: Colonoscopy Dr. Munguia=repeat in 08/14/2020: COLONOSCOPY SCRN NOT HIGH RISK 04/04/2015: COLSC FLX W/RMVL OF TUMOR POLYP LESION SNARE TQ Comment: small ablated polyp -5 year follow up No date: EYE SURGERY HX 05/13/2005: F US PROSTATE VOLUME BRACHYTHERAPY Comment: Seed implants- [facility] 12/23/2004: PAST SURGICAL HISTORY OF Comment: TRUS w/ bx. Dr. Gonzalez. 05/13/2005: PAST SURGICAL HISTORY OF Comment: seed implants - [facility] 1956: TONSILLECTOMY & ADENOIDECTOMY <AGE 12 Comment: T/A (under age 12 years) 11/11/2020: TOTAL HIP REPLACEMENT; Right Comment: right THR 03/21/2020: TOTAL KNEE REPLACEMENT; Right Social History Tobacco Use Smoking status: Former Types: Cigars Quit date: 01/21/2018 Years since quittin.1 Smokeless tobacco: Never Tobacco comments: occ cigar Vaping Use Vaping status: Never Used Substance Use Topics Alcohol use: Yes Alcohol/week: 5.0 standard drinks of alcohol Types: 5 Shots of liquor per week Drug use: No FAMILY HISTORY Problem Relation Age of Onset Alzheimer's Disease Mother Arthritis Mother COPD Father ALLERGIES Allergen Reactions Pantoprazole Swelling of hands and yellowing of eyes and muscle aches. Adhesive Other: See Comments redness Sulfa (Sulfonamide * as an , does not know the reaction CURRENT MEDICATIONS: ipratropium bromide (ATROVENT) 42 mcg (0.06 %) nasal spray Use 2 Sprays in the nose three times a day. clotrimazole-betamethasone (LOTRISONE) cream Apply to rash on leg , twice daily hydrALAZINE (APRESOLINE) 50 mg tablet Take 1 tablet by mouth every morning AND 1 tablet every afternoon AND 2 tablets daily at bedtime. amLODIPine (NORVASC) 10 mg tablet Take 1 tablet by mouth once daily. doxazosin (CARDURA) 8 mg tablet Take 1 tablet by mouth once daily. Fenofibrate (LOFIBRA) 160 mg tablet Take 1 tablet by mouth once daily. losartan-hydroCHLOROthiazide (HYZAAR) 100-25 mg per tablet Take 1 tablet by mouth once daily. metoprolol tartrate, short acting, (LOPRESSOR) 50 mg tablet Take 1 tablet by mouth two times a day. omeprazole (PRILOSEC) 20 mg capsule TAKE 1 CAPSULE DAILY BEFORE BREAKFAST ONE-HALF (1/2) HOUR BEFORE MEAL potassium chloride (K-TAB) 10 mEq tablet Take 1 tablet by mouth daily with breakfast. fluticasone (FLONASE) 50 mcg/actuation nasal spray Use 1 [place] in each nostril once daily. cyanocobalamin (VITAMIN B-12) 100 mcg tab Take 100 mcg by mouth once daily. pyridoxine HCl, vitamin B6, (VITAMIN B-6 ORAL) Take by mouth once daily. aspirin, enteric coated (ASPIRIN, ENTERIC COATED) 81 mg EC tablet Take 1 tablet by mouth once daily. hydrOXYchloroQUINE (PLAQUENIL) 200 mg tablet Take by mouth twice daily. latanoprost (XALATAN) 0.005 % ophthalmic solution Use 1 Drop in both eyes daily at bedtime. fish oil/omega-3 fatty acids(FISH OIL OMEGA 3-6-9 300 MG-1,000 MG CAP, DELAYED RELEASE) Take one(1) tablet daily. ubidecarenone(CO Q-10 100 MG CAP) Take one(1) tablet daily. Cali Dawson DO, FACC, FAC Pulmonary Disease Specialist, [facility] Ambulatory Cardiology Pulmonary Disease Specialist, [facility] Cardiac Rehabilitation Pulmonary Disease Specialist, [facility] Cardiac Rehabilitation Pulmonary Disease Specialist, [facility] Congestive Heart Failure [facility] Pulmonary Disease Specialist, [facility] Ambulatory Cardiology Clinical Inseam Trimming Machine Operator Profressor of Medicine, [facility] Staff Arboriculture Teacher, Rimma Ball Department of Cardiovascular Medicine/Heart and Vascular [place], [facility] Please note: This note has been produced using speech recognition software and may contain errors related to that system including elian, punctuation, spelling, words, gender and phrases that may be inappropriate. documented in this encounter [facility] 10-12-2023 History of Present illness Narrative This note was created using [email or web address]. Subjective Demetrius Reddy is a 77 year old male. His hypertension was now controlled. He was also watching his portions and dropped almost 10 pounds. He felt well. His only concerns were chronic rhinorrhea and postnasal drainage. Flonase was used with some effect, mainly for sneezing. Other concern was heaviness of his thighs with climbing steps, prolonged walking, that seemed to improve with resting after a few minutes. He described his legs feeling like they had cement. He mentioned blurry vision for a few months, worse in the morning, improving during the day. He was on plaquenil. He will see Dr. Mohan next month. Review of Systems Constitutional: Negative for appetite change, fatigue and fever. HENT: Positive for postnasal drip and rhinorrhea. Negative for congestion, sneezing and sore throat. Respiratory: Negative for cough, shortness of breath and wheezing. Cardiovascular: Positive for leg swelling. Negative for chest pain and palpitations. Gastrointestinal: Negative for abdominal pain, constipation and diarrhea. Genitourinary: Negative for difficulty urinating and dysuria. Neurological: Negative for dizziness, light-headedness and headaches. 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 Lower Urinary Tract Symptoms (Luts) Long-Term Use of Plaquenil Stage 3a Chronic Kidney Disease (Hcc) Psoriasis Obesity, Class II, Bmi 35-39.9 Social History Tobacco Use Smoking status: Former Types: Cigars Quit date: 01/21/2018 Years since quittin.7 Smokeless tobacco: Never Tobacco comments: occ cigar Vaping Use Vaping Use: Never used Substance Use Topics Alcohol use: Yes Alcohol/week: 5.0 standard drinks of alcohol Types: 5 Shots of liquor per week Drug use: No Current Outpatient Medications Medication Sig clotrimazole-betamethasone (LOTRISONE) cream Apply to rash on leg , twice daily hydrALAZINE (APRESOLINE) 50 mg tablet Take 1 tablet by mouth every morning AND 1 tablet every afternoon AND 2 tablets daily at bedtime. amLODIPine (NORVASC) 10 mg tablet Take 1 tablet by mouth once daily. doxazosin (CARDURA) 8 mg tablet Take 1 tablet by mouth once daily. Fenofibrate (LOFIBRA) 160 mg tablet Take 1 tablet by mouth once daily. losartan-hydroCHLOROthiazide (HYZAAR) 100-25 mg per tablet Take 1 tablet by mouth once daily. metoprolol tartrate, short acting, (LOPRESSOR) 50 mg tablet Take 1 tablet by mouth two times a day. omeprazole (PRILOSEC) 20 mg capsule TAKE 1 CAPSULE DAILY BEFORE BREAKFAST ONE-HALF (1/2) HOUR BEFORE MEAL potassium chloride (K-TAB) 10 mEq tablet Take 1 tablet by mouth daily with breakfast. fluticasone (FLONASE) 50 mcg/actuation nasal spray Use 1 [place] in each nostril once daily. cyanocobalamin (VITAMIN B-12) 100 mcg tab Take 100 mcg by mouth once daily. pyridoxine HCl, vitamin B6, (VITAMIN B-6 ORAL) Take by mouth once daily. aspirin, enteric coated (ASPIRIN, ENTERIC COATED) 81 mg EC tablet Take 1 tablet by mouth once daily. hydrOXYchloroQUINE (PLAQUENIL) 200 mg tablet Take by mouth twice daily. latanoprost (XALATAN) 0.005 % ophthalmic solution Use 1 Drop in both eyes daily at bedtime. fish oil/omega-3 fatty acids(FISH OIL OMEGA 3-6-9 300 MG-1,000 MG CAP, DELAYED RELEASE) Take one(1) tablet daily. ubidecarenone(CO Q-10 100 MG CAP) Take one(1) tablet daily. No current facility-administered medications for this visit. Objective Blood Pressure 119/66 (BP Site: Left Arm, BP Position: Sitting, BP Cuff Size: Large Adult) Pulse (Abnormal) 55 Temperature 36.3 C (97.3 F) (Temporal) Respiration 16 Weight 103.3 kg (227 lb 12.8 oz) Body Mass Index 37.91 kg/m Physical Exam Constitutional: General: He is not in acute distress. HENT: Nose: Mucosal edema present. No rhinorrhea. Left Nostril: Epistaxis present. Right Turbinates: Not pale. Left Turbinates: Not pale. Right Sinus: No maxillary sinus tenderness or frontal sinus tenderness. Left Sinus: No maxillary sinus tenderness or frontal sinus tenderness. Mouth/Throat: Pharynx: Oropharynx is clear. Cardiovascular: Rate and Rhythm: Regular rhythm. Bradycardia present. Pulses: Dorsalis pedis pulses are 1+ on the right side and 1+ on the left side. Posterior tibial pulses are 0 on the right side and 0 on the left side. Heart sounds: No murmur heard. No gallop. Pulmonary: Effort: No respiratory distress. Breath sounds: No wheezing or rales. Musculoskeletal: Right lower le+ Pitting Edema present. Left lower le+ Pitting Edema present. Neurological: Mental Status: He is alert. Assessment and Plan 1. Allergic rhinitis with postnasal drip - ICD9: 477.9, 784.91, ICD10: J30.9, R09.82 (primary diagnosis) Discussed medication dosage, usage, goals of therapy, and side effects. - IPRATROPIUM BROMIDE 42 MCG (0.06 %) NASAL SPRAY 2. Essential hypertension - ICD9: 401.9, ICD10: I10 - Controlled 3. Claudication of both lower extremities (HCC) - ICD9: 443.9, ICD10: I73.9 - PVR LEG [facility] - Referral may be needed for peripheral vascular disease. 4. Anemia, chronic disease - ICD9: 285.29, ICD10: D63.8 Stable. 5. Blurry vision - ICD9: 368.8, ICD10: H53.8 Try lubricant eye drops. See Dr. Mohan. Sudheer Ritchie MD documented in this encounter [facility] 06-10-2023 History of Present illness Narrative This note was created using [employer]. Subjective Demetrius Reddy is a 77 year old male here for follow up. His conditions were generally stable. His hypertension was still not at goal. He was not able to use compression stockings so edema was significant. Review of Systems Constitutional: Negative for fatigue, fever and unexpected weight change. HENT: Negative for congestion. Respiratory: Negative for cough, shortness of breath and wheezing. Cardiovascular: Positive for leg swelling. Negative for chest pain and palpitations. Gastrointestinal: Negative for constipation, diarrhea and nausea. Genitourinary: Negative for difficulty urinating. Neurological: Negative for dizziness, light-headedness and headaches. ACTIVE PROBLEM LIST Class 2 Severe Obesity With Serious Comorbidity and Body Mass Index (Bmi) of 35.0 to 35.9 in Adult Essential Hypertension Rajesh On Cpap Personal History of Malignant Neoplasm of Prostate Generalized Osteoarthritis of Multiple Sites Mitral Valve Disease Esophageal Reflux COLON POLYP Inflammatory Polyarthropathy (Hcc) Anemia, Chronic Disease Hyperlipidemia Paf (Paroxysmal Atrial Fibrillation) (Hcc) Fatty (Change Of) Liver, Not Elsewhere Classified Edema of Lower Leg Due to Peripheral Venous Insufficiency Lower Urinary Tract Symptoms (Luts) Long-Term Use of Plaquenil Stage 3a Chronic Kidney Disease (Hcc) Psoriasis Obesity, Class II, Bmi 35-39.9 Current Outpatient Medications Medication Sig amLODIPine (NORVASC) 10 mg tablet Take 1 tablet by mouth once daily. doxazosin (CARDURA) 8 mg tablet Take 1 tablet by mouth once daily. Fenofibrate (LOFIBRA) 160 mg tablet Take 1 tablet by mouth once daily. losartan-hydroCHLOROthiazide (HYZAAR) 100-25 mg per tablet Take 1 tablet by mouth once daily. metoprolol tartrate, short acting, (LOPRESSOR) 50 mg tablet Take 1 tablet by mouth two times a day. omeprazole (PRILOSEC) 20 mg capsule TAKE 1 CAPSULE DAILY BEFORE BREAKFAST ONE-HALF (1/2) HOUR BEFORE MEAL potassium chloride (K-TAB) 10 mEq tablet Take 1 tablet by mouth daily with breakfast. fluticasone (FLONASE) 50 mcg/actuation nasal spray Use 1 [place] in each nostril once daily. clotrimazole-betamethasone (LOTRISONE) cream Apply to rash on leg , twice daily hydrALAZINE (APRESOLINE) 50 mg tablet Take 1 tablet by mouth three times a day. cyanocobalamin (VITAMIN B-12) 100 mcg tab Take 100 mcg by mouth once daily. pyridoxine HCl, vitamin B6, (VITAMIN B-6 ORAL) Take by mouth once daily. aspirin, enteric coated (ASPIRIN, ENTERIC COATED) 81 mg EC tablet Take 1 tablet by mouth once daily. hydrOXYchloroQUINE (PLAQUENIL) 200 mg tablet Take by mouth twice daily. latanoprost (XALATAN) 0.005 % ophthalmic solution Use 1 Drop in both eyes daily at bedtime. fish oil/omega-3 fatty acids(FISH OIL OMEGA 3-6-9 300 MG-1,000 MG CAP, DELAYED RELEASE) Take one(1) tablet daily. ubidecarenone(CO Q-10 100 MG CAP) Take one(1) tablet daily. No current facility-administered medications for this visit. Objective BP 146/66 (BP Site: Left Arm, BP Position: Sitting, BP Cuff Size: Large Adult) Pulse 66 Resp 16 Ht 165.1 cm (5' 5) Wt 108 kg (238 lb) BMI 39.61 kg/m Physical Exam Constitutional: General: He is not in acute distress. HENT: Head: Normocephalic. Eyes: Conjunctiva/sclera: Conjunctivae normal. Cardiovascular: Rate and Rhythm: Normal rate and regular rhythm. Heart sounds: No murmur heard. No gallop. Pulmonary: Effort: Pulmonary effort is normal. Breath sounds: Normal breath sounds. Abdominal: Palpations: Abdomen is soft. Tenderness: There is no abdominal tenderness. Musculoskeletal: Right lower le+ Pitting Edema present. Left lower le+ Pitting Edema present. Neurological: Mental Status: He is alert. Assessment and Plan 1. Medicare annual wellness visit, subsequent - ICD9: V70.0, ICD10: Z00.00 (primary diagnosis) See wellness note. 2. Essential hypertension - ICD9: 401.9, ICD10: I10 - Worsening control - Continue current medications - Increase HYDRALAZINE 50 MG TABLET. 1 in AM, 1 at noon, and 2 tablets at HS. 3. Edema of lower leg due to peripheral venous insufficiency - ICD9: 459.81, 782.3, ICD10: I87.2, R60.0 Use compressions stockings as directed. 4. Mixed hyperlipidemia - ICD9: 272.2, ICD10: E78.2 - Controlled - Continue current medications 5. Obesity, Class II, BMI 35-39.9 - ICD9: 278.00, ICD10: E66.9 - We discussed medications like Wegovy. He will check with his insurance [place] Sudheer Ritchie MD Demetrius Reddy is a 77 year old male here for a Medicare wellness visit. Medicare Health Risk Assessment General Health Good Exercise: Minutes/Day 50 min Exercise: Days/Week 3 days Alcohol: Daily Use 2-3 times a week Alcohol: Drinks/Day 1 or 2 Alcohol: 6 or more drinks Never Feel off balance No Concerns: Teeth/Dentures No Concerns: Sexual function No Troubled by feelings None of the above Frequency: Eating healthy diet Nearly every day ADLs requiring help None of the above Safety precautions in home/vehicle Yes Smoke, vape, chews tobacco No Difficulty hearing No Difficulty seeing No Current Providers Specialists: I have reviewed specialist-related care of the patient in the medical record. Current care team: Patient Care Team: Sudheer Ritchie MD as PCP - General (Internal Medicine) Outside specialists seen: Dr. Cali Dawson, cardiology. Dr. Hiram Marie, rheumatology. Dr. Calos Mohan, optometry. Medical/Family history review Reviewed and updated problem list, medical/surgical/family/social history, medications, and allergies. Opioid use review Opioid Medications (last 90 days) Some values may be hidden. Unless noted otherwise, only the newest values recorded on each date are displayed. Opioid Medications No data to display. Depression screening Depression Screening PHQ-2 Score NIDIA-2 Total Score 06/10/2023 0 - Depression screening tool completed and reviewed. Based on score and interview, patient is not at risk for depression. Screening tool discussed with patient, and I recommended no further intervention at this time. Cognitive screening Mini Cog Score: 5 Cognitive screening reviewed and no further action needed (score 3-5) Functional Observation Was the patient's timed Up & Go test unsteady or ? 12 seconds? No Advance Care Planning Patient did not wish or was not able to name a surrogate decision maker or provide an advance care plan Measurements BP 146/66 Pulse 66 Resp 16 Ht 5' 5 (1.65m) Wt 238 lb (108.0kg) BMI 39.61 kg/(m^2). Additional screenings: Vision Screening Right eye - Without correction: With correction: 20/40 Left eye - Without correction: With correction: 20/40 Both eyes - Without correction: With correction: 20/30 Assessment/Plan Medicare annual wellness visit, subsequent (Z00.00) - Counseled on healthy diet and regular exercise - Fall avoidance information provided - Personalized prevention plan provided - Discussed need for and benefit of weight loss. BMI 39.61 kg/(m^2) - Vaccines recommended. RSV vaccine. documented in this encounter [facility] 03-29-2023 History of Present illness Narrative Images from the original note were not included. [facility] SECTION OF [facility] OUTPATIENT VISIT DATE March 29, 2023 PRIMARY CARE PHYSICIAN: Sudheer Ritchie [address] [place] [address] HISTORY OF PRESENT ILLNESS: Mr. Reddy is a 77 year old male. The patient returns for follow-up second history of paroxysmal atrial fibrillation as well as hypertension, hyperlipidemia, mild dilatation ascending aorta and obstructive sleep apnea. He denies chest scar, dyspnea, orthopnea, paroxysmal nocturnal dyspnea, palpitations, near-syncope, syncope, GI/ bleeding or melena. His history of atrial fibrillation is remote during his stress test without apparent documentation in the chart. At that time he did not have a [id number] score for which anticoagulation was recommended. PLAN AND RECOMMENDATIONS: The patient remained stable without apparent symptoms of suggest angina, cardiac compensation or apparent paroxysms atrial fibrillation. Heart rate, blood pressure and recent cholesterol profile are favorable. We have therefore made no additions or changes. Dietary and lifestyle modification was reemphasized to facilitate risk factor reduction. We will look forward to reevaluating him in 1 years time. Vitals: BP 124/68 Pulse 61 Ht 175.3 cm (5' 9) Wt 105.7 kg (233 lb) SpO2 98% BMI 34.41 kg/m Physical Exam Vitals reviewed. Constitutional: General: He is not in acute distress. Appearance: He is well-developed. He is not diaphoretic. HENT: Head: Normocephalic and atraumatic. Right Ear: External ear normal. Left Ear: External ear normal. Nose: Nose normal. Eyes: General: No scleral icterus. Right eye: No discharge. Left eye: No discharge. Pupils: Pupils are equal, round, and reactive to light. Neck: Thyroid: No thyromegaly. Vascular: No JVD. Cardiovascular: Rate and Rhythm: Normal rate and regular rhythm. Heart sounds: No murmur heard. No friction rub. No gallop. Pulmonary: Effort: Pulmonary effort is normal. No respiratory distress. Breath sounds: Normal breath sounds. No wheezing or rales. Abdominal: General: Bowel sounds are normal. Palpations: Abdomen is soft. Musculoskeletal: General: Normal range of motion. Cervical back: Neck supple. Skin: General: Skin is warm and dry. Coloration: Skin is not pale. Neurological: Mental Status: He is alert and oriented to person, place, and time. Cranial Nerves: No cranial nerve deficit. Psychiatric: Mood and Affect: Mood is not anxious or depressed. Behavior: Behavior normal. Thought Content: Thought content normal. Judgment: Judgment normal. Review of Systems Constitutional: Negative for activity change, appetite change, fatigue and unexpected weight change. HENT: Negative for ear pain and trouble swallowing. Eyes: Negative for pain and visual disturbance. Respiratory: Negative for chest tightness and shortness of breath. Cardiovascular: Negative for chest pain, palpitations and leg swelling. Gastrointestinal: Negative for abdominal pain and blood in stool. Endocrine: Negative for cold intolerance and heat intolerance. Genitourinary: Negative for dysuria, hematuria and scrotal swelling. Musculoskeletal: Positive for arthralgias and back pain. Negative for myalgias. Skin: Negative for pallor and rash. Allergic/Immunologic: Negative for immunocompromised state. Neurological: Negative for dizziness, syncope and light-headedness. Hematological: Negative for adenopathy. Does not bruise/bleed easily. Psychiatric/Behavioral: Negative for sleep disturbance. The patient is not nervous/anxious. PAST MEDICAL HISTORY Diagnosis Date Actinic keratosis Anemia, chronic disease 08/12/2011 Class 2 severe obesity with serious comorbidity and body mass index (BMI) of 37.0 to 37.9 in adult (HCC) 10/19/2006 Esophageal reflux Essential hypertension 10/19/2006 Fatty (change of) liver, not elsewhere classified 02/02/2017 Generalized osteoarthrosis, unspecified site Glaucoma Hyperlipidemia 08/07/2015 Malignant neoplasm of prostate (HCC) 12/12/2006 RAJESH on CPAP 10/19/2006 PAF (paroxysmal atrial fibrillation) (HCC) 11/24/2018 Prostate cancer (HCC) 2004 Patient validates year PAST SURGICAL HISTORY Procedure Laterality Date COLONOSCOPY FLX DX W/COLLJ SPEC WHEN PFRMD 07/25/1995 Colonoscopy COLONOSCOPY FLX DX W/COLLJ SPEC WHEN PFRMD 05/25/[address] Munguia=repeat in COLONOSCOPY SCRN NOT HIGH RISK 08/14/2020 COLSC FLX W/RMVL OF TUMOR POLYP LESION SNARE TQ 04/04/2015 small ablated polyp -5 year follow up EYE SURGERY HX F US PROSTATE VOLUME BRACHYTHERAPY 05/13/2005 Seed implants- [facility] PAST SURGICAL HISTORY OF 12/23/2004 TRUS w/ bx. Dr. Gonzalez. PAST SURGICAL HISTORY OF 05/13/2005 seed implants - [facility] TONSILLECTOMY & ADENOIDECTOMY <AGE 12 1957 T/A (under age 12 years) TOTAL HIP REPLACEMENT Right 11/11/2020 right THR TOTAL KNEE REPLACEMENT Right 03/21/2020 Social History Tobacco Use Smoking status: Former Types: Cigars Quit date: 01/21/2018 Years since quittin.1 Smokeless tobacco: Never Tobacco comments: occ cigar Vaping Use Vaping Use: Never used Substance Use Topics Alcohol use: Yes Alcohol/week: 5.0 standard drinks of alcohol Types: 5 Shots of liquor per week Drug use: No FAMILY HISTORY Problem Relation Age of Onset Alzheimer's Disease Mother Arthritis Mother COPD Father ALLERGIES Allergen Reactions Pantoprazole Swelling of hands and yellowing of eyes and muscle aches. Adhesive Other: See Comments redness Sulfa (Sulfonamide * as an , does not know the reaction CURRENT MEDICATIONS: hydrALAZINE (APRESOLINE) 25 mg tablet Take 2 tablets by mouth every morning AND 1 tablet every afternoon AND 2 tablets daily at bedtime. amLODIPine (NORVASC) 10 mg tablet Take 1 tablet by mouth once daily. doxazosin (CARDURA) 8 mg tablet Take 1 tablet by mouth once daily. Fenofibrate (LOFIBRA) 160 mg tablet Take 1 tablet by mouth once daily. losartan-hydroCHLOROthiazide (HYZAAR) 100-25 mg per tablet Take 1 tablet by mouth once daily. metoprolol tartrate, short acting, (LOPRESSOR) 50 mg tablet Take 1 tablet by mouth twice daily. omeprazole (PRILOSEC) 20 mg capsule TAKE 1 CAPSULE DAILY BEFORE BREAKFAST ONE-HALF (1/2) HOUR BEFORE MEAL potassium chloride (K-TAB) 10 mEq tablet Take 1 tablet by mouth daily with breakfast. clotrimazole-betamethasone (LOTRISONE) cream Apply to rash on leg , twice daily fluticasone (FLONASE) 50 mcg/actuation nasal spray Use 1 [place] in each nostril once daily. cyanocobalamin (VITAMIN B-12) 100 mcg tab Take 100 mcg by mouth once daily. pyridoxine HCl, vitamin B6, (VITAMIN B-6 ORAL) Take by mouth once daily. aspirin, enteric coated (ASPIRIN, ENTERIC COATED) 81 mg EC tablet Take 1 tablet by mouth once daily. hydrOXYchloroQUINE (PLAQUENIL) 200 mg tablet Take by mouth twice daily. latanoprost (XALATAN) 0.005 % ophthalmic solution Use 1 Drop in both eyes daily at bedtime. fish oil/omega-3 fatty acids(FISH OIL OMEGA 3-6-9 300 MG-1,000 MG CAP, DELAYED RELEASE) Take one(1) tablet daily. ubidecarenone(CO Q-10 100 MG CAP) Take one(1) tablet daily. BIPAP Initiate BiPAP @ 12/8 cm of water with humidification. Mask (per patient preference) optional chin strap (if indicated) , filters, tubing, humidifier and lifetime supplies. (Patient not taking: Reported on 03/29/2023) EKG performed today demonstrates sinus rhythm at 61 bpm with a first-degree AV block, right bundle branch block and left anterior fascicular block. Possible LVH. Similar to previous. Cali Dawson DO, [facility], [facility] Pulmonary Disease Specialist, [facility] Ambulatory Cardiology Pulmonary Disease Specialist, [facility] Cardiac Rehabilitation Pulmonary Disease Specialist, [facility] Card[facility] Rehabilitation Pulmonary Disease Specialist, [facility] Cong[facility] Failure [facility] Pulmonary Disease Specialist, [facility] Ambulatory Cardiology Clinical Inseam Trimming Machine Operator Profressor of Medicine, [facility] Staff Arboriculture Teacher, [employer] and Jessenia Ball Department of Cardiovascular Medicine/Heart and Vascular [place], [facility] Please note: This note has been produced using speech recognition software and may contain errors related to that system including elian, punctuation, spelling, words, gender and phrases that may be inappropriate. documented in this encounter [facility] 02-23-2023 History of Past i llness Narrative Problem Noted Date Diagnosed Date Resolved Date COVID-19 02/23/2023 04/22/2023 Lumbar sprain 03/05/2020 03/22/2021 Preoperative clearance 03/03/202003/22 First degree AV block 05/23/20182020 Overview: Was dx many years ago, yearly ekgs, this year the pr interval was [address] wills yearly, advised to loose weight. Last Assessment & Plan: Was dx many years ago, yearly ekgs, this year the pr interval was 212, Sees Dr wills yearly, advised to loose weight. BMI 37.0-37.9, adult 02/21/2015 021 HYPERGLYCEMIA 05/05/2007 11/14/2018 Nontraumatic rupture of Achilles tendon 12/20/2006 10/26/2016 Malignant neoplasm of prostate 12/12/2006 03/22/2021 Last Assessment & Plan: No complaints except goes to the rest room 2/3 times a night. Got psa checked , was normal Class 2 severe obesity with serious comorbidity and body mass index (BMI) of 35.0 to 35.9 in adult 10/19/2006 06/10/2023 ERECTILE DYSFUNCTION 10/19/2006 021 Actinic keratosis 10/19/2006 02/21/2015 documented as of this encounter (statuses as of 06/10/2023) [facility]08-02-2023 History of Past illness Narrative* Problem Noted Date Diagnosed Date Resolved Date COVID-19 02/23/2023 04/22/2023 Lumbar sprain 03/05/2020 03/22/2021 Preoperative clearance 03/03/202003/22 First degree AV block 05/23/20182020 Overview: Was dx many years ago, yearly ekgs, this year the pr interval was [address] wills yearly, advised to loose weight. Last Assessment & Plan: Was dx many years ago, yearly ekgs, this year the pr interval was 212, Sees Dr wills yearly, advised to loose weight. BMI 37.0-37.9, adult 02/21/2015 021 HYPERGLYCEMIA 05/05/2007 11/14/2018 Nontraumatic rupture of Achilles tendon 12/20/2006 10/26/2016 Malignant neoplasm of prostate 12/12/2006 03/22/2021 Last Assessment & Plan: No complaints except goes to the rest room 2/3 times a night. Got psa checked , was normal Class 2 severe obesity with serious comorbidity and body mass index (BMI) of 35.0 to 35.9 in adult 10/19/2006 06/10/2023 ERECTILE DYSFUNCTION 10/19/2006 021 Actinic keratosis 10/19/2006 02/21/2015 documented as of this encounter (statuses as of 10/12/2023) [facility]08-02-2023 Instructions* Patient Instructions* Sudheer Ritchie MD - 02/23/2023 8:38 AM EDT Beginning Home Isolation Isolation is used to separate people infected with SARS-CoV-2, the virus that causes COVID-19, frompeople who are not infected. People who are in isolation should stay home until it s safe for them to be around others. In the home, anyone sick or infected should separate themselves from others by staying in a specific sick room or area and using a separate bathroom (if available). Isolation or Quarantine: What's the difference? Quarantine keeps someone who might have been exposed to the virus away from others. Isolation keeps someone who is infected with the virus away from others, even in their home. Who needs to isolate People who have COVID-19 People who have symptoms of COVID-19 and are able to recover at home People who have no symptoms (are asymptomatic) but have tested positive for infection with SARS-CoV-2 Steps to take Stay home except to get medical care Monitor your symptoms. Stay in a separate room from other household members, if possible Use a separate bathroom, if possible Avoid contact with other members of the household and pets Don t share personal household items, like cups, towels, and utensils Wear a mask when around other people, if you are able to When to seek emergency medical attention Look for emergency warning signs* for COVID-19. If someone is showing any of these signs, seek emergency medical care immediately: Trouble breathing Persistent pain or pressure in the chest New confusion Inability to wake or stay awake Bluish lips or face *This list is not all possible symptoms. Please call your medical provider for any other symptoms that are severe or concerning to you. Call 911 or call ahead to your local emergency facility: Notify the database operator that you are seeking care for someone who has or may have COVID-19. Ending Home Isolation - When you can be around others after you had or likely had COVID-19 When you can be around others after you had or likely had COVID-19 If You Test Positive for COVID-19 (Isolation) Everyone, regardless of vaccination status: Stay home for 5 days. Note: Day 0 is your first day of symptoms or the date of collection of a positive viral test if no symptoms. Day 1 is the first full day after symptoms developed or test specimen was collected. If you have no symptoms or your symptoms are resolving after 5 days, you can leave your house. Continue to wear a mask around others for 5 additional days. If you have a fever, continue to stay home until your fever resolves, even if it is longer than 5 days. If You Were Exposed to Someone with COVID-19 (Quarantine) If you: 1. Have been boosted OR 2. Completed the primary series of Pfizer or Moderna vaccine within the last 6 months OR 3. Completed the primary series of J&J vaccine within the last 2 months THEN: 1. Wear a mask around others for 10 days. 2. Test on day 5, if possible. If you develop symptoms get a test and stay home. If You Were Exposed to Someone with COVID-19 (Quarantine) If you: 1. Completed the primary series of Pfizer or Moderna vaccine over 6 months ago and are not boosted OR 2. Completed the primary series of J&J over 2 months ago and are not boosted OR 3. Are unvaccinated THEN: 1. Stay home for 5 days. After that continue to wear a mask around others for 5 additional days. 2. If you can't quarantine you must wear a mask for 10 days. 3. Test on day 5 if possible. If you develop symptoms get a test and stay home. I had COVID-19 or I tested positive for COVID-19 and I have a weakened immune system If you have a weakened immune system (immunocompromised) due to a health condition or medication, you might need to stay home and isolate longer than 10 days. Talk to your healthcare provider for more information. Your doctor may work with an infectious disease expert at your local health department to determinewhen you can be around others. [facility] History of Present illness Narrative* Sudheer Ritchie MD - 02/23/2023 8:19 AM EDT T SUBJECTIVE Demetrius Reddy is a 77 year old male who presents with 3 days of symptoms that are stable. Symptoms include: Fever (?100.4F): Yes or Chills: Yes Cough: Yes Shortness of breath: No or Difficulty breathing: Yes Fatigue: Yes Muscle aches: Yes Headache: Yes New loss of smell or taste: Yes Sore throat: Yes Nasal congestion: Yes or Rhinorrhea: Yes Nausea: No or Vomiting: No Diarrhea: No OTC meds/remedies that patient has tried: OTC cold medicine. High risk category assessment Age > 60 years old Chronic lung disease Exposures: Sick contacts? No Family or close contacts with confirmed/probable COVID-19 in last 14 days? No OBJECTIVE VIDEO EXAM T 101 GENERAL: no acute distress. HEENT: no conjunctival injection, pupils equal, moist mucous membranes, and no cervical adenopathy by self-palpation PULMONARY: breathing comfortably on room air , no coughing noted, and no wheezing noted ASSESSMENT/PLAN (U07.1) COVID-19 (primary encounter diagnosis) - Discussed symptom monitoring and supportive care - Red flag symptoms requiring follow up discussed Nirmatrelvir/Ritonavir (Paxlovid) Considerations Paxlovid is FDA-approved for treatment of mild to moderate COVID-19 in adults who are at high risk for progression to severe COVID-19. Consider use of Paxlovid in the following examples of high risk patients (list is not all inclusive): Age over 65 years Cardiovascular and cerebrovascular disease Chronic disease state (kidney, liver, lung) Diabetes (type 1 or type 2) Immunocompromised state (cancer, solid organ or blood stem cell transplant, HIV) Obesity Paxlovid warnings include serious drug interactions (co-administration with drugs highly dependent on CYP3A for clearance), hypersensitivity reactions, hepatotoxicity, and risk of HIV-1 resistance development. Patient's request for medication is as follows Requested Prescriptions Signed Prescriptions Disp Refills nirmatrelvir tablet 150 mg and ritonavir tablet 100 mg in a dose pack (PAXLOVID) 20 tablet 0 Sig: Administer ONE pink nirmatrelvir 150 mg tablet and ONE white ritonavir 100 mg tablet for a total of two tablets twice daily. Dose adjusted for CKD. Medication interaction check: Patient instructed to reduce amlodipine to 10 mg every other day while on antiviral. He is not taking Flonase regularly. Sudheer Ritchie MD February 23, 2023 8:35 AM [facility] [place] Instructions* Patient Instructions* Sudheer Ritchie MD - 10/14/2022 10:01 AM EDT FASTING BLOOD WORK IN 3 MONTHS. HYDRALAZINE INCREASED. SEE LIST. [facility] History of Present illness Narrative* Sudheer Ritchie MD - 10/14/2022 9:49 AM EDT This note was created using [employer]. Subjective Demetrius Reddy is a 76 year old male. His hypertension was not controlled. We reviewed his lab results. Joint pains were controlled and treated by rheumatology. Cardiology updated his echo. He complained of itchy rash of his lower back noted this winter time, similar to winter rash of hislerainer. His lotrisone cream was effective for the rash of the back as well. Review of Systems Constitutional: Negative. Respiratory: Negative for chest tightness and shortness of breath. Cardiovascular: Positive for leg swelling. Negative for chest pain and palpitations. Gastrointestinal: Negative. Genitourinary: Negative for difficulty urinating. Musculoskeletal: Negative for arthralgias. Skin: Positive for rash. Neurological: Negative for dizziness and headaches. 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 doxazosin (CARDURA) 8 mg tablet Take 1 tablet by mouth once daily. Fenofibrate (LOFIBRA) 160 mg tablet Take 1 tablet by mouth once daily. losartan-hydroCHLOROthiazide (HYZAAR) 100-25 mg per tablet Take 1 tablet by mouth once daily. metoprolol tartrate, short acting, (LOPRESSOR) 50 mg tablet Take 1 tablet by mouth twice daily. omeprazole (PRILOSEC) 20 mg capsule TAKE 1 CAPSULE DAILY BEFORE BREAKFAST ONE- HALF (1/2) HOUR BEFORE MEAL potassium chloride (K-TAB) 10 mEq tablet Take 1 tablet by mouth daily with breakfast. clotrimazole-betamethasone (LOTRISONE) cream Apply to rash on leg , twice daily fluticasone (FLONASE) 50 mcg/actuation nasal spray Use 1 [place] in each nostril once daily. BIPAP Initiate BiPAP @ 12/8 cm of water with humidification. Mask (per patient preference) optionalchin strap (if indicated) , filters, tubing, humidifier and lifetime supplies. cyanocobalamin (VITAMIN B-12) 100 mcg tab Take 100 mcg by mouth once daily. pyridoxine HCl, vitamin B6, (VITAMIN B-6 ORAL) Take by mouth once daily. aspirin, enteric coated (ASPIRIN, ENTERIC COATED) 81 mg EC tablet Take 1 tablet by mouth once daily. hydrOXYchloroQUINE (PLAQUENIL) 200 mg tablet Take by mouth twice daily. latanoprost (XALATAN) 0.005 % ophthalmic solution Use 1 Drop in both eyes daily at bedtime. fish oil/omega-3 fatty acids(FISH OIL OMEGA 3-6-9 300 MG-1,000 MG CAP, DELAYED RELEASE) Take one(1)tablet daily. ubidecarenone(CO Q-10 100 MG CAP) Take one(1) tablet daily. hydrALAZINE (APRESOLINE) 25 mg tablet Take 2 tablets by mouth every morning AND 1 tablet every afternoon AND 2 tablets daily at bedtime. Current Facility-Administered Medications Medication Dose Route Frequency perflutren lipid microspheres 1.3 mL in NaCl (PF) 0.9% 10 mL injection (DEFINITY) INTRAVENOUS DIRECTED PRN sodium chloride 0.9 % (flush) 10 mL (BD POSIFLUSH) 10 mL INTRAVENOUS DIRECTED PRN Objective BP 161/72 (BP Site: Left Arm, BP Position: Sitting, BP Cuff Size: Large Adult) Pulse (!) 56 Resp 16 Wt 109.3 kg (241 lb) BMI 35.59 kg/m Physical Exam Constitutional: General: He is not in acute distress. Appearance: He is not ill-appearing. Cardiovascular: Rate and Rhythm: Regular rhythm. Bradycardia present. Heart sounds: No murmur heard. No gallop. Pulmonary: Effort: Pulmonary effort is normal. Breath sounds: Normal breath sounds. Musculoskeletal: General: No swelling or tenderness. Right lower le+ Pitting Edema present. Left lower le+ Pitting Edema present. Skin: Comments: Nummular psoriasis scattered in the lower back. Neurological: General: No focal deficit present. Mental Status: He is alert. Component Latest Ref Rng & Units 10/08/2022 WBC 3.70 - 11.00 k/uL 6.26 RBC 4.20 - 6.00 m/uL 3.47 (L) Hemoglobin 13.0 - 17.0 g/dL 11.2 (L) Hematocrit 39.0 - 51.0 % 34.9 (L) MCV 80.0 - 100.0 fL 100.6 (H) MCH 26.0 - 34.0 pg 32.3 MCHC 30.5 - 36.0 g/dL 32.1 RDW-CV 11.5 - 15.0 % 14.3 Platelet Count 150 - 400 k/uL 261 MPV 9.0 - 12.7 fL 11.4 Neut% % 56.5 Abs Neut (ANC) 1.45 - 7.50 k/uL 3.54 Lymph% % 23.8 Abs Lymph 1.00 - 4.00 k/uL 1.49 [place]% % 12.1 Abs [place] <0.87 k/uL 0.76 Eosin% % 5.6 Abs Eosin <0.46 k/uL 0.35 Baso% % 1.8 Abs Baso <0.11 k/uL 0.11 (H) Immature Gran % % 0.2 IMMATURE GRANS (ABS) <0.10 k/uL <0.03 NRBC /100 WBC 0.0 Absolute nRBC <0.01 k/uL <0.01 DTYPE Auto Protein, Total 6.3 - 8.0 g/dL 6.6 Albumin 3.9 - 4.9 g/dL 4.2 Calcium 8.5 - 10.2 mg/dL 10.0 Bilirubin, Total 0.2 - 1.3 mg/dL 0.5 Alkaline Phosphatase 38 - 113 U/L 36 (L) AST 14 - 40 U/L 37 ALT 10 - 54 U/L 30 Glucose 74 - 99 mg/dL 94 BUN 9 - 24 mg/dL 26 (H) Creatinine 0.73 - 1.22 mg/dL 1.31 (H) Sodium 136 - 144 mmol/L 140 Potassium 3.7 - 5.1 mmol/L 3.6 (L) Chloride 97 - 105 mmol/L 103 CO2 22 - 30 mmol/L 26 Anion Gap 9 - 18 mmol/L 11 eGFR >=60 mL/min/1.73m 56 (L) Assessment and Plan 1. Inflammatory polyarthropathy (HCC) - ICD9: 714.9, ICD10: M06.4 (primary diagnosis) Controlled. 2. Stage 3a chronic kidney disease (HCC) - ICD9: 585.3, ICD10: N18.31 - eGFR: Stable - Counseled on avoiding regular use of NSAIDs, adequate hydration, potential risk of IV dye 3. Essential hypertension - ICD9: 401.9, ICD10: I10 - poor control - Continue current medication(s) - Reviewed risks of HTN and principles of treatment - Goal of BP <130/80 - HYDRALAZINE 25 MG TABLET. Increase to 2 tablets- 1 tablet- 2 tablets daily. 4. Mixed hyperlipidemia - ICD9: 272.2, ICD10: E78.2 - to be determined upon return of lab results - LIPID PANEL BASIC - COMP METABOLIC PANEL 5. Psoriasis - ICD9: 696.1, ICD10: L40.9 Continue cream on file. Sudheer Ritchie MD documented [facility] encounter[facility] Evaluation note* Diagnosis Inflammatory polyarthropathy (HCC)- Primary Unspecified inflammatory polyarthropathy Stage 3a chronic kidney disease (HCC) Essential hypertension Unspecified essential hypertension Mixed hyperlipidemia Psoriasis Other psoriasis documented in this encounter [facility] Miscellaneous Notes* Telephone Encounter - Sachi Marino LPN - 07/28/2022 10:41 AM EST Patient has been identified by name and date of : Yes Patient phones for refill(s): Requested Prescriptions Pending Prescriptions Disp Refills fluticasone (FLONASE) 50 mcg/actuation nasal spray 3 Each 3 Sig: Use 1 [place] in each nostril once daily. Date of last office visit in primary care: 05/18/2022 6 month follow-up: 10/14/2022 Last 2 Encounter Wt Readings: Date: Wt: 07/14/2022 109.5 kg (241 lb 6.4 oz) 05/18/2022 110.2 kg (243 lb) Previous labs/tests for medication: Not applicable Please advise. Thank you. Sachi Marino LPN documented [facility] [place] Miscellaneous Notes* Telephone Encounter - Scahi Marino LPN - 07/28/2022 10:39 AM EST Patient has been identified by name and date of : Yes Patient phones for refill(s): Requested Prescriptions Pending Prescriptions Disp Refills amLODIPine (NORVASC) 10 mg tablet 90 tablet 3 Sig: Take 1 tablet by mouth once daily. doxazosin (CARDURA) 8 mg tablet 90 tablet 3 Sig: Take 1 tablet by mouth once daily. Fenofibrate (LOFIBRA) 160 mg tablet 90 tablet 3 Sig: Take 1 tablet by mouth once daily. losartan-hydroCHLOROthiazide (HYZAAR) 100-25 mg per tablet 90 tablet 3 Sig: Take 1 tablet by mouth once daily. metoprolol tartrate, short acting, (LOPRESSOR) 50 mg tablet 180 tablet 3 Sig: Take 1 tablet by mouth twice daily. omeprazole (PRILOSEC) 20 mg capsule 90 capsule 3 Sig: TAKE 1 CAPSULE DAILY BEFORE BREAKFAST ONE-HALF (1/2) HOUR BEFORE MEAL potassium chloride (K-TAB) 10 mEq tablet 90 tablet 3 Sig: Take 1 tablet by mouth daily with breakfast. clotrimazole-betamethasone (LOTRISONE) cream 45 g 5 Sig: Apply to rash on leg , twice daily hydrALAZINE (APRESOLINE) 25 mg tablet 360 tablet 1 Sig: Take 1 tablet by mouth every morning AND 1 tablet every afternoon AND 2 tablets daily at bedtime. Date of last office visit in primary care: 05/18/2022 6 month follow-up: 10/14/2022 Last 2 Encounter Wt Readings: Date: Wt: 07/14/2022 109.5 kg (241 lb 6.4 oz) 05/18/2022 110.2 kg (243 lb) Previous labs/tests for medication: Blood Pressure: BUN (mg/dL) Date Value 07/08/2022 28 06/23/2021 24 Sodium (mmol/L) Date Value 07/08/2022 140 06/23/2021 137 Last 1 Encounter BP Readings: Date: BP: 07/14/2022 156/64 Potassium: No components found for: POT Please advise. Thank you. Sachi Marino LPN documented in this encounter[facility] [place] History of Present illness Narrative* Cali Dawson, - 07/14/2022 10:57 AM EST Images from the original note were not included. [facility] OUTPATIENT VISIT DATE July 14, 2022 PRIMARY CARE PHYSICIAN: Sudheer Ritchie [address] [place] [address] HISTORY OF PRESENT ILLNESS: Mr. Reddy is a 76 year old male. The patient returns for follow-up second history remotely of paroxysmal atrial fibrillation for which we have never had proof of. Additional history includes hypertension, hyperlipidemia and mild mitral valve disease. He remains stable denying chest comfort, dyspnea orthopnea, paroxysmal nocturnal dyspnea, palpitations, near-syncope or syncope. PLAN AND RECOMMENDATIONS: The patient remained stable without symptoms of angina or cardiac decompensation. Heart rate, bloodpressure and recent cholesterol profile are favorable. He has no symptoms to suggest paroxysmal atrial fibrillation or dysrhythmia. At this point time we will update an echocardiogram to his history of mitral valve disease. We have otherwise made no additions or changes. Dietary and lifestyle modification was reemphasized to facilitate risk factor reduction. We will look forward to reevaluating him in 9 months time. Vitals: BP 156/64 Pulse (!) 57 Ht 175.3 cm (5' 9) Wt 109.5 kg (241 lb 6.4 oz) SpO2 98% BMI 35.65 kg/m Physical Exam Vitals reviewed. Constitutional: General: He is not in acute distress. Appearance: He is well-developed. He is not diaphoretic. HENT: Head: Normocephalic and atraumatic. Right Ear: External ear normal. Left Ear: External ear normal. Nose: Nose normal. Eyes: General: No scleral icterus. Right eye: No discharge. Left eye: No discharge. Pupils: Pupils are equal, round, and reactive to light. Neck: Thyroid: No thyromegaly. Vascular: No JVD. Cardiovascular: Rate and Rhythm: Normal rate and regular rhythm. Heart sounds: No murmur heard. No friction rub. No gallop. Pulmonary: Effort: Pulmonary effort is normal. No respiratory distress. Breath sounds: Normal breath sounds. No wheezing or rales. Abdominal: General: Bowel sounds are normal. Palpations: Abdomen is soft. Musculoskeletal: General: Normal range of motion. Cervical back: Neck supple. Skin: General: Skin is warm and dry. Coloration: Skin is not pale. Neurological: Mental Status: He is alert and oriented to person, place, and time. Cranial Nerves: No cranial nerve deficit. Psychiatric: Mood and Affect: Mood is not anxious or depressed. Behavior: Behavior normal. Thought Content: Thought content normal. Judgment: Judgment normal. Review of Systems Constitutional: Negative for activity change, appetite change, fatigue and unexpected weight change. HENT: Negative for ear pain and trouble swallowing. Eyes: Negative for pain and visual disturbance. Respiratory: Negative for chest tightness and shortness of breath. Cardiovascular: Negative for chest pain, palpitations and leg swelling. Gastrointestinal: Negative for abdominal pain and blood in stool. Endocrine: Negative for cold intolerance and heat intolerance. Genitourinary: Negative for dysuria, hematuria and scrotal swelling. Musculoskeletal: Positive for arthralgias and back pain. Negative for myalgias. Skin: Negative for pallor and rash. Allergic/Immunologic: Negative for immunocompromised state. Neurological: Negative for dizziness, syncope and light-headedness. Hematological: Negative for adenopathy. Does not bruise/bleed easily. Psychiatric/Behavioral: Negative for sleep disturbance. The patient is not nervous/anxious. PAST MEDICAL HISTORY Diagnosis Date Actinic keratosis Anemia, chronic disease 08/12/2011 Class 2 severe obesity with serious comorbidity and body mass index (BMI) of 37.0 to 37.9 in adult (HCC) 10/19/2006 Esophageal reflux Essential hypertension 10/19/2006 Fatty (change of) liver, not elsewhere classified 02/02/2017 Generalized osteoarthrosis, unspecified site Glaucoma Hyperlipidemia 08/07/2015 Malignant neoplasm of prostate (HCC) 12/12/2006 RAJESH on CPAP 10/19/2006 PAF (paroxysmal atrial fibrillation) ([facility]) 11/24/2018 Prostate cancer ([facility]) 2004 Patient validates year PAST SURGICAL HISTORY Procedure Laterality Date COLONOSCOPY FLX DX W/COLLJ SPEC WHEN PFRMD 07/25/1995 Colonoscopy COLONOSCOPY FLX DX W/COLLJ SPEC WHEN PFRMD 05/25/[address] Munguia=repeat in COLONOSCOPY SCRN NOT HIGH RISK 08/14/2020 COLSC FLX W/RMVL OF TUMOR POLYP LESION SNARE TQ 04/04/2015 small ablated polyp -5 year follow up EYE SURGERY HX F US PROSTATE VOLUME BRACHYTHERAPY 05/13/2005 Seed implants- [facility] PAST SURGICAL HISTORY OF 12/23/2004 TRUS w/ bx. Dr. Gonzalez. PAST SURGICAL HISTORY OF 05/13/2005 seed implants - [facility] TONSILLECTOMY & ADENOIDECTOMY <AGE 12 1957 T/A (under age 12 years) TOTAL HIP REPLACEMENT Right 11/11/2020 right THR TOTAL KNEE REPLACEMENT Right 03/21/2020 Social History Tobacco Use Smoking status: Former Types: Cigars Quit date: 01/21/2018 Years since quittin.4 Smokeless tobacco: Never Tobacco comments: occ cigar Vaping Use Vaping Use: Never used Substance Use Topics Alcohol use: Yes Alcohol/week: 5.0 standard drinks Types: 5 Shots of liquor per week Drug use: No FAMILY HISTORY Problem Relation Age of Onset Alzheimer's Disease Mother Arthritis Mother COPD Father ALLERGIES Allergen Reactions Pantoprazole Swelling of hands and yellowing of eyes and muscle aches. Adhesive Other: See Comments redness Sulfa (Sulfonamide * as an , does not know the reaction CURRENT MEDICATIONS: hydrALAZINE (APRESOLINE) 25 mg tablet Take 1 tablet by mouth every morning AND 1 tablet every afternoon AND 2 tablets daily at bedtime. amLODIPine (NORVASC) 10 mg tablet Take 1 tablet by mouth once daily. doxazosin (CARDURA) 8 mg tablet Take 1 tablet by mouth once daily. Fenofibrate (LOFIBRA) 160 mg tablet Take 1 tablet by mouth once daily. losartan-hydroCHLOROthiazide (HYZAAR) 100-25 mg per tablet Take 1 tablet by mouth once daily. metoprolol tartrate, short acting, (LOPRESSOR) 50 mg tablet Take 1 tablet by mouth twice daily. omeprazole (PRILOSEC) 20 mg capsule TAKE 1 CAPSULE DAILY BEFORE BREAKFAST ONE- HALF (1/2) HOUR BEFORE MEAL potassium chloride (K-TAB) 10 mEq tablet Take 1 tablet by mouth daily with breakfast. clotrimazole-betamethasone (LOTRISONE) cream Apply to rash on leg , twice daily (Patient taking differently: Apply to rash on leg , twice daily Uses as needed) BIPAP Initiate BiPAP @ 12/8 cm of water with humidification. Mask (per patient preference) optionalchin strap (if indicated) , filters, tubing, humidifier and lifetime supplies. fluticasone (FLONASE) 50 mcg/actuation nasal spray Use 1 [place] in each nostril once daily. (Patienttaking differently: Use 1 [place] in each nostril once daily. Uses as needed) cyanocobalamin (VITAMIN B-12) 100 mcg tab Take 100 mcg by mouth once daily. pyridoxine HCl, vitamin B6, (VITAMIN B-6 ORAL) Take by mouth once daily. aspirin, enteric coated (ASPIRIN, ENTERIC COATED) 81 mg EC tablet Take 1 tablet by mouth once daily. hydrOXYchloroQUINE (PLAQUENIL) 200 mg tablet Take by mouth twice daily. latanoprost (XALATAN) 0.005 % ophthalmic solution Use 1 Drop in both eyes daily at bedtime. fish oil/omega-3 fatty acids(FISH OIL OMEGA 3-6-9 300 MG-1,000 MG CAP, DELAYED RELEASE) Take one(1)tablet daily. ubidecarenone(CO Q-10 100 MG CAP) Take one(1) tablet daily. oxybutynin ER (DITROPAN XL) 10 mg 24 hr tablet Take 1 tablet by mouth once daily. Cali Dawson DO, FAC, FAC Clinical and Preventive Cardiology Department of Medicine and Division of Cardiology, [facility] Pulmonary Disease Specialistdining car conductor [facility] Pulmonary Disease Specialist of Cong[facility] Failure Clinic [facility] Cardiology Office Pulmonary Disease Specialist [facility] Staff Arboriculture Teacher, Rimma Ball Department of Cardiovascular Medicine/Heart and Vascular [place], [facility] Clinical Inseam Trimming Machine Operator Profressor of Medicine, [facility] Please note: This note has been produced using speech recognition software and may contain errors related to that system including elian, punctuation, spelling, words, gender and phrases that may be inappropriate. documented in this encounterSelect [facility]11-16-2022 History of Present illness Narrative* Giulia Stephen - 06/09/2022 4:50 PM EST POPULATION HEALTH NAVIGATION OUTREACH Action/СВЕТЛАНА black Patient due for the following: Follow up per last OV 05/18/2022 Left voicemail for patient to return call [employer] message sent Pt identified by name and : NO Outreach Outcome/Action Unable to reach patient: Left message Bugsnaghart message sent Did you use a PCP flex slot to schedule this appointment? N/A Reason for Outreach Care Gap or Scheduling/Wellness visits Payer: Payor: [employer] MEDICARE / Plan: [employer] MEDICARE PPO / Product Type: PPO / Care Gap Reviewed:: Follow-up appointment Reminder: Reminder note to check Health Maintenance for items below Health Maintenance items due: ADVANCE DIRECTIVE DISCUSSION Never done DEPRESSION ASSESSMENT Never done Message Sent to Practice: No Navigation Signature: Giulia Stephen June 09, 2022 4:50 PM documented in this encounterSelect [facility] [place]10-25-[facility]22 History of Present illness Narrative* Louann Rubio APRN.CNP - 05/18/2022 9:45 AM EDT CC Patient presents with: 2 month follow up HPI Demetrius Reddy is a 76 year old male who presents to the office for blood pressure. His visit today is for follow-up. Patient was last seen for this approximately 2 months ago. Medication changes: Yes hydralazine increased to 4 times a day Taking all medications as prescribed: Yes Side effects: No Home BP's: No Denies: headache, chest pain, palpitations, dyspnea, and peripheral edema. Last 4 Encounter BP Readings: Date: BP: 05/18/2022 151/65 03/19/2022 116/74 03/16/2022 140/80 01/11/2022 148/78 Last 3 Encounter Wt Readings: Date: Wt: 05/18/2022 110.2 kg (243 lb) 03/19/2022 112.5 kg (248 lb) 03/16/2022 112.5 kg (248 lb) REVIEW OF SYSTEMS See HPI PAST MEDICAL HISTORY Diagnosis Date Actinic keratosis Anemia, chronic disease 08/12/2011 Class 2 severe obesity with serious comorbidity and body mass index (BMI) of 37.0 to 37.9 in adult (HCC) 10/19/2006 Esophageal reflux Essential hypertension 10/19/2006 Fatty (change of) liver, not elsewhere classified 02/02/2017 Generalized osteoarthrosis, unspecified site Glaucoma Hyperlipidemia 08/07/2015 Malignant neoplasm of prostate (HCC) 12/12/2006 RAJESH on CPAP 10/19/2006 PAF (paroxysmal atrial fibrillation) (HCC) 11/24/2018 Prostate cancer (HCC) 2004 Patient validates year PAST SURGICAL HISTORY Procedure Laterality Date COLONOSCOPY FLX DX W/COLLJ SPEC WHEN PFRMD 07/25/1995 Colonoscopy COLONOSCOPY FLX DX W/COLLJ SPEC WHEN PFRMD 05/25/[address] Munguia=repeat in COLONOSCOPY SCRN NOT HIGH RISK 08/14/2020 COLSC FLX W/RMVL OF TUMOR POLYP LESION SNARE TQ 04/04/2015 small ablated polyp -5 year follow up EYE SURGERY HX PAST SURGICAL HISTORY OF 12/23/2004 TRUS w/ bx. Dr. Gonzalez. PAST SURGICAL HISTORY OF 05/13/2005 seed implants - [facility] TONSILLECTOMY & ADENOIDECTOMY <AGE 12 7 T/A (under age 12 years) TOTAL HIP REPLACEMENT Right 11/11/2020 right THR TOTAL KNEE REPLACEMENT Right 03/21/2020 ALLERGIES Pantoprazole, Adhesive, and Sulfa (Sulfonamide Antibiotics) MEDICATIONS oxybutynin ER (DITROPAN XL) 10 mg 24 hr tablet Take 1 tablet by mouth once daily. hydrALAZINE (APRESOLINE) 25 mg tablet Take 1 tablet by mouth every morning AND 1 tablet every afternoon AND 2 tablets daily at bedtime. amLODIPine (NORVASC) 10 mg tablet Take 1 tablet by mouth once daily. doxazosin (CARDURA) 8 mg tablet Take 1 tablet by mouth once daily. Fenofibrate (LOFIBRA) 160 mg tablet Take 1 tablet by mouth once daily. losartan-hydroCHLOROthiazide (HYZAAR) 100-25 mg per tablet Take 1 tablet by mouth once daily. metoprolol tartrate, short acting, (LOPRESSOR) 50 mg tablet Take 1 tablet by mouth twice daily. omeprazole (PRILOSEC) 20 mg capsule TAKE 1 CAPSULE DAILY BEFORE BREAKFAST ONE- HALF (1/2) HOUR BEFORE MEAL potassium chloride (K-TAB) 10 mEq tablet Take 1 tablet by mouth daily with breakfast. clotrimazole-betamethasone (LOTRISONE) cream Apply to rash on leg , twice daily (Patient taking differently: Apply to rash on leg , twice daily Uses as needed) BIPAP Initiate BiPAP @ 12/8 cm of water with humidification. Mask (per patient preference) optionalchin strap (if indicated) , filters, tubing, humidifier and lifetime supplies. fluticasone (FLONASE) 50 mcg/actuation nasal spray Use 1 [place] in each nostril once daily. (Patienttaking differently: Use 1 [place] in each nostril once daily. Uses as needed) cyanocobalamin (VITAMIN B-12) 100 mcg tab Take 100 mcg by mouth once daily. pyridoxine HCl, vitamin B6, (VITAMIN B-6 ORAL) Take by mouth once daily. aspirin, enteric coated (ASPIRIN, ENTERIC COATED) 81 mg EC tablet Take 1 tablet by mouth once daily. hydrOXYchloroQUINE (PLAQUENIL) 200 mg tablet Take by mouth twice daily. latanoprost (XALATAN) 0.005 % ophthalmic solution Use 1 Drop in both eyes daily at bedtime. fish oil/omega-3 fatty acids(FISH OIL OMEGA 3-6-9 300 MG-1,000 MG CAP, DELAYED RELEASE) Take one(1)tablet daily. ubidecarenone(CO Q-10 100 MG CAP) Take one(1) tablet daily. FAMILY HISTORY Problem Relation Age of Onset Alzheimer's Disease Mother Arthritis Mother COPD Father Social History Tobacco Use Smoking status: Former Types: Cigars Quit date: 01/21/2018 Years since quittin.3 Smokeless tobacco: Never Tobacco comments: occ cigar Vaping Use Vaping Use: Never used Substance Use Topics Alcohol use: Yes Alcohol/week: 5.0 standard drinks Types: 5 Shots of liquor per week Drug use: No PHYSICAL EXAM BP 151/65 Pulse 63 Resp 18 Wt 110.2 kg (243 lb) BMI 35.88 kg/m General Appearance: well appearing, in no acute distress, alert Lungs: Lungs clear to auscultation. No wheezing, rhonchi, rales. Heart: RRR without murmur, gallop, or rubs. No ectopy DATA REVIEWED: Most recent labs ASSESSMENT/PLAN: 1. Essential hypertension - ICD9: 401.9, ICD10: I10 (primary diagnosis) - good control - Continue current medication(s) - Recommended regular aerobic exercise. - Recommend home blood pressure monitoring, to bring results in on next visit - Goal of BP <130/80 2. Renal insufficiency - ICD9: 593.9, ICD10: N28.9 Improving, close to baseline. Recheck in 2 months - BASIC METABOLIC PNL Prescription instructions reviewed with patient as applicable. Potential red flag symptoms discussed with the patient. Reviewed appropriate action plan to take if red flag symptoms occur. Patient agreeable to treatment plan Louann Rubio APRN.KARMA documented in this encounterSelect Medical [facility]ty [facility]09-07-2022 Miscellaneous Notes* Telephone Encounter - Raquel Whipple LPN - 03/31/2022 10:40 AM EDT FYI: Pt called in and information listed below given. Pt also wanted to let you know he is not taking and did not start on Finasteride. At his urology apt was told problem is not his prostrate per pt. Pt transferred to computer processing scheduler to get US scheduled. Raquel Whipple LPN * Telephone Encounter - Sudheer Ritchie MD - 03/27/2022 11:13 AM EDT ASSESSMENT/PLAN: 1. Kidney insufficiency - ICD9: 593.9, ICD10: N28.9 - BASIC METABOLIC PNL - US KIDNEY/BLADDER Sudheer Ritchie MD documented in this encounterSelect Medical Specialty [facility] [place]09-02-2022 Miscellaneous Notes* Telephone Encounter - Raquel Rutledge - 03/26/2022 1:38 PM EDT Pt notified via my chart. Raquel Rutledge * Telephone Encounter - Vincent Amos PA-C - 03/26/2022 1:18 PM EDT Changed to Ditropan 10 mg [address] of Myrbetriq 25 mg CHRISTOS Bass, [place], PAFunmi * Telephone Encounter - Britt Nelson LPN - 03/25/2022 10:04 AM EDT Patient called. Verified name and date of . Patient called to make sure Vincent knows he wantsto try a different medication due to the cost. Informed Vincent is off today and will be back in office tomorrow. Britt Nelson LPN documented in this encounterSelect Medical Specialty [facility]08-26-2022 History of Present illness Narrative* Britt Nelson LPN - 03/19/2022 10:21 AM EDT CC Post Void Residual HPI: Demetrius Reddy is a 76 year old male. The patient is here now for an appointment with Vincent Amos, [place], [place], PA-COV. Procedure: Explained procedure to patient and verbalizes understanding. Performed a PVR. Patient urinated and instructed to empty bladder as much as possible just prior to having PVR done using bladder ultrasound scanner. Results of scan: 0 mL The patient tolerated the procedure well. Plan: Appointment with Vincent. documented in this encounterSelect Medical [facility]ty [facility]08-23-2022 History of Present illness Narrative* Sudheer Ritchie MD - 03/16/2022 8:45 AM EDT This note was created using [employer]. Subjective Demetrius Reddy is a 76 year old male. He was doing reasonably well. His blood pressure was coming down. Weight and edema was stable. Arthralgias were controlled. He had a history of prostate cancer. For the past 3 or more months, he's had increasingly bothersome lower urinary tract symptoms. 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 He hurt his swollen left leg against brush a few days ago and had an abrasion that was healing withsome redness, but no drainage. Review of Systems Constitutional: Negative. Respiratory: Negative. Cardiovascular: Positive for leg swelling. Negative for chest pain and palpitations. Gastrointestinal: Negative. Genitourinary: Positive for difficulty urinating and frequency. Negative for dysuria. ACTIVE PROBLEM LIST Class 2 Severe Obesity With Serious Comorbidity and Body Mass Index (Bmi) of 37.0 to 37.9 in Adult (Hcc) Essential Hypertension Rajesh On Cpap Personal History of Malignant Neoplasm of Prostate Generalized Osteoarthritis of Multiple Sites Mitral Valve Disease Esophageal Reflux COLON POLYP Inflammatory Polyarthropathy (Hcc) Anemia, Chronic Disease Hyperlipidemia Paf (Paroxysmal Atrial Fibrillation) (Hcc) Fatty (Change Of) Liver, Not Elsewhere Classified Edema of Lower Leg Due to Peripheral Venous Insufficiency Current Outpatient Medications Medication Sig hydrALAZINE (APRESOLINE) 25 mg tablet Take 1 tablet by mouth three times daily. ibuprofen (MOTRIN) 200 mg tablet Take 2 tablets by mouth every morning AND 1 tablet daily at bedtime. amLODIPine (NORVASC) 10 mg tablet Take 1 tablet by mouth once daily. doxazosin (CARDURA) 8 mg tablet Take 1 tablet by mouth once daily. Fenofibrate (LOFIBRA) 160 mg tablet Take 1 tablet by mouth once daily. losartan-hydroCHLOROthiazide (HYZAAR) 100-25 mg per tablet Take 1 tablet by mouth once daily. metoprolol tartrate, short acting, (LOPRESSOR) 50 mg tablet Take 1 tablet by mouth twice daily. omeprazole (PRILOSEC) 20 mg capsule TAKE 1 CAPSULE DAILY BEFORE BREAKFAST ONE- HALF (1/2) HOUR BEFORE MEAL potassium chloride (K-TAB) 10 mEq tablet Take 1 tablet by mouth daily with breakfast. clotrimazole-betamethasone (LOTRISONE) cream Apply to rash on leg , twice daily BIPAP Initiate BiPAP @ 12/8 cm of water with humidification. Mask (per patient preference) optionalchin strap (if indicated) , filters, tubing, humidifier and lifetime supplies. fluticasone (FLONASE) 50 mcg/actuation nasal spray Use 1 [place] in each nostril once daily. cyanocobalamin (VITAMIN B-12) 100 mcg tab Take 100 mcg by mouth once daily. pyridoxine HCl, vitamin B6, (VITAMIN B-6 ORAL) Take by mouth. aspirin, enteric coated (ECOTRIN LOW STRENGTH) 81 mg ORAL EC tablet Take 1 tablet by mouth once daily. hydroxychloroquine (PLAQUENIL) 200 mg ORAL tablet Take by mouth twice daily. latanaprost (XALATAN) 0.005 % OPHTHALMIC ophthalmic solution Use 1 Drop in both eyes daily at bedtime. fish oil/omega-3 fatty acids(FISH OIL OMEGA 3-6-9 300 MG-1,000 MG CAP, DELAYED RELEASE) Take one(1)tablet daily. ubidecarenone(CO Q-10 100 MG CAP) Take one(1) tablet daily. No current facility-administered medications for this visit. Objective BP 140/80 Pulse 72 Wt 112.5 kg (248 lb) SpO2 98% BMI 40.03 kg/m Physical Exam Constitutional: General: He is not in acute distress. Appearance: He is obese. HENT: Head: Normocephalic. Eyes: General: No scleral icterus. Conjunctiva/sclera: Conjunctivae normal. Cardiovascular: Rate and Rhythm: Normal rate and regular rhythm. Heart sounds: No murmur heard. No gallop. Pulmonary: Breath sounds: Normal breath sounds. Abdominal: Tenderness: There is no abdominal tenderness. Musculoskeletal: Right lower le+ Pitting Edema present. Left lower le+ Pitting Edema present. Skin: Comments: 1 x 1 cm and 0.5 x 1 cm dried abrasion left posterior distal leg, mild surrounding erythema, no tenderness, no ant cellulitis. Neurological: General: No focal deficit present. Mental Status: He is alert. Component Latest Ref Rng & Units 03/09/2022 Glucose 74 - 99 mg/dL 94 BUN 9 - 24 mg/dL 26 (H) Creatinine 0.73 - 1.22 mg/dL 1.24 (H) Sodium 136 - 144 mmol/L 140 Potassium 3.7 - 5.1 mmol/L 3.7 Chloride 97 - 105 mmol/L 102 CO2 22 - 30 mmol/L 26 Anion Gap 9 - 18 mmol/L 12 Calcium 8.5 - 10.2 mg/dL 10.0 eGFR >=60 mL/min/1.73m 60 Cholesterol, Total <200 mg/dL 153 Triglyceride <150 mg/dL 102 HDL Cholesterol >39 mg/dL 49 Non HDL Cholesterol <130 mg/dL 104 Fasting Time hrs 12 VLDL Cholesterol <30 mg/dL 20 TC:HDL Ratio <5.10 3.12 LDL Cholesterol <100 mg/dL 84 LDL:HDL Ratio <2.54 1.71 Hemoglobin A1C 4.3 - 5.6 % 5.3 Estimated Average Glucose mg/dL 105 Assessment and Plan 1. Inflammatory polyarthropathy (HCC) - ICD9: 714.9, ICD10: M06.4 (primary diagnosis) Controlled. 2. Essential hypertension - ICD9: 401.9, ICD10: I10 - suboptimal control - Continue current medication(s) - Increase Hydralazine. - Discussed need and benefit for weight loss. - Goal of BP <130/80 - HYDRALAZINE 25 MG TABLET. 4 tablets daily total. See prescription. 3. Class 2 severe obesity with serious comorbidity and body mass index (BMI) of 37.0 to 37.9 in adult, unspecified obesity type (HCC) - ICD9: 278.01, V85.37, ICD10: E66.01, Z68.37 Stable - Behavioral intervention 4. Edema of lower leg due to peripheral venous insufficiency - ICD9: 459.81, 782.3, ICD10: I87.2, R60.0 Stable. 5. Mixed hyperlipidemia - ICD9: 272.2, ICD10: E78.2 - good control - Continue current medication. 6. Lower urinary tract symptoms (LUTS) - ICD9: 788.99, ICD10: R39.9 - FINASTERIDE 5 MG TABLET. Discussed medication dosage, usage, goals of therapy, and side effects. - PSA/PROSTSPECAG DIAG - CONSULT TO UROLOGY - URINALYSIS, WITH MICROSCOPIC 7. Abrasion of left lower extremity, initial encounter - ICD9: 916.0, ICD10: S80.812A Vaccine recommended. - TDAP VACCINE AGE 7+ IM 8. Need for vaccination - ICD9: V05.9, ICD10: Z23 - TDAP VACCINE AGE 7+ IM 9. Kidney insufficiency - ICD9: 593.9, ICD10: N28.9 New concern. Recheck today. Further work up may be needed. - BASIC METABOLIC PNL - URINALYSIS, WITH MICROSCOPIC Sudheer Ritchie MD documented in this encounterSelect Medical [facility]ty [facility]08-04-2022 Miscellaneous Notes* Telephone Encounter - Octavia Naik LPN - 02/25/2022 3:36 PM EDT Pt notified. * Telephone Encounter - Sudheer Ritchie MD - 02/25/2022 3:29 PM EDT Fasting labs ordered. * Telephone Encounter - Desire Clark RN - 02/25/2022 10:00 AM EDT Patient reports he has an appt with Dr. Ritchie scheduled for 03/16. He is asking if Dr. Ritchiewould like to order any labs prior to his visit? Please call patient with update. Thank you. documented in this encounterSelect Medical [facility]ty [facility] [place]06-20-2022 History of Present illness Narrative* Cali Dawson, DO - 01/11/2022 11:00 AM EDT Images from the original note were not included. [facility] SECTION OF [facility] OUTPATIENT VISIT DATE January 11, 2022 PRIMARY CARE PHYSICIAN: Sudheer Ritchie [address] [place] [address] HISTORY OF PRESENT ILLNESS: Mr. Reddy is a 76 year old male. The patient returns for follow-up second history of paroxysmal atrial fibrillation with additional history of hypertension hyperlipidemia. Atrial fibrillation diagnosis was remote. He has not had another episode since that we are aware of. He exercises currently several times per week and lifts weights without difficulty. He unfortunately has not lost weight as a result of snacking . His accompanies him today. He recently tolerated knee replacement surgerywithout difficulty. Approximately 20 months ago he underwent nuclear stress imaging which was normal. He denies chest discomfort, dyspnea, orthopnea, paroxysmal nocturnal dyspnea, palpitations, near-syncope or syncope. He is contemplating having his other knee done in the near future. He recently had his antihypertensive medical regimen increased with the addition of hydralazine. He notes his blood pressure is no longer in the 170s and has been running in the 140s at home. PLAN AND RECOMMENDATIONS: The patient appears stable without symptoms that would suggest angina or cardiac decompensation. Blood pressure is markedly improved. Heart rate and recent cholesterol profile are favorable. He has no apparent symptoms that would suggest further paroxysms of atrial fibrillation. We have therefore made no additions or changes. If he were to have his knee surgery in the immediate near future, he would be considered acceptable risk. Should it be put off till next year, he would need reevaluation prior to. Dietary and lifestyle modification was reemphasized to facilitate risk factor reduction. Wewill look forward to reevaluating him in 6 months time regardless. Vitals: BP 148/78 Pulse 65 Ht 167.6 cm (5' 6) Wt 115.2 kg (254 lb) SpO2 98% BMI 41.00 kg/m Physical Exam Vitals reviewed. Constitutional: General: He is not in acute distress. Appearance: He is well-developed. He is not diaphoretic. HENT: Head: Normocephalic and atraumatic. Right Ear: External ear normal. Left Ear: External ear normal. Nose: Nose normal. Eyes: General: No scleral icterus. Right eye: No discharge. Left eye: No discharge. Pupils: Pupils are equal, round, and reactive to light. Neck: Thyroid: No thyromegaly. Vascular: No JVD. Cardiovascular: Rate and Rhythm: Normal rate and regular rhythm. Heart sounds: No murmur heard. No friction rub. No gallop. Pulmonary: Effort: Pulmonary effort is normal. No respiratory distress. Breath sounds: Normal breath sounds. No wheezing or rales. Abdominal: General: Bowel sounds are normal. Palpations: Abdomen is soft. Musculoskeletal: General: Normal range of motion. Cervical back: Neck supple. Skin: General: Skin is warm and dry. Coloration: Skin is not pale. Neurological: Mental Status: He is alert and oriented to person, place, and time. Cranial Nerves: No cranial nerve deficit. Psychiatric: Mood and Affect: Mood is not anxious or depressed. Behavior: Behavior normal. Thought Content: Thought content normal. Judgment: Judgment normal. Review of Systems Constitutional: Negative for activity change, appetite change, fatigue and unexpected weight change. HENT: Negative for ear pain and trouble swallowing. Eyes: Negative for pain and visual disturbance. Respiratory: Negative for chest tightness and shortness of breath. Cardiovascular: Negative for chest pain, palpitations and leg swelling. Gastrointestinal: Negative for abdominal pain and blood in stool. Endocrine: Negative for cold intolerance and heat intolerance. Genitourinary: Negative for dysuria, hematuria and scrotal swelling. Musculoskeletal: Positive for arthralgias and back pain. Negative for myalgias. Skin: Negative for pallor and rash. Allergic/Immunologic: Negative for immunocompromised state. Neurological: Negative for dizziness, syncope and light-headedness. Hematological: Negative for adenopathy. Does not bruise/bleed easily. Psychiatric/Behavioral: Negative for sleep disturbance. The patient is not nervous/anxious. PAST MEDICAL HISTORY Diagnosis Date Actinic keratosis Anemia, chronic disease 08/12/2011 Class 2 severe obesity with serious comorbidity and body mass index (BMI) of 37.0 to 37.9 in adult (HCC) 10/19/2006 Esophageal reflux Essential hypertension 10/19/2006 Fatty (change of) liver, not elsewhere classified 02/02/2017 Generalized osteoarthrosis, unspecified site Glaucoma Hyperlipidemia 08/07/2015 Malignant neoplasm of prostate (HCC) 12/12/2006 RAJESH on CPAP 10/19/2006 PAF (paroxysmal atrial fibrillation) (HCC) 11/24/2018 PAST SURGICAL HISTORY Procedure Laterality Date COLONOSCOPY FLX DX W/COLLJ SPEC WHEN PFRMD 07/25/1995 Colonoscopy COLONOSCOPY FLX DX W/COLLJ SPEC WHEN PFRMD 05/25/[address] Munguia=repeat in COLONOSCOPY SCRN NOT HIGH RISK 08/14/2020 COLSC FLX W/RMVL OF TUMOR POLYP LESION SNARE TQ 04/04/2015 small ablated polyp -5 year follow up EYE SURGERY HX PAST SURGICAL HISTORY OF 12/23/2004 TRUS w/ bx. Dr. Gonzalez. PAST SURGICAL HISTORY OF 05/13/2005 seed implants - [facility] TONSILLECTOMY & ADENOIDECTOMY <AGE 12 1957 T/A (under age 12 years) TOTAL HIP REPLACEMENT Right 11/11/2020 right THR TOTAL KNEE REPLACEMENT Right 03/21/2020 Social History Tobacco Use Smoking status: Former Smoker Types: Cigars Quit date: 01/21/2018 Years since quittin.9 Smokeless tobacco: Never Used Tobacco comment: occ cigar Substance Use Topics Alcohol use: Yes Alcohol/week: 5.0 standard drinks Types: 5 Shots of liquor per week Drug use: No FAMILY HISTORY Problem Relation Age of Onset Alzheimer's Disease Mother Arthritis Mother COPD Father ALLERGIES Allergen Reactions Pantoprazole Swelling of hands and yellowing of eyes and muscle aches. Adhesive Other: See Comments redness Sulfa (Sulfonamide * as an , does not know the reaction CURRENT MEDICATIONS: hydrALAZINE (APRESOLINE) 25 mg tablet Take 1 tablet by mouth three times daily. ibuprofen (MOTRIN) 200 mg tablet Take 2 tablets by mouth every morning AND 1 tablet daily at bedtime. amLODIPine (NORVASC) 10 mg tablet Take 1 tablet by mouth once daily. doxazosin (CARDURA) 8 mg tablet Take 1 tablet by mouth once daily. Fenofibrate (LOFIBRA) 160 mg tablet Take 1 tablet by mouth once daily. losartan-hydroCHLOROthiazide (HYZAAR) 100-25 mg per tablet Take 1 tablet by mouth once daily. metoprolol tartrate, short acting, (LOPRESSOR) 50 mg tablet Take 1 tablet by mouth twice daily. omeprazole (PRILOSEC) 20 mg capsule TAKE 1 CAPSULE DAILY BEFORE BREAKFAST ONE- HALF (1/2) HOUR BEFORE MEAL potassium chloride (K-TAB) 10 mEq tablet Take 1 tablet by mouth daily with breakfast. clotrimazole-betamethasone (LOTRISONE) cream Apply to rash on leg , twice daily BIPAP Initiate BiPAP @ 12/8 cm of water with humidification. Mask (per patient preference) optionalchin strap (if indicated) , filters, tubing, humidifier and lifetime supplies. fluticasone (FLONASE) 50 mcg/actuation nasal spray Use 1 [place] in each nostril once daily. cyanocobalamin (VITAMIN B-12) 100 mcg tab Take 100 mcg by mouth once daily. pyridoxine HCl, vitamin B6, (VITAMIN B-6 ORAL) Take by mouth. aspirin, enteric coated (ECOTRIN LOW STRENGTH) 81 mg ORAL EC tablet Take 1 tablet by mouth once daily. hydroxychloroquine (PLAQUENIL) 200 mg ORAL tablet Take by mouth twice daily. latanaprost (XALATAN) 0.005 % OPHTHALMIC ophthalmic solution Use 1 Drop in both eyes daily at bedtime. fish oil/omega-3 fatty acids(FISH OIL OMEGA 3-6-9 300 MG-1,000 MG CAP, DELAYED RELEASE) Take one(1)tablet daily. ubidecarenone(CO Q-10 100 MG CAP) Take one(1) tablet daily. EKG performed today demonstrates sinus rhythm first-degree AV block at 64 beats minute with LVH. Cali Dawson DO, FACC, FACOI Clinical and Preventive Cardiology Department of Medicine and Division of Cardiology, [facility] Pulmonary Disease Specialistdining car conductor [facility] Pulmonary Disease Specialist of Congestive Heart Failure Clinic [facility] Cardiology Office Pulmonary Disease Specialist [facility] Staff Arboriculture Teacher, Rimma Ball Department of Cardiovascular Medicine/Heart and Vascular [place], [facility] Clinical Inseam Trimming Machine Operator Profressor of Medicine, [facility] of Medicine [facility] Please note: This note has been produced using speech recognition software and may contain errors related to that system including elian, punctuation, spelling, words, gender and phrases that may be inappropriate. [facility] History of Past illness Narrative* Problem Noted Date Resolved Date Lumbar sprain 03/05/2020 03/22/2021 Preoperative clearance 03/03/2020 1 First degree AV block 05/23/2018 03/22/2021 Overview: Was dx many years ago, yearly ekgs, this year the pr interval was [address] wills yearly, advised to loose weight. Last Assessment & Plan: Was dx many years ago, yearly ekgs, this year the pr interval was 212, Sees Dr wills yearly, advised to loose weight. BMI 37.0-37.9, adult 02/21/2015 03/22/2021 HYPERGLYCEMIA 05/05/2007 11/14/2018 Nontraumatic rupture of Achilles tendon 12/21/19 07 10/26/2016 Malignant neoplasm of prostate 12/12/2006 0 03/22/2021 Last Assessment & Plan: No complaints except goes to the rest room 2/3 times a night. Got psa checked , was normal ERECTILE DYSFUNCTION 10/19/2006 03/19/2021 Actinic keratosis 10/19/2006 02/21/2015 documented as of this encounter (statuses as of 01/11/2022) [facility] History of Past illness Narrative* Problem Noted Date Resolved Date Lumbar sprain 03/05/2020 03/22/2021 Preoperative clearance 03/03/2020 1 First degree AV block 05/23/2018 03/22/2021 Overview: Was dx many years ago, yearly ekgs, this year the pr interval was [address] wills yearly, advised to loose weight. Last Assessment & Plan: Was dx many years ago, yearly ekgs, this year the pr interval was 212, Sees Dr wills yearly, advised to loose weight. BMI 37.0-37.9, adult 02/21/2015 03/22/2021 HYPERGLYCEMIA 05/05/2007 11/14/2018 Nontraumatic rupture of Achilles tendon 12/21/19 07 10/26/2016 Malignant neoplasm of prostate 12/12/2006 0 03/22/2021 Last Assessment & Plan: No complaints except goes to the rest room 2/3 times a night. Got psa checked , was normal ERECTILE DYSFUNCTION 10/19/2006 03/19/2021 Actinic keratosis 10/19/2006 02/21/2015 documented as of this encounter (statuses as of 02/25/2022) [facility] History of Past illness Narrative* Problem Noted Date Resolved Date Lumbar sprain 03/05/2020 03/22/2021 Preoperative clearance 03/03/2020 1 First degree AV block 05/23/2018 03/22/2021 Overview: Was dx many years ago, yearly ekgs, this year the pr interval was [address] wills yearly, advised to loose weight. Last Assessment & Plan: Was dx many years ago, yearly ekgs, this year the pr interval was 212, Sees Dr wills yearly, advised to loose weight. BMI 37.0-37.9, adult 02/21/2015 03/22/2021 HYPERGLYCEMIA 05/05/2007 11/14/2018 Nontraumatic rupture of Achilles tendon 12/21/19 07 10/26/2016 Malignant neoplasm of prostate 12/12/2006 0 03/22/2021 Last Assessment & Plan: No complaints except goes to the rest room 2/3 times a night. Got psa checked , was normal ERECTILE DYSFUNCTION 10/19/2006 03/19/2021 Actinic keratosis 10/19/2006 02/21/2015 documented as of this encounter (statuses as of 03/16/2022) [facility] History of Past illness Narrative* Problem Noted Date Resolved Date Lumbar sprain 03/05/2020 03/22/2021 Preoperative clearance 03/03/2020 1 First degree AV block 05/23/2018 03/22/2021 Overview: Was dx many years ago, yearly ekgs, this year the pr interval was [address] wills yearly, advised to loose weight. Last Assessment & Plan: Was dx many years ago, yearly ekgs, this year the pr interval was 212, Sees Dr wills yearly, advised to loose weight. BMI 37.0-37.9, adult 02/21/2015 03/22/2021 HYPERGLYCEMIA 05/05/2007 11/14/2018 Nontraumatic rupture of Achilles tendon 12/21/19 07 10/26/2016 Malignant neoplasm of prostate 12/12/2006 0 03/22/2021 Last Assessment & Plan: No complaints except goes to the rest room 2/3 times a night. Got psa checked , was normal ERECTILE DYSFUNCTION 10/19/2006 03/19/2021 Actinic keratosis 10/19/2006 02/21/2015 documented as of this encounter (statuses as of 03/19/2022) [facility] History of Past illness Narrative* Problem Noted Date Resolved Date Lumbar sprain 03/05/2020 03/22/2021 Preoperative clearance 03/03/2020 1 First degree AV block 05/23/2018 03/22/2021 Overview: Was dx many years ago, yearly ekgs, this year the pr interval was [address] wills yearly, advised to loose weight. Last Assessment & Plan: Was dx many years ago, yearly ekgs, this year the pr interval was 212, Sees Dr wills yearly, advised to loose weight. BMI 37.0-37.9, adult 02/21/2015 03/22/2021 HYPERGLYCEMIA 05/05/2007 11/14/2018 Nontraumatic rupture of Achilles tendon 12/21/19 07 10/26/2016 Malignant neoplasm of prostate 12/12/2006 0 03/22/2021 Last Assessment & Plan: No complaints except goes to the rest room 2/3 times a night. Got psa checked , was normal ERECTILE DYSFUNCTION 10/19/2006 03/19/2021 Actinic keratosis 10/19/2006 02/21/2015 documented as of this encounter (statuses as of 03/24/2022) [facility] History of Past illness Narrative* Problem Noted Date Resolved Date Lumbar sprain 03/05/2020 03/22/2021 Preoperative clearance 03/03/2020 1 First degree AV block 05/23/2018 03/22/2021 Overview: Was dx many years ago, yearly ekgs, this year the pr interval was [address] wills yearly, advised to loose weight. Last Assessment & Plan: Was dx many years ago, yearly ekgs, this year the pr interval was 212, Sees Dr wills yearly, advised to loose weight. BMI 37.0-37.9, adult 02/21/2015 03/22/2021 HYPERGLYCEMIA 05/05/2007 11/14/2018 Nontraumatic rupture of Achilles tendon 12/21/19 07 10/26/2016 Malignant neoplasm of prostate 12/12/2006 0 03/22/2021 Last Assessment & Plan: No complaints except goes to the rest room 2/3 times a night. Got psa checked , was normal ERECTILE DYSFUNCTION 10/19/2006 03/19/2021 Actinic keratosis 10/19/2006 02/21/2015 documented as of this encounter (statuses as of 03/26/2022) [facility] History of Past illness Narrative* Problem Noted Date Resolved Date Lumbar sprain 03/05/2020 03/22/2021 Preoperative clearance 03/03/2020 1 First degree AV block 05/23/2018 03/22/2021 Overview: Was dx many years ago, yearly ekgs, this year the pr interval was [address] wills yearly, advised to loose weight. Last Assessment & Plan: Was dx many years ago, yearly ekgs, this year the pr interval was 212, Sees Dr wills yearly, advised to loose weight. BMI 37.0-37.9, adult 02/21/2015 03/22/2021 HYPERGLYCEMIA 05/05/2007 11/14/2018 Nontraumatic rupture of Achilles tendon 12/21/19 07 10/26/2016 Malignant neoplasm of prostate 12/12/2006 0 03/22/2021 Last Assessment & Plan: No complaints except goes to the rest room 2/3 times a night. Got psa checked , was normal ERECTILE DYSFUNCTION 10/19/2006 03/19/2021 Actinic keratosis 10/19/2006 02/21/2015 documented as of this encounter (statuses as of 04/04/2022) [facility] History of Past illness Narrative* Problem Noted Date Resolved Date Lumbar sprain 03/05/2020 03/22/2021 Preoperative clearance 03/03/2020 1 First degree AV block 05/23/2018 03/22/2021 Overview: Was dx many years ago, yearly ekgs, this year the pr interval was [address] wills yearly, advised to loose weight. Last Assessment & Plan: Was dx many years ago, yearly ekgs, this year the pr interval was 212, Sees Dr wills yearly, advised to loose weight. BMI 37.0-37.9, adult 02/21/2015 03/22/2021 HYPERGLYCEMIA 05/05/2007 11/14/2018 Nontraumatic rupture of Achilles tendon 12/21/19 07 10/26/2016 Malignant neoplasm of prostate 12/12/2006 0 03/22/2021 Last Assessment & Plan: No complaints except goes to the rest room 2/3 times a night. Got psa checked , was normal ERECTILE DYSFUNCTION 10/19/2006 03/19/2021 Actinic keratosis 10/19/2006 02/21/2015 documented as of this encounter (statuses as of 05/18/2022) [facility] History of Past illness Narrative* Problem Noted Date Resolved Date Lumbar sprain 03/05/2020 03/22/2021 Preoperative clearance 03/03/2020 1 First degree AV block 05/23/2018 03/22/2021 Overview: Was dx many years ago, yearly ekgs, this year the pr interval was [address] wills yearly, advised to loose weight. Last Assessment & Plan: Was dx many years ago, yearly ekgs, this year the pr interval was 212, Sees Dr wills yearly, advised to loose weight. BMI 37.0-37.9, adult 02/21/2015 03/22/2021 HYPERGLYCEMIA 05/05/2007 11/14/2018 Nontraumatic rupture of Achilles tendon 12/21/19 07 10/26/2016 Malignant neoplasm of prostate 12/12/2006 0 03/22/2021 Last Assessment & Plan: No complaints except goes to the rest room 2/3 times a night. Got psa checked , was normal ERECTILE DYSFUNCTION 10/19/2006 03/19/2021 Actinic keratosis 10/19/2006 02/21/2015 documented as of this encounter (statuses as of 06/09/2022) [facility] History of Past illness Narrative* Problem Noted Date Resolved Date Lumbar sprain 03/05/2020 03/22/2021 Preoperative clearance 03/03/2020 1 First degree AV block 05/23/2018 03/22/2021 Overview: Was dx many years ago, yearly ekgs, this year the pr interval was [address] wills yearly, advised to loose weight. Last Assessment & Plan: Was dx many years ago, yearly ekgs, this year the pr interval was 212, Sees Dr wills yearly, advised to loose weight. BMI 37.0-37.9, adult 02/21/2015 03/22/2021 HYPERGLYCEMIA 05/05/2007 11/14/2018 Nontraumatic rupture of Achilles tendon 12/21/19 07 10/26/2016 Malignant neoplasm of prostate 12/12/2006 0 03/22/2021 Last Assessment & Plan: No complaints except goes to the rest room 2/3 times a night. Got psa checked , was normal ERECTILE DYSFUNCTION 10/19/2006 03/19/2021 Actinic keratosis 10/19/2006 02/21/2015 documented as of this encounter (statuses as of 07/14/2022) [facility] History of Past illness Narrative* Problem Noted Date Resolved Date Lumbar sprain 03/05/2020 03/22/2021 Preoperative clearance 03/03/2020 1 First degree AV block 05/23/2018 03/22/2021 Overview: Was dx many years ago, yearly ekgs, this year the pr interval was [address] wills yearly, advised to loose weight. Last Assessment & Plan: Was dx many years ago, yearly ekgs, this year the pr interval was 212, Sees Dr wills yearly, advised to loose weight. BMI 37.0-37.9, adult 02/21/2015 03/22/2021 HYPERGLYCEMIA 05/05/2007 11/14/2018 Nontraumatic rupture of Achilles tendon 12/21/19 07 10/26/2016 Malignant neoplasm of prostate 12/12/2006 0 03/22/2021 Last Assessment & Plan: No complaints except goes to the rest room 2/3 times a night. Got psa checked , was normal ERECTILE DYSFUNCTION 10/19/2006 03/19/2021 Actinic keratosis 10/19/2006 02/21/2015 documented as of this encounter (statuses as of 07/31/2022) [facility] History of Past illness Narrative* Problem Noted Date Resolved Date Lumbar sprain 03/05/2020 03/22/2021 Preoperative clearance 03/03/2020 1 First degree AV block 05/23/2018 03/22/2021 Overview: Was dx many years ago, yearly ekgs, this year the pr interval was [address] wills yearly, advised to loose weight. Last Assessment & Plan: Was dx many years ago, yearly ekgs, this year the pr interval was 212, Sees Dr wills yearly, advised to loose weight. BMI 37.0-37.9, adult 02/21/2015 03/22/2021 HYPERGLYCEMIA 05/05/2007 11/14/2018 Nontraumatic rupture of Achilles tendon 12/21/19 07 10/26/2016 Malignant neoplasm of prostate 12/12/2006 0 03/22/2021 Last Assessment & Plan: No complaints except goes to the rest room 2/3 times a night. Got psa checked , was normal ERECTILE DYSFUNCTION 10/19/2006 03/19/2021 Actinic keratosis 10/19/2006 02/21/2015 documented as of this encounter (statuses as of 07/31/2022) [facility] History of Past illness Narrative* Problem Noted Date Resolved Date Lumbar sprain 03/05/2020 03/22/2021 Preoperative clearance 03/03/2020 First degree AV block 05/23/2018 03/22/2021 Overview: Was dx many years ago, yearly ekgs, this year the pr interval was [address] wills yearly, advised to loose weight. Last Assessment & Plan: Was dx many years ago, yearly ekgs, this year the pr interval was 212, Sees Dr wills yearly, advised to loose weight. BMI 37.0-37.9, adult 02/21/2015 03/22/2021 HYPERGLYCEMIA 05/05/2007 11/14/2018 Nontraumatic rupture of Achilles tendon 12/21/19 07 10/26/2016 Malignant neoplasm of prostate 12/12/2006 0 03/22/2021 Last Assessment & Plan: No complaints except goes to the rest room 2/3 times a night. Got psa checked , was normal ERECTILE DYSFUNCTION 10/19/2006 03/19/2021 Actinic keratosis 10/19/2006 02/21/2015 documented as of this encounter (statuses as of 10/14/2022) [facility] History of Past illness Narrative* Problem Noted Date Diagnosed Date Resolved Date Lumbar sprain 03/05/2020 03/22/2021 Preoperative clearance 03/03/202003/22 First degree AV block 05/23/20182020 Overview: Was dx many years ago, yearly ekgs, this year the pr interval was [address] wills yearly, advised to loose weight. Last Assessment & Plan: Was dx many years ago, yearly ekgs, this year the pr interval was 212, Sees Dr wills yearly, advised to loose weight. BMI 37.0-37.9, adult 02/21/2015 021 HYPERGLYCEMIA 05/05/2007 11/14/2018 Nontraumatic rupture of Achilles tendon 12/20/2006 10/26/2016 Malignant neoplasm of prostate 12/12/2006 03/22/2021 Last Assessment & Plan: No complaints except goes to the rest room 2/3 times a night. Got psa checked , was normal ERECTILE DYSFUNCTION 10/19/2006 021 Actinic keratosis 10/19/2006 02/21/2015 documented as of this encounter (statuses as of 02/23/2023) [facility] History of Past illness Narrative* Problem Noted Date Diagnosed Date Resolved Date Lumbar sprain 03/05/2020 03/22/2021 Preoperative clearance 03/03/202003/22 First degree AV block 05/23/20182020 Overview: Was dx many years ago, yearly ekgs, this year the pr interval was [address] wills yearly, advised to loose weight. Last Assessment & Plan: Was dx many years ago, yearly ekgs, this year the pr interval was 212, Sees Dr wills yearly, advised to loose weight. BMI 37.0-37.9, adult 02/21/2015 021 HYPERGLYCEMIA 05/05/2007 11/14/2018 Nontraumatic rupture of Achilles tendon 12/20/2006 10/26/2016 Malignant neoplasm of prostate 12/12/2006 03/22/2021 Last Assessment & Plan: No complaints except goes to the rest room 2/3 times a night. Got psa checked , was normal ERECTILE DYSFUNCTION 10/19/2006 021 Actinic keratosis 10/19/2006 02/21/2015 documented as of this encounter (statuses as of 03/30/2023) [facility] History of Past illness Narrative* Problem Noted Date Diagnosed Date Resolved Date Lumbar sprain 03/05/2020 03/22/2021 Preoperative clearance 03/03/202003/22 First degree AV block 05/23/20182020 Overview: Was dx many years ago, yearly ekgs, this year the pr interval was [address] wills yearly, advised to loose weight. Last Assessment & Plan: Was dx many years ago, yearly ekgs, this year the pr interval was 212, Sees Dr wills yearly, advised to loose weight. BMI 37.0-37.9, adult 02/21/2015 021 HYPERGLYCEMIA 05/05/2007 11/14/2018 Nontraumatic rupture of Achilles tendon 12/20/2006 10/26/2016 Malignant neoplasm of prostate 12/12/2006 03/22/2021 Last Assessment & Plan: No complaints except goes to the rest room 2/3 times a night. Got psa checked , was normal ERECTILE DYSFUNCTION 10/19/2006 021 Actinic keratosis 10/19/2006 02/21/2015 documented as of this encounter (statuses as of 04/13/2023) [facility] noteNo assessment information availableWProMed[facility] Work Phone: Evaluation note* Diagnosis PAF (paroxysmal atrial fibrillation) (HCC)- Primary Atrial fibrillation Essential hypertension Unspecified essential hypertension Mixed hyperlipidemia [facility]* Diagnosis Impaired fasting blood sugar- Primary Impaired fasting glucose Mixed hyperlipidemia [facility]* Diagnosis Inflammatory polyarthropathy (HCC)- Primary Unspecified inflammatory polyarthropathy Essential hypertension Unspecified essential hypertension Class 2 severe obesity with serious comorbidity and body mass index (BMI) of 37.0 to 37.9 in adult, unspecified obesity type (HCC) Edema of lower leg due to peripheral venous insufficiency Mixed hyperlipidemia Lower urinary tract symptoms (LUTS) Other symptoms involving urinary system Abrasion of left lower extremity, initial encounter Need for vaccination Need for prophylactic vaccination and inoculation against unspecified single disease Kidney insufficiency Unspecified disorder of kidney and ureter [facility] Diagnosis Lower urinary tract symptoms (LUTS) Other symptoms involving urinary system [facility] this [facility]* Diagnosis Kidney insufficiency- Primary Unspecified disorder of kidney and ureter [facility] this [facility] [place] [facility]* Diagnosis Essential hypertension- Primary Unspecified essential hypertension Renal insufficiency Unspecified disorder of kidney and ureter [facility] Diagnosis PAF (paroxysmal atrial fibrillation) (HCC)- Primary Atrial fibrillation Essential hypertension Unspecified essential hypertension Mixed hyperlipidemia Mitral valve disease Other and unspecified mitral valve diseases [facility] this [facility]* Diagnosis Allergic rhinitis, unspecified seasonality, unspecified trigger [facility] this [facility]* Diagnosis Essential hypertension Unspecified essential hypertension Gastroesophageal reflux disease without esophagitis Esophageal reflux [facility] this [facility]* Diagnosis COVID-19- Primary documented in this encounter [facility] [place] [facility]* Diagnosis PAF (paroxysmal atrial fibrillation) (HCC)- Primary Atrial fibrillation Essential hypertension Unspecified essential hypertension Mixed hyperlipidemia Ascending aorta dilatation (HCC) Thoracic aortic ectasia RAJESH (obstructive sleep apnea) Obstructive sleep apnea (adult) (pediatric) documented [facility] this encounter [facility]* Diagnosis Medicare annual wellness visit, subsequent- Primary Routine general medical examination at a health care facility Essential hypertension Unspecified essential hypertension Edema of lower leg due to peripheral venous insufficiency Mixed hyperlipidemia Obesity, Class II, BMI 35-39.9 Obesity, unspecified [facility] this [facility]* Diagnosis Allergic rhinitis with postnasal drip- Primary Essential hypertension Unspecified essential hypertension Claudication of both lower extremities (HCC) Anemia, chronic disease Anemia of other chronic disease Blurry vision Other specified visual disturbances [facility] this [facility] Diagnosis Mixed hyperlipidemia- Primary [facility] this [facility]* Diagnosis Anemia, chronic disease Anemia of other chronic disease Essential hypertension Unspecified essential hypertension Malignant neoplasm of prostate (HCC) Malignant neoplasm of prostate Hyperlipidemia, unspecified hyperlipidemia type Inflammatory polyarthropathy (HCC) Unspecified inflammatory polyarthropathy PAF (paroxysmal atrial fibrillation) (HCC)- Primary Atrial fibrillation Essential hypertension Unspecified essential hypertension Mixed hyperlipidemia Ascending aorta dilatation (HCC) Thoracic aortic ectasia RAJESH on CPAP Obstructive sleep apnea (adult) (pediatric) [facility] Anemia, chronic disease Anemia of other chronic disease Essential hypertension Unspecified essential hypertension Malignant neoplasm of prostate (HCC) Malignant neoplasm of prostate Hyperlipidemia, unspecified hyperlipidemia type Inflammatory polyarthropathy (HCC) Unspecified inflammatory polyarthropathy Stage 3a chronic kidney disease (HCC)- Primary Essential hypertension Unspecified essential hypertension Psoriasis Other psoriasis Lower urinary tract symptoms (LUTS) Other symptoms involving urinary system Mixed hyperlipidemia Allergic rhinitis, unspecified seasonality, unspecified trigger PAF (paroxysmal atrial fibrillation) (HCC) Atrial fibrillation Gastroesophageal reflux disease without esophagitis Esophageal reflux [facility] Diagnosis Anemia, chronic disease Anemia of other chronic disease Essential hypertension Unspecified essential hypertension Malignant neoplasm of prostate (HCC) Malignant neoplasm of prostate Hyperlipidemia, unspecified hyperlipidemia type Inflammatory polyarthropathy (HCC) Unspecified inflammatory polyarthropathy Essential hypertension- Primary Unspecified essential hypertension Stage 3a chronic kidney disease (HCC) Edema of lower leg due to peripheral venous insufficiency Claudication of both lower extremities (HCC) Acute pain of left shoulder Lower urinary tract symptoms (LUTS) Other symptoms involving urinary system [facility] Anemia, chronic disease Anemia of other chronic disease Essential hypertension Unspecified essential hypertension Malignant neoplasm of prostate (HCC) Malignant neoplasm of prostate Hyperlipidemia, unspecified hyperlipidemia type Inflammatory polyarthropathy (HCC) Unspecified inflammatory polyarthropathy Lower urinary tract symptoms (LUTS) Other symptoms involving urinary system Essential hypertension Unspecified essential hypertension [facility] Diagnosis Anemia, chronic disease Anemia of other chronic disease Essential hypertension Unspecified essential hypertension Malignant neoplasm of prostate (HCC) Malignant neoplasm of prostate Hyperlipidemia, unspecified hyperlipidemia type Inflammatory polyarthropathy (HCC) Unspecified inflammatory polyarthropathy Stage 3a chronic kidney disease (HCC)- Primary Lower urinary tract symptoms (LUTS) Other symptoms involving urinary system Allergic rhinitis with postnasal drip Essential hypertension Unspecified essential hypertension [facility] Diagnosis Anemia, chronic disease Anemia of other chronic disease Essential hypertension Unspecified essential hypertension Malignant neoplasm of prostate (HCC) Malignant neoplasm of prostate Hyperlipidemia, unspecified hyperlipidemia type Inflammatory polyarthropathy (HCC) Unspecified inflammatory polyarthropathy Anemia, chronic disease- Primary Anemia of other chronic disease Stage 3a chronic kidney disease (HCC) Mixed hyperlipidemia [facility] Diagnosis Anemia, chronic disease Anemia of other chronic disease Essential hypertension Unspecified essential hypertension Malignant neoplasm of prostate (HCC) Malignant neoplasm of prostate Hyperlipidemia, unspecified hyperlipidemia type Inflammatory polyarthropathy (HCC) Unspecified inflammatory polyarthropathy Medicare annual wellness visit, subsequent- Primary Routine general medical examination at a [facility] facility Screening for depression Encounter for screening examination for other mental health and behavioral disorders Essential hypertension Unspecified essential hypertension Edema of lower leg due to peripheral venous insufficiency Allergic rhinitis with postnasal drip Anemia, chronic disease Anemia of other chronic disease Stage 3a chronic kidney disease (HCC) Mixed hyperlipidemia PAF (paroxysmal atrial fibrillation) (HCC) Atrial fibrillation Inflammatory polyarthropathy (HCC) Unspecified inflammatory polyarthropathy [facility] Diagnosis Anemia, chronic disease Anemia of other chronic disease Essential hypertension Unspecified essential hypertension Malignant neoplasm of prostate (HCC) Malignant neoplasm of prostate Hyperlipidemia, unspecified hyperlipidemia type Inflammatory polyarthropathy (HCC) Unspecified inflammatory polyarthropathy Allergic rhinitis with postnasal drip documented [facility] Diagnosis Anemia, chronic disease Anemia of other chronic disease Essential hypertension Unspecified essential hypertension Malignant neoplasm of prostate (HCC) Malignant neoplasm of prostate Hyperlipidemia, unspecified hyperlipidemia type Inflammatory polyarthropathy (HCC) Unspecified inflammatory polyarthropathy Essential hypertension Unspecified essential hypertension Mixed hyperlipidemia PAF (paroxysmal atrial fibrillation) (HCC) Atrial fibrillation Gastroesophageal reflux disease without esophagitis Esophageal reflux [facility] Diagnosis Anemia, chronic disease Anemia of other chronic disease Essential hypertension Unspecified essential hypertension Malignant neoplasm of prostate (HCC) Malignant neoplasm of prostate Hyperlipidemia, unspecified hyperlipidemia type Inflammatory polyarthropathy (HCC) Unspecified inflammatory polyarthropathy Gastroesophageal reflux disease without esophagitis Esophageal reflux [facility] Diagnosis Anemia, chronic disease Anemia of other chronic disease Essential hypertension Unspecified essential hypertension Malignant neoplasm of prostate (HCC) Malignant neoplasm of prostate Hyperlipidemia, unspecified hyperlipidemia type Inflammatory polyarthropathy (HCC) Unspecified inflammatory polyarthropathy Acute cough- Primary Rhinosinusitis Unspecified sinusitis (chronic) documented [facility] this [facility] Diagnosis Anemia, chronic disease Anemia of other chronic disease Essential hypertension Unspecified essential hypertension Malignant neoplasm of prostate (HCC) Malignant neoplasm of prostate Hyperlipidemia, unspecified hyperlipidemia type Inflammatory polyarthropathy (HCC) Unspecified inflammatory polyarthropathy Anemia, chronic disease- Primary Anemia of other chronic disease Lower urinary tract symptoms (LUTS) Other symptoms involving urinary system Allergic rhinitis with postnasal drip Essential hypertension Unspecified essential hypertension Edema of lower leg due to peripheral venous insufficiency documented in this encounter [facility] for referral (narrative)* Outpatient Procedure (Routine) - Closed Specialty Diagnoses / Procedures Referred By Vickey fam Referred To Contact [facility] Diagnoses PAF (paroxysmal atrial fibrillation) (HCC) Essential hypertension Mixed hyperlipidemia Procedures ECG COMPLETE ECG ROUTINE ECG W/LEAST 12 LDS W/I&R Cali Dawson DO [address] [place] [address] [facility] [address] [address] Referral ID Status Reason Start Date Expiration Date V isits Requested Visits Authorized [id number] Closed Auto-Generate d Referral 01/11/2022 01/11/2023 1 1 [facility] for referral (narrative)* Diagnostic Procedure Only (Routine) - Authorized Specialty Diagnoses / Procedures Referred By Vickey fam Referred To Contact US IMAGING Diagnoses Kidney insufficiency Procedures US KIDNEY/BLADDER US RETROPERITONEAL REAL TIME W/IMAGE COMPLETE Sudheer Ritchie MD [address] [place] [address] Us Imaging Referral ID Status Reason Start Date Expiration Date Visits Requested Visits Authorized [id number] Authorized Auto-Generat ed Referral 03/27/2022 04/26/2023 1 1 T [facility] for referral (narrative)* Outpatient Procedure (Routine) - Pending Review Specialty Diagnoses / Procedures Referred By Vickey fam Referred To Contact [facility] Diagnoses PAF (paroxysmal atrial fibrillation) (HCC) Essential hypertension Mixed hyperlipidemia Mitral valve disease Procedures ECHO ECHO TTHRC R-T 2D W/WOM-MODE COMPL SPEC&COLR D Cali Dawson DO [address] [place] [address] [facility] [address] [place] [address] Referral ID Status Reason Start Date Expiration Date Visits Requested Visits Authorized [id number] Pending Review Auto-Generat ed Referral 2 07/14/2023 1 1 [facility] for referral (narrative)* Outpatient Procedure (Routine) - Authorized Specialty Diagnoses / Procedures Referred By Contac t Referred To Contact [facility] Diagnoses Claudication of both lower extremities (HCC) Procedures PVR LEG [facility] NON-INVASIVE PHYSIOLOGIC STUDY EXTREMITY 3 Sudheer Omer MD [address] [place] [address] [facility] [place] [address] [place] [address] Referral ID Status Reason Start Date Expiration Date Visits Requested Visits Authorized [id number] Authorized Auto-Generat ed Referral 10/12/2023 10/11/2024 1 1 [facility] for referral (narrative)No reason for referral information availableWProMedica [facility] Work Phone: Summary Purpose Family History No Family History Records FoundNo Family History Records FoundNo Family History Records FoundNo Family History Records FoundNo Family History Records Found Advance Directives Documents on File Type Date Recorded 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 Advance Directive(s) Advance Directive(s) 08/14/2020 9:38 AM Advance Directive(s) 07/11/2020 11:31 AM Documents on File Type Date Recorded 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 Advance Directive(s) Advance Directive(s) 08/14/2020 9:38 AM Advance Directive(s) 07/11/2020 11:31 AM Chief Complaint and Reason for Visit Chief Complaint PAIN- COPY PCP Chief Complaint Admit Date CONSTIPATION January 16, 2025 4:23 pm Reason for Referral Specialty Diagnoses / Procedures Referred By Contac t Referred To Contact Urology Diagnoses Lower urinary tract symptoms (LUTS) Procedures CONSULT TO UROLOGY OFFICE/OUTPATIENT NEW HIGH MDM 60-74 MINUTES Sudheer Ritchie MD [address] [place] [address] Referral ID Status Reason Start Date Expiration Date Visits Requested Visits Authorized [id number] Authorized PCP Requested Referral 03/16/2022 03/16/2023 1 1 Additional Source Comments (unrecognized sect ion and content) No Status Records FoundNo Status Records FoundNo Status Records FoundNo Status Records FoundNo Status Records Found INFORMATION SOURCE (unrecogn ized section and content) DATE CREATED AUTHOR 01/12/2018 [facility] DATE CREATED AUTHOR AUTHOR'S ORGANIZ ATION 01/12/2018 [facility] DATE CREATED AUTHOR AUTHOR'S ORGANIZ ATION 04/07/2020 [facility] DATE CREATED AUTHOR AUTHOR'S ORGANIZ ATION 09/21/2024 [facility] DATE CREATED AUTHOR AUTHOR'S ORGANIZ ATION 01/15/2025 [facility] Goals (unrecognized section and content) Goals may be documented in a n alternate sectionGoals may be documented in an alternate sectionGoals may be documented in an alternate sectionGoals may be documented in an alternate sectionGoals may be documented in an alternate section Source Comments (unrecognize d section and content) In the event this informatio n is protected by the Federal Confidentiality of Alcohol and Drug Abuse Patient Records regulations: The Federal rules restrict any use of the information to criminally investigate or prosecute any alcohol or drug abuse patient.[facility] the event this information is protected by the Federal Confidentiality of Alcohol and Drug Abuse Patient Records regulations: The Federal rules restrict any use of the information to criminally investigate or prosecute any alcohol or drug abuse patient.[facility] the event this information is protected by the Federal Confidentiality of Alcohol and Drug Abuse Patient Records regulations: The Federal rules restrict any use of the information to criminally investigate or prosecute any alcohol or drug abuse patient.[facility] the event this information is protected by the Federal Confidentiality of Alcohol and Drug Abuse Patient Records regulations: The Federal rules restrict any use of the information to criminally investigate or prosecute any alcohol or drug abuse patient.[facility] the event this information is protected by the Federal Confidentiality of Alcohol and Drug Abuse Patient Records regulations: The Federal rules restrict any use of the information to criminally investigate or prosecute any alcohol or drug abuse patient.[facility] the event this information is protected by the Federal Confidentiality of Alcohol and Drug Abuse Patient Records regulations: The Federal rules restrict any use of the information to criminally investigate or prosecute any alcohol or drug abuse patient.[facility] the event this information is protected by the Federal Confidentiality of Alcohol and Drug Abuse Patient Records regulations: The Federal rules restrict any use of the information to criminally investigate or prosecute any alcohol or drug abuse patient.[facility] the event this information is protected by the Federal Confidentiality of Alcohol and Drug Abuse Patient Records regulations: The Federal rules restrict any use of the information to criminally investigate or prosecute any alcohol or drug abuse patient.[facility] the event this information is protected by the Federal Confidentiality of Alcohol and Drug Abuse Patient Records regulations: The Federal rules restrict any use of the information to criminally investigate or prosecute any alcohol or drug abuse patient.[facility] the event this information is protected by the Federal Confidentiality of Alcohol and Drug Abuse Patient Records regulations: The Federal rules restrict any use of the information to criminally investigate or prosecute any alcohol or drug abuse patient.[facility] the event this information is protected by the Federal Confidentiality of Alcohol and Drug Abuse Patient Records regulations: The Federal rules restrict any use of the information to criminally investigate or prosecute any alcohol or drug abuse patient.[facility] the event this information is protected by the Federal Confidentiality of Alcohol and Drug Abuse Patient Records regulations: The Federal rules restrict any use of the information to criminally investigate or prosecute any alcohol or drug abuse patient.[facility] the event this information is protected by the Federal Confidentiality of Alcohol and Drug Abuse Patient Records regulations: The Federal rules restrict any use of the information to criminally investigate or prosecute any alcohol or drug abuse patient.[facility] the event this information is protected by the Federal Confidentiality of Alcohol and Drug Abuse Patient Records regulations: The Federal rules restrict any use of the information to criminally investigate or prosecute any alcohol or drug abuse patient.[facility] the event this information is protected by the Federal Confidentiality of Alcohol and Drug Abuse Patient Records regulations: The Federal rules restrict any use of the information to criminally investigate or prosecute any alcohol or drug abuse patient.[facility] the event this information is protected by the Federal Confidentiality of Alcohol and Drug Abuse Patient Records regulations: The Federal rules restrict any use of the information to criminally investigate or prosecute any alcohol or drug abuse patient.[facility] the event this information is protected by the Federal Confidentiality of Alcohol and Drug Abuse Patient Records regulations: The Federal rules restrict any use of the information to criminally investigate or prosecute any alcohol or drug abuse patient.[facility] the event this information is protected by the Federal Confidentiality of Alcohol and Drug Abuse Patient Records regulations: The Federal rules restrict any use of the information to criminally investigate or prosecute any alcohol or drug abuse patient.[facility] the event this information is protected by the Federal Confidentiality of Alcohol and Drug Abuse Patient Records regulations: The Federal rules restrict any use of the information to criminally investigate or prosecute any alcohol or drug abuse patient.[facility] the event this information is protected by the Federal Confidentiality of Alcohol and Drug Abuse Patient Records regulations: The Federal rules restrict any use of the information to criminally investigate or prosecute any alcohol or drug abuse patient.[facility] the event this information is protected by the Federal Confidentiality of Alcohol and Drug Abuse Patient Records regulations: The Federal rules restrict any use of the information to criminally investigate or prosecute any alcohol or drug abuse patient.[facility] the event this information is protected by the Federal Confidentiality of Alcohol and Drug Abuse Patient Records regulations: The Federal rules restrict any use of the information to criminally investigate or prosecute any alcohol or drug abuse patient.[facility] the event this information is protected by the Federal Confidentiality of Alcohol and Drug Abuse Patient Records regulations: The Federal rules restrict any use of the information to criminally investigate or prosecute any alcohol or drug abuse patient.[facility] the event this information is protected by the Federal Confidentiality of Alcohol and Drug Abuse Patient Records regulations: The Federal rules restrict any use of the information to criminally investigate or prosecute any alcohol or drug abuse patient.[facility] the event this information is protected by the Federal Confidentiality of Alcohol and Drug Abuse Patient Records regulations: The Federal rules restrict any use of the information to criminally investigate or prosecute any alcohol or drug abuse patient.[facility] the event this information is protected by the Federal Confidentiality of Alcohol and Drug Abuse Patient Records regulations: The Federal rules restrict any use of the information to criminally investigate or prosecute any alcohol or drug abuse patient.[facility] the event this information is protected by the Federal Confidentiality of Alcohol and Drug Abuse Patient Records regulations: The Federal rules restrict any use of the information to criminally investigate or prosecute any alcohol or drug abuse patient.[facility] the event this information is protected by the Federal Confidentiality of Alcohol and Drug Abuse Patient Records regulations: The Federal rules restrict any use of the information to criminally investigate or prosecute any alcohol or drug abuse patient.[facility] the event this information is protected by the Federal Confidentiality of Alcohol and Drug Abuse Patient Records regulations: The Federal rules restrict any use of the information to criminally investigate or prosecute any alcohol or drug abuse patient.[facility]In the event this information is protected by the Federal Confidentiality of Alcohol and Drug Abuse Patient Records regulations: The Federal rules restrict any use of the information to criminally investigate or prosecute any alcohol or drug abuse patient.[facility] the event this information is protected by the Federal Confidentiality of Alcohol and Drug Abuse Patient Records regulations: The Federal rules restrict any use of the information to criminally investigate or prosecute any alcohol or drug abuse patient.[facility] the event this information is protected by the Federal Confidentiality of Alcohol and Drug Abuse Patient Records regulations: The Federal rules restrict any use of the information to criminally investigate or prosecute any alcohol or drug abuse patient.[facility] the event this information is protected by the Federal Confidentiality of Alcohol and Drug Abuse Patient Records regulations: The Federal rules restrict any use of the information to criminally investigate or prosecute any alcohol or drug abuse patient.[facility] the event this information is protected by the Federal Confidentiality of Alcohol and Drug Abuse Patient Records regulations: The Federal rules restrict any use of the information to criminally investigate or prosecute any alcohol or drug abuse patient.[facility] the event this information is protected by the Federal Confidentiality of Alcohol and Drug Abuse Patient Records regulations: The Federal rules restrict any use of the information to criminally investigate or prosecute any alcohol or drug abuse patient.[facility] the event this information is protected by the Federal Confidentiality of Alcohol and Drug Abuse Patient Records regulations: The Federal rules restrict any use of the information to criminally investigate or prosecute any alcohol or drug abuse patient.[facility] Reason for Visit (unrecogniz ed section and content) Reason Comments Cardiology Follow Up No concerns Reason Comments Patient Question Reason Comments F/U 6 months Specialty Diagnoses / Procedures Referred By Contac t Referred To Contact Urology Diagnoses Lower urinary tract symptoms (LUTS) Procedures CONSULT TO UROLOGY OFFICE/OUTPATIENT NEW HIGH MDM 60-74 MINUTES Sudheer Ritchie MD [address] [place] [address] Referral ID Status Reason Start Date Expiration Date V isits Requested Visits Authorized [id number] Closed PCP Requested Referral 03/16/2022 03/16/2023 1 1 Reason Comments Medication Problem Reason Comments 2 month follow up Reason Onset Date Comments Population Health Navigation Outreach 06/09/2022 [employer] Medicare Reason Comments Cardiology Follow Up No issues Reason Onset Date Comments Refill Request 07/28/2022 Reason Comments F/U 6 months Reason Comments Covid Positive Reason Comments Established Patient Follow-Up Follow upE CHO 07/29/22EKG completed today Room 15Pt had COVID last month and has had fatigue and BERRIOS since Reason Comments Medicare Wellness Exam Reason Comments F/U 3 Month Reason Comments Follow Up Reason Comments 4 month follow-up Reason Comments 4 month follow up Reason Onset Date Comments Refill Request 08/06/2024 Reason Comments blood pressure follow-up Reason Onset Date Comments Care Coordination 12/04/2024 Reason Comments Medicare Wellness Exam F/U 6 months Reason Onset Date Comments Refill Request 12/23/2024 Reason Comments Medication Problem [facility] questions regarding Omeprazole Reason Comments Cough Cough, head and ches t congestion and sinus drainage x 1 month Reason Comments F/U 1 month Care Teams (unrecognized sec tion and content) Subassembler Relationship Specialty Start Date End Date Sudheer Ritchie MD [address] [place] [address] PCP - General Internal Medicine 03/19/21 Subassembler Relationship Specialty Start Date End Date Sudheer Ritchie MD [address] [place], [place] [id number] PCP - General Internal Medicine 03/19/21 Subassembler Relationship Specialty Start Date End Date Sudheer Ritchie MD [address] [place], [place] [id number] PCP - General Internal Medicine 03/19/21 Subassembler Relationship Specialty Start Date End Date Sudheer Ritchie MD [address] [place], [place] [id number] PCP - General Internal Medicine 03/19/21 Subassembler Relationship Specialty Start Date End Date Sudheer Ritchie MD [address] [place] [address] PCP - General Internal Medicine 03/19/21 Subassembler Relationship Specialty Start Date End Date Sudheer Ritchie MD [address] [place] [address] PCP - General Internal Medicine 03/19/21 Subassembler Relationship Specialty Start Date End Date Sudheer Ritchie MD [address] [place] [address] PCP - General Internal Medicine 03/19/21 Subassembler Relationship Specialty Start Date End Date Sudheer Ritchie MD [address] [place] [address] PCP - General Internal Medicine 03/19/21 Subassembler Relationship Specialty Start Date End Date Sudheer Ritchie MD [address] [place] [address] PCP - General Internal Medicine 03/19/21 Subassembler Relationship Specialty Start Date End Date Sudheer Ritchie MD [address] [place] [address] PCP - General Internal Medicine 03/19/21 Subassembler Relationship Specialty Start Date End Date Sudheer Ritchie MD [address] [facility] [place] [address] PCP - General Internal Medicine 03/19/21 Subassembler Relationship Specialty Start Date End Date Sudheer Ritchie MD [address] [facility] [place] [address] PCP - General Internal Medicine 03/19/21 Subassembler Relationship Specialty Start Date End Date Sudheer Ritchie MD [address] [place] [place] [address] PCP - General Internal Medicine 03/19/21 Team Status: Active Member Role Status Dates Dr. Ana Payne MD Family Provider Active Dr. Sudheer Ritchie MD Primary Care Provider Active Team Status: Inactive Member Role Status Dates Dr. Sudheer Ritchie MD Primary Care Provider Active Dr. Ruth Marie MD Attending Provider, Referring Provider Active Subassembler Relationship Specialty Start Date End Date Sudheer Ritchie MD [address] [place] [place] [address] PCP - General Internal Medicine 03/19/21 Subassembler Relationship Specialty Start Date End Date Sudheer Ritchie MD [address] [place] [address] PCP - General Internal Medicine 03/19/21 Subassembler Relationship Specialty Start Date End Date Sudheer Ritchie MD [address] [facility] [place] [address] PCP - General Internal Medicine 03/19/21 Subassembler Relationship Specialty Start Date End Date Sudheer Ritchie MD [address] [place] [place] [address] PCP - General Internal Medicine 03/19/21 Subassembler Relationship Specialty Start Date End Date Sudheer Ritchie MD [address] [facility], [place] [address] PCP - General Internal Medicine 03/19/21 Subassembler Relationship Specialty Start Date End Date Sudheer Ritchie MD [address] [facility], [place] [id number] PCP - General Internal Medicine 03/19/21 Subassembler Relationship Specialty Start Date End Date Sudheer Ritchie MD [address] [place] [address] PCP - General Internal Medicine 03/19/21 Subassembler Relationship Specialty Start Date End Date Sudheer Ritchie MD [address] [place] [address] PCP - General Internal Medicine 03/19/21 Louann Lynne, RUBBER ROLLER GRINDER OPERATOR.REPLENISHMENT MERCHANDISING ASSOCIATE [address] [place] [address] Supervisor Cytology Internal Medicine 07/02/24 Subassembler Relationship Specialty Start Date End Date Sudheer Ritchie MD [address] [place] [address] PCP - General Internal Medicine 03/19/21 Louann Lynne, RUBBER ROLLER GRINDER OPERATOR.REPLENISHMENT MERCHANDISING ASSOCIATE [address] [place] [address] Supervisor Cytology Internal Medicine 07/02/24 Subassembler Relationship Specialty Start Date End Date Sudheer Ritchie MD [address] [place] [address] PCP - General Internal Medicine 03/19/21 Louann Lynne, RUBBER ROLLER GRINDER OPERATOR.REPLENISHMENT MERCHANDISING ASSOCIATE [address] [place] [address] Supervisor Cytology Internal Medicine 07/02/24 Subassembler Relationship Specialty Start Date End Date Sudheer Ritchie MD [address] [place] [address] PCP - General Internal Medicine 03/19/21 Louann Lynne, RUBBER ROLLER GRINDER OPERATOR.REPLENISHMENT MERCHANDISING ASSOCIATE [address] [facility] [place] [address] Supervisor Cytology Internal Medicine 07/02/24 Subassembler Relationship Specialty Start Date End Date Sudheer Ritchie MD [address] [place] [address] PCP - General Internal Medicine 03/19/21 Louann Lynne, RUBBER ROLLER GRINDER OPERATOR.REPLENISHMENT MERCHANDISING ASSOCIATE [address] [facility] [address] Supervisor Cytology Internal Medicine 07/02/24 Subassembler Relationship Specialty Start Date End Date Sudheer Ritchie MD [address] [facility] [place] [address] PCP - General Internal Medicine 03/19/21 Louann Lynne, RUBBER ROLLER GRINDER OPERATOR.REPLENISHMENT MERCHANDISING ASSOCIATE [address] [facility] [address] Supervisor Cytology Internal Medicine 07/02/24 Subassembler Relationship Specialty Start Date End Date Sudheer Ritchie MD [address] [facility] [place] [address] PCP - General Internal Medicine 03/19/21 Louann Lynne, RUBBER ROLLER GRINDER OPERATOR.REPLENISHMENT MERCHANDISING ASSOCIATE [address] [facility] [place] [address] Supervisor Cytology Internal Medicine 07/02/24 Subassembler Relationship Specialty Start Date End Date Sudheer Ritchie MD [address] [place] [address] PCP - General Internal Medicine 03/19/21 Louann Lynne, RUBBER ROLLER GRINDER OPERATOR.REPLENISHMENT MERCHANDISING ASSOCIATE [address] [facility] [place] [address] Supervisor Cytology Internal Medicine 07/02/24 Subassembler Relationship Specialty Start Date End Date Sudheer Ritchie MD [address] [facility] [address] PCP - General Internal Medicine 03/19/21 Louann Lynne, RUBBER ROLLER GRINDER OPERATOR.REPLENISHMENT MERCHANDISING ASSOCIATE [address] [facility] [address] Supervisor Cytology Internal Medicine 07/02/24 Subassembler Relationship Specialty Start Date End Date Sudheer Ritchie MD [address] [place] [address] PCP - General Internal Medicine 03/19/21 Louann Lynne, RUBBER ROLLER GRINDER OPERATOR.REPLENISHMENT MERCHANDISING ASSOCIATE [address] [facility] [address] Supervisor Cytology Internal Medicine 07/02/24 Subassembler Relationship Specialty Start Date End Date Sudheer Ritchie MD [address] [facility] [place] [address] PCP - General Internal Medicine 03/19/21 Louann Lynne, RUBBER ROLLER GRINDER OPERATOR.REPLENISHMENT MERCHANDISING ASSOCIATE [address] [facility] [address] Supervisor Cytology Internal Medicine 07/02/24 Subassembler Relationship Specialty Start Date End Date Sudheer Ritchie MD [address] [place] [address] PCP - General Internal Medicine 03/19/21 Louann Lynne, RUBBER ROLLER GRINDER OPERATOR.REPLENISHMENT MERCHANDISING ASSOCIATE [address] [place] [address] Supervisor Cytology Internal Medicine 07/02/24 Team Status: Active Member Role Status Dates Dr. Sudheer Ritchie MD Primary Care Provider Active Team Status: Inactive Member Role Status Dates Dr. Sudheer Ritchie MD Primary Care Provider Active Start: January 16, 2025 End: January 16, 2025 Ed Physician Provider Emergency Provider Active Start: January 16, 2025 End: January 16, 2025 FOR RECORDS PERTAINING TO PATIENTS WHO ARE OR HAVE BEEN ENROLLED IN A CHEMICAL DEPENDENCY/SUBSTANCEABUSE PROGRAM, SOME INFORMATION MAY BE OMITTED. This clinical summary was aggregated from multiple sources. Caution should be exercised in using it in the provision of clinical care. This summary normalizes information from multiple sources, and as a consequence, information in this document may materially change the coding, format and clinical context of patient data. In addition, data may be omitted in some cases. CLINICAL DECISIONS SHOULD BE BASED ON THE PRIMARY CLINICAL RECORDS. [employer] provides no warranty or guarantee of the accuracy or completeness of information in this document.
== END 2025-01-16 18:38 | disposition left against medical advice (07) ==
PROVIDERS: PCP Internal Medicine
DX: Z53.21 Procedure and treatment not carried out due to patient leaving prior to being seen by health care provider (principal)

== ENCOUNTER → 2025-02-26 | Outpatient (CLI) | payer MEDICARE, SELFPAY ==
[2025-02-26 10:15] LABS: Hematocrit 30.1 % (40-54); Hemoglobin 9.7 g/dL (13.0-16.5); Immature Granulocytes Count 0.020 X10^3/uL (0.0-0.0); Mean Corp Hgb Conc 32.2 g/dL (32-36); Mean Corpuscular Volume 99.3 fL (80-94); Mean Platelet Vol. 11.3 fl (6.2-12.0); NRBC Flagged by Analyzer 0 % (0-5); POSITIVE MORPHOLOGY YES; Platelet Count 240 K/mm3 (150-450); RBC Distribution Width CV 15.9 % (11.6-14.6); RBC Distribution Width SD 57.4 fl (35.1-43.9); Red Blood Count 3.03 M/mm3 (4.6-6.2); White Blood Count 4.3 K/mm3 (4.4-11.0)
[2025-02-26 10:17] LABS: Differential Indicated SCAN CRITERIA MET
[2025-02-26 10:40] LABS: AST(SGOT) 61 U/L (<=37); Alanine Aminotransfer ALT/SGPT 54 U/L (<=46); Albumin, Serum 3.6 g/dL (3.4-4.8); Alkaline Phosphatase 42 U/L (40-129); Anion Gap 11 (5-15); BUN 29 mg/dL (4-19); BUN/Creat Ratio 20.6 RATIO (10-20); Calcium,Total 9.5 mg/dL (7.6-11.0); Carbon Dioxide 23.0 mmol/L (21.0-32.0); Chloride 104 mmol/L (98-108); Globulin 2.6 g/dL (2.2-4.2); Glucose 93 mg/dL (70-99); Potassium 3.8 mmol/L (3.3-5.1)
[2025-02-26 10:50] LABS: Reactive Lymphocyte 1+
== END | disposition home or self-care (01) ==
LOC: MTLAB 08:48
PROVIDERS: PCP Internal Medicine; Referring Provider Internal Medicine Rheumatology; Visit Provider Internal Medicine Rheumatology
DX: M06.4 Inflammatory polyarthropathy (principal); Z79.899 Other long term (current) drug therapy; K76.0 Fatty (change of) liver, not elsewhere classified
CPT/HCPCS: 36415; 80053; 85025

== ENCOUNTER → 2025-05-28 | Outpatient (CLI) | payer MEDICARE, SELFPAY ==
[2025-05-28 12:29] LABS: Hematocrit 29.3 % (40-54); Hemoglobin 9.8 g/dL (13.0-16.5); Immature Granulocytes Count 0.020 X10^3/uL (0.0-0.0); Mean Corp Hgb Conc 33.4 g/dL (32-36); Mean Corpuscular Volume 97.3 fL (80-94); Mean Platelet Vol. 12.6 fl (6.2-12.0); NRBC Flagged by Analyzer 0 % (0-5); Platelet Count 205 K/mm3 (150-450); RBC Distribution Width CV 14.0 % (11.6-14.6); RBC Distribution Width SD 50.4 fl (35.1-43.9); Red Blood Count 3.01 M/mm3 (4.6-6.2); White Blood Count 4.2 K/mm3 (4.4-11.0)
[2025-05-28 13:14] LABS: AST(SGOT) 49 U/L (<=37); Alanine Aminotransfer ALT/SGPT 44 U/L (<=46); Albumin, Serum 3.6 g/dL (3.4-4.8); Alkaline Phosphatase 46 U/L (40-129); Anion Gap 9 (5-15); BUN 37 mg/dL (4-19); BUN/Creat Ratio 25.9 RATIO (10-20); Calcium,Total 9.7 mg/dL (7.6-11.0); Carbon Dioxide 24.9 mmol/L (21.0-32.0); Chloride 104 mmol/L (98-108); Globulin 2.5 g/dL (2.2-4.2); Glucose 88 mg/dL (70-99); Potassium 3.7 mmol/L (3.3-5.1)
== END | disposition home or self-care (01) ==
LOC: MTLAB 09:10
PROVIDERS: PCP Internal Medicine; Referring Provider Internal Medicine Rheumatology; Visit Provider Internal Medicine Rheumatology
DX: M06.4 Inflammatory polyarthropathy (principal); Z79.899 Other long term (current) drug therapy
CPT/HCPCS: 36415; 80053; 85025